=== PATIENT | female | born 1960 | race Two or more races ===

== ENCOUNTER 2017-11-14 15:17 | Inpatient (IN) | payer OTHER ==
[~2017-11-14] VITALS: Ht 165.1 cm; Wt 61.2 kg
[2017-11-14] MEDS ORDERED: VENTOLIN HFA18 GM INH (15:29)
[2017-11-14] MEDS ORDERED: ALBUTEROL1.25 MG/3 INH (15:29)
--- NOTE | 2017-11-14 21:45 | NUR ---
PT TRANSFER TO CCU FROM ED VIA STRETCH WITH HOLISTIC NUTRITIONIST. PT HAS FAMILY AT BEDSIDE. PT HR IS 100-120'S A.FLUTTER ON ARRIVAL. PT ASSISTED TO BED. LAB IN TO DRAW SCHEDULED LABS.
--- NOTE | 2017-11-14 22:15 | NUR ---
MD ON FLOOR. SPOKE WITH MD REGUARDING MEDICATION ON EMAR. PER ED STAFF PT DID NOT RECIEVE 2ND SCHEDULED DOSE OF DILTIAZEM, PT WAS NOT STARTED ON DILTIAZEM GTT, OR GIVEN INSULIN. PER MD DO NOT GIVE SCHEDULED NOVOLIN REGULAR SCHEDULED DOSE OF 12 UNTIS. BS IS 344 WILL GIVE CORRECTIONAL INSULIN SLIDING SCALE INSTEAD. DONT GIVE THE 2ND DOSE OF CARDIZEM INSTEAD JUST START PT ON DILTIAZEM GTT AND MONITOR.
--- NOTE | 2017-11-14 23:15 | NUR ---
CALLED MD TO REPORT TROPONIN LAB. MD ALREADY ORDERED LASIX. MD ORDERED ASPRIN AND LOVENOX TO BE STARTED TONIGHT WELL. UPDATED MD THAT PT HAS CONVERTED TO NORMAL SINUS RHYTHM WITH HR 95-110. PER MD CONTINUE DILTIAZEM GTT AND MONITOR BLOOD PRESSURES.
--- NOTE | 2017-11-14 23:17 | EKG ---
[facility] [address] [facility] [place], [place] [address] Signed Normal sinus rhythm Possible Left atrial enlargement Anteroseptal infarct , age undetermined Abnormal ECG No previous ECGs available Confirmed by BETTIE KEYES MD ([id number]) on 11/14/2017 11:17:22 PM Electronically Signed By: BETTIE KEYSE MD 11/14/17 2317 PATIENT NAME: JOHN PAUL MENG Electrocardiogram DATE OF : 62 PHYSICIAN: BETTIE KEYES MD REPORT #: [id number] REPORT IS CONFIDENTIAL AND NOT TO BE RELEASED WITHOUT AUTHORIZATION
--- NOTE | 2017-11-15 00:35 | NUR ---
PT UP TO BATHROOM WITH NO ISSUES. PT VOIDED 1000ML OF CLEAR YELLOW URINE. PT DENIES SOB AT THIS TIME. PT STATES "I SENT EVERYONE HOME BECAUSE THEY INCREASE MY ANXIETY". PT IS ABLE TO REST COMFORTABLY NOW IN BED. WILL CONTINUE TO CLOSELY MONITOR. PT DENIES ANY OTHER NEEDS AT THIS TIME. CALL LIGHT IN HAND.
--- NOTE | 2017-11-15 03:15 | NUR ---
PT CALLED TO GET UP TO BATHROOM. PT TOELRATED WELL. PT HR 100 NSR WHILE UP. PT ASSESSMENT COMPLTED AND UNCHANGED FROM PREVIOUS ASSESSMENTS. PT REMAINS ON 7.5MG/HR OF THE CARDIZEM GTT. PT HR WHILE RESTING IS TRENDING DOWN THROUGHOUT THE SHIFT. HR 86-96 AT THIS TIME. WILL CONTINUE TO CLSOELY MONITOR BP.
--- NOTE | 2017-11-15 05:15 | NUR ---
PT CALLED TO GET UP TO CAMMODE. PT TOLERATED WELL. PT REQUESTING TYLENOL FOR HEADACHE. PT STATES "I FEEL MUCH BETTER THAN I HAVE THE PAST FEW WEEKS". WILL CONTINUE TO CLSOELY MONITOR.
--- NOTE | 2017-11-15 06:23 | NUR ---
HAVE TRITRATED LEVOPHED DOWN FROM 20MCG/HR TO 10MCG/HR, MAPS GREATER THAN 65. PT IS SLEEPING OFF AND ON. HAD C/O CRAMPING R HIP, GIVEN WARM PACK WHICH SEEMED TO HELP.
--- NOTE | 2017-11-15 07:10 | NUR ---
SLEEPING. LEVOPHED TO 8MCG/HR. REPORT TO DAY SHIFT.
--- NOTE | 2017-11-15 07:11 | NUR ---
REPORT TO DAY SHIFT.
--- NOTE | 2017-11-15 07:28 | EKG ---
[facility] [address] [facility] [place], [place] [address] Signed Atrial flutter with variable AV block Septal infarct (cited on or before 14-NOV-2017) Abnormal ECG When compared with ECG of 14-NOV-2017 15:25, (Unconfirmed) Atrial flutter has replaced Sinus rhythm Questionable change in initial forces of Anterior leads Confirmed by BETTIE KEYES MD ([id number]) on 11/15/2017 7:28:24 AM Electronically Signed By: BETTIE KEYES MD 11/15/17 0728 PATIENT NAME: JOHN PAUL MNEG Electrocardiogram DATE OF : 62 PHYSICIAN: BETTIE KEYES MD REPORT #: [id number] REPORT IS CONFIDENTIAL AND NOT TO BE RELEASED WITHOUT AUTHORIZATION
--- NOTE | 2017-11-15 07:30 | NUR ---
report recieved at bedside.
--- NOTE | 2017-11-15 08:30 | NUR ---
TOOK BREAKFAST WELL. DR. KEYES HERE TO SEE PATIENT. IS RECEPTIVE TO TREATMENT, IS TALKATIVE, IS WILL TO TALK ABOUT HER PAST HEALTH. TEARY AT TIMES. ROUTINE MEDS GIVEN. WAS NOT ABLE TO DO BLOOD SUGAR HAD ALREADY EATEN BREAKFAST. DR. KEYES IS AWARE.
--- NOTE | 2017-11-15 09:10 | NUR ---
ECHO BEING DONE AT BEDSIDE.
--- NOTE | 2017-11-15 10:00 | NUR ---
ECHO COMPLETE. PATIENT DENEIS PROBLEMS.
--- NOTE | 2017-11-15 11:23 | NUR ---
DR. KEYES UPDATED ON PATIENT. ORDERS RECIEVED TO STEPHANY CHASE.
--- NOTE | 2017-11-15 12:06 | NUR ---
ASSESSMENT DONE. SITTING UP IN BED TO TAKE LUNCH. IS IN ROOM.
--- NOTE | 2017-11-15 13:25 | NUR ---
PT WILL BE TRANSFERRED TO [facility] TODAY. PATIENT IS AWARE.
--- NOTE | 2017-11-15 13:30 | NUR ---
HEPARIN GTT HUNG AT 1000 UNITS HR. 2ND IV SITE STARTED TO LEFT FA, 20 GA. DENIES CHEST PAIN OF PRESSURE. IS W/O C/O NAUSEA. FAMILY MEMBERS ARE IN ROOM.
--- NOTE | 2017-11-15 14:00 | NUR ---
MORPHINE 2 MG IV GIVEN FOR OVERALL COMFORT. PATIENT IS VERY ANXIOUS REGARDING TRANSFER. EMS HERE TO TAKE PATIENT TO [facility], REPORT TO THEM.
--- NOTE | 2017-11-15 14:18 | EKG ---
[facility] [address] [facility] [place] [address] Signed Normal sinus rhythm Septal infarct (cited on or before 14-NOV-2017) Abnormal ECG When compared with ECG of 14-NOV-2017 16:16, (Unconfirmed) Sinus rhythm has replaced Atrial flutter Confirmed by BETTIE KEYES MD ([id number]) on 11/15/2017 2:18:29 PM Electronically Signed By: BETTIE KEYES MD 11/15/17 1418 PATIENT NAME: MENGJOHN PAUL Electrocardiogram DATE OF : 62 PHYSICIAN: BETTIE KEYES MD REPORT #: [id number] REPORT IS CONFIDENTIAL AND NOT TO BE RELEASED WITHOUT AUTHORIZATION
--- NOTE | 2017-11-15 14:20 | NUR ---
TO [facility] VIA [facility]. HEPARIN GTT INFUSING AT 1000 UNITS/HR. LESS ANXIOUS AFTER MORPHINE GIVEN. DENIES CHEST PAIN, NAUSEA OR SHORTNESS OF BREATH.
--- NOTE | 2017-11-15 14:30 | NUR ---
REPORT PHONED TO [facility].
== END 2017-11-15 14:20 | disposition short-term general hospital (02) | DRG 281 ==
LOC: ED 15:17 → CCU 20:01
PROVIDERS: ADMIT Internal Medicine
DX: I48.0 Paroxysmal atrial fibrillation (principal); I21.4 Non-ST elevation (NSTEMI) myocardial infarction; J90 Pleural effusion, not elsewhere classified; E11.65 Type 2 diabetes mellitus with hyperglycemia; Z91.14 Patient's other noncompliance with medication regimen; I27.20 Pulmonary hypertension, unspecified; I34.0 Nonrheumatic mitral (valve) insufficiency; Z79.4 Long term (current) use of insulin
CPT/HCPCS: 36415; 71046; 71260; 80048; 80053; 82803; 83036; 83735; 83880; 84100; 84484; 85025; 93005; 93010; 93306; 96361; 96374; 99285; J1644; J1650; J2270; J7030; Q9967

== ENCOUNTER 2017-11-24 14:59 | Inpatient (IN) | payer OTHER ==
[~2017-11-24] VITALS: Ht 165.1 cm; Wt 59.6 kg
[~2017-11-24 14:59] MED LIST: ALBUTEROL1.25 MG/3 INH; VENTOLIN HFA18 GM INH
[2017-11-24] MEDS ORDERED: GLUCOPHAGE500 MG PO (15:22)
[2017-11-24] MEDS ORDERED: LANTUS100 UNITS/ SUB-Q (15:23)
[2017-11-24] MEDS ORDERED: ASPIR 8181 MG PO (15:24)
[2017-11-24] MEDS ORDERED: LIPITOR40 MG PO (15:25)
[2017-11-24] MEDS ORDERED: PLAVIX75 MG PO (15:25)
[2017-11-24] MEDS ORDERED: COREG3.125 MG PO (15:25)
[2017-11-24] MEDS ORDERED: ZESTRIL2.5 MG PO (15:26)
[2017-11-24] MEDS ORDERED: NITROSTAT0.4 MG SL (15:27)
--- NOTE | 2017-11-25 17:54 | EKG ---
[facility] [address] [facility] [place], [place] [address] Signed Normal sinus rhythm Anteroseptal infarct (cited on or before 14-NOV-2017) Abnormal ECG When compared with ECG of 15-NOV-2017 07:17, No significant change was found Confirmed by CATRACHITA CULVER MD ([id number]) on 11/25/2017 5:53:55 PM Electronically Signed By: CATRACHITA CULVER MD 11/25/17 1754 PATIENT NAME: JOHN PAUL MENG Electrocardiogram DATE OF : 62 PHYSICIAN: CATRCAHITA CULVER MD REPORT #: [id number] REPORT IS CONFIDENTIAL AND NOT TO BE RELEASED WITHOUT AUTHORIZATION
--- NOTE | 2017-11-25 17:58 | EKG ---
[facility] [address] [facility] [place] [address] Signed Atrial fibrillation with rapid ventricular response Cannot rule out Anteroseptal infarct (cited on or before 14-NOV-2017) Abnormal ECG When compared with ECG of 24-NOV-2017 15:08, (Unconfirmed) Atrial fibrillation has replaced Sinus rhythm Nonspecific T wave abnormality now evident in Inferior leads Confirmed by CATRACHITA CULVER MD ([id number]) on 11/25/2017 5:58:01 PM Electronically Signed By: CATRACHITA CULVER MD 11/25/17 1758 PATIENT NAME: JOHN PAUL MENG Electrocardiogram DATE OF : 62 PHYSICIAN: CATRACHITA CULVER MD REPORT #: [id number] REPORT IS CONFIDENTIAL AND NOT TO BE RELEASED WITHOUT AUTHORIZATION
[2017-11-26] MEDS ORDERED: ELIQUIS5 MG PO (15:02)
[2017-11-26] MEDS ORDERED: DIGOX125 MCG PO (15:03)
[2017-11-26] MEDS ORDERED: TOPROL XL100 MG PO (15:05)
[2017-11-26] MEDS ORDERED: MAG-OXIDE400 MG PO (15:06)
[2017-11-26] MEDS ORDERED: HYDROXYZINE PAM25 MG PO (15:06)
[2017-11-26] MEDS ORDERED: LANTUS100 UNITS/ SUB-Q (15:07)
[2017-11-26] MEDS ORDERED: NOVOLOG100 UNIT/2 SUB-Q (15:09)
== END 2017-11-26 17:54 | disposition home or self-care (01) | DRG 308 ==
LOC: ED 14:59 → CCU 20:27
PROVIDERS: ADMIT Internal Medicine
DX: I48.0 Paroxysmal atrial fibrillation (principal); I63.9 Cerebral infarction, unspecified; I50.20 Unspecified systolic (congestive) heart failure; I25.10 Atherosclerotic heart disease of native coronary artery without angina pectoris; E78.5 Hyperlipidemia, unspecified; E11.65 Type 2 diabetes mellitus with hyperglycemia; I11.0 Hypertensive heart disease with heart failure; H53.8 Other visual disturbances; Z79.84 Long term (current) use of oral hypoglycemic drugs; Z79.4 Long term (current) use of insulin; I25.2 Old myocardial infarction
CPT/HCPCS: 36415; 70551; 80048; 80053; 80162; 83735; 84443; 84484; 85025; 85610; 90674; 93005; 93010; 96365; 96366; 99285; G0008; J1160; J3475; J7040; J7120; Q0177

== ENCOUNTER 2020-03-18 09:15 | Emergency (ER) | payer OTHER ==
[~2020-03-18] VITALS: Ht 165.1 cm; Wt 61.2 kg
--- OUTSIDE RECORDS SUMMARY | ~2020-03-18 | XMS | Encounter Summary ---
Demographics + + + | Address | [address] | | | [place] [address] | + + + | Home Phone | | + + + | Preferred Language | Unknown | + + + | Marital Status | | + + + | Scientology Affiliation | Unknown | + + + | Race | Unknown | + + + | Ethnic Group | Unknown | + + + Author + + + | Author | [facility] | | | and [place] | + + + | Organization | [facility] | | | and [place] | + + + | Address | Unknown | + + + | Phone | Unavailable | + + + Support + + +---------+ + | Name | Relationship | Address | Phone | + + +---------+ + | Mateo Selfman | ECON | Unknown | | + + +---------+ + Care Team Providers + +------+ + | Care Rough Rounder Name | Role | Phone | + +------+ + | Pauly Perez PA-C | PCP | | + +------+ + Encounter Details +--------+ + + + + | Date | Type | Department | Care Team | Description | +--------+ + + + + | 12/14/ | Hospital | [facility] | Stephen Baker MD | Atrial fibrillation, | | 2018 | Encounter | [facility] | [address] | unspecified type | | | | MEDICINE [address] | [place], [place] | (HCC) | | | | [place], | [address] | | | | | [place] [address] | | | | | | [phone] | | | +--------+ + + + + Social History + +-------+ +--------+------+ | Tobacco Use | Types | Packs/Day | Years | Date | | | | | Used | | + +-------+ +--------+------+ | Smoker, Current | | | | | | Status Unknown | | | | | + +-------+ +--------+------+ + +---+---+---+ | Smokeless Tobacco: | | | | | Former User | | | | + +---+---+---+ + + +---------+ + | Alcohol Use | Drinks/Week | oz/Week | Comments | + + +---------+ + | No | | | | + + +---------+ + + + + | Sex Assigned at | Date Recorded | | | | + + + | Not on file | | + + + + + + + | Job Start Date | Occupation | Industry | + + + + | Not on file | Not on file | Not on file | + + + + + + + + | Travel History | Travel Start | Travel End | + + + + + + | No recent travel history available. | + + documented as of this encounter Medications at Time of Discharge + + + +---------+ + + | Medication | Sig | Dispensed | Refills | Start | End Date | | | | | | Date | | + + + +---------+ + + | acetaminophen | Take 325-650 mg by | | 0 | | | | (TYLENOL) 325 mg | mouth EVERY 4 TO 6 | | | | | | tablet | HOURS NEEDED for | | | | | | | Pain or Fever. | | | | | + + + +---------+ + + | nitroglycerin | Place 1 tablet under | 25 | 11 | 11/19/19 | | | (NITROSTAT) 0.4 mg | the tongue every 5 | tablet | | 18 | | | SL tablet | minutes as needed | | | | | | | for Chest pain. | | | | | + + + +---------+ + + | albuterol 2.5 mg/3 | Take 2.5 mg by | | 0 | | | | mL nebulizer | nebulization 4 times | | | | 8 | | solution | daily as needed for | | | | | | | Wheezing. | | | | | + + + +---------+ + + | ALPRAZolam (XANAX) | Take 0.25-0.75 mg by | | 0 | | | | 0.25 mg tablet | mouth 3 times daily | | | | 8 | | | as needed. | | | | | + + + +---------+ + + | aspirin 81 mg | Take 1 tablet by | 30 | 11 | 11/19/19 | | | chewable tablet | mouth Daily. | tablet | | 18 | 8 | + + + +---------+ + + | atorvaSTATin | Take 1 tablet by | 30 | 11 | 11/19/19 | | | (LIPITOR) 40 mg | mouth nightly. | tablet | | 18 | 0 | | tablet | | | | | | + + + +---------+ + + | carvedilol (COREG) | Take 1 tablet by | 60 | 11 | 11/19/19 | | | 3.125 mg tablet | mouth 2 times daily | tablet | | 18 | 8 | | | (with breakfast & | | | | | | | dinner). | | | | | + + + +---------+ + + | clopidogrel | Take 1 tablet by | 30 | 11 | 11/19/19 | | | (PLAVIX) 75 mg | mouth Daily. | tablet | | 18 | 0 | | tablet | | | | | | + + + +---------+ + + | insulin glargine | Inject 7 Units under | 10 pen | 1 | 11/19/19 | | | (LANJaceUS RUEDAOSTAR) | the skin nightly. | | | 18 | 0 | | 100 units/mL | | | | | | | injection (pen) | | | | | | + + + +---------+ + + | lisinopril | Take 1 tablet by | 30 | 11 | 11/19/19 | | | (PRINIVIL,ZESTRIL) | mouth nightly. | tablet | | 18 | 8 | | 2.5 MG tablet | | | | | | + + + +---------+ + + | losartan (COZAAR) | Take 25 mg by mouth | | 0 | | | | 25 mg tablet | Daily. | | | | 8 | + + + +---------+ + + | metoprolol | Take 100 mg by mouth | | 0 | | | | succinate | Daily. | | | | 0 | | (TOPROL-XL) 100 mg | | | | | | | ER tablet | | | | | | + + + +---------+ + + documented as of this encounter Plan of Treatment + +------+--------+ + + | Name | Type | Priori | Associated Diagnoses | Order Schedule | | | | ty | | | + +------+--------+ + + | Holter monitor - 48 | ECG | Routin | Atrial | 1 Occurrences | | hour | | e | fibrillation, | starting 12/14/2017 | | | | | unspecified type | until 12/14/2017 | | | | | (HCC) | | + +------+--------+ + + documented as of this encounter Visit Diagnoses + + | Diagnosis | + + | Atrial fibrillation, unspecified type (HCC) | + + documented in this encounter"
--- OUTSIDE RECORDS SUMMARY | ~2020-03-18 | XMS | Encounter Summary ---
Demographics + + + | Address | [address] | | | [place] [address] | + + + | Home Phone | | + + + | Preferred Language | Unknown | + + + | Marital Status | | + + + | Voodoo Affiliation | Unknown | + + + | Race | Unknown | + + + | Ethnic Group | Unknown | + + + Author + + + | Author | [facility] | | | and [place] | + + + | Organization | [facility] | | | [...] Team Providers + +------+ + | Care Assistant Winemaker Name | Role | Phone | + +------+ + | Pauly Perez PA-C | PCP | | + +------+ + Reason for Visit +--------+ + | Reason | Comments | +--------+ + | Other | | +--------+ + Encounter Details +--------+ + + + + | Date | Type | Department | Care Team | Description | +--------+ + + + + | 12/18/ | Telephone | [facility] | Stephen Baker MD | Other | | 2018 | | CARDIOLOGY [address] | | | | | [place], | [place], [place] | | | | | [place] [address] | [address] | | | | | [phone] | | | +--------+ + + + [...] as of this encounter Plan of Treatment Not on filedocumented as of this encounter Visit Diagnoses Not on filedocumented in this encounter"
--- OUTSIDE RECORDS SUMMARY | ~2020-03-18 | XMS | Encounter Summary ---
Demographics + + + | Address | [address] | | | [place] [address] | + + + | Home Phone | | + + + | Preferred Language | Unknown | + + + | Marital Status | | + + + | Church Affiliation | Unknown | + + + | Race | Unknown | + + + | Ethnic Group | Unknown | + + + Author + + + | Author | [facility] | | | and [place] | + + + | Organization | [facility] | | | and [...] Team Providers + +------+ + | Care Yam Curer Name | Role | Phone | + +------+ + | Pauly Perez PA-C | PCP | | + +------+ + Encounter Details +--------+ + + + + | Date | Type | Department | Care Team | Description | +--------+ + + + + | 05/17/ | Hospital | C GENERIC IP | Conversion | Pain | | 2018 | Encounter | CONVERSION [address] | Transaction, | | | | | [address] | Provider Unknown | | | | | [place], [place] | [phone] | | | | | [address] | | | | | | [phone] | | | +--------+ + + + [...] + + | losartan (COZAAR) | Take 1 tablet by | 90 | 3 | 01/05/20 | | | 25 mg tablet | mouth Daily. | tablet | | 18 | | + + + +---------+ + + | metFORMIN | Take 1,000 mg by | | 0 | | | | (GLUCOPHAGE) 1000 MG | mouth 2 times daily | | | | | | tablet | (with breakfast & | | | [...] + + + +---------+ + + | apixaban (ELIQUIS) | Take 5 mg by mouth 2 | | 0 | | | | 5 mg tablet | times daily. | | | | 0 | + + + +---------+ + + [...] | 1 | 11/19/19 | | | (LANTUS SOLOSTAR) | the skin nightly. | | | 18 | 0 | | 100 units/mL | | | | | | | injection (pen) | | | | | | + + + +---------+ + + | magnesium oxide | Take 400 mg by mouth | | 0 | | | | (MAG-OX) 400 mg | Daily. | | | | 0 | | tablet | | [...] Not on filedocumented as of this encounter Procedures + +--------+ + + + | Procedure Name | Priori | Date/Time | Associated Diagnosis | Comments | | | ty | | | | + +--------+ + + + | CV CARDIAC PROCEDURE | Routin | 11/16/2017 | | Results for this | | | e | 11:25 PM | | procedure are in the | | | | PST | | results section. | + +--------+ + + + documented in this encounter Results CV CARDIAC PROCEDURE (11/16/2017 11:25 PM PST) + + | Specimen | + + | | + + + + + | Narrative | Performed At | + + + | This is a non-reportable procedure without a radiologist report and | | | is used for image storage only | | + + + + + | Procedure Note | + + | Lavell Clark Conversion - 06/05/2019 3:56 PM PDT This is a non-reportable procedure | | without a radiologist report and isused for image storage only | + + documented in this encounter Visit Diagnoses + + | Diagnosis | + + | Pain Generalized pain | + + documented in this encounter"
--- OUTSIDE RECORDS SUMMARY | ~2020-03-18 | XMS | Encounter Summary ---
Demographics + + + | Address | [address] | | | [place] [address] | + + + | Home Phone | | + + + | Preferred Language | Unknown | + + + | Marital Status | | + + + | Mandaen Affiliation | Unknown | + + + | Race | Unknown | + + + | Ethnic Group | Unknown | + + + Author + + + | Author | [facility] | | | and [place] | + + + | Organization | [facility] | | | and [place] | + + + | Address | Unknown | + + + | Phone | Unavailable | + + + Support + + +---------+ + | Name | Relationship | Address | Phone | + + +---------+ + | Mateo Lahtam | ECON | Unknown | | + + +---------+ + Care Team Providers + +------+ + | Care Van Loader Name | Role | Phone | + +------+ + | Pauly Perez PA-C | PCP | | + +------+ + Encounter Details +--------+ + + + + | Date | Type | Department | Care Team | Description | +--------+ + + + + | 12/14/ | Documentati | [facility] [place] | Stephen Baker MD | | | 2018 | on | CARDIOLOGY [address] | | | | | [place], | [place], [place] | | | | | [place] [address] | [address] | | | | | [phone] | | | +--------+ + + + [...]
--- OUTSIDE RECORDS SUMMARY | ~2020-03-18 | XMS | Encounter Summary ---
Demographics + + + | Address | [address] [facility] | | | [place] [address] | + + + | Home Phone | | + + + | Preferred Language | Unknown | + + + | Marital Status | | + + + | Islam Affiliation | Unknown | + + + | Race | Unknown | + + + | Ethnic Group | Unknown | + + + Author + + + | Author | [facility] | | | and [place] | + + + | Organization | [facility] | | | and [place] | + + + | Address | Unknown | + + + | Phone | Unavailable | + + + Support + + +---------+ + | Name | Relationship | Address | Phone | + + +---------+ + | Mateo Latham | ECON | Unknown | | + + +---------+ + Care Team Providers + +------+ + | Care Documentation Clerk Name | Role | Phone | + +------+ + | Pauly Perez PA-C | PCP | | + +------+ + Encounter Details +--------+ + + + + | Date | Type | Department | Care Team | Description | +--------+ + + + + | 11/15/ | Orders Only | [facility] | Aide Antunez, | | | 2018 | | CONVERSION [address] | [address] | | | | | [address] | [place] | | | | | [facility] [place] | [address] | | | | | [address] | | | | | | [phone] | | | +--------+ + + + [...] | + +--------+ + + + | ECHO INTERPRETATION | Routin | 11/15/2017 | | Results for this | | OF OUTSIDE FILMS | e | 11:46 AM | | procedure are in the | | | | PST | | results section. | + +--------+ + + + documented in this encounter Results ECHO Interpretation of Outside Films (11/15/2017 11:46 AM PST) + + | Specimen | + + | | + + + + + | Impressions | Performed At | + + + | 1. The left ventricle is normal in size, wall thickness and | | | moderately impaired systolic function EF 35-40%. Akinetic mid and | | | apical segments and hypokinesis in the basal segments. 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 | | | 2. The right ventricle is normal in size and function. 3. Moderate | | | mitral regurgitation and moderately enlarged left atrium. 4. Mild | | | tricuspid regurgitation with moderate to severe pulmonary hypertension | | | RVSP 62 mmHg. 5. There is no pericardial effusion. | | + + + + + + | Narrative | Performed At | + + + | Patient Name: Luciana Latham Date of : 1960 | | | Performing Physician: Nani Rocha | | | | | | INDICATIONS inpatient, new onset afib, edema | | | CONCLUSIONS 1. The left ventricle is normal in size, | | | wall thickness and moderately impaired systolic function EF 35-40%. | | | Akinetic mid and apical segments and hypokinesis in the basal | | | segments. Wall motion is consistent with Takotsubo Vs multivessel | | | coronary artery disease. 2. The right ventricle is normal in size | | | and function. 3. Moderate mitral regurgitation and moderately | | | enlarged left atrium. 4. Mild tricuspid regurgitation with moderate | | | to severe pulmonary hypertension RVSP 62 mmHg. 5. There is no | | | pericardial effusion. FINDINGS -------- ECG rhythm: Sinus | | | rhythm. Study: A 2-dimensional transthoracic echocardiogram with | | | m-mode, spectral and color flow Doppler was perfomed. Study: This was | | | a technically adequate study. Left Ventricle: Overall left | | | ventricular systolic function is moderate impaired with, an EF between | | | 30 - 35 %. Left Ventricle: The left ventricle cavity size is normal. | | | Left Ventricle: Left ventricular wall thickness is normal. Left | | | Ventricle: No TDI was done to evaluate diastology. Akinetic mid and | | | apical segments and hypokinesis in the basal segments. Right | | | Ventricle: The right ventricle is normal in size and function. Left | | | Atrium: The left atrium is moderately dilated. Right Atrium: The | | | right atrium is normal in size. Aortic Valve: The aortic valve is | | | trileaflet and appears structurally normal. Aortic Valve: Trace | | | amount of aortic regurgitation. Aortic Valve: There is no evidence of | | | aortic stenosis. Mitral Valve: The mitral valve is normal. Mitral | | | Valve: Moderate mitral regurgitation is present. Tricuspid Valve: The | | | tricuspid valve appears structurally normal. Tricuspid Valve: Mild | | | tricuspid regurgitation present. Tricuspid Valve: There is moderate | | | to severe pulmonary hypertension. Tricuspid Valve: The right | | | ventricular systolic pressure (pulmonary artery systolic pressure), as | | | measured by Doppler, is 62.15mmHg. Pulmonic Valve: The pulmonic | | | valve was not well visualized. Pulmonic Valve: Trace pulmonic | | | regurgitation. Pericardium: There is no pericardial effusion. | | | Pericardium: No pleural effusion seen. IVC/Hepatic Veins: The | | | inferior vena cava is normal in size and collapses > 50 % with sniff, | | | indicating normal central venous pressures. Aorta: The aortic root, | | | ascending aorta and aortic arch are normal. MEASUREMENTS | | | Ao sinus: 3.[address] junct: 2.42 cm LA Diam: | | | 4.47 cm EDV(Teich): 132.25 ml IVSd: 0.78 cm LVIDd: | | | 5.24 cm LVPWd: 0.86 cm LVOT Area: 3.35 cm2 LVOT Diam: 2.06 | | | cm %FS: 28.15 % EF(Teich): 54.03 % ESV(Teich): 60.79 ml | | | LVIDs: 3.77 cm SV(Teich): 71.46 ml RVIDd: 2.72 cm LVEF MOD | | | A2C: 37.23 % SV MOD A2C: 56.94 ml LVEF MOD A4C: 35.60 % | | | SV MOD A4C: 45.60 ml EF Biplane: 36.09 % LVEDV MOD BP: | | | 140.14 ml LVESV MOD BP: 89.55 ml LVEDV MOD A2C: 152.94 ml | | | LVLd A2C: 9.09 cm LVEDV MOD A4C: 128.07 ml LVLd A4C: 9.05 | | | cm LVESV MOD A2C: 96.00 ml LVLs A2C: 8.28 cm LVESV MOD A4C: | | | 82.46 ml LVLs A4C: 8.42 cm LAESV(A-L): 67.52 ml LAESV | | | Index (A-L): 40.67 ml/m2 LAAs A2C: 21.22 cm2 LAESV A-L A2C: | | | 78.51 ml LALs A2C: 4.86 cm LAAs A4C: 17.59 cm2 LAESV A-L | | | A4C: 55.97 ml LALs A4C: 4.69 cm RAAs: 13.28 cm2 RAESV A-L: | | | 38.30 ml RAESV MOD: 36.11 ml RALs: 3.91 cm TAPSE: 1.86 | | | cm AV maxP.48 mmHg AV meanP.97 mmHg AV Vmax: 1.17 | | | m/s AV Vmean: 0.80 m/s AV VTI: 17.18 cm SAM Vmax: 1.93 | | | cm2 SAM (VTI): 2.02 cm2 AVAI Vmax: 0.00 cm2/m2 AVAI (VTI): | | | 0.00 cm2/m2 LVOT maxP.83 mmHg LVOT meanP.85 mmHg | | | LVSI Dopp: 20.96 ml/m2 LVSV Dopp: 34.79 ml LVOT Vmax: 0.67 | | | m/s LVOT Vmean: 0.42 m/s LVOT VTI: 10.37 cm MV A Eddie: 0.55 | | | m/s MV DecT: 151.92 ms MV E Eddie: 1.13 m/s MV E/A Ratio: | | | 2.02 MV PHT: 44.05 ms MVA By PHT: 4.99 cm2 RAP: 12 mmHg | | | RVSP: 62.15 mmHg TR maxP.15 mmHg TR Vmax: 3.54 m/s | | | Director Of Ancillary Services: Authenticated by: Nani Vernon Report Date/Time: | | | 11-15-2017 19:19:25 | | + + + + + | Procedure Note | + + | Lavell Clark Conversion - 06/06/2019 5:21 PM PDT Patient Name: Layton Latham of | | : 1960 Performing Physician: Nani | | [place] INDICATIONS------ | | -----inpatient, new onset afib, edema CONCLUSIONS 1. The left ventricle is | | normal in size, wall thickness and moderately impaired systolic function EF 35-40%. | | Akinetic mid and apical segments and hypokinesis in the basal segments. 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 The right ventricle | | is normal in size and function.3. Moderate mitral regurgitation and moderately enlarged | | left atrium.4. Mild tricuspid regurgitation with moderate to severe pulmonary | | hypertension RVSP 62 mmHg.5. There is no pericardial effusion. FINDINGS--------ECG | | rhythm: Sinus rhythm.Study: A 2-dimensional transthoracic echocardiogram with m-mode, | | spectral and color flow Doppler was perfomed.Study: This was a technically adequate | | study.Left Ventricle: Overall left ventricular systolic function is moderate impaired | | with, an EF between 30 - 35 %.Left Ventricle: The left ventricle cavity size is | | normal.Left Ventricle: Left ventricular wall thickness is normal.Left Ventricle: No TDI | | was done to evaluate diastology. Akinetic mid and apical segments and hypokinesis in the | | basal segments.Right Ventricle: The right ventricle is normal in size and function.Left | | Atrium: The left atrium is moderately dilated.Right Atrium: The right atrium is normal | | in size.Aortic Valve: The aortic valve is trileaflet and appears structurally | | normal.Aortic Valve: Trace amount of aortic regurgitation.Aortic Valve: There is no | | evidence of aortic stenosis.Mitral Valve: The mitral valve is normal.Mitral Valve: | | Moderate mitral regurgitation is present.Tricuspid Valve: The tricuspid valve appears | | structurally normal.Tricuspid Valve: Mild tricuspid regurgitation present.Tricuspid | | Valve: There is moderate to severe pulmonary hypertension.Tricuspid Valve: The right | | ventricular systolic pressure (pulmonary artery systolic pressure), as measured by | | Doppler, is 62.15mmHg.Pulmonic Valve: The pulmonic valve was not well | | visualized.Pulmonic Valve: Trace pulmonic regurgitation.Pericardium: There is no | | pericardial effusion.Pericardium: No pleural effusion seen.IVC/Hepatic Veins: The | | inferior vena cava is normal in size and collapses > 50 % with sniff, indicating normal | | central venous pressures.Aorta: The aortic root, ascending aorta and aortic arch are | | normal. MEASUREMENTS Ao sinus: 3.[address] junct: 2.42 cmLA Diam: | | 4.47 cmEDV(Teich): 132.25 mlIVSd: 0.78 cmLVIDd: 5.24 cmLVPWd: 0.86 cmLVOT Area: | | 3.35 [id number] Diam: 2.06 cm%FS: 28.15 %EF(Teich): 54.03 %ESV(Teich): 60.79 | | mlLVIDs: 3.77 cmSV(Teich): 71.46 mlRVIDd: 2.72 cmLVEF MOD A2C: 37.23 %SV MOD | | A2C: 56.94 mlLVEF MOD A4C: 35.60 %SV MOD A4C: 45.60 mlEF Biplane: 36.09 %LVEDV | | MOD BP: 140.14 mlLVESV MOD BP: 89.55 mlLVEDV MOD A2C: 152.94 mlLVLd A2C: 9.09 | | cmLVEDV MOD A4C: 128.07 mlLVLd A4C: 9.05 cmLVESV MOD A2C: 96.00 mlLVLs A2C: 8.28 | | cmLVESV MOD A4C: 82.46 mlLVLs A4C: 8.42 cmLAESV(A-L): 67.52 mlLAESV Index (A-L): | | 40.67 ml/m2LAAs A2C: 21.22 [id number] A-L A2C: 78.51 mlLALs A2C: 4.86 cmLAAs A4C: | | 17.59 [id number] A-L A4C: 55.97 mlLALs A4C: 4.69 cmRAAs: 13.28 [id number] A-L: | | 38.30 mlRAESV MOD: 36.11 mlRALs: 3.91 cmTAPSE: 1.86 cmAV maxP.48 mmHgAV | | meanP.97 mmHgAV Vmax: 1.17 m/Alexia Vmean: 0.80 m/Alexia VTI: 17.18 cmAVA Vmax: | | 1.93 cm2AVA (VTI): 2.02 [id number] Vmax: 0.00 cm2/m2AVAI (VTI): 0.00 cm2/m2LVOT | | maxP.83 mmHgLVOT meanP.85 mmHgLVSI Dopp: 20.96 ml/m2LVSV Dopp: 34.79 | | mlLVOT Vmax: 0.67 m/sLVOT Vmean: 0.42 m/sLVOT VTI: 10.37 cmMV A Eddie: 0.55 m/sMV | | DecT: 151.92 msMV E Eddie: 1.13 m/sMV E/A Ratio: 2.02MV PHT: 44.05 msMVA By PHT: | | 4.99 cm2RAP: 12 mmHgRVSP: 62.15 mmHgTR maxP.15 mmHgTR Vmax: 3.54 m/s | | Director Of Ancillary Services:Authenticated by: Nani [facility] Date/Time: 11-15-2017 19:19:25 | | IMPRESSION: 1. The left ventricle is normal in size, wall thickness and moderately | | impaired systolic function EF 35-40%. Akinetic mid and apical segments and hypokinesis | | in the basal segments. Wall motion is consistent with Takotsubo Vs multivessel coronary | | artery disease.2. The right ventricle is normal in size and function.3. Moderate mitral | | regurgitation and moderately enlarged left atrium.4. Mild tricuspid regurgitation with | | moderate to severe pulmonary hypertension RVSP 62 mmHg.5. There is no pericardial | | effusion. | |EDV(Teich): 132.25 ml | |IVSd: 0.78 cm | |LVIDd: 5.24 cm | |LVPWd: 0.86 cm | |LVOT Area: 3.35 cm2 | |LVOT Diam: 2.06 cm | |%FS: 28.15 % | |EF(Teich): 54.03 % | |ESV(Teich): 60.79 ml | |LVIDs: 3.77 cm | |SV(Teich): 71.46 ml | |RVIDd: 2.72 cm | |LVEF MOD A2C: 37.23 % | |SV MOD A2C: 56.94 ml | |LVEF MOD A4C: 35.60 % | |SV MOD A4C: 45.60 ml | |EF Biplane: 36.09 % | |LVEDV MOD BP: 140.14 ml | |LVESV MOD BP: 89.55 ml | |LVEDV MOD A2C: 152.94 ml | |LVLd A2C: 9.09 cm | |LVEDV MOD A4C: 128.07 ml | |LVLd A4C: 9.05 cm | |LVESV MOD A2C: 96.00 ml | |LVLs A2C: 8.28 cm | |LVESV MOD A4C: 82.46 ml | |LVLs A4C: 8.42 cm | |LAESV(A-L): 67.52 ml | |LAESV Index (A-L): 40.67 ml/m2 | |LAAs A2C: 21.22 cm2 | |LAESV A-L A2C: 78.51 ml | |LALs A2C: 4.86 cm | |LAAs A4C: 17.59 cm2 | |LAESV A-L A4C: 55.97 ml | |LALs A4C: 4.69 cm | |RAAs: 13.28 cm2 | |RAESV A-L: 38.30 ml | |RAESV MOD: 36.11 ml | |RALs: 3.91 cm | |TAPSE: 1.86 cm | |AV maxP.48 mmHg | |AV meanP.97 mmHg | |AV Vmax: 1.17 m/s | |AV Vmean: 0.80 m/s | |AV VTI: 17.18 cm | |SAM Vmax: 1.93 cm2 | |SAM (VTI): 2.02 cm2 | |AVAI Vmax: 0.00 cm2/m2 | |AVAI (VTI): 0.00 cm2/m2 | |LVOT maxP.83 mmHg | |LVOT meanP.85 mmHg | |LVSI Dopp: 20.96 ml/m2 | |LVSV Dopp: 34.79 ml | |LVOT Vmax: 0.67 m/s | |LVOT Vmean: 0.42 m/s | |LVOT VTI: 10.37 cm | |MV A Eddie: 0.55 m/s | |MV DecT: 151.92 ms | |MV E Eddie: 1.13 m/s | |MV E/A Ratio: 2.02 | |MV PHT: 44.05 ms | |MVA By PHT: 4.99 cm2 | |RAP: 12 mmHg | |RVSP: 62.15 mmHg | |TR maxP.15 mmHg | |TR Vmax: 3.54 m/s | | | |Director Of Ancillary Services: | |Authenticated by: Nani Rcoha | |Report Date/Time: 11-15-2017 19:19:25 | | | |IMPRESSION: | |1. The left ventricle is normal in size, wall thickness and moderately impaired systolic fu nction EF 35-40%. Akinetic mid and apical segments and hypokinesis in the basal segments. Wa ll motion is consistent with | |Takotsubo Vs multivessel coronary artery | |disease. | |2. The right ventricle is normal in size and function. | |3. Moderate mitral regurgitation and moderately enlarged left atrium. | |4. Mild tricuspid regurgitation with moderate to severe pulmonary hypertension RVSP 62 mmHg . | |5. There is no pericardial effusion. | + + documented in this encounter Visit Diagnoses Not on filedocumented in this encounter"
--- OUTSIDE RECORDS SUMMARY | ~2020-03-18 | XMS | Encounter Summary ---
Demographics + + + | Address | [address] | | | [place] [address] | + + + | Home Phone | | + + + | Preferred Language | Unknown | + + + | Marital Status | | + + + | Gnosticism Affiliation | Unknown | + + + | Race | Unknown | + + + | Ethnic Group | Unknown | + + + Author + + + | Author | [facility] | | | and [place] | + + + | Organization | [facility] | | | [...] Team Providers + +------+ + | Care Vacuum Technician Name | Role | Phone | + +------+ + | Pauly Perez PA-C | PCP | | + +------+ + Reason for Visit + + + | Reason | Comments | + + + | Appointment | Schedule earlier appointment | + + + Encounter Details +--------+ + + + + | Date | Type | Department | Care Team | Description | +--------+ + + + + | 12/27/ | Telephone | [facility] | Stephen Baker MD | Appointment | | 2017 | | CARDIOLOGY [address] | (Schedule earlier | | | | [facility], | [place], [place] | appointment) | | | | [place] [address] | [address] | | | | | [phone] | | | +--------+ + + + [...]
--- OUTSIDE RECORDS SUMMARY | ~2020-03-18 | XMS | Encounter Summary ---
Demographics + + + | Address | [address] | | | [place] [address] | + + + | Home Phone | | + + + | Preferred Language | Unknown | + + + | Marital Status | | + + + | Christianity Affiliation | Unknown | + + + | Race | Unknown | + + + | Ethnic Group | Unknown | + + + Author + + + | Author | [facility] | | | and [place] | + + + | Organization | [facility] | | | [...] Team Providers + +------+ + | Care Oracle Distribution Consultant Name | Role | Phone | + +------+ + | Pauly Perez PA-C | PCP | | + +------+ + Reason for Visit Auth/Cert +--------+--------+ + + + + | Status | Reason | Specialty | Diagnoses / | Referred By | Referred To | | | | | Procedures | Contact | Contact | +--------+--------+ + + + + | | | | Diagnoses | | | | | | | CHF Chest | | | | | | | Pain | | | | | | | Procedures | | | | | | | CV Cor Angio | | | +--------+--------+ + + + + Encounter Details +--------+ + + + + | Date | Type | Department | Care Team | Description | +--------+ + + + + | 11/15/ | Hospital | [facility] | Stephen Baker MD | Acute systolic | | 2018 - | Encounter | [facility] | [address] | congestive heart | | | | [address] | [place] | failure (HCC) | | 11/19/ | | [place] [address] | [id number] | | | 2017 | | [phone] | | | +--------+ + + + [...] + + documented as of this encounter Last Filed Vital Signs + + + + + | Vital Sign | Reading | Time Taken | Comments | + + + + + | Blood Pressure | 97/63 | 11/19/2017 7:50 AM | | | | | PST | | + + + + + | Pulse | 81 | 11/19/2017 7:25 AM | | | | | PST | | + + + + + | Temperature | 36.8 C (98.2 F) | 11/19/2017 7:25 AM | | | | | PST | | + + + + + | Respiratory Rate | 18 | 11/19/2017 7:25 AM | | | | | PST | | + + + + + | Oxygen Saturation | 96% | 11/19/2017 7:25 AM | | | | | PST | | + + + + + | Inhaled Oxygen | - | - | | | Concentration | | | | + + + + + | Weight | 59.7 kg (131 lb 9.8 | 11/19/2017 4:14 AM | | | | oz) | PST | | + + + + + | Height | 165.1 cm (5' 5") | 11/15/2017 3:34 PM | | | | | PST | | + + + + + | Body Mass Index | 21.9 | 11/15/2017 3:34 PM | | | | | PST | | + + + + + documented in this encounter Discharge Summaries Stephen Baker MD - 11/19/2017 8:16 AM PST ECG changes; [facility] home (0 ve 1 year follow-up target versus signs 6.2% [place], [place] HOSPITALIST DISCHARGE SUMMARY Pt. Name/Age/: Luciana Latham 57 y.o. 1960 Date of Admission: 11/15/2017 Date of Discharge: 11/19/2017 Admitting Physician: Stephen Simmons MD Primary Care Provider: Pauly Perez PA-C Discharging Physician: Stephen Baker MD DISCHARGE DIAGNOSES: There are no hospital problems to display for this patient. 1. Congestive heart failure likely secondary to recent anterior myocardial infarction 2. Coronary atherosclerosis: Total LAD occlusion, moderate left circumflex disease, severe right PDA disease, RPDA ROBIN PCI 11/16/17 3. Type II diabetes mellitus, poorly controlled 4. Dyslipidemia 5. Paroxysmal atrial fibrillation/flutter DISCHARGE MEDICATIONS: Discharge Medications New Medications Details aspirin 81 mg chewable tablet Replaces: aspirin 81 MG tablet Take 1 tablet by mouth Daily. atorvaSTATin 40 mg tablet Take 1 tablet by mouth nightly. aka: LIPITOR carvedilol 3.125 mg tablet Take 1 tablet by mouth 2 times daily (with breakfast & dinner). aka: COREG clopidogrel 75 mg tablet Take 1 tablet by mouth Daily. aka: PLAVIX insulin glargine 100 units/mL injection (pen) Inject 7 Units under the skin nightly. aka: LANTUS SOLOSTAR lisinopril 2.5 MG tablet Take 1 tablet by mouth nightly. aka: PRINIVIL,ZESTRIL nitroglycerin 0.[address] 1 tablet under the tongue every 5 minutes as needed for Chest pain. aka: NITROSTAT Changed Medications Details ALPRAZolam 0.25 mg tablet Take 0.25-0.75 mg by mouth 3 times daily as needed. What changed: Another medication with the same name was removed. Continue taking this medi cation, and follow the directions you see here. aka: XANAX HYDROcodone-acetaminophen 5-325 mg per tablet Take 1 tablet by mouth EVERY 4 TO 6 HOURS NEEDED for Pain. What changed: Another medication with the same name was removed. Continue taking this medi cation, and follow the directions you see here. aka: NORCO Unchanged Medications Details acetaminophen 325 mg tablet Take 325-650 mg by mouth EVERY 4 TO 6 HOURS NEEDED for Pain or Fever. aka: TYLENOL albuterol 2.5 mg/3 mL nebulizer solution Take 2.5 mg by nebulization 4 times daily as needed for Wheezing. Discontinued Medications aspirin 81 MG tablet Replaced by: aspirin 81 mg chewable tablet buPROPion 300 mg 24 hr tablet aka: WELLBUTRIN XL cyclobenzaprine 10 mg tablet aka: FLEXERIL ergocalciferol 50,000 units capsule aka: VITAMIN D-2 gabapentin 300 mg capsule aka: NEURONTIN hydroCHLOROthiazide 25 mg tablet phentermine 37.5 mg tablet aka: ADIPEX-P simvastatin 20 mg tablet aka: ZOCOR SitaGLIPtin-MetFORMIN HCl 50-1000 MG Tb24 telmisartan 80 MG tablet aka: [facility]: Please refer to the H&P for full details and the most recent rounding rounding (progress) n ote. In short 57-year-old woman transferred from [facility] in [place], [place] on after being admitted with symptoms of congestive heart failure pulmonary edema and atr ial fibrillation with rapid ventricular rate. An echocardiogram done at the outside institu tion showed severe hypokinesis or akinesis of the mid to distal anterior and apical segments . The patient was transferred to our hospital with improved condition after initial IV diur esis. Her atrial fibrillation and flutter eventually converted to sinus rhythm. Her initia l troponin levels were not elevated. Her ECG showed evidence of anterior infarction without acute changes. The patient underwent coronary arteriography on 11/16/17 was found to have a total proximal mid LAD occlusion, moderate left circumflex disease, and a dominant right c oronary artery with severe proximal posterior descending artery stenosis. She underwent suc cessful ROBIN PCI of the right posterior descending artery with a 2.25 x 15 mm drug-eluting st ent. The patient had poorly controlled postprandial blood sugars during admission. She was borderline hypotensive on low doses of carvedilol and lisinopril which were eventually adju sted downward to a point of tolerance. The patient is discharged home in a hemodynamically stable condition. She is counseled on the importance of medication compliance especially wi th dual antiplatelet therapy given her recent stent placement. She will follow-up in my cli kindra within 3 weeks. I encouraged her to seek endocrinology consultation for management of h er diabetes. Most recent weight: Input and output for last 24hrs: Wt Readings from Last 1 Encounters: 11/19/17 59.7 kg (131 lb 9.8 oz) No intake/output data recorded. Vitals Ranges: Temp: [36 C (96.8 F)-37.5 C (99.5 F)] 36.8 C (98.2 F) Pulse: [81-96] 81 Resp: [16-20] 18 BP: (83-115)/(47-65) 97/63 Vitals: Temp: 36.8 C (98.2 F) BP: 97/63 Pulse: 81 Resp: 18 SpO2: 96 % SpO2 96 % on room air at flow rate (Room Air)L/min PHYSICAL EXAM: Patient seen and examined by me on discharge day . The patient is clinically stable with s ystolic blood pressure ranging 90-100. She is really in the shepard without difficulty. PROCEDURES AND CONSULTS: Procedures left heart catheterization, selective coronary arteriography, right PDA ROBIN PCI 11/16/17 PENDING RESULTS: None DISPOSITION AND DISCHARGE INSTRUCTIONS: the patient is discharged to home with her . She will picker operator her prescriptions at [facility] in [place], [place] today. Our office will contact her to schedule outpatient foll ow-up within 3 weeks. Condition: Patient being discharged with condition improved. Diet:Whole food plant based, sodium restricted Less than 30 minutes were spent on discharge and coordination of post-hospital care. Electronically signed by: Stephen Baker MD, 11/19/2017 8:23 [facility] Portions of this chart may have been created with Smallable voice recognition software. Occasi onal wrong-word or sound-alike substitutions may have occurred due to the inherent malik itations of voice recognition software. Please read the chart carefully and recognize, using context, where these substitutions have occurred documented in this enc ounter Medications at Time of Discharge + + [...] + + + +---------+ + + | | Take 1 tablet by | | 0 | | | | HYDROcodone-acetamin | mouth EVERY 4 TO 6 | | | | 8 | | ophen (NORCO) 5-325 | HOURS NEEDED for | | | | | | mg per tablet | Pain. | | | | | + + + +---------+ + + | insulin glargine | Inject 7 Units under | 10 pen | 1 | 11/19/19 | | | (BEENA CHIANG) | the skin nightly. | | | [...] + + documented as of this encounter Progress Notes Gibson Tracey RN - 11/19/2017 9:26 AM PSTReviewed discharge instructions with geeta atient and SO, all prescriptions sent to pharmacy, Dr. Baker at bedside to give additional instructions, AVS given, reminded to make follow up appointment, all questions answered. Antoinette ctronically signed by: Gibson Langford RN 11/19/2017 10:27 Joshua Miller MD - 11/18/2017 6:14 PM PST PATIENT NAME: Luciana Latham : 1960: AGE: 57 y.o. ADMISSION DATE: 11/15/2017 HOSPITAL DAY NUMBER: 3 PRIMARY CARE: Pauly Perez PA-C CARDIOLOGY PROGRESS NOTE Patient feels much improved, ambulating in room, patient wants to go home. Carvedilol dose was held within past 12 hours for hypotension. Blood sugar control remains poor with fasti ng sugar 158 postprandial blood sugar 358. The patient has been on multiple oral hypoglycem ic agents in the past which cause either too low blood sugar or patient perceived intoleranc e. She will go home on her previous dose of Lantus insulin and I have recommended she seek consultation with an commercial stripper. MEDICATIONS: Current Facility-Administered Medications Medication Dose Route Frequency Provider Last Rate Last Dose acetaminophen (TYLENOL) tablet 650 mg 650 mg Oral Q4H PRN Stephen Simmons MD 650 mg at 11/18/17 0742 ALPRAZolam (XANAX) tablet 0.25 mg 0.25 mg Oral Q8H PRN Stephen Simmons MD 0.25 mg a t 11/17/172044 aspirin chewable tablet 81 mg 81 mg Oral Daily Stephen Simmons MD 81 mg at 11/18/17 1033 atorvaSTATin (LIPITOR) tablet 40 mg 40 mg Oral Nightly Stephen Simmons MD 40 mg at 11/17/172033 carvedilol (COREG) tablet 3.125 mg 3.125 mg Oral BID WC Stephen Simmons MD 3.125 mg at 11/18/17 1717 clopidogrel (PLAVIX) tablet 75 mg 75 mg Oral Daily Stephen Simmons MD 75 mg at 12/31 1032 dextrose 50% injection 12.5 g 12.5 g Intravenous PRN Stephen Simmons MD docusate sodium (COLACE) capsule 100 mg 100 mg Oral BID PRN Stephen Simmons MD 100 mg at 11/17/17 1200 HYDROcodone-acetaminophen (NORCO) 5-325 mg per tablet 1-2 tablet 1-2 tablet Oral Q4H P RN Stephen Simmons MD 1 tablet at 11/16/17 1727 insulin glargine (LANTUS SOLOSTAR) 100 units/mL injection (pen) 7 Units 7 Units Subcut aneous Nightly Stephen Simmons MD insulin lispro (humaLOG KWIKPEN) 100 units/mL injection (pen) 0-6 Units 0-6 Units Subc utaneous 4x Daily WC and HS Stephen Simmons MD 3 Units at 11/18/17 1720 lidocaine 1%-EPINEPHrine 1:100,000 injection 5 mL 5 mL Infiltration Once PRN Stephen Simmons MD lisinopril (PRINIVIL,ZESTRIL) tablet 2.5 mg 2.5 mg Oral Nightly Stephen Simmons MD 2.5 mg at 11/17/17 203 nitroglycerin (NITROSTAT) SL tablet 0.4 mg 0.4 mg Sublingual Q5 Min PRN Stephen Simmons MD 0.4 mg at 11/16/17 1909 ondansetron (ZOFRAN) injection 4 mg 4 mg Intravenous Q6H PRN Stephen Simmons MD 4 m g at 11/17/17 2100 traMADol (ULTRAM) tablet 50 mg 50 mg Oral Q6H PRN Stephen Simmons MD 50 mg at 11/17 1425 zolpidem (AMBIEN) tablet 5 mg 5 mg Oral Nightly PRN Stephen Simmons MD 5 mg at 12/03 204 ALLERGIES Allergies Allergen Reactions Gabapentin irritable Hydroxychloroquine myalgia PHYSICAL EXAM Vital signs: Vitals: 11/18/17 1505 BP: 115/63 Pulse: 91 Resp: 16 Temp: 36 C (96.8 F) Admit Weight: Weight: 58.8 kg (129 lb 10.1 oz) Current weight: Weight: 58.9 kg (129 lb 13.6 oz) Body mass index is 21.61 kg/m. General: Alert, appears comfortable Chest: Clear Cardiovascular: Nondisplaced apical impulse, regular rhythm, no S3 Gastrointestinal: Abdomen soft, non-tender, normal bowel sounds Extremities: No edema Neuro: within normal LABS: Admission on 11/15/2017 Component Date Value Ref Range Status Culture 11/15/2017 Negative for MRSA by chromogenic agar method Final PTT 11/15/2017 25 22 - 36 seconds Final VENTRICULAR RATE EKG 11/15/2017 95 BPM Final ATRIAL RATE 11/15/2017 95 BPM Final P-R INTERVAL 11/15/2017 144 ms Final QRS DURATION 11/15/2017 68 ms Final Q-T INTERVAL 11/15/2017 338 ms Final Q-T INTERVAL (CORRECTED) 11/15/2017 424 ms Final P WAVE AXIS 11/15/2017 55 degrees Final QRS AXIS 11/15/2017 30 degrees Final T AXIS 11/15/2017 76 degrees Final INTERPRETATION TEXT 11/15/2017 Final Value:Sinus rhythm with marked sinus arrhythmia and PAC's Possible Left atrial enlargement Possible Anteroseptal infarct , age undetermined Nonspecific T wave abnormality Lateral leads Abnormal ECG No previous ECGs available Confirmed by SABINO RAMIREZ, SHOLA ([id number]) on 11/16/2017 6:45:13 AM WBC 11/16/2017 10.3 4.0 - 11.0 K/uL Final RBC 11/16/2017 4.26 3.70 - 5.20 M/uL Final Hgb 11/16/2017 12.6 11.5 - 16.0 g/dL Final Hct 11/16/2017 38.1 34.0 - 47.0 % Final MCV 11/16/2017 89.5 83.0 - 101.0 fL Final MCH 11/16/2017 29.6 28.0 - 35.0 pg Final MCHC 11/16/2017 33.1 32.0 - 36.0 g/dL Final RDW-CV 11/16/2017 12.9 <15.0 % Final Platelet Count 11/16/2017 270 140 - 440 K/uL Final MPV 11/16/2017 8.9 fL Final PTT 11/15/2017 83* 22 - 36 seconds Final PTT 11/16/2017 62* 22 - 36 seconds Final NA 11/16/2017 138 136 - 149 mmol/L Final K 11/16/2017 4.0 3.5 - 5.1 mmol/L Final CL 11/16/2017 108 98 - 109 mmol/L Final CO2 11/16/2017 24 24 - 31 mmol/L Final ANION GAP 11/16/2017 6 3 - 16 mmol/L Final GLUCOSE 11/16/2017 323* 70 - 109 mg/dL Final BUN 11/16/2017 22* 7 - 18 mg/dL Final Creatinine, Serum/Plasma 11/16/2017 0.53* 0.60 - 1.30 mg/dL Final eGFR if not 11/16/2017 >60 >=60 mL/min/1.73m2 Final CALCIUM 11/16/2017 8.6 8.3 - 10.5 mg/dL Final BUN/CREA 11/16/2017 41.5 Final Glucose, POC 11/16/2017 237* 70 - 109 mg/dL Final Triglycerides 11/16/2017 195* 35 - 160 mg/dL Final Cholesterol 11/16/2017 187 150 - 200 mg/dL Final HDL 11/16/2017 34 28 - 83 mg/dL Final Chol/HDL Ratio 11/16/2017 5.5 Final LDL, Calculated 11/16/2017 114 <=130 mg/dL Final Activated Clotting Time, POC 11/16/2017 252* 125 - 175 second(s) Final Activated Clotting Time, POC 11/16/2017 325* 125 - 175 second(s) Final VENTRICULAR RATE EKG 11/16/2017 83 BPM Final ATRIAL RATE 11/16/2017 83 BPM Final P-R INTERVAL 11/16/2017 144 ms Final QRS DURATION 11/16/2017 72 ms Final Q-T INTERVAL 11/16/2017 354 ms Final Q-T INTERVAL (CORRECTED) 11/16/2017 415 ms Final P WAVE AXIS 11/16/2017 60 degrees Final QRS AXIS 11/16/2017 35 degrees Final T AXIS 11/16/2017 91 degrees Final INTERPRETATION TEXT 11/16/2017 Final Value:Normal sinus rhythm Possible Left atrial enlargement Septal infarct (cited on or before 15-NOV-2017) Nonspecific T wave abnormality Lateral leads Abnormal ECG When compared with ECG of 15-NOV-2017 18:03, No significant change was found Confirmed by SABINO RAMIREZ, SHOLA ([id number]) on 11/17/2017 6:38:00 AM Glucose, POC 11/16/2017 191* 70 - 109 mg/dL Final WBC 11/17/2017 10.1 4.0 - 11.0 K/uL Final RBC 11/17/2017 4.18 3.70 - 5.20 M/uL Final Hgb 11/17/2017 12.3 11.5 - 16.0 g/dL Final Hct 11/17/2017 37.3 34.0 - 47.0 % Final MCV 11/17/2017 89.2 83.0 - 101.0 fL Final MCH 11/17/2017 29.3 28.0 - 35.0 pg Final MCHC 11/17/2017 32.9 32.0 - 36.0 g/dL Final RDW-CV 11/17/2017 13.2 <15.0 % Final Platelet Count 11/17/2017 267 140 - 440 K/uL Final MPV 11/17/2017 8.1 fL Final CK TOTAL 11/17/2017 42 22 - 269 U/L Final VENTRICULAR RATE EKG 11/17/2017 67 BPM Final ATRIAL RATE 11/17/2017 67 BPM Final P-R INTERVAL 11/17/2017 144 ms Final QRS DURATION 11/17/2017 76 ms Final Q-T INTERVAL 11/17/2017 404 ms Final Q-T INTERVAL (CORRECTED) 11/17/2017 426 ms Final P WAVE AXIS 11/17/2017 49 degrees Final QRS AXIS 11/17/2017 28 degrees Final T AXIS 11/17/2017 84 degrees Final INTERPRETATION TEXT 11/17/2017 Final Value:Normal sinus rhythm Anteroseptal infarct (cited on or before 15-NOV-2017) Nonspecific T wave abnormality Inferolateral leads Abnormal ECG When compared with ECG of 16-NOV-2017 16:30, (Unconfirmed) change in initial forces of Anterior leads There is new T wave flattening in inferior leads Confirmed by SHOLA GALLO MD ([id number]) on 11/18/2017 8:56:44 AM Glucose, POC 11/17/2017 195* 70 - 109 mg/dL Final Glucose, POC 11/17/2017 219* 70 - 109 mg/dL Final Glucose, POC 11/17/2017 252* 70 - 109 mg/dL Final Glucose, POC 11/17/2017 416* 70 - 109 mg/dL Final Glucose, POC 11/17/2017 280* 70 - 109 mg/dL Final WBC 11/18/2017 7.2 4.0 - 11.0 K/uL Final RBC 11/18/2017 4.30 3.70 - 5.20 M/uL Final Hgb 11/18/2017 12.6 11.5 - 16.0 g/dL Final Hct 11/18/2017 38.8 34.0 - 47.0 % Final MCV 11/18/2017 90.3 83.0 - 101.0 fL Final MCH 11/18/2017 29.3 28.0 - 35.0 pg Final MCHC 11/18/2017 32.5 32.0 - 36.0 g/dL Final RDW-CV 11/18/2017 13.0 <15.0 % Final Platelet Count 11/18/2017 257 140 - 440 K/uL Final MPV 11/18/2017 8.2 fL Final Glucose, POC 11/17/2017 265* 70 - 109 mg/dL Final Protime 11/18/2017 12.5 11.3 - 13.9 seconds Final INR 11/18/2017 0.94 0.90 - 1.10 Final Glucose, POC 11/18/2017 195* 70 - 109 mg/dL Final Glucose, POC 11/18/2017 365* 70 - 109 mg/dL Final Glucose, POC 11/18/2017 358* 70 - 109 mg/dL Final Glucose, POC 11/18/2017 259* 70 - 109 mg/dL Final IMAGING: No results found. DIAGNOSES AND ASSESSMENTS: 1. Congestive heart failure: Patient how well compensated 2. Coronary artery disease: Status post RCA PCI, probable recent total LAD occlusion one we ek prior to admission PLAN OR RECOMMENDATIONS: Will decrease carvedilol dose Anticipate discharge home tomorrow with outpatient follow-up I appreciate the opportunity of participating in the care of this patient. Stephen Baker MD, 11/18/2017 18:14 Elvia Johnson RN - 10:45 AM PSTConsulted with MD regarding blood pressure trends. Adriana Sebastian PharmD - 11/17/2017 3:35 PM PST PHARMACY SERVICES: ADMISSION MEDICATION REVIEW Luciana Latham is a 57 y.o. female admitted on 11/15/2017. Patient is a reliable historian. Location of Patient when reviewed: ED X Medical Floor Patient s prior to admit medication and over the counter (OTC) medications/herbal supplem ents list obtained from: X Verbal interview X Patient ABLE to recall name, strength, and directions X Pharmacy list names: [facility] insurance reported information Vaccines up to date? Yes No Unsure Influenza x Pneumococcal x Tdap x Shingles x Noted medications discrepancies or medication-related issues: Allergy Alerts: Allergy Added: Reaction: Medication(s) affected: Hydroxychloroquine myalgia gabapentin irritable Medication added: Medication: Prior to Admission Sig: Hydrocodone-acetaminophen 5-325 mg Take one tablet every 4-6 hours as needed for pain Acetaminophen 325 mg Take 1-2 tablets every 4-6 hours as needed for pain or fever Albuterol 0.083% Inhale one vial via nebulizer four times daily as needed Other: Medication: Prior to Admission Sig: Patient taking differently: Alprazolam 0.25 mg Take one to three tablets daily Stopped taking Alprazolam 1 mg Take one to three tablets at bedtime Stopped taking Aspirin 81 mg Take one tablet daily Stopped taking Bupropion 300 mg XL No sig Stopped taking Cyclobenzaprine 10 mg Take one tablet every 6 hours Stopped taking Ergocalciferol 50,000 units Take one capsule by mouth once monthly Stopped taking Gabapentin 300 mg Take one capsule daily Stopped taking Hydrochlorothiazide 25 mg Take one tablet daily Stopped taking Hydrocodone-acetaminophen 10-325 mg Take one tablet four times daily Stopped taking Phentermine 37.5 mg Take one half tablet by mouth daily Stopped taking Simvastatin 20 mg Take one tablet daily Stopped taking Sitagliptan-metformin 50-1000 mg Take one tablet twice daily Stopped taking Telmisartan 80 mg Take one tablet daily Stopped taking Other: Patient states she should be taking other medications (could not state names) but has no t done so for around one year. No record from outpatient pharmacy of above medications unde r "other". Medication review performed and electronically signed by Avelina Perdomo, Chief Revenue Officer 11/17/2017 13:31 Reviewed by Adriana Hinojsoa, PharmTiffany 11/17/2017 15:30 Stephen Miller M D - 11/17/2017 3:24 PM PST PATIENT NAME: Luciana Latham : 1960: AGE: 57 y.o. ADMISSION DATE: 11/15/2017 HOSPITAL DAY NUMBER: 2 PRIMARY CARE: Pauly Perez PA-C CARDIOLOGY PROGRESS NOTE Patient had headache and brief chest pain last night. She was also quite anxious which imp roved with treatment of alprazolam. This morning she is complaining of intermittent headach e but feels that her breathing is more comfortable and she has no recurrence of chest pain. Her systolic blood pressure has ranged between 89 and 102 on a combination of carvedilol an d low-dose RIAN inhibitor. MEDICATIONS: Current Facility-Administered Medications Medication Dose Route Frequency Provider Last Rate Last Dose acetaminophen (TYLENOL) tablet 650 mg 650 mg Oral Q4H PRN Stephen Simmons MD 650 mg at 11/17/17 0426 ALPRAZolam (XANAX) tablet 0.25 mg 0.25 mg Oral Q8H PRN Stephen Simmons MD aspirin chewable tablet 81 mg 81 mg Oral Daily Stephen Simmons MD 81 mg at 11/17/17 0941 atorvaSTATin (LIPITOR) tablet 40 mg 40 mg Oral Nightly Stephen Simmons MD 40 mg at 11/16/172022 carvedilol (COREG) tablet 6.25 mg 6.25 mg Oral BID Stephen Simmons MD clopidogrel (PLAVIX) tablet 75 mg 75 mg Oral Daily Stephen Simmons MD 75 mg at 12/03 0941 dextrose 50% injection 12.5 g 12.5 g Intravenous PRN Stephen Simmons MD docusate sodium (COLACE) capsule 100 mg 100 mg Oral BID PRN Stephen Simmons MD 100 mg at 11/17/17 1200 HYDROcodone-acetaminophen (NORCO) 5-325 mg per tablet 1-2 tablet 1-2 tablet Oral Q4H P RN Stephen Simmons MD 1 tablet at 11/16/17 1727 insulin lispro (humaLOG KWIKPEN) 100 units/mL injection (pen) 0-6 Units 0-6 Units Subc utaneous 4x Daily and Stephen Simmons MD 3 Units at 11/17/17 1222 lidocaine 1%-EPINEPHrine 1:100,000 injection 5 mL 5 mL Infiltration Once PRN Stephen Simmons MD lisinopril (PRINIVIL,ZESTRIL) tablet 2.5 mg 2.5 mg Oral Nightly Stephen Simmons MD nitroglycerin (NITROSTAT) SL tablet 0.4 mg 0.4 mg Sublingual Q5 Min PRN Stephen Simmons MD 0.4 mg at 11/16/17 190 ondansetron (ZOFRAN) injection 4 mg 4 mg Intravenous Q6H PRN Stephen Simmons MD traMADol (ULTRAM) tablet 50 mg 50 mg Oral Q6H PRN Stephen Simmons MD 50 mg at 11/17 142 zolpidem (AMBIEN) tablet 5 mg 5 mg Oral Nightly PRN Stephen Simmons MD 5 mg at 11/02 ALLERGIES Allergies Allergen Reactions Gabapentin irritable Hydroxychloroquine myalgia PHYSICAL EXAM Vital signs: Vitals: 11/17/17 1136 BP: 100/59 Pulse: 85 Resp: 17 Temp: 36.3 C (97.3 F) Admit Weight: Weight: 58.8 kg (129 lb 10.1 oz) Current weight: Weight: 58.7 kg (129 lb 6.6 oz) Body mass index is 21.53 kg/m. General: Alert, appears in no distress Chest: Clear Cardiovascular: Regular rhythm, no S3, jugular venous pressure normal Gastrointestinal: Abdomen soft, non-tender, normal bowel sounds Extremities: No edema Neuro: within normal LABS: Admission on 11/15/2017 Component Date Value Ref Range Status Culture 11/15/2017 Negative for MRSA by chromogenic agar method Final PTT 11/15/2017 25 22 - 36 seconds Final VENTRICULAR RATE EKG 11/15/2017 95 BPM Final ATRIAL RATE 11/15/2017 95 BPM Final P-R INTERVAL 11/15/2017 144 ms Final QRS DURATION 11/15/2017 68 ms Final Q-T INTERVAL 11/15/2017 338 ms Final Q-T INTERVAL (CORRECTED) 11/15/2017 424 ms Final P WAVE AXIS 11/15/2017 55 degrees Final QRS AXIS 11/15/2017 30 degrees Final T AXIS 11/15/2017 76 degrees Final INTERPRETATION TEXT 11/15/2017 Final Value:Sinus rhythm with marked sinus arrhythmia and PAC's Possible Left atrial enlargement Possible Anteroseptal infarct , age undetermined Nonspecific T wave abnormality Lateral leads Abnormal ECG No previous ECGs available Confirmed by SABINO RAMIREZ, SHOLA ([id number]) on 11/16/2017 6:45:13 AM WBC 11/16/2017 10.3 4.0 - 11.0 K/uL Final RBC 11/16/2017 4.26 3.70 - 5.20 M/uL Final Hgb 11/16/2017 12.6 11.5 - 16.0 g/dL Final Hct 11/16/2017 38.1 34.0 - 47.0 % Final MCV 11/16/2017 89.5 83.0 - 101.0 fL Final MCH 11/16/2017 29.6 28.0 - 35.0 pg Final MCHC 11/16/2017 33.1 32.0 - 36.0 g/dL Final RDW-CV 11/16/2017 12.9 <15.0 % Final Platelet Count 11/16/2017 270 140 - 440 K/uL Final MPV 11/16/2017 8.9 fL Final PTT 11/15/2017 83* 22 - 36 seconds Final PTT 11/16/2017 62* 22 - 36 seconds Final NA 11/16/2017 138 136 - 149 mmol/L Final K 11/16/2017 4.0 3.5 - 5.1 mmol/L Final CL 11/16/2017 108 98 - 109 mmol/L Final CO2 11/16/2017 24 24 - 31 mmol/L Final ANION GAP 11/16/2017 6 3 - 16 mmol/L Final GLUCOSE 11/16/2017 323* 70 - 109 mg/dL Final BUN 11/16/2017 22* 7 - 18 mg/dL Final Creatinine, Serum/Plasma 11/16/2017 0.53* 0.60 - 1.30 mg/dL Final eGFR if not 11/16/2017 >60 >=60 mL/min/1.73m2 Final CALCIUM 11/16/2017 8.6 8.3 - 10.5 mg/dL Final BUN/CREA 11/16/2017 41.5 Final Glucose, POC 11/16/2017 237* 70 - 109 mg/dL Final Triglycerides 11/16/2017 195* 35 - 160 mg/dL Final Cholesterol 11/16/2017 187 150 - 200 mg/dL Final HDL 11/16/2017 34 28 - 83 mg/dL Final Chol/HDL Ratio 11/16/2017 5.5 Final LDL, Calculated 11/16/2017 114 <=130 mg/dL Final Activated Clotting Time, POC 11/16/2017 252* 125 - 175 second(s) Final Activated Clotting Time, POC 11/16/2017 325* 125 - 175 second(s) Final VENTRICULAR RATE EKG 11/16/2017 83 BPM Final ATRIAL RATE 11/16/2017 83 BPM Final P-R INTERVAL 11/16/2017 144 ms Final QRS DURATION 11/16/2017 72 ms Final Q-T INTERVAL 11/16/2017 354 ms Final Q-T INTERVAL (CORRECTED) 11/16/2017 415 ms Final P WAVE AXIS 11/16/2017 60 degrees Final QRS AXIS 11/16/2017 35 degrees Final T AXIS 11/16/2017 91 degrees Final INTERPRETATION TEXT 11/16/2017 Final Value:Normal sinus rhythm Possible Left atrial enlargement Septal infarct (cited on or before 15-NOV-2017) Nonspecific T wave abnormality Lateral leads Abnormal ECG When compared with ECG of 15-NOV-2017 18:03, No significant change was found Confirmed by SABINO RAMIREZ, SHOLA ([id number]) on 11/17/2017 6:38:00 AM Glucose, POC 11/16/2017 191* 70 - 109 mg/dL Final WBC 11/17/2017 10.1 4.0 - 11.0 K/uL Final RBC 11/17/2017 4.18 3.70 - 5.20 M/uL Final Hgb 11/17/2017 12.3 11.5 - 16.0 g/dL Final Hct 11/17/2017 37.3 34.0 - 47.0 % Final MCV 11/17/2017 89.2 83.0 - 101.0 fL Final MCH 11/17/2017 29.3 28.0 - 35.0 pg Final MCHC 11/17/2017 32.9 32.0 - 36.0 g/dL Final RDW-CV 11/17/2017 13.2 <15.0 % Final Platelet Count 11/17/2017 267 140 - 440 K/uL Final MPV 11/17/2017 8.1 fL Final CK TOTAL 11/17/2017 42 22 - 269 U/L Final INTERPRETATION TEXT 11/17/2017 Not Confirmed Preliminary Glucose, POC 11/17/2017 195* 70 - 109 mg/dL Final Glucose, POC 11/17/2017 219* 70 - 109 mg/dL Final Glucose, POC 11/17/2017 252* 70 - 109 mg/dL Final IMAGING: No results found. DIAGNOSES AND ASSESSMENTS: 1. Congestive heart failure: The patient appears more compensated with no evidence of pulmo nary edema. Her blood pressure is borderline low on initial doses of carvedilol and lisinop ril. 2. Three-vessel coronary disease with total proximal LAD occlusion, RPDA ROBIN PCI : The patient's LAD likely occluded on November 07 during a 6 hour long episode of severe ches t pain. The first obtuse marginal branch left circumflex artery had a nonsignificant fracti onal flow reserve measurement and RPDA was successfully stented. The patient will be treate d with dual antiplatelet therapy, beta jasmin, RIAN inhibitor, and statin. PLAN OR RECOMMENDATIONS: Transfer to telemetry medical bed Adjust lisinopril and carvedilol dose to avoid hypotension Increase activity as tolerated I appreciate the opportunity of participating in the care of this patient. Stephen Baker MD, 11/17/2017 15:24 Stephen Milelr MD - 0 11/16/2017 3:16 PM PST PATIENT NAME: Luciana Latham : 1960: AGE: 57 y.o. ADMISSION DATE: 11/15/2017 HOSPITAL DAY NUMBER: [id number] PRIMARY CARE: Pauly Perez PA-C CARDIOLOGY PROGRESS NOTE Patient found to have a total LAD occlusion, severe RPDA occlusion and dominant vessel, mod erate disease of first obtuse marginal branch of left circumflex artery and severe disease o f second OM with multiple branches. Patient had drug-eluting stent placement to RPDA. She has complained of headache and some anxiety. MEDICATIONS: Current Facility-Administered Medications Medication Dose Route Frequency Provider Last Rate Last Dose acetaminophen (TYLENOL) tablet 650 mg 650 mg Oral Q4H PRN Stephen Simmons MD 650 mg at 11/17/17 0426 ALPRAZolam (XANAX) tablet 0.25 mg 0.25 mg Oral Q8H PRN Stephen Simmons MD aspirin chewable tablet 81 mg 81 mg Oral Daily Stephen Simmons MD 81 mg at 11/17/17 0941 atorvaSTATin (LIPITOR) tablet 40 mg 40 mg Oral Nightly Stephen Simmons MD 40 mg at 11/16/172022 carvedilol (COREG) tablet 6.25 mg 6.25 mg Oral BID WC Stephen Simmons MD clopidogrel (PLAVIX) tablet 75 mg 75 mg Oral Daily Stephen Simmons MD 75 mg at 12/03 0941 dextrose 50% injection 12.5 g 12.5 g Intravenous PRN Stephen Simmons MD docusate sodium (COLACE) capsule 100 mg 100 mg Oral BID PRN Stephen Simmons MD 100 mg at 11/17/17 1200 HYDROcodone-acetaminophen (NORCO) 5-325 mg per tablet 1-2 tablet 1-2 tablet Oral Q4H P RN Stephen Simmnos MD 1 tablet at 11/16/17 1727 insulin lispro (humaLOG KWIKPEN) 100 units/mL injection (pen) 0-6 Units 0-6 Units Subc utaneous 4x Daily WC and HS Stephen Simmons MD 3 Units at 11/17/17 1222 lidocaine 1%-EPINEPHrine 1:100,000 injection 5 mL 5 mL Infiltration Once PRN Stephen Simmons MD lisinopril (PRINIVIL,ZESTRIL) tablet 2.5 mg 2.5 mg Oral Nightly Stephen Simmons MD nitroglycerin (NITROSTAT) SL tablet 0.4 mg 0.4 mg Sublingual Q5 Min PRN Stephen Simmons MD 0.4 mg at 11/16/17 1909 ondansetron (ZOFRAN) injection 4 mg 4 mg Intravenous Q6H PRN Stephen Simmons MD traMADol (ULTRAM) tablet 50 mg 50 mg Oral Q6H PRN Stephen Simmons MD 50 mg at 11/17 1425 zolpidem (AMBIEN) tablet 5 mg 5 mg Oral Nightly PRN Stephen Simmons MD 5 mg at 11/02 ALLERGIES Allergies Allergen Reactions Gabapentin irritable Hydroxychloroquine myalgia PHYSICAL EXAM Vital signs: Vitals: 11/17/17 1136 BP: 100/59 Pulse: 85 Resp: 17 Temp: 36.3 C (97.3 F) Admit Weight: Weight: 58.8 kg (129 lb 10.1 oz) Current weight: Weight: 58.7 kg (129 lb 6.6 oz) Body mass index is 21.53 kg/m. General: Appears to be comfortable, complaining of headache Chest: Clear Cardiovascular: Decreased intensity heart sounds, regular rhythm, no S3 Gastrointestinal: Abdomen soft, non-tender, normal bowel sounds Extremities: No edema Neuro: within normal LABS: Admission on 11/15/2017 Component Date Value Ref Range Status Culture 11/15/2017 Negative for MRSA by chromogenic agar method Final PTT 11/15/2017 25 22 - 36 seconds Final VENTRICULAR RATE EKG 11/15/2017 95 BPM Final ATRIAL RATE 11/15/2017 95 BPM Final P-R INTERVAL 11/15/2017 144 ms Final QRS DURATION 11/15/2017 68 ms Final Q-T INTERVAL 11/15/2017 338 ms Final Q-T INTERVAL (CORRECTED) 11/15/2017 424 ms Final P WAVE AXIS 11/15/2017 55 degrees Final QRS AXIS 11/15/2017 30 degrees Final T AXIS 11/15/2017 76 degrees Final INTERPRETATION TEXT 11/15/2017 Final Value:Sinus rhythm with marked sinus arrhythmia and PAC's Possible Left atrial enlargement Possible Anteroseptal infarct , age undetermined Nonspecific T wave abnormality Lateral leads Abnormal ECG No previous ECGs available Confirmed by SABINO RAMIREZ, SHOLA ([id number]) on 11/16/2017 6:45:13 AM WBC 11/16/2017 10.3 4.0 - 11.0 K/uL Final RBC 11/16/2017 4.26 3.70 - 5.20 M/uL Final Hgb 11/16/2017 12.6 11.5 - 16.0 g/dL Final Hct 11/16/2017 38.1 34.0 - 47.0 % Final MCV 11/16/2017 89.5 83.0 - 101.0 fL Final MCH 11/16/2017 29.6 28.0 - 35.0 pg Final MCHC 11/16/2017 33.1 32.0 - 36.0 g/dL Final RDW-CV 11/16/2017 12.9 <15.0 % Final Platelet Count 11/16/2017 270 140 - 440 K/uL Final MPV 11/16/2017 8.9 fL Final PTT 11/15/2017 83* 22 - 36 seconds Final PTT 11/16/2017 62* 22 - 36 seconds Final NA 11/16/2017 138 136 - 149 mmol/L Final K 11/16/2017 4.0 3.5 - 5.1 mmol/L Final CL 11/16/2017 108 98 - 109 mmol/L Final CO2 11/16/2017 24 24 - 31 mmol/L Final ANION GAP 11/16/2017 6 3 - 16 mmol/L Final GLUCOSE 11/16/2017 323* 70 - 109 mg/dL Final BUN 11/16/2017 22* 7 - 18 mg/dL Final Creatinine, Serum/Plasma 11/16/2017 0.53* 0.60 - 1.30 mg/dL Final eGFR if not 11/16/2017 >60 >=60 mL/min/1.73m2 Final CALCIUM 11/16/2017 8.6 8.3 - 10.5 mg/dL Final BUN/CREA 11/16/2017 41.5 Final Glucose, POC 11/16/2017 237* 70 - 109 mg/dL Final Triglycerides 11/16/2017 195* 35 - 160 mg/dL Final Cholesterol 11/16/2017 187 150 - 200 mg/dL Final HDL 11/16/2017 34 28 - 83 mg/dL Final Chol/HDL Ratio 11/16/2017 5.5 Final LDL, Calculated 11/16/2017 114 <=130 mg/dL Final Activated Clotting Time, POC 11/16/2017 252* 125 - 175 second(s) Final Activated Clotting Time, POC 11/16/2017 325* 125 - 175 second(s) Final VENTRICULAR RATE EKG 11/16/2017 83 BPM Final ATRIAL RATE 11/16/2017 83 BPM Final P-R INTERVAL 11/16/2017 144 ms Final QRS DURATION 11/16/2017 72 ms Final Q-T INTERVAL 11/16/2017 354 ms Final Q-T INTERVAL (CORRECTED) 11/16/2017 415 ms Final P WAVE AXIS 11/16/2017 60 degrees Final QRS AXIS 11/16/2017 35 degrees Final T AXIS 11/16/2017 91 degrees Final INTERPRETATION TEXT 11/16/2017 Final Value:Normal sinus rhythm Possible Left atrial enlargement Septal infarct (cited on or before 15-NOV-2017) Nonspecific T wave abnormality Lateral leads Abnormal ECG When compared with ECG of 15-NOV-2017 18:03, No significant change was found Confirmed by SABINO RAMIREZ, SHOLA ([id number]) on 11/17/2017 6:38:00 AM Glucose, POC 11/16/2017 191* 70 - 109 mg/dL Final WBC 11/17/2017 10.1 4.0 - 11.0 K/uL Final RBC 11/17/2017 4.18 3.70 - 5.20 M/uL Final Hgb 11/17/2017 12.3 11.5 - 16.0 g/dL Final Hct 11/17/2017 37.3 34.0 - 47.0 % Final MCV 11/17/2017 89.2 83.0 - 101.0 fL Final MCH 11/17/2017 29.3 28.0 - 35.0 pg Final MCHC 11/17/2017 32.9 32.0 - 36.0 g/dL Final RDW-CV 11/17/2017 13.2 <15.0 % Final Platelet Count 11/17/2017 267 140 - 440 K/uL Final MPV 11/17/2017 8.1 fL Final CK TOTAL 11/17/2017 42 22 - 269 U/L Final INTERPRETATION TEXT 11/17/2017 Not Confirmed Preliminary Glucose, POC 11/17/2017 195* 70 - 109 mg/dL Final Glucose, POC 11/17/2017 219* 70 - 109 mg/dL Final Glucose, POC 11/17/2017 252* 70 - 109 mg/dL Final IMAGING: No results found. DIAGNOSES AND ASSESSMENTS: 1. Congestive heart failure: Patient symptomatically improved after diuresis. Echocardiogr am from outside hospital consistent with anterior apical infarction, visually estimated left ventricular ejection fraction 35-40%. 2. Multivessel coronary disease with total proximal LAD occlusion, severe RPDA occlusion, m oderate first OM disease, and severe diffuse disease of second OM not amenable to PCI. Milagros ent status post ROBIN PCI RPDA today. PLAN OR RECOMMENDATIONS: Dual antiplatelet therapy, low-dose RINA inhibitor and beta jasmin, statin therapy I appreciate the opportunity of participating in the care of this patient. Stephen Baker MD, 11/17/2017 15:16 documented in this enc ounter Plan of Treatment Not on filedocumented as of this encounter Procedures + +--------+ + + + | Procedure Name | Priori | Date/Time | Associated Diagnosis | Comments | | | ty | | | | + +--------+ + + + | POC GLUCOSE | Routin | 11/19/2017 | | Results for this | | | e | 6:42 AM | | procedure are in the | | | | PST | | results section. | + +--------+ + + + | EXTRA GREEN TOP TUBE | Routin | 11/19/2017 | | Results for this | | | e | 6:10 AM | | procedure are in the | | | | PST | | results section. | + +--------+ + + + | CBC NO DIFFERENTIAL | Routin | 11/19/2017 | | Results for this | | | e | 6:10 AM | | procedure are in the | | | | PST | | results section. | + +--------+ + + + | POC GLUCOSE | Routin | 11/18/2017 | | Results for this | | | e | 9:04 PM | | procedure are in the | | | | PST | | results section. | + +--------+ + + + | POC GLUCOSE | Routin | 11/18/2017 | | Results for this | | | e | 4:52 PM | | procedure are in the | | | | PST | | results section. | + +--------+ + + + | POC GLUCOSE | Routin | 11/18/2017 | | Results for this | | | e | 2:54 PM | | procedure are in the | | | | PST | | results section. | + +--------+ + + + | POC GLUCOSE | Routin | 11/18/2017 | | Results for this | | | e | 12:17 PM | | procedure are in the | | | | PST | | results section. | + +--------+ + + + | POC GLUCOSE | Routin | 11/18/2017 | | Results for this | | | e | 7:33 AM | | procedure are in the | | | | PST | | results section. | + +--------+ + + + | PROTIME INR | STAT | 11/18/2017 | | Results for this | | | | 4:24 AM | | procedure are in the | | | | PST | | results section. | + +--------+ + + + | CBC NO DIFFERENTIAL | Routin | 11/18/2017 | | Results for this | | | e | 4:15 AM | | procedure are in the | | | | PST | | results section. | + +--------+ + + + | POC GLUCOSE | Routin | 11/17/2017 | | Results for this | | | e | 8:47 PM | | procedure are in the | | | | PST | | results section. | + +--------+ + + + | POC GLUCOSE | Routin | 11/17/2017 | | Results for this | | | e | 6:18 PM | | procedure are in the | | | | PST | | results section. | + +--------+ + + + | POC GLUCOSE | Routin | 11/17/2017 | | Results for this | | | e | 4:36 PM | | procedure are in the | | | | PST | | results section. | + +--------+ + + + | POC GLUCOSE | Routin | 11/17/2017 | | Results for this | | | e | 11:47 AM | | procedure are in the | | | | PST | | results section. | + +--------+ + + + | POC GLUCOSE | Routin | 11/17/2017 | | Results for this | | | e | 7:29 AM | | procedure are in the | | | | PST | | results section. | + +--------+ + + + | ECG 12 LEAD | Routin | 11/17/2017 | | Results for this | | | e | 6:20 AM | | procedure are in the | | | | PST | | results section. | + +--------+ + + + | CBC NO DIFFERENTIAL | Routin | 11/17/2017 | | Results for this | | | e | 5:18 AM | | procedure are in the | | | | PST | | results section. | + +--------+ + + + | CK TOTAL | Routin | 11/17/2017 | | Results for this | | | e | 5:18 AM | | procedure are in the | | | | PST | | results section. | + +--------+ + + + | POC GLUCOSE | Routin | 11/17/2017 | | Results for this | | | e | 4:13 AM | | procedure are in the | | | | PST | | results section. | + +--------+ + + + | POC GLUCOSE | Routin | 11/16/2017 | | Results for this | | | e | 5:10 PM | | procedure are in the | | | | PST | | results section. | + +--------+ + + + | ECG 12 LEAD | Routin | 11/16/2017 | | Results for this | | | e | 4:30 PM | | procedure are in the | | | | PST | | results section. | + +--------+ + + + | CV COR ANGIO | Routin | 11/16/2017 | | Results for this | | | e | 3:25 PM | | procedure are in the | | | | PST | | results section. | + +--------+ + + + | POC ACTIVATED | Routin | 11/16/2017 | | Results for this | | CLOTTING TIME ISTAT | e | 2:53 PM | | procedure are in the | | | | PST | | results section. | + +--------+ + + + | POC ACTIVATED | Routin | 11/16/2017 | | Results for this | | CLOTTING TIME ISTAT | e | 2:28 PM | | procedure are in the | | | | PST | | results section. | + +--------+ + + + | LIPID PANEL | Routin | 11/16/2017 | | Results for this | | | e | 12:08 PM | | procedure are in the | | | | PST | | results section. | + +--------+ + + + | POC GLUCOSE | Routin | 11/16/2017 | | Results for this | | | e | 11:11 AM | | procedure are in the | | | | PST | | results section. | + +--------+ + + + | PTT | Routin | 11/16/2017 | | Results for this | | | e | 4:16 AM | | procedure are in the | | | | PST | | results section. | + +--------+ + + + | CBC NO DIFFERENTIAL | Routin | 11/16/2017 | | Results for this | | | e | 4:16 AM | | procedure are in the | | | | PST | | results section. | + +--------+ + + + | BASIC METABOLIC | Routin | 11/16/2017 | | Results for this | | PANEL | e | 4:16 AM | | procedure are in the | | | | PST | | results section. | + +--------+ + + + | PTT | STAT | 11/15/2017 | | Results for this | | | | 11:07 PM | | procedure are in the | | | | PST | | results section. | + +--------+ + + + | PTT | STAT | 11/15/2017 | | Results for this | | | | 6:04 PM | | procedure are in the | | | | PST | | results section. | + +--------+ + + + | ECG 12 LEAD | STAT | 11/15/2017 | | Results for this | | | | 6:03 PM | | procedure are in the | | | | PST | | results section. | + +--------+ + + + | CULTURE, MRSA | Routin | 11/15/2017 | | Results for this | | | e | 3:23 PM | | procedure are in the | | | | PST | | results section. | + +--------+ + + + | ECHO COMPLETE | Routin | 11/15/2017 | | Results for this | | | e | 10:40 AM | | procedure are in the | | | | PST | | results section. | + +--------+ + + + | LABS - EXTERNAL SCAN | | 11/15/2017 | | Results for this | | | | 12:00 AM | | procedure are in the | | | | PST | | results section. | + +--------+ + + + | ECG - EXTERNAL SCAN | | 11/15/2017 | | Results for this | | | | 12:00 AM | | procedure are in the | | | | PST | | results section. | + +--------+ + + + | IMAGING REPORT - | | 11/14/2017 | | Results for this | | EXTERNAL SCAN | | 12:00 AM | | procedure are in the | | | | PST | | results section. | + +--------+ + + + | IMAGING REPORT - | | 11/14/2017 | | Results for this | | EXTERNAL SCAN | | 12:00 AM | | procedure are in the | | | | PST | | results section. | + +--------+ + + + documented in this encounter Results POC Glucose (11/19/2017 6:42 AM PST) + +---------+ + + + | Component | Value | Ref Range | Performed | Pathologist | | | | | At | Signature | + +---------+ + + + | Glucose, | 209 (H) | 70 - 109 mg/dL | [facility] | | | P[facility] | | | [facility] | | | | | | [facility] | | | | | | [facility] - | | | | | | LAB[facility]ATORY | | + +---------+ + + + + + | Specimen | + + | Blood | + + + + + + + | Performing | Address | City/State/Zipcode | Phone Number | | Organization | | | | + + + + + | [facility] | [address] | [place] | [phone] | | [facility] | | [address] | | | - LABORATORY | | | | + + + + + Extra Green Top Tube (11/19/2017 6:10 AM PST) + +-------+ + + + | Component | Value | Ref Range | Performed | Pathologist | | | | | At | Signature | + +-------+ + + + | Extra Green | Done | | [facility] | | | Top Tube | | | [facility] | | | | | | [facility] | | | | | | [facility] - | | | | | | LABORATORY | | + +-------+ + + + + + | Specimen | + + | Blood | + + + + + + + | Performing | Address | City/State/Zipcode | Phone Number | | Organization | | | | + + + + + | [facility] | [address] | [place] | [phone] | | [facility] | | [address] | | | - LABORATORY | | | | + + + + + CBC no Differential (11/19/2017 6:10 AM PST) + +-------+ + + + | Component | Value | Ref Range | Performed | Pathologist | | | | | At | Signature | + +-------+ + + + | WBC | 8.4 | 4.0 - 11.0 K/uL | [facility] | | | | | | [facility] | | | | | | [facility] | | | | | | [facility] - | | | | | | LABORATORY | | + +-------+ + + + | RBC | 3.96 | 3.70 - 5.20 | [facility] | | | | | M/uL | [facility] | | | | | | [facility] | | | | | | [facility] - | | | | | | LABORATORY | | + +-------+ + + + | Hemoglobin | 12.0 | 11.5 - 16.0 | [facility] | | | | | g/dL | [facility] | | | | | | [facility] | | | | | | C[facility] - | | | | | | LABORATORY | | + +-------+ + + + | Hematocrit | 35.3 | 34.0 - 47.0 % | [facility] | | | | | | [facility] | | | | | | [facility] | | | | | | [facility] - | | | | | | LABORATORY | | + +-------+ + + + | MCV | 88.9 | 83.0 - 101.0 fL | [facility] | | | | | | [facility] | | | | | | [facility] | | | | | | [facility] - | | | | | | LABORATORY | | + +-------+ + + + | MCH | 30.4 | 28.0 - 35.0 pg | [facility] | | | | | | [facility] | | | | | | [facility] | | | | | | [facility] - | | | | | | LABORATORY | | + +-------+ + + + | MCHC | 34.1 | 32.0 - 36.0 | [facility] | | | | | g/dL | [facility] | | | | | | [facility] | | | | | | CENTER - | | | | | | LABORATORY | | + +-------+ + + + | RDW-CV | 13.0 | <15.0 % | [facility] | | | | | | [facility] | | | | | | [facility] | | | | | | [facility] - | | | | | | LABORATORY | | + +-------+ + + + | Platelet | 261 | 140 - 440 K/uL | [facility] | | | Count | | | [facility] | | | | | | [facility] | | | | | | C[facility] - | | | | | | LABORATORY | | + +-------+ + + + | MPV | 8.8 | fL | [facility] | | | | | | [facility] | | | | | | [facility] | | | | | | [facility] - | | | | | | LABORATORY | | + +-------+ + + + + + | Specimen | + + | Blood | + + + + + + + | Performing | Address | City/State/Zipcode | Phone Number | | Organization | | | | + + + + + | [facility] | [address] | [place] | [phone] | | [facility] | | [address] | | | - LABORATORY | | | | + + + + + POC Glucose (11/18/2017 9:04 PM PST) + +---------+ + + + | Component | Value | Ref Range | Performed | Pathologist | | | | | At | Signature | + +---------+ + + + | Glucose, | 338 (H) | 70 - 109 mg/dL | [facility] | | | P[facility] | | | [facility] | [facility] | | | | | | [facility] - | | | | | | LABORATORY | | + +---------+ + + + + + | Specimen | + + | Blood | + + + + + + + | Performing | Address | City/State/Zipcode | Phone Number | | Organization | | | | + + + + + | [facility] | [address] | [place] | [phone] | | [facility] | | [address] | | | - LABORATORY | | | | + + + + + POC Glucose (11/18/2017 4:52 PM PST) + +---------+ + + + | Component | Value | Ref Range | Performed | Pathologist | | | | | At | Signature | + +---------+ + + + | Glucose, | 259 (H) | 70 - 109 mg/dL | [facility] | | | P[facility] | | | [facility] | | [facility] | | [facility] | | | | | | [facility] - | | | | | | LABORATORY | | + +---------+ + + + + + | Specimen | + + | Blood | + + + + + + + | Performing | Address | City/State/Zipcode | Phone Number | | Organization | | | | + + + + + | [facility] | [address] | [place] | [phone] | | [facility] | | [address] | | | - LABORATORY | | | | + + + + + POC Glucose (11/18/2017 2:54 PM PST) + +---------+ + + + | Component | Value | Ref Range | Performed | Pathologist | | | | | At | Signature | + +---------+ + + + | Glucose, | 358 (H) | 70 - 109 mg/dL | [facility] | | | [facility] | | | [facility] | | | | | | [facility] | | | | | | [facility] - | | | | | | LABORATORY | | + +---------+ + + + + + | Specimen | + + | Blood | + + + + + + + | Performing | Address | City/State/Zipcode | Phone Number | | Organization | | | | + + + + + | [facility] | [address] | [place] | [phone] | | [facility] | | [address] | | | - LABORATORY | | | | + + + + + POC Glucose (11/18/2017 12:17 PM PST) + +---------+ + + + | Component | Value | Ref Range | Performed | Pathologist | | | | | At | Signature | + +---------+ + + + | Glucose, | 365 (H) | 70 - 109 mg/dL | [facility] | | | POC | | | [facility] | | | | | | [facility] | | | | | | C[facility] - | | | | | | LABORATORY | | + +---------+ + + + + + | Specimen | + + | Blood | + + + + + + + | Performing | Address | City/State/Zipcode | Phone Number | | Organization | | | | + + + + + | [facility] | [address] | [place] | [phone] | | [facility] | | [address] | | | - LABORATORY | | | | + + + + + POC Glucose (11/18/2017 7:33 AM PST) + +---------+ + + + | Component | Value | Ref Range | Performed | Pathologist | | | | | At | Signature | + +---------+ + + + | Glucose, | 195 (H) | 70 - 109 mg/dL | [facility] | | | [facility] | | | [facility] | | | | | | [facility] | | | | | | [facility] - | | | | | | LABORATORY | | + +---------+ + + + + + | Specimen | + + | Blood | + + + + + + + | Performing | Address | City/State/Zipcode | Phone Number | | Organization | | | | + + + + + | [facility] | [address] | [place] | [phone] | | [facility] | | [id number] | | | - LABORATORY | | | | + + + + + Protime INR (11/18/2017 4:24 AM PST) + + + + + + | Component | Value | Ref Range | Performed | Pathologist | | | | | At | Signature | + + + + + + | Prothrombin | 12.5 | 11.3 - 13.9 | [facility] | | | Time | | seconds | [facility] | | | | | | [facility] | | | | | | CENTER - | | | | | | LABORATORY | | + + + + + + | INR | 0.94Comment: Usual Oral | 0.90 - 1.10 | [facility] | | | | Anticoagulation Range: | | [facility] | | | | 2.0 - 3.0High | | MEDICAL | | | | Level Oral | | CENTER - | | | | Anticoagulation Range: | | LABORATORY | | | | 2.5 - 3.5 | | | | + + + + + + + + | Specimen | + + | Blood | + + + + + + + | Performing | Address | City/State/Zipcode | Phone Number | | Organization | | | | + + + + + | [facility] | [address] | [place], [place] | [phone] | | [facility] | | [address] | | | - LABORATORY | | | | + + + + + CBC no Differential (11/18/2017 4:15 AM PST) + +-------+ + + + | Component | Value | Ref Range | Performed | Pathologist | | | | | At | Signature | + +-------+ + + + | WBC | 7.2 | 4.0 - 11.0 K/uL | [facility] | | | | | [facility] | | | [facility] | [facility] | | | | | [facility] - | | | | | | LABORATORY | | + +-------+ + + + | RBC | 4.30 | 3.70 - 5.20 | [facility] | | | | | M/uL | [facility] | | | | | | [facility] | | | | | | CENTER - | | | | | | LABORATORY | | + +-------+ + + + | Hemoglobin | 12.6 | 11.5 - 16.0 | [facility] | | | | | g/dL | [facility] | | | | | | [facility]ICAL | | | | | | CENTER - | | | | | | LABORATORY | | + +-------+ + + + | Hematocrit | 38.8 | 34.0 - 47.0 % | [facility] | | | | | | [facility] | | | | | | [facility] | | | | | | CENTER - | | | | | | LABORATORY | | + +-------+ + + + | MCV | 90.3 | 83.0 - 101.0 fL | [facility] | | | | | | [facility] | | | | | | [facility] | | | | | | CENTER - | | | | | | LABORATORY | | + +-------+ + + + | MCH | 29.3 | 28.0 - 35.0 pg | [facility] | | | | | | [facility] | | | | | | [facility] | | | | | | CENTER - | | | | | | LABORATORY | | + +-------+ + + + | MCHC | 32.5 | 32.0 - 36.0 | [facility] | | | | | g/dL | [facility] | | | | | | [facility]ICAL | | | | | | CENTER - | | | | | | LABORATORY | | + +-------+ + + + | RDW-CV | 13.0 | <15.0 % | [facility] | | | | | [facility] | | | | | | [facility] | | | | | | CENTER - | | | | | | LABORATORY | | + +-------+ + + + | Platelet | 257 | 140 - 440 K/uL | [facility] | | | Count | | | [facility] | | | | | | [facility] | | | | | | CENTER - | | | | | | LABORATORY | | + +-------+ + + + | MPV | 8.2 | fL | [facility] | | | | | | [facility] | | | | | | [facility] | | | | | | CENTER - | | | | | | LABORATORY | | + +-------+ + + + + + | Specimen | + + | Blood | + + + + + + + | Performing | Address | City/State/Zipcode | Phone Number | | Organization | | | | + + + + + | [facility] | [address] | [place] | [phone] | | [facility] | | [address] | | | - LABORATORY | | | | + + + + + POC Glucose (11/17/2017 8:47 PM PST) + +---------+ + + + | Component | Value | Ref Range | Performed | Pathologist | | | | | At | Signature | + +---------+ + + + | Glucose, | 265 (H) | 70 - 109 mg/dL | [facility] | | | POC | | | [facility] | | | | | | [facility] | | | | | | CENTER - | | | | | | LABORATORY | | + +---------+ + + + + + | Specimen | + + | Blood | + + + + + + + | Performing | Address | City/State/Zipcode | Phone Number | | Organization | | | | + + + + + | [facility] | [address] | [place], [place] | [phone] | | [facility] | | [address] | | | - LABORATORY | | | | + + + + + POC Glucose (11/17/2017 6:18 PM PST) + +---------+ + + + | Component | Value | Ref Range | Performed | Pathologist | | | | | At | Signature | + +---------+ + + + | Glucose, | 280 (H) | 70 - 109 mg/dL | [facility] | | | POC | | | [facility] | | | | | | MEDICAL | | | | | | CENTER - | | | | | | LABORATORY | | + +---------+ + + + + + | Specimen | + + | Blood | + + + + + + + | Performing | Address | City/State/[facility] | Phone Number | | Organization | | | | + + + + + | [facility] | [address] | [place] | [phone] | | [facility] | | [address] | | | - LABORATORY | | | | + + + + + POC Glucose (11/17/2017 4:36 PM PST) + +---------+ + + + | Component | Value | Ref Range | Performed | Pathologist | | | | | At | Signature | + +---------+ + + + | Glucose, | 416 (H) | 70 - 109 mg/dL | [facility] | | | POC | | | [facility] | | | | | | [facility] | | | | | | CENTER - | | | | | | LABORATORY | | + +---------+ + + + + + | Specimen | + + | Blood | + + + + + + + | Performing | Address | City/State/Zipcode | Phone Number | | Organization | | | | + + + + + | [facility] | [address] | [place] | [phone] | | [facility] | | [address] | | | - LABORATORY | | | | + + + + + POC Glucose (11/17/2017 11:47 AM PST) + +---------+ + + + | Component | Value | Ref Range | Performed | Pathologist | | | | | At | Signature | + +---------+ + + + | Glucose, | 252 (H) | 70 - 109 mg/dL | [facility] | | | POC | | | [facility] | | | | | | [facility]ICAL | | | | | | CENTER - | | | | | | LABORATORY | | + +---------+ + + + + + | Specimen | + + | Blood | + + + + + + + | Performing | Address | City/State/Zipcode | Phone Number | | Organization | | | | + + + + + | [facility] | [address] | [place] | [phone] | | [facility] | | [address] | | | - LABORATORY | | | | + + + + + POC Glucose (11/17/2017 7:29 AM PST) + +---------+ + + + | Component | Value | Ref Range | Performed | Pathologist | | | | | At | Signature | + +---------+ + + + | Glucose, | 219 (H) | 70 - 109 mg/dL | [facility] | | | POC | | | [facility] | | | | | | MEDICAL | | | | | | CENTER - | | | | | | LABORATORY | | + +---------+ + + + + + | Specimen | + + | Blood | + + + + + + + | Performing | Address | City/State/Zipcode | Phone Number | | Organization | | | | + + + + + | [facility] | [address] | [place] | [phone] | | [facility] | | [address] | | | - LABORATORY | | | | + + + + + ECG 12 lead (11/17/2017 6:20 AM PST) + + + + + + | Component | Value | Ref Range | Performed | Pathologist | | | | | At | Signature | + + + + + + | VENTRICULAR | 67 | BPM | [facility] | | | RATE EKG | | | | | + + + + + + | ATRIAL RATE | 67 | BPM | [facility] | | + + + + + + | P-R | 144 | ms | [facility] | | | INTERVAL | | | | | + + + + + + | QRS | 76 | ms | [facility] | | | DURATION | | | | | + + + + + + | Q-T | 404 | ms | [facility] | | | INTERVAL | | | | | + + + + + + | Q-T | 426 | ms | [facility] | | | INTERVAL | | | | | | (CORRECTED) | | | | | + + + + + + | P WAVE AXIS | 49 | degrees | [facility] | | + + + + + + | QRS AXIS | 28 | degrees | [facility] | | + + + + + + | T AXIS | 84 | degrees | [facility] | | + + + + + + | INTERPRETAT | Normal sinus | | [facility] | | | ION TEXT | rhythmAnteroseptal | | | | | | infarct (cited on or | | | | | | before | | | | | | 15-NOV-2017)Nonspecific | | | | | | T wave abnormality | | | | | | Inferolateral | | | | | | leadsAbnormal ECGWhen | | | | | | compared with ECG of | | | | | | 16-NOV-2017 16:30, | | | | | | (Unconfirmed)change in | | | | | | initial forces of | | | | | | Anterior leadsThere is | | | | | | new T wave flattening in | | | | | | inferior leadsConfirmed | | | | | | by SHOLA GALLO MD | | | | | | ([id number]) on 11/18/2017 | | | | | | 8:56:44 AM | | | | + + + + + + + + | Specimen | + + | | + + + + + | Narrative | Performed At | + + + | | | + + + + +---------+ + + | Performing | Address | City/State/Zipcode | Phone Number | | Organization | | | | + +---------+ + + | [facility] | | | | + +---------+ + + CBC no Differential (11/17/2017 5:18 AM PST) + +-------+ + + + | Component | Value | Ref Range | Performed | Pathologist | | | | | At | Signature | + +-------+ + + + | WBC | 10.1 | 4.0 - 11.0 K/uL | [facility] | | | | | | [facility] | | | | | | [facility]ICAL | | | | | | CENTER - | | | | | | LABORATORY | | + +-------+ + + + | RBC | 4.18 | 3.70 - 5.20 | [facility] | | | | | M/uL | [facility] | | | | | | [facility] | | | | | | CENTER - | | | | | | LABORATORY | | + +-------+ + + + | Hemoglobin | 12.3 | 11.5 - 16.0 | [facility] | | | | | g/dL | [facility] | | | | | | [facility] | | | | | | CENTER - | | | | | | LABORATORY | | + +-------+ + + + | Hematocrit | 37.3 | 34.0 - 47.0 % | [facility] | | | | | | [facility] | | | | | | MEDICAL | | | | | | CENTER - | | | | | | LABORATORY | | + +-------+ + + + | MCV | 89.2 | 83.0 - 101.0 fL | [facility] | | | | | | [facility] | | | | | | [facility] | | | | | | CENTER - | | | | | | LABORATORY | | + +-------+ + + + | MCH | 29.3 | 28.0 - 35.0 pg | [facility] | | | | | | [facility] | | | | | | MEDICAL | | | | | | CENTER - | | | | | | LABORATORY | | + +-------+ + + + | MCHC | 32.9 | 32.0 - 36.0 | [facility] | | | | | g/dL | [facility] | | | | | | MEDICAL | | | | | | CENTER - | | | | | | LABORATORY | | + +-------+ + + + | RDW-CV | 13.2 | <15.0 % | [facility] | | | | | | [facility] | | | | | | MEDICAL | | | | | | CENTER - | | | | | | LABORATORY | | + +-------+ + + + | Platelet | 267 | 140 - 440 K/uL | [facility] | | | Count | | | [facility] | | | | | | MEDICAL | | | | | | CENTER - | | | | | | LABORATORY | | + +-------+ + + + | MPV | 8.1 | fL | [facility] | | | | | | [facility] | | | | | | MEDICAL | | | | | | CENTER - | | | | | | LABORATORY | | + +-------+ + + + + + | Specimen | + + | Blood | + + + + + + + | Performing | Address | City/State/Zipcode | Phone Number | | Organization | | | | + + + + + | [facility] | [address] | [place] | [phone] | | [facility] | | [address] | | | - LABORATORY | | | | + + + + + CK Total (11/17/2017 5:18 AM PST) + +-------+ + + + | Component | Value | Ref Range | Performed | Pathologist | | | | | At | Signature | + +-------+ + + + | CK TOTAL | 42 | 22 - 269 U/L | [facility] | | | | [facility] | | | | | | [facility]ICAL | | | | | | CENTER - | | | | | | LABORATORY | | + +-------+ + + + + + | Specimen | + + | Blood | + + + + + + + | Performing | Address | City/State/Zipcode | Phone Number | | Organization | | | | + + + + + | [facility] | [address] | [place] | [phone] | | [facility] | | [address] | | | - LABORATORY | | | | + + + + + POC Glucose (11/17/2017 4:13 AM PST) + +---------+ + + + | Component | Value | Ref Range | Performed | Pathologist | | | | | At | Signature | + +---------+ + + + | Glucose, | 195 (H) | 70 - 109 mg/dL | [facility] | | | POC | | | [facility] | | | | | | [facility] | | | | | | CENTER - | | | | | | LABORATORY | | + +---------+ + + + + + | Specimen | + + | Blood | + + + + + + + | Performing | Address | City/State/Zipcode | Phone Number | | Organization | | | | + + + + + | [facility] | [address] | [place], [place] | [phone] | | [facility] | | [address] | | | - LABORATORY | | | | + + + + + POC Glucose (11/16/2017 5:10 PM PST) + +---------+ + + + | Component | Value | Ref Range | Performed | Pathologist | | | | | At | Signature | + +---------+ + + + | Glucose, | 191 (H) | 70 - 109 mg/dL | [facility] | | | POC | | | [facility] | | | | | | MEDICAL | | | | | | CENTER - | | | | | | LABORATORY | | + +---------+ + + + + + | Specimen | + + | Blood | + + + + + + + | Performing | Address | City/State/Zipcode | Phone Number | | Organization | | | | + + + + + | [facility] | [address] | [place] | [phone] | | [facility] | | [address] | | | - LABORATORY | | | | + + + + + ECG 12 lead (11/16/2017 4:30 PM PST) + + + + + + | Component | Value | Ref Range | Performed | Pathologist | | | | | At | Signature | + + + + + + | VENTRICULAR | 83 | BPM | [facility] | | | RATE EKG | | | | | + + + + + + | ATRIAL RATE | 83 | BPM | [facility] | | + + + + + + | P-R | 144 | ms | [facility] | | | INTERVAL | | | | | + + + + + + | QRS | 72 | ms | [facility] | | | DURATION | | | | | + + + + + + | Q-T | 354 | ms | [facility] | | | INTERVAL | | | | | + + + + + + | Q-T | 415 | ms | [facility] | | | INTERVAL | | | | | | (CORRECTED) | | | | | + + + + + + | P WAVE AXIS | 60 | degrees | [facility] | | + + + + + + | QRS AXIS | 35 | degrees | [facility] | | + + + + + + | T AXIS | 91 | degrees | [facility] | | + + + + + + | INTERPRETAT | Normal sinus | | [facility] | | | ION TEXT | rhythmPossible Left | | | | | | atrial enlargementSeptal | | | | | | infarct (cited on or | | | | | | before | | | | | | 15-NOV-2017)Nonspecific | | | | | | T wave abnormality | | | | | | Lateral leadsAbnormal | | | | | | ECGWhen compared with | | | | | | ECG of 15-NOV-2017 | | | | | | 18:03,No significant | | | | | | change was | | | | | | foundConfirmed by | | | | | | SHOLA GALLO MD ([id number]) | | | | | | on 11/17/2017 6:38:00 AM | | | | + + + + + + + + | Specimen | + + | | + + + +---------+ + + | Performing | Address | City/State/Zipcode | Phone Number | | Organization | | | | + +---------+ + + | [facility] | | | | + +---------+ + + CV CARDIAC PROCEDURE (11/16/2017 3:25 PM PST) + + | Specimen | + + | | + + + + + | Narrative | Performed At | + + + | Stephen Baker | [facility] | | MD [place] 11/19/2017 13:36CARDIAC CATHERIZATION AND CORONARY | | | INTERVENTION REPORT DATE OF PROCEDURE: 11/16/17 | | | PRECATHETERIZATION INFORMED CONSENT : Yes TIMEOUT Before start of | | | procedure done: Yes PILING SETTER: Stephen Baker M.D., F.A.C.C. | | | PRIMARY PHYSICIAN: Pauly Perez PA-C PROCEDURES PERFORMED: | | | Left heart catheterization, selective coronary arteriography, RPDA ROBIN | | | PCI, fractional flow reserve measurement obtuse marginal branch left | | | circumflex artery INDICATIONS : 57-year-old woman with history of | | | type II diabetes admitted with acute congestive heart failure, rapid | | | atrial fibrillation, and her recent history of prolonged chest pain, | | | echocardiography evidence of anterior apical infarction ARTERIAL | | | ACCESS: Right radial artery 6 Nigerien CLOSURE DEVICE:. TR band | | | DESCRIPTION OF PROCEDURE: After obtaining informed written consent, | | | the patient was brought to the cardiac catheterization laboratory in | | | stable condition where she was prepped and draped in usual fashion. | | | Local anesthesia was administered to the right anterior wrist with | | | 1% lidocaine. Access to the right radial artery was achieved using a | | | Seldinger technique and a 6 Nigerien sheath was inserted. 3 mg of | | | verapamil and 300 g of nitroglycerin were administered through the | | | side port of the right radial artery sheath. 3000 units of | | | intravenous heparin was administered. A 5 Nigerien Ryan catheter was | | | advanced across the aortic valve without difficulty. Left | | | ventricular pressures and aortic valve pressures were recorded. The | | | Ryan catheter was then used to perform selective coronary | | | arteriography. A 6 Nigerien Ikari right 1.0 guiding catheter was | | | advanced to the right coronary artery ostium without difficulty. An | | | additional 3000 units of intravenous heparin was given. 180 mg of | | | ticagrelor was administered orally. A 0.014 inch BMW wire was passed | | | into the right posterior descending artery without difficulty. The | | | proximal right posterior descending artery stenosis was dilated with a | | | 2.25 mm balloon. Intracoronary nitroglycerin was administered. A | | | 2.25 x 15 mm Xience drug-eluting stent was deployed from the distal | | | RCA into the proximal right posterior ascending artery at high | | | pressure. Angiography reduction of the 90% RPDA stenosis to a 0% | | | residual stenosis with VERONA grade 3 flow. We then exchanged guiding | | | catheters for a 6 Nigerien LB U3.0 catheter that was used to engage the | | | left main coronary artery without difficulty. A 0.014 inch | | | fractional flow wire was positioned in the proximal circumflex artery | | | and the pressures were equalized. The wire was then passed into the | | | distal first obtuse marginal branch. Intravenous adenosine was | | | administered. A fractional flow reserve measurement of 0.83 was | | | measured in no PCI was performed on the obtuse marginal branch. | | | Final ACT 325 seconds. The right radial artery sheath was removed | | | using patent hemostasis technique and a TR band was applied. There | | | were no complications ANTICOAGULANTS: 6000 units intravenous heparin, | | | 180 mg oral ticagrelorSEDATION MEDICATIONS: 3 mg intravenous | | | VersedCONTRAST VOLUME: 120 mL Omnipaque FLUORO TIME: 15.9 | | | minutes; FLUORO DOSE: 739.23 mGy/cm2 HEMODYNAMICS:LEFT HEART: Left | | | ventricular end diastolic pressure: 10 mmHg Aortic pressure: 87/65 | | | mmHgAortic Valve Gradient on pullback: 3 mmHg CORONARY | | | ANGIOGRAPHYDOMINANCE: Codominant LEFT MAIN CORONARY ARTERY: Medium | | | caliber vessel arising from left coronary cusp, mild luminal disease | | | LEFT ANTERIOR DESCENDING ARTERY: Medium caliber vessel, 80% proximal | | | stenosis, 60% proximal mid stenosis at first septal dress operator, | | | subtotal mid occlusion with VERONA grade 1 antegrade flow to distal | | | vessel CIRCUMFLEX ARTERY: Medium caliber vessel, mild proximal | | | disease, medium caliber first obtuse marginal branch which bifurcates | | | with large superior branch with tandem 60-70% stenoses, inferior | | | branch bifurcates again with severe diffuse disease in terminal | | | branches of bifurcation, AV groove circumflex extends to posterior | | | lateral wall giving rise to 3 small posterior lateral branches with | | | severe diffuse disease RIGHT CORONARY ARTERY: Small to medium caliber | | | vessel arising from right coronary cusp, codominant, 40% proximal | | | stenosis, mid segment with mildly aneurysmal segment, small caliber | | | mid to distal vessel, severe proximal posterior ascending artery | | | stenosis of 90%, distal RPDA to apical LAD retrograde collateral | | | vessels CONTRAST LEFT VENTRICULOGRAPHY: Not performed CONCLUSIONS1. | | | Normal left ventricular end-diastolic pressure, low systemic blood | | | pressure2. Mild left main coronary disease3. Subtotal occlusion of | | | mid LAD with VERONA grade 1 antegrade flow4. Severe right posterior | | | descending artery stenosis in codominant vessel5. Moderate stenosis | | | of first obtuse marginal branch of left circumflex artery with | | | fractional flow reserve measurement of 0.83, severe diffuse disease of | | | smaller caliber branch of OM1, severe diffuse disease of distal left | | | circumflex posterior lateral branches6. Successful ROBIN PCI right | | | posterior descending artery PLAN: Dual antiplatelet therapy, RIAN | | | inhibitor, beta jasmin, statin therapy Stephen Baker M.D., | | | PernellInterventional CardiologistProAstria [facility] | | | [place], [place] | | |LEFT ANTERIOR DESCENDING ARTERY: Medium caliber vessel, 80% | | |proximal stenosis, 60% proximal mid stenosis at first septal | | |dress operator, subtotal mid occlusion with VERONA grade 1 antegrade | | |flow to distal vessel | | | | | |CIRCUMFLEX ARTERY: Medium caliber vessel, mild proximal disease, | | |medium caliber first obtuse marginal branch which bifurcates with | | |large superior branch with tandem 60-70% stenoses, inferior | | |branch bifurcates again with severe diffuse disease in terminal | | |branches of bifurcation, AV groove circumflex extends to | | |posterior lateral wall giving rise to 3 small posterior lateral | | |branches with severe diffuse disease | | | | | |RIGHT CORONARY ARTERY: Small to medium caliber vessel arising | | |from right coronary cusp, codominant, 40% proximal stenosis, mid | | |segment with mildly aneurysmal segment, small caliber mid to | | |distal vessel, severe proximal posterior ascending artery | | |stenosis of 90%, distal RPDA to apical LAD retrograde collateral | | |vessels | | | | | |CONTRAST LEFT VENTRICULOGRAPHY: Not performed | | | | | |CONCLUSIONS | | |1. Normal left ventricular end-diastolic pressure, low systemic | | |blood pressure | | |2. Mild left main coronary disease | | |3. Subtotal occlusion of mid LAD with VERONA grade 1 antegrade | | |flow | | |4. Severe right posterior descending artery stenosis in | | |codominant vessel | | |5. Moderate stenosis of first obtuse marginal branch of left | | |circumflex artery with fractional flow reserve measurement of | | |0.83, severe diffuse disease of smaller caliber branch of OM1, | | |severe diffuse disease of distal left circumflex posterior | | |lateral branches | | |6. Successful ROBIN PCI right posterior descending artery | | | | | |PLAN: Dual antiplatelet therapy, RIAN inhibitor, beta jasmin, | | |statin therapy | | | | | | | | |Stephen Baker M.D., F.A.C.C. | | |Personnel And Payroll Technician | | |[facility] | | |[place], [place] | | | | | | | | | | | | | | + + + + +---------+ + + | Performing | Address | City/State/Zipcode | Phone Number | | Organization | | | | + +---------+ + + | [facility] | | | | + +---------+ + + POC ACT (11/16/2017 2:53 PM PST) + +---------+ + + + | Component | Value | Ref Range | Performed | Pathologist | | | | | At | Signature | + +---------+ + + + | Activated | 325 (H) | 125 - 175 | [facility] | | | Clotting | | second(s) | [facility] | | | Time, POC | | | MEDICAL | | | | | | CENTER - | | | | | | LABORATORY | | + +---------+ + + + + + | Specimen | + + | | + + + + + + + | Performing | Address | City/State/Zipcode | Phone Number | | Organization | | | | + + + + + | [facility] | [address] | [place] | [phone] | | [facility] | | [address] | | | - LABORATORY | | | | + + + + + POC ACT (11/16/2017 2:28 PM PST) + +---------+ + + + | Component | Value | Ref Range | Performed | Pathologist | | | | | At | Signature | + +---------+ + + + | Activated | 252 (H) | 125 - 175 | [facility] | | | Clotting | | second(s) | [facility] | | | Time, POC | | | MEDICAL | | | | | | CENTER - | | | | | | LABORATORY | | + +---------+ + + + + + | Specimen | + + | | + + + + + + + | Performing | Address | City/State/Zipcode | Phone Number | | Organization | | | | + + + + + | [facility] | [address] | [place] | [phone] | | [facility] | | [address] | | | - LABORATORY | | | | + + + + + Lipid Panel (11/16/2017 12:08 PM PST) + + + + + + | Component | Value | Ref Range | Performed | Pathologist | | | | | At | Signature | + + + + + + | Triglycerid | 195 (H) | 35 - 160 mg/dL | [facility] | | | es | | | [facility] | | | | | | MEDICAL | | | | | | CENTER - | | | | | | LABORATORY | | + + + + + + | Cholesterol | 187 | 150 - 200 mg/dL | [facility] | | | | | | [facility] | | | | | | MEDICAL | | | | | | CENTER - | | | | | | LABORATORY | | + + + + + + | HDL | 34Comment: New HDL | 28 - 83 mg/dL | [facility] | | | | Reference Range as of | | [facility] | | | | June 25, 2015 | | MEDICAL | | | | Values may be 10-20% | | CENTER - | | | | lower with new, | | LABORATORY | | | | standardized method. | | | | + + + + + + | Chol/HDL | 5.5 | | [facility] | | | Ratio | | | [facility] | | | | | | MEDICAL | | | | | | CENTER - | | | | | | LABORATORY | | + + + + + + | LDL, | 114 | <=130 mg/dL | [facility] | | | Calculated | | | [facility] | | | | | | [facility] | | | | | | CENTER - | | | | | | LABORATORY | | + + + + + + + + | Specimen | + + | Blood | + + + + + + + | Performing | Address | City/State/Zipcode | Phone Number | | Organization | | | | + + + + + | [facility] | [address] | [place] | [phone] | | [facility] | | [address] | | | - LABORATORY | | | | + + + + + POC Glucose (11/16/2017 11:11 AM PST) + +---------+ + + + | Component | Value | Ref Range | Performed | Pathologist | | | | | At | Signature | + +---------+ + + + | Glucose, | 237 (H) | 70 - 109 mg/dL | [facility] | | | POC | | | [facility] | | | | | | MEDICAL | | | | | | CENTER - | | | | | | LABORATORY | | + +---------+ + + + + + | Specimen | + + | Blood | + + + + + + + | Performing | Address | City/State/Zipcode | Phone Number | | Organization | | | | + + + + + | [facility] | [address] | [place] | [phone] | | [facility] | | [address] | | | - LABORATORY | | | | + + + + + Basic Metabolic Panel (11/16/2017 4:16 AM PST) + + + + + + | Component | Value | Ref Range | Performed | Pathologist | | | | | At | Signature | + + + + + + | Na | 138 | 136 - 149 | [facility] | | | | | mmol/L | [facility] | | | | | | MEDICAL | | | | | | CENTER - | | | | | | LABORATORY | | + + + + + + | K | 4.0 | 3.5 - 5.1 | [facility] | | | | | mmol/L | [facility] | | | | | | MEDICAL | | | | | | CENTER - | | | | | | LABORATORY | | + + + + + + | Cl | 108 | 98 - 109 mmol/L | [facility] | | | | | | [facility] | [facility] | [facility] | | | | | | [facility] - | | | | | | LAB[facility]ATORY | | + + + + + + | CO2 | 24 | 24 - 31 mmol/L | [facility] | | | | | | [facility] | [facility] | | [facility] | | | | | | [facility] - | | | | | | LAB[facility]ATORY | | + + + + + + | Anion Gap | 6 | 3 - 16 mmol/L | [facility] | [facility] - | | | | | | LAB[facility]ATORY | | + + + + + + | Glucose | 323 (H) | 70 - 109 mg/dL | [facility] | [facility] - | | | | | | LABORATORY | | + + + + + + | BUN | 22 (H) | 7 - 18 mg/dL | [facility] | | | [facility] - | | | | | | LAB[facility]ATORY | | + + + + + + | Creatinine | 0.53 (L) | 0.60 - 1.30 | [facility] | | | | | mg/dL | [facility] | | [facility] | [facility] | | | | | | [facility] - | | | | | | LABORATORY | | + + + + + + | eGFR if not | >60Comment: GLOMERULAR | >=60 | [facility] | | | | FILTRATION | mL/min/1.73m2 | [facility] | | | [place] | RATE,ESTIMATED | | MEDICAL | | | | mL/min/1.54g4Iedl than | | CENTER - | | | | 60 Chronic kidney | | LABORATORY | | | | disease,if found over a | | | | | | 3-month period.Less than | | | | | | 15 Kidney failureFor | | | | | | | | | | | | Americans,multiply the | | | | | | calculated GFR by 1.21. | | | | | | | | | | + + + + + + | Calcium | 8.6 | 8.3 - 10.5 | [facility] | | | | | mg/dL | [facility] | | | | | | [facility] | | | | | | CENTER - | | | | | | LABORATORY | | + + + + + + | BUN/Creatin | 41.5 | | [facility] | | | ine Ratio | | | [facility] | | | | | | [facility] | | | | | | CENTER - | | | | | | LABORATORY | | + + + + + + + + | Specimen | + + | Blood | + + + + + + + | Performing | Address | City/State/Zipcode | Phone Number | | Organization | | | | + + + + + | [facility] | [address] | [place] | [phone] | | [facility] | | [address] | | | - LABORATORY | | | | + + + + + PTT (11/16/2017 4:16 AM PST) + +--------+ + + + | Component | Value | Ref Range | Performed | Pathologist | | | | | At | Signature | + +--------+ + + + | aPTT | 62 (H) | 22 - 36 seconds | [facility] | | | | | | [facility] | | | | | | [facility] | | | | | | CENTER - | | | | | | LABORATORY | | + +--------+ + + + + + | Specimen | + + | Blood | + + + + + + + | Performing | Address | City/State/Zipcode | Phone Number | | Organization | | | | + + + + + | [facility] | [address] | [place] | [phone] | | [facility] | | [address] | | | - LABORATORY | | | | + + + + + CBC no Differential (11/16/2017 4:16 AM PST) + +-------+ + + + | Component | Value | Ref Range | Performed | Pathologist | | | | | At | Signature | + +-------+ + + + | WBC | 10.3 | 4.0 - 11.0 K/uL | [facility] | | [facility] | [facility] | | | | | | [facility] - | | | | | | LABORATORY | | + +-------+ + + + | RBC | 4.26 | 3.70 - 5.20 | [facility] | | | | | M/uL | [facility] | | [facility] | | | [facility] | | | | | | CENTER - | | | | | | LABORATORY | | + +-------+ + + + | Hemoglobin | 12.6 | 11.5 - 16.0 | [facility] | | | | | g/dL | [facility] | | | | | | [facility] | | | | | | CENTER - | | | | | | LABORATORY | | + +-------+ + + + | Hematocrit | 38.1 | 34.0 - 47.0 % | [facility] | | | [facility] | [facility] | | | | | | [facility] - | | | | | | LABORATORY | | + +-------+ + + + | MCV | 89.5 | 83.0 - 101.0 fL | [facility] | | | [facility] | [facility] | | | | | | [facility] - | | | | | | LABORATORY | | + +-------+ + + + | MCH | 29.6 | 28.0 - 35.0 pg | [facility] | | | [facility] | | [facility] | | | | | | [facility] - | | | | | | LABORATORY | | + +-------+ + + + | MCHC | 33.1 | 32.0 - 36.0 | [facility] | | | | | g/dL | [facility] | | | | | | [facility] | | | | | | CENTER - | | | | | | LABORATORY | | + +-------+ + + + | RDW-CV | 12.9 | <15.0 % | [facility] | | | [facility] | | | | | | [facility] | | | | | | CENTER - | | | | | | LABORATORY | | + +-------+ + + + | Platelet | 270 | 140 - 440 K/uL | [facility] | | | Count | | | [facility] | | | | | | [facility] | | | | | | CENTER - | | | | | | LABORATORY | | + +-------+ + + + | MPV | 8.9 | fL | [facility] | | | | | | [facility] | | | | | | [facility] | | | | | | C[facility] - | | | | | | LABORATORY | | + +-------+ + + + + + | Specimen | + + | Blood | + + + + + + + | Performing | Address | City/State/Zipcode | Phone Number | | Organization | | | | + + + + + | [facility] | [address] | [place] | [phone] | | [facility] | | [address] | | | - LABORATORY | | | | + + + + + PTT (11/15/2017 11:07 PM PST) + +--------+ + + + | Component | Value | Ref Range | Performed | Pathologist | | | | | At | Signature | + +--------+ + + + | aPTT | 83 (H) | 22 - 36 seconds | [facility] | | | | | | [facility] | | | | | | CENTER - | | | | | | LABORATORY | | + +--------+ + + + + + | Specimen | + + | Blood | + + + + + + + | Performing | Address | City/State/Zipcode | Phone Number | | Organization | | | | + + + + + | [facility] | [address] | [place] | [phone] | | [facility] | | [address] | | | - LABORATORY | | | | + + + + + PTT (11/15/2017 6:04 PM PST) + +-------+ + + + | Component | Value | Ref Range | Performed | Pathologist | | | | | At | Signature | + +-------+ + + + | aPTT | 25 | 22 - 36 seconds | [facility] | | | | | [facility] | | | | | [facility] | | | | | | CENTER - | | | | | | LABORATORY | | + +-------+ + + + + + | Specimen | + + | Blood | + + + + + + + | Performing | Address | City/State/Zipcode | Phone Number | | Organization | | | | + + + + + | [facility] | [address] | [place] | [phone] | | [facility] | | [address] | | | - LABORATORY | | | | + + + + + ECG 12 lead (11/15/2017 6:03 PM PST) + + + + + + | Component | Value | Ref Range | Performed | Pathologist | | | | | At | Signature | + + + + + + | VENTRICULAR | 95 | BPM | [facility] | | | RATE EKG | | | | | + + + + + + | ATRIAL RATE | 95 | BPM | [facility] | | + + + + + + | P-R | 144 | ms | [facility] | | | INTERVAL | | | | | + + + + + + | QRS | 68 | ms | [facility] | | | DURATION | | | | | + + + + + + | Q-T | 338 | ms | [facility] | | | INTERVAL | | | | | + + + + + + | Q-T | 424 | ms | [facility] | | | INTERVAL | | | | | | (CORRECTED) | | | | | + + + + + + | P WAVE AXIS | 55 | degrees | [facility] | | + + + + + + | QRS AXIS | 30 | degrees | [facility] | | + + + + + + | T AXIS | 76 | degrees | [facility] | | + + + + + + | INTERPRETAT | Sinus rhythm with marked | | [facility] | | | ION TEXT | sinus arrhythmia and | | | | | | PAC'sPossible Left | | | | | | atrial | | | | | | enlargementPossible | | | | | | Anteroseptal infarct , | | | | | | age | | | | | | undeterminedNonspecific | | | | | | T wave abnormality | | | | | | Lateral leadsAbnormal | | | | | | ECGNo previous ECGs | | | | | | availableConfirmed by | | | | | | SHOLA GALLO MD ([id number]) | | | | | | on 11/16/2017 6:45:13 AM | | | | + + + + + + + + | Specimen | + + | | + + + + + | Narrative | Performed At | + + + | | | + + + + +---------+ + + | Performing | Address | City/State/Zipcode | Phone Number | | Organization | | | | + +---------+ + + | [facility] | | | | + +---------+ + + Culture, MRSA (11/15/2017 3:23 PM PST) + + + + + + | Component | Value | Ref Range | Performed | Pathologist | | | | | At | Signature | + + + + + + | Culture | Negative for MRSA by | | [facility] | | | | chromogenic agar method | | [facility] | | | | | | [facility] | | | | | | CENTER - | | | | | | LABORATORY | | + + + + + + + + | Specimen | + + | Respiratory - Both | | anterior nares (body | | structure) | + + + + + + + | Performing | Address | City/State/Zipcode | Phone Number | | Organization | | | | + + + + + | [facility] | [address] | [place] | [phone] | | [facility] | | [address] | | | - LABORATORY | | | | + + + + + ECHO Complete (11/15/2017 10:40 AM PST) + + | Specimen | + + | | + + + + + | Narrative | Performed At | + + + | External films for comparison only - no result from [facility]. | [facility] | + + + + +---------+ + + | Performing | Address | City/State/Zipcode | Phone Number | | Organization | | | | + +---------+ + + | [facility] | | | | + +---------+ + + LABS - EXTERNAL SCAN (11/15/2017 12:00 AM PST) + + + | Narrative | Performed At | + + + | Ordered by an | | | unspecified provider. | | + + + ECG - EXTERNAL SCAN (11/15/2017 12:00 AM PST) + + + | Narrative | Performed At | + + + | Ordered by an | | | unspecified provider. | | + + + IMAGING REPORT - EXTERNAL SCAN (11/14/2017 12:00 AM PST) + + + | Narrative | Performed At | + + + | Ordered by an | | | unspecified provider. | | + + + IMAGING REPORT - EXTERNAL SCAN (11/14/2017 12:00 AM PST) + + + | Narrative | Performed At | + + + | Ordered by an | | | unspecified provider. | | + + + documented in this encounter Visit Diagnoses + + | Diagnosis | + + | Acute systolic congestive heart failure (HCC) Acute systolic heart failure | + + documented in this encounter Administered Medications + +--------+ +--------+------+------+ | Medication Order | MAR | Action | Dose | Rate | Site | | | Action | Date | | | | + +--------+ +--------+------+------+ | acetaminophen (TYLENOL) tablet | Given | 11/18/19 | 650 mg | | | | 650 mg 650 mg, Oral, EVERY 4 | | 18 7:42 | | | | | HOURS PRN, Pain, or fever >= 38.3 | | AM PST | | | | | C (101.5 F), Starting Wed | | | | | | | 11/15/17 at 1846 | | | | | | + +--------+ +--------+------+------+ +-------+ +--------+---+---+ | Given | 11/17/19 | 650 mg | | | | | 18 4:26 | | | | | | AM PST | | | | +-------+ +--------+---+---+ +---+---+ | | | +---+---+ + +-------+ +---------+---+---+ | ALPRAZolam (XANAX) tablet 0.25 | Given | 11/16/19 | 0.25 mg | | | | mg 0.25 mg, Oral, ONCE, Lisa | | 18 8:19 | | | | | 11/16/17 at 2030, For 1 dose | | PM PST | | | | + +-------+ +---------+---+---+ +---+---+ | | | +---+---+ + +-------+ +---------+---+---+ | ALPRAZolam (XANAX) tablet 0.25 | Given | 11/17/19 | 0.25 mg | | | | mg 0.25 mg, Oral, EVERY 8 HOURS | | 18 8:45 | | | | | PRN, Anxiety, Starting 11/17/17 | | PM PST | | | | | at 1514 | | | | | | + +-------+ +---------+---+---+ +---+---+ | | | +---+---+ + +-------+ +-------+---+---+ | aspirin chewable tablet 81 mg | Given | 11/19/19 | 81 mg | | | | 81 mg, Oral, DAILY, First dose on | | 18 9:16 | | | | | 11/15/17 at 1915 | | AM PST | | | | + +-------+ +-------+---+---+ +-------+ +-------+---+---+ | Given | 11/18/19 | 81 mg | | | | | 18 10:33 | | | | | | AM PST | | | | +-------+ +-------+---+---+ | Given | 11/17/19 | 81 mg | | | | | 18 9:41 | | | | | | AM PST | | | | +-------+ +-------+---+---+ +---+---+ | | | +---+---+ + +-------+ +-------+---+---+ | atorvaSTATin (LIPITOR) tablet | Given | 11/18/19 | 40 mg | | | | 40 mg 40 mg, Oral, NIGHTLY, | | 18 9:28 | | | | | First dose on Mon11/15/17 at 2100 | | PM PST | | | | + +-------+ +-------+---+---+ +-------+ +-------+---+---+ | Given | 11/17/19 | 40 mg | | | | | 18 8:34 | | | | | | PM PST | | | | +-------+ +-------+---+---+ | Given | 11/16/19 | 40 mg | | | | | 18 8:23 | | | | | | PM PST | | | | +-------+ +-------+---+---+ +---+---+ | | | +---+---+ + +-------+ + +---+---+ | carvedilol (COREG) tablet 3.125 | Given | 11/18/19 | 3.125 mg | | | | mg 3.125 mg, Oral, 2 TIMES | | 18 5:17 | | | | | DAILY WITH BREAKFAST & DINNER, | | PM PST | | | | | First dose (after last | | | | | | | modification) on Mon11/18/17 at | | | | | | | 1700 | | | | | | + +-------+ + +---+---+ +---+---+ | | | +---+---+ + +-------+ +---------+---+---+ | carvedilol (COREG) tablet 6.25 | Given | 11/16/19 | 6.25 mg | | | | mg 6.25 mg, Oral, 2 TIMES DAILY | | 18 5:21 | | | | | WITH BREAKFAST & DINNER, First | | PM PST | | | | | dose on Mon11/15/17 at 1915 | | | | | | + +-------+ +---------+---+---+ +-------+ +---------+---+---+ | Given | 11/16/19 | 6.25 mg | | | | | 18 8:12 | | | | | | AM PST | | | | +-------+ +---------+---+---+ | Given | 11/15/19 | 6.25 mg | | | | | 18 7:02 | | | | | | PM PST | | | | +-------+ +---------+---+---+ +---+---+ | | | +---+---+ + +-------+ +---------+---+---+ | carvedilol (COREG) tablet 6.25 | Given | 11/16/19 | 6.25 mg | | | | mg 6.25 mg, Oral, ONCE, Lisa | | 18 8:00 | | | | | 11/16/17 at 1945, For 1 dose, To | | PM PST | | | | | make 12.5mg dose, | | | | | | + +-------+ +---------+---+---+ +---+---+ | | | +---+---+ + +-------+ +---------+---+---+ | carvedilol (COREG) tablet 6.25 | Given | 11/17/19 | 6.25 mg | | | | mg 6.25 mg, Oral, 2 TIMES DAILY | | 18 4:55 | | | | | WITH BREAKFAST & DINNER, First | | PM PST | | | | | dose (after last modification) on | | | | | | | Mon11/17/17 at 1700, 11/16 Start | | | | | | | tonight. Give additional 6.25mg | | | | | | | tonight to equal 12.5 mg for this | | | | | | | evening., | | | | | | + +-------+ +---------+---+---+ +---+---+ | | | +---+---+ + +-------+ +-------+---+---+ | clopidogrel (PLAVIX) tablet 75 | Given | 11/19/19 | 75 mg | | | | mg 75 mg, Oral, DAILY, First | | 18 9:16 | | | | | dose on Mon11/17/17 at 0900, Do | | AM PST | | | | | not give if already taken today., | | | | | | | Post-op/Phase II | | | | | | + +-------+ +-------+---+---+ +-------+ +-------+---+---+ | Given | 11/18/19 | 75 mg | | | | | 18 10:32 | | | | | | AM PST | | | | +-------+ +-------+---+---+ | Given | 11/17/19 | 75 mg | | | | | 18 9:41 | | | | | | AM PST | | | | +-------+ +-------+---+---+ + +---+ | | | + +---+ | dextrose 50% injection 12.5 g | | | 12.5 g, Intravenous, PRN, Low | | | Blood Sugar, Starting Lisa 11/16/17 | | | at 0844 | | + +---+ | | | + +---+ + +-------+ +--------+---+---+ | docusate sodium (COLACE) | Given | 02/02/20 | 100 mg | | | | capsule 100 mg 100 mg, Oral, 2 | | 18 12:00 | | | | | TIMES DAILY PRN, Constipation, | | PM PST | | | | | Starting Mon11/15/17 at 1846, 1st | | | | | | | line agent for constipation | | | | | | | relief., | | | | | | + +-------+ +--------+---+---+ +---+---+ | | | +---+---+ + +-------+ +--------+---+---+ | heparin 1,000 units/mL | Given | 11/15/19 | 4,000 | | | | injection 2,000-8,000 Units | | 18 7:44 | Units | | | | 2,000-8,000 Units, Intravenous, | | PM PST | | | | | ONCE, Mon11/15/17 at 1915, For 1 | | | | | | | dose, Heparin Protocol - Cardiac | | | | | | | Dose Initial Bolus Give heparin | | | | | | | 3,500 units x1 (60 units/kg IV x | | | | | | | 1, round to nearest 100 units, | | | | | | | max 4000 units), | | | | | | + +-------+ +--------+---+---+ +---+---+ | | | +---+---+ + +---------+ + + +---+ | heparin in half-normal saline | New Bag | 11/15/19 | 1,000 | 20 mL/hr | | | 50 units/mL infusion 1,000 | | 18 5:53 | Units/hr | | | | Units/hr (20 mL/hr), at 20 mL/hr, | | PM PST | | | | | Intravenous, TITRATED, Starting | | | | | | | 11/15/17 at 1745, Use actual | | | | | | | body weight to calculate dose. | | | | | | | Round infusion dose to nearest 50 | | | | | | | units/hr. Round bolus dose to | | | | | | | nearest 100 units. CARDIAC DOSE | | | | | | | HEPARIN PROTOCOL STARTING | | | | | | | heparin infusion dose 700 | | | | | | | units/hr (12 units/kg/hr, initial | | | | | | | rate max 1,000 units/hr). Draw | | | | | | | APTT from an IV site other than | | | | | | | heparin IV site 6 hours after | | | | | | | starting a heparin infusion. | | | | | | | PTT Nomogram for ADJUSTING | | | | | | | heparin: APTT < 46 seconds: | | | | | | | Bolus 4,000 units & increase | | | | | | | rate by 200 units/hr Repeat | | | | | | | APTT 6 hr after change. APTT | | | | | | | 46-60 seconds: Bolus 2,000 | | | | | | | units & increase rate by 100 | | | | | | | units/hr Repeat APTT 6 hr after | | | | | | | change. APTT 61-98 seconds: | | | | | | | No bolus or rate change. Repeat | | | | | | | in AM. APTT 99-126 seconds: | | | | | | | Decrease rate by 100 units/hr | | | | | | | Repeat APTT 6 hr after change. | | | | | | | APTT 127-149 seconds: Stop | | | | | | | infusion 60 minutes then recheck | | | | | | | APTT. When APTT is 126 or less, | | | | | | | restart heparin at decreased | | | | | | | rate by 200 units/hr. Repeat | | | | | | | APTT 6 hr after change. APTT | | | | | | | 150-200 seconds: Stop infusion | | | | | | | 90 minutes then recheck APTT. | | | | | | | Repeat APTT every 90 minutes | | | | | | | until in goal range. When APTT | | | | | | | is in goal range, restart | | | | | | | heparin at decreased rate by 200 | | | | | | | units/hr. If two consecutive | | | | | | | APTT values are > 150 seconds, | | | | | | | contact prescriber. APTT >200 | | | | | | | seconds: Contact prescriber , | | | | | | + +---------+ + + +---+ +---+---+ | | | +---+---+ + +-------+ + +---+---+ | HYDROcodone-acetaminophen | Given | 11/16/19 | 1 tablet | | | | (NORCO) 5-325 mg per tablet 1-2 | | 18 5:27 | | | | | tablet 1-2 tablet, Oral, EVERY 4 | | PM PST | | | | | HOURS PRN, Pain, Starting Wed | | | | | | | 11/15/17 at 1846, If ineffective | | | | | | | use Ruso if ordered. If | | | | | | | not tolerated, use Percocet then | | | | | | | Oxycodone if ordered., | | | | | | + +-------+ + +---+---+ +-------+ + +---+---+ | Given | 11/16/19 | 1 tablet | | | | | 18 4:06 | | | | | | PM PST | | | | +-------+ + +---+---+ | Given | 11/16/19 | 1 tablet | | | | | 18 9:20 | | | | | | AM PST | | | | +-------+ + +---+---+ +---+---+ | | | +---+---+ + +-------+ +---------+---+ + | insulin glargine (LANTUS | Given | 11/18/19 | 7 Units | | Abdomen- | | SOLOSTAR) 100 units/mL injection | | 18 9:21 | | | LLQ | | (pen) 7 Units 7 Units, | | PM PST | | | | | Subcutaneous, NIGHTLY, First dose | | | | | | | on Mon11/17/17 at 2100, For | | | | | | | subcutaneous use only. Basal | | | | | | | (long acting) insulin., | | | | | | + +-------+ +---------+---+ + +---+---+ | | | +---+---+ + +-------+ +---------+---+ + | insulin lispro (humaLOG | Given | 11/19/19 | 2 Units | | Abdomen- | | KWIKPEN) 100 units/mL injection | | 18 9:22 | | | RLQ | | (pen) 0-6 Units 0-6 Units, | | AM PST | | | | | Subcutaneous, 4 TIMES DAILY WITH | | | | | | | MEALS & NIGHTLY, First dose on | | | | | | | Lisa 11/16/17 at 0900, CORRECTION | | | | | | | SCALE: Blood Glucose (BG) < | | | | | | | 150: None BG | | | | | | | 150-200: DAY: 1 units. NIGHT: 0 | | | | | | | units BG 201-250: DAY: 2 units. | | | | | | | NIGHT: 1 units BG 251-300: | | | | | | | DAY: 3 units. NIGHT: 2 units | | | | | | | BG 301-350: DAY: 4 units. NIGHT: | | | | | | | 3 units BG 351-400: DAY: 5 | | | | | | | units. NIGHT: 4 units BG > | | | | | | | 400 : DAY: 6 units. NIGHT: 5 | | | | | | | units | | | | | | | AND CALL PROVIDER Use DAY DOSE | | | | | | | for doses scheduled: AC, | | | | | | | NPO, Daytime [id number] Use NIGHT | | | | | | | DOSE for doses scheduled: | | | | | | | HS, 3AM, Nighttime [id number], | | | | | | + +-------+ +---------+---+ + +-------+ +---------+---+ + | Given | 11/18/19 | 3 Units | | Abdomen- | | | 18 9:21 | | | LLQ | | | PM PST | | | | +-------+ +---------+---+ + | Given | 11/18/19 | 3 Units | | Arm-Righ | | | 18 5:20 | | | t Upper | | | PM PST | | | | +-------+ +---------+---+ + + +---+ | | | + +---+ | lidocaine 1%-EPINEPHrine | | | 1:100,000 injection 5 mL 5 mL, | | | Infiltration, ONCE PRN, for | | | oozing at cardiac cath site, | | | Starting Lisa 11/16/17 at 1548, For | | | 1 dose, For continued oozing | | | after sheath removal despite | | | pressure dressing and manual | | | pressure. Inject to affected area | | | x 1 followed by 10 minutes of | | | manual compression., | | | Post-op/Phase II | | + +---+ | | | + +---+ + +-------+ +--------+---+---+ | lisinopril (PRINIVIL,ZESTRIL) | Given | 11/16/19 | 2.5 mg | | | | tablet 2.5 mg 2.5 mg, Oral, | | 18 5:21 | | | | | TIMES DAILY, First dose on Lisa | | PM PST | | | | | 11/16/17 at 1600 | | | | | | + +-------+ +--------+---+---+ +---+---+ | | | +---+---+ + +-------+ +--------+---+---+ | lisinopril (PRINIVIL,ZESTRIL) | Given | 11/18/19 | 2.5 mg | | | | tablet 2.5 mg 2.5 mg, Oral, | | 18 10:00 | | | | | NIGHTLY, First dose (after last | | PM PST | | | | | modification) on Mon11/17/17 at | | | | | | | 2100 | | | | | | + +-------+ +--------+---+---+ +-------+ +--------+---+---+ | Given | 11/17/19 | 2.5 mg | | | | | 18 8:34 | | | | | | PM PST | | | | +-------+ +--------+---+---+ +---+---+ | | | +---+---+ + +-------+ +--------+---+---+ | metFORMIN (GLUCOPHAGE) tablet | Given | 11/18/19 | 850 mg | | | | 850 mg 850 mg, Oral, 2 TIMES | | 18 5:18 | | | | | DAILY WITH BREAKFAST & DINNER, | | PM PST | | | | | First dose on Mon11/18/17 at 1700, | | | | | | | Follow hospital guidelines to | | | | | | | determine if metFORMIN should be | | | | | | | held following procedures using | | | | | | | IV iodinated contrast., | | | | | | + +-------+ +--------+---+---+ +---+---+ | | | +---+---+ + +-------+ +--------+---+---+ | nitroglycerin (NITROSTAT) SL | Given | 11/16/19 | 0.4 mg | | | | tablet 0.4 mg 0.4 mg, | | 18 7:09 | | | | | Sublingual, EVERY 5 MIN PRN, | | PM PST | | | | | Chest pain, Starting [facility] 11/16/17 | | | | | | | at 1548, May give up to 3 doses. | | | | | | | Notify physician after 2nd dose | | | | | | | given. Hold for SBP<100, | | | | | | | Post-op/Phase II | | | | | | + +-------+ +--------+---+---+ +-------+ +--------+---+---+ | Given | 11/16/19 | 0.4 mg | | | | | 18 4:01 | | | | | | PM PST | | | | +-------+ +--------+---+---+ | Given | 11/16/19 | 0.4 mg | | | | | 18 3:56 | | | | | | PM PST | | | | +-------+ +--------+---+---+ +---+---+ | | | +---+---+ + +-------+ +------+---+---+ | ondansetron (ZOFRAN ODT) | Given | 11/16/19 | 4 mg | | | | disintegrating tablet 4 mg 4 mg, | | 18 6:18 | | | | | Oral, EVERY 6 HOURS PRN, Nausea, | | PM PST | | | | | Vomiting, Starting 11/15/17 | | | | | | | at 1846, First line agent, | | | | | | + +-------+ +------+---+---+ +---+---+ | | | +---+---+ + +-------+ +------+---+---+ | ondansetron (ZOFRAN) injection | Given | 11/17/19 | 4 mg | | | | 4 mg 4 mg, Intravenous, EVERY 6 | | 18 9:00 | | | | | HOURS PRN, Nausea, Vomiting, | | PM PST | | | | | Starting [facility] 11/16/17 at 1918 | | | | | | + +-------+ +------+---+---+ +---+---+ | | | +---+---+ + +-------+ +-------+---+---+ | traMADol (ULTRAM) tablet 50 mg | Given | 11/17/19 | 50 mg | | | | 50 mg, Oral, EVERY 6 HOURS PRN, | | 18 2:25 | | | | | Pain, Starting 11/17/17 at 1353 | | PM PST | | | | + +-------+ +-------+---+---+ +---+---+ | | | +---+---+ + +-------+ +------+---+---+ | zolpidem (AMBIEN) tablet 5 mg | Given | 11/17/19 | 5 mg | | | | 5 mg, Oral, NIGHTLY PRN, | | 18 8:44 | | | | | Insomnia, Starting 11/15/17 at | | PM PST | | | | | 1846 | | | | | | + +-------+ +------+---+---+ +-------+ +------+---+---+ | Given | 11/16/19 | 5 mg | | | | | 18 8:23 | | | | | | PM PST | | | | +-------+ +------+---+---+ | Given | 11/15/19 | 5 mg | | | | | 18 8:51 | | | | | | PM PST | | | | +-------+ +------+---+---+ +---+---+ | | | +---+---+ documented in this encounter
--- OUTSIDE RECORDS SUMMARY | ~2020-03-18 | XMS | Encounter Summary ---
Demographics + + + | Address | [address] [address] | | | [place] [address] | + + + | Home Phone | | + + + | Preferred Language | Unknown | + + + | Marital Status | | + + + | Evangelical Affiliation | Unknown | + + + | Race | Unknown | + + + | Ethnic Group | Unknown | + + + Author + + + | Author | [facility] | | | and [place] | + + + | Organization | [facility] | | [...] Team Providers + +------+ + | Care Gear Setter Name | Role | Phone | + [...] + + | 12/18/ | Telephone | [facility] | Stephen Baker MD | Other | | 2018 | | CARDIOLOGY [address] | | | | | [place], | [place], [place] | | | | | [place] [address] | [id number] | | | | | [phone] | | | +--------+ + + + [...]
--- OUTSIDE RECORDS SUMMARY | ~2020-03-18 | XMS | Encounter Summary ---
Demographics + + + | Address | [address] | | | [place] [address] | + + + | Home Phone | | + + + | Preferred Language | Unknown | + + + | Marital Status | | + + + | Pentecostalism Affiliation | Unknown | + + + | Race | Unknown | + + + | Ethnic Group | Unknown | + + + Author + + + | Author | [facility] | | | and [place] | + + + | Organization | [facility] | | | and [...] Team Providers + +------+ + | Care Combination Window Installer Name | Role | Phone | + +------+ + | Pauly Perez PA-C | PCP | | + +------+ + Encounter Details +--------+ + + + + | Date | Type | Department | Care Team | Description | +--------+ + + + + | 12/18/ | Hospital | [facility] | Stephen Baker MD | Atrial fibrillation, | | 2018 | Encounter | [facility] | [address] | unspecified type | | | | MEDICINE [address] | [place], [place] | (HCC) | | | | [place], | [address] | | | | | [place] [address] | | | | | | [phone] | | | +--------+ + + + [...] | + +--------+ + + + | HOLTER MONITOR - 48 | Routin | 12/22/2017 | Atrial | Results for this | | HOUR | e | 10:21 AM | fibrillation, | procedure are in the | | | | PST | unspecified type | results section. | | | | | (FORMERLY [facility]) | | + +--------+ + + + documented in this encounter Results Holter monitor - 48 hour (12/22/2017 10:21 AM PST) + + + | Narrative | Performed At | + + + | Veronica Field MD 12/26/2017 6:06 PATIENT NAME: | CHRISTIANA ZIEGLER | | Luciana Latham : 1960: AGE: 57 y.o. | | | PRIMARY CARE: Pauly Medrano | | | MEÑO Perez READING GEOPHYSICAL DRAFTER: Veronica Field MD | | | 48-HOUR HOLTER MONITOR REPORT DATE: 12/18/2017 | | | IMPRESSION: 1) The predominant rhythm is sinus with HR between | | | 79 to 163 bpm. The average HR was 102 bpm during the 48:32 hour | | | recording. 2) There were very rare PVC's (183 total, mean 3.8/hr) | | | with no couplets and no triplets. 3) There were very rare PAC's | | | (61 total, mean 1.3/hr). 4) There was no bradycardia. 5) There | | | were 143 episodes of sinus tachycardia. The longest was 684 beats | | | on Monday 16:53. The maximum rate was 173 bpm on Monday 08:26. | | | 6) There were 2 episodes of paroxysmal atrial fibrillation and | | | flutter with rapid ventricular response for a total time of 26 | | | minutes and 38 seconds or 0.9% on the study, with a maximum rate of | | | 170 bpm. 7) Diary was not returned, no symptoms reported. | | | Signed by: Veronica Field MD [facility] 12/22/2017, 10:22 | | + + + + +---------+ + + | Performing | Address | City[facility] | Phone Number | | Organization | | | | + +---------+ + + | [facility] | | | | + +---------+ + + documented in this encounter Visit Diagnoses + + | Diagnosis | + + | Atrial fibrillation, unspecified type ([facility]LY [facility]) | + + documented in this encounter"
--- OUTSIDE RECORDS SUMMARY | ~2020-03-18 | XMS | Encounter Summary ---
Demographics + + + | Address | [address] | | | [place] [address] | + + + | Home Phone | | + + + | Preferred Language | Unknown | + + + | Marital Status | | + + + | Mormonism Affiliation | Unknown | + + + [...] Team Providers + +------+ + | Care Lease Examiner Name | Role | Phone | + +------+ + | Pauly Perez PA-C | PCP | | + +------+ + Encounter Details +--------+ + + + + | Date | Type | Department | Care Team | Description | +--------+ + + + + | 06/19/ | Orders Only | [facility] | Kierra Newell, | | | 2018 | | CARDIOLOGY MICHELLE | MD [address] | | | | | ECHO [address] | [place], | | | | | [place] | [place] [address] | | | | | [address] | [phone] | | | | | [phone] | | | +--------+ + + + [...] + | ECHO COMPLETE | Routin | 06/19/2018 | | Results for this | | | e | 5:16 PM | | procedure are in the | | | | PDT | | results section. | + +--------+ + + + documented in this encounter Results ECHO Complete (06/19/2018 5:16 PM PDT) + + | Specimen | + + | | + + + + + | Impressions | Performed At | + + + | 1. Overall left ventricular systolic function is moderately impaired | | | with an EF between 35 - 40%. There are multiple anterior, septal | | | and apical wall motion abnormalities consistent with her prior [place]. 2. | | | The diastolic filling pattern indicates impaired relaxation | | | consistent with mild dysfunction (Grade I). 3. The right ventricle is | | | normal in size and function. 4. The left atrium is mildly dilated. | | | 5. Moderate mitral regurgitation is present. 6. There is mild | | | pulmonary hypertension. The right ventricular systolic pressure | | | (pulmonary artery systolic pressure), as measured by Doppler, is 40 - | | | 45 mm Hg. 7. Other than for a decrease in the peak RV systolic | | | (pulmonary artery) pressure, there are no significant changes noted | | | in comparison to her previous echocardiographic study, done 11/15/17. | | + + + + + + | Narrative | Performed At | + + + | Patient Name: Luciana Latham Date of : 1960 | | | Performing Physician: KIERRA NEWELL MD | | | | | | INDICATIONS PAROXYSMAL AFIB, [place] CONCLUSIONS | | | 1. Overall left ventricular systolic function is | | | moderately impaired with an EF between 35 - 40%. There are multiple | | | anterior, septal and apical wall motion abnormalities consistent with | | | her prior [place]. 2. The diastolic filling pattern indicates impaired | | | relaxation consistent with mild dysfunction (Grade I). 3. The right | | | ventricle is normal in size and function. 4. The left atrium is | | | mildly dilated. 5. Moderate mitral regurgitation is present. 6. | | | There is mild pulmonary hypertension. The right ventricular systolic | | | pressure (pulmonary artery systolic pressure), as measured by | | | Doppler, is 40 - 45 mm Hg. 7. Other than for a decrease in the peak RV | | | systolic (pulmonary artery) pressure, there are no significant | | | changes noted in comparison to her previous echocardiographic study, | | | done 11/15/17. FINDINGS -------- ECG rhythm: Sinus rhythm. | | | Study: A 2-dimensional transthoracic echocardiogram with m-mode, | | | spectral and color flow Doppler was perfomed. Study: This was a | | | technically adequate study. Left Ventricle: Overall left ventricular | | | systolic function is moderately impaired with an EF between 35 - 40%. | | | The following regional wall motion abnormalities include: mid | | | anterior - moderately hypokinetic; mid anteroseptal - severely | | | hypokinetic; basal inferoseptal - moderately hypokinetic; mid | | | inferoseptal - mildly hypokinetic; lateral - mildly hypokinetic; | | | anterior apex - akinetic; apical septum- akinetic; inferior | | | apex - severely hypokinetic; apical lateral - akinetic; apex - | | | akinetic; The remaining left ventricular segments contract | | | normally. Left Ventricle: The left ventricle cavity size is normal. | | | Left Ventricle: Left ventricular wall thickness is normal. Left | | | Ventricle: The diastolic filling pattern indicates impaired relaxation | | | consistent with mild (Grade I) dysfunction (diastolic function was | | | not assessed on the prior study). Left Ventricle: False tendon | | | visualized in the LV. Right Ventricle: The right ventricle is normal | | | in size and function. Left Atrium: The left atrium is mildly dilated. | | | Right Atrium: The right atrium is normal in size. Aortic Valve: | | | Aortic valve is mildly thickened. Aortic Valve: There is mild aortic | | | valve sclerosis/calcification without stenosis. Aortic Valve: There | | | is no evidence of aortic regurgitation (there was trace AI on the | | | prior study). Aortic Valve: The aortic valve is trileaflet. Mitral | | | Valve: Moderate mitral regurgitation is present. Mitral Valve: No | | | evidence of MVP Mitral Valve: Mild mitral annular calcification | | | present. Mitral Valve: There is mild thickening of the mitral valve | | | leaflets. Tricuspid Valve: The tricuspid valve appears structurally | | | normal. Tricuspid Valve: Mild tricuspid regurgitation present. | | | Tricuspid Valve: There is mild pulmonary hypertension. Tricuspid | | | Valve: The right ventricular systolic pressure (pulmonary artery | | | systolic pressure), as measured by Doppler, is 40 - 45 mm Hg, | | | decreased from severe pulmonary hypertension (RVSP 62.15 mm Hg) on the | | | prior study. Pulmonic Valve: Pulmonic valve appears structurally | | | normal. Pulmonic Valve: Trace pulmonic regurgitation. Pericardium: | | | There is no pericardial effusion. IVC/Hepatic Veins: The inferior | | | vena cava is normal in size and collapses > 50 % with sniff, | | | indicating normal central venous pressures. Aorta: The aortic root, | | | ascending aorta and aortic arch are normal. Mass: No mass visualized | | | Thrombus: No clot visualized Thrombus: No vegetation visualized. | | | Septum: No ASD observed. Septum: No VSD observed. MEASUREMENTS | | | Ao asc: 3.02 cm Ao sinus: 2.[address] junct: | | | 2.83 cm IVC: 1.29 cm LA Diam: 4.05 cm EDV(Teich): 95.31 | | | ml IVSd: 0.84 cm LVIDd: 4.55 cm LVPWd: 0.76 cm LVOT | | | Area: 3.08 cm2 LVOT Diam: 1.98 cm %FS: 23.21 % EF(Teich): | | | 46.60 % ESV(Teich): 50.89 ml LVIDs: 3.50 cm SV(Teich): | | | 44.42 ml RVIDd: 2.91 cm LVEF MOD A2C: 34.22 % SV MOD A2C: | | | 52.19 ml LVEF MOD A4C: 45.02 % SV MOD A4C: 60.80 ml EF | | | Biplane: 39.76 % LVEDV MOD BP: 145.60 ml LVESV MOD BP: | | | 87.70 ml LVEDV MOD A2C: 152.54 ml LVLd A2C: 9.41 cm LVEDV MOD | | | A4C: 135.03 ml LVLd A4C: 9.13 cm LVESV MOD A2C: 100.34 ml | | | LVLs A2C: 8.59 cm LVESV MOD A4C: 74.23 ml LVLs A4C: 8.23 | | | cm LAESV(A-L): 87.71 ml LAAs A2C: 17.85 cm2 LAESV A-L A2C: | | | 62.34 ml LALs A2C: 4.33 cm LAAs A4C: 25.11 cm2 LAESV A-L | | | A4C: 102.77 ml LALs A4C: 5.21 cm RAAs: 12.47 cm2 RAESV | | | A-L: 30.63 ml RAESV MOD: 30.34 ml RALs: 4.31 cm TAPSE: | | | 1.88 cm AV maxP.49 mmHg AV meanP.64 mmHg AV Vmax: | | | 1.83 m/s AV Vmean: 1.21 m/s AV VTI: 34.04 cm SAM Vmax: | | | 1.63 cm2 SAM (VTI): 1.79 cm2 AVAI (Vmax): 0.00 cm2/m2 AVAI | | | (VTI): 0.00 cm2/m2 LVOT maxP.79 mmHg LVOT meanP.95 | | | mmHg LVSI Dopp: 37.47 ml/m2 LVSV Dopp: 61.08 ml LVOT Vmax: | | | 0.97 m/s LVOT Vmean: 0.65 m/s LVOT VTI: 19.79 cm MV A Eddie: | | | 1.16 m/s MV Dec Roseau: 4.50 m/s2 MV DecT: 208.16 ms MV E | | | Eddie: 0.93 m/s MV E/A Ratio: 0.80 MV PHT: 60.36 ms MVA By | | | PHT: 3.64 cm2 Septal e': 0.07 m/s Septal E/e': 12.36 | | | Lateral e': 0.05 m/s Lateral E/e': 17.19 P Vein A: 0.30 m/s | | | P Vein D: 0.43 m/s P Vein S/D Ratio: 1.17 P Vein S: 0.50 | | | m/s PV maxP.34 mmHg PV Vmax: 0.91 m/s RAP: 5 mmHg | | | RVSP: 40.13 mmHg TR maxP.13 mmHg TR Vmax: 2.96 m/s | | | Patient Day Coordinator: DBS Authenticated by: KIERRA NEWELL MD Report | | | Date/Time: 06-20-2018 8:18:8 | | + + + + + | Procedure Note | + + | Lavell Clark Conversion - 06/06/2019 5:21 PM PDT Patient Name: Layton Latham of | | : 1960 Performing Physician: KIERRA NEWELL, | | INDICATIONS P | | AROXYSMAL AFIB, [place] CONCLUSIONS 1. Overall left ventricular systolic | | function is moderately impaired with an EF between 35 - 40%. There are multiple | | anterior, septal and apical wall motion abnormalities consistent with her prior [place].2. | | The diastolic filling pattern indicates impaired relaxation consistent with mild | | dysfunction (Grade I).3. The right ventricle is normal in size and function.4. The left | | atrium is mildly dilated.5. Moderate mitral regurgitation is present.6. There is mild | | pulmonary hypertension. The right ventricular systolic pressure (pulmonary artery | | systolic pressure), as measured by Doppler, is 40 - 45 mm Hg. 7. Other than for a | | decrease in the peak RV systolic (pulmonary artery) pressure, there are no significant | | changes noted in comparison to her previous echocardiographic study, done 11/15/17. | | FINDINGS--------ECG rhythm: Sinus rhythm.Study: A 2-dimensional transthoracic | | echocardiogram with m-mode, spectral and color flow Doppler was perfomed.Study: This was | | a technically adequate study.Left Ventricle: Overall left ventricular systolic function | | is moderately impaired with an EF between 35 - 40%. The following regional wall motion | | abnormalities include: mid anterior - moderately hypokinetic; mid anteroseptal - | | severely hypokinetic; basal inferoseptal - moderately hypokinetic; mid inferoseptal - | | mildly hypokinetic; lateral - mildly hypokinetic; anterior apex - akinetic; apical | | septum- akinetic; inferior apex - severely hypokinetic; apical lateral - akinetic; | | apex - akinetic; The remaining left ventricular segments contract normally.Left | | Ventricle: The left ventricle cavity size is normal.Left Ventricle: Left ventricular | | wall thickness is normal.Left Ventricle: The diastolic filling pattern indicates | | impaired relaxation consistent with mild (Grade I) dysfunction (diastolic function was | | not assessed on the prior study).Left Ventricle: False tendon visualized in the LV.Right | | Ventricle: The right ventricle is normal in size and function.Left Atrium: The left | | atrium is mildly dilated.Right Atrium: The right atrium is normal in size.Aortic Valve: | | Aortic valve is mildly thickened.Aortic Valve: There is mild aortic valve | | sclerosis/calcification without stenosis.Aortic Valve: There is no evidence of aortic | | regurgitation (there was trace AI on the prior study).Aortic Valve: The aortic valve is | | trileaflet.Mitral Valve: Moderate mitral regurgitation is present.Mitral Valve: No | | evidence of MVPMitral Valve: Mild mitral annular calcification present.Mitral Valve: | | There is mild thickening of the mitral valve leaflets.Tricuspid Valve: The tricuspid | | valve appears structurally normal.Tricuspid Valve: Mild tricuspid regurgitation | | present.Tricuspid Valve: There is mild pulmonary hypertension.Tricuspid Valve: The right | | ventricular systolic pressure (pulmonary artery systolic pressure), as measured by | | Doppler, is 40 - 45 mm Hg, decreased from severe pulmonary hypertension (RVSP 62.15 mm | | Hg) on the prior study.Pulmonic Valve: Pulmonic valve appears structurally | | normal.Pulmonic Valve: Trace pulmonic regurgitation.Pericardium: There is no | | pericardial effusion.IVC/Hepatic Veins: The inferior vena cava is normal in size and | | collapses > 50 % with sniff, indicating normal central venous pressures.Aorta: The | | aortic root, ascending aorta and aortic arch are normal.Mass: No mass | | visualizedThrombus: No clot visualizedThrombus: No vegetation visualized.Septum: No ASD | | observed.Septum: No VSD observed. MEASUREMENTS Ao asc: 3.02 cmAo sinus: | | 2.[address] junct: 2.83 cmIVC: 1.29 cmLA Diam: 4.05 cmEDV(Teich): 95.31 mlIVSd: | | 0.84 cmLVIDd: 4.55 cmLVPWd: 0.76 cmLVOT Area: 3.08 [id number] Diam: 1.98 cm%FS: | | 23.21 %EF(Teich): 46.60 %ESV(Teich): 50.89 mlLVIDs: 3.50 cmSV(Teich): 44.42 | | mlRVIDd: 2.91 cmLVEF MOD A2C: 34.22 %SV MOD A2C: 52.19 mlLVEF MOD A4C: 45.02 %SV | | MOD A4C: 60.80 mlEF Biplane: 39.76 %LVEDV MOD BP: 145.60 mlLVESV MOD BP: 87.70 | | mlLVEDV MOD A2C: 152.54 mlLVLd A2C: 9.41 cmLVEDV MOD A4C: 135.03 mlLVLd A4C: | | 9.13 cmLVESV MOD A2C: 100.34 mlLVLs A2C: 8.59 cmLVESV MOD A4C: 74.23 mlLVLs A4C: | | 8.23 cmLAESV(A-L): 87.71 mlLAAs A2C: 17.85 [id number] A-L A2C: 62.34 mlLALs A2C: | | 4.33 cmLAAs A4C: 25.11 [id number] A-L A4C: 102.77 mlLALs A4C: 5.21 cmRAAs: 12.47 | | [id number] A-L: 30.63 mlRAESV MOD: 30.34 mlRALs: 4.31 cmTAPSE: 1.88 cmAV maxPG: | | 13.49 mmHgAV meanP.64 mmHgAV Vmax: 1.83 m/Alexia Vmean: 1.21 m/Alexia VTI: 34.04 | | cmAVA Vmax: 1.63 cm2AVA (VTI): 1.79 [id number] (Vmax): 0.00 cm2/m2AVAI (VTI): 0.00 | | cm2/m2LVOT maxP.79 mmHgLVOT meanP.95 mmHgLVSI Dopp: 37.47 ml/m2LVSV Dopp: | | 61.08 mlLVOT Vmax: 0.97 m/sLVOT Vmean: 0.65 m/sLVOT VTI: 19.79 cmMV A Eddie: | | 1.16 m/sMV Dec Roseau: 4.50 m/s2MV DecT: 208.16 msMV E Eddie: 0.93 m/sMV E/A Ratio: | | 0.80MV PHT: 60.36 msMVA By PHT: 3.64 cr2Mwxsts e': 0.07 m/sSeptal E/e': | | 12.36Lateral e': 0.05 m/sLateral E/e': 17.19P Vein A: 0.30 m/sP Vein D: 0.43 | | m/sP Vein S/D Ratio: 1.17P Vein S: 0.50 m/sPV maxP.34 mmHgPV Vmax: 0.91 | | m/sRAP: 5 mmHgRVSP: 40.13 mmHgTR maxP.13 mmHgTR Vmax: 2.96 m/s Patient Day Coordinator: | | DBSAuthenticated by: MARY COOLEYeport Date/Time: 06-20-2018 8:18:8 IMPRESSION: 1. | | Overall left ventricular systolic function is moderately impaired with an EF between 35 | | - 40%. There are multiple anterior, septal and apical wall motion abnormalities | | consistent with her prior [place].2. The diastolic filling pattern indicates impaired | | relaxation consistent with mild dysfunction (Grade I).3. The right ventricle is normal | | in size and function.4. The left atrium is mildly dilated.5. Moderate mitral | | regurgitation is present.6. There is mild pulmonary hypertension. The right ventricular | | systolic pressure (pulmonary artery systolic pressure), as measured by Doppler, is 40 - | | 45 mm Hg. 7. Other than for a decrease in the peak RV systolic (pulmonary artery) | | pressure, there are no significant changes noted in comparison to her previous | | echocardiographic study, done 11/15/17. | |%FS: 23.21 % | |EF(Teich): 46.60 % | |ESV(Teich): 50.89 ml | |LVIDs: 3.50 cm | |SV(Teich): 44.42 ml | |RVIDd: 2.91 cm | |LVEF MOD A2C: 34.22 % | |SV MOD A2C: 52.19 ml | |LVEF MOD A4C: 45.02 % | |SV MOD A4C: 60.80 ml | |EF Biplane: 39.76 % | |LVEDV MOD BP: 145.60 ml | |LVESV MOD BP: 87.70 ml | |LVEDV MOD A2C: 152.54 ml | |LVLd A2C: 9.41 cm | |LVEDV MOD A4C: 135.03 ml | |LVLd A4C: 9.13 cm | |LVESV MOD A2C: 100.34 ml | |LVLs A2C: 8.59 cm | |LVESV MOD A4C: 74.23 ml | |LVLs A4C: 8.23 cm | |LAESV(A-L): 87.71 ml | |LAAs A2C: 17.85 cm2 | |LAESV A-L A2C: 62.34 ml | |LALs A2C: 4.33 cm | |LAAs A4C: 25.11 cm2 | |LAESV A-L A4C: 102.77 ml | |LALs A4C: 5.21 cm | |RAAs: 12.47 cm2 | |RAESV A-L: 30.63 ml | |RAESV MOD: 30.34 ml | |RALs: 4.31 cm | |TAPSE: 1.88 cm | |AV maxP.49 mmHg | |AV meanP.64 mmHg | |AV Vmax: 1.83 m/s | |AV Vmean: 1.21 m/s | |AV VTI: 34.04 cm | |SAM Vmax: 1.63 cm2 | |SAM (VTI): 1.79 cm2 | |AVAI (Vmax): 0.00 cm2/m2 | |AVAI (VTI): 0.00 cm2/m2 | |LVOT maxP.79 mmHg | |LVOT meanP.95 mmHg | |LVSI Dopp: 37.47 ml/m2 | |LVSV Dopp: 61.08 ml | |LVOT Vmax: 0.97 m/s | |LVOT Vmean: 0.65 m/s | |LVOT VTI: 19.79 cm | |MV A Eddie: 1.16 m/s | |MV Dec Roseau: 4.50 m/s2 | |MV DecT: 208.16 ms | |MV E Eddie: 0.93 m/s | |MV E/A Ratio: 0.80 | |MV PHT: 60.36 ms | |MVA By PHT: 3.64 cm2 | |Septal e': 0.07 m/s | |Septal E/e': 12.36 | |Lateral e': 0.05 m/s | |Lateral E/e': 17.19 | |P Vein A: 0.30 m/s | |P Vein D: 0.43 m/s | |P Vein S/D Ratio: 1.17 | |P Vein S: 0.50 m/s | |PV maxP.34 mmHg | |PV Vmax: 0.91 m/s | |RAP: 5 mmHg | |RVSP: 40.13 mmHg | |TR maxP.13 mmHg | |TR Vmax: 2.96 m/s | | | |Patient Day Coordinator: DBS | |Authenticated by: KIERRA NEWELL MD | |Report Date/Time: 06-20-2018 8:18:8 | | | |IMPRESSION: | |1. Overall left ventricular systolic function is moderately impaired with an EF between 35 - 40%. There are multiple anterior, septal and apical wall motion abnormalities consistent with her prior [place]. | |2. The diastolic filling pattern indicates impaired relaxation consistent with mild dysfunc tion (Grade I). | |3. The right ventricle is normal in size and function. | |4. The left atrium is mildly dilated. | |5. Moderate mitral regurgitation is present. | |6. There is mild pulmonary hypertension. The right ventricular systolic pressure (pulmonar y artery systolic pressure), as measured by Doppler, is 40 - 45 mm Hg. 7. Other than for a d ecrease in the peak RV systolic | |(pulmonary artery) pressure, there are | |no significant changes noted in comparison to her previous echocardiographic study, done . | + + documented in this encounter Visit Diagnoses Not on filedocumented in this encounter"
--- OUTSIDE RECORDS SUMMARY | ~2020-03-18 | XMS | Encounter Summary ---
Demographics + + + | [address] | [address] | | | [place] [address] | + + + | Home Phone | | + + + | Preferred Language | Unknown | + + + | Marital Status | | + + + | Pentecostal Affiliation | Unknown | + + + | Race | Unknown | + + + | Ethnic Group | Unknown | + + + Author + + + | Author | [facility] | | | and [place] | + + + | Organization | [facility] | | | [...] Team Providers + +------+ + | Care Digital Camera Technician Name | Role | Phone | + +------+ + | Pauly Perez PA-C | PCP | | + +------+ + Encounter Details +--------+ + + + + | Date | Type | Department | Care Team | Description | +--------+ + + + + | 07/18/ | Orders Only | [facility] | Glenn Newell, | | | 2018 | | CARDIOLOGY MICHELLE | MD [address] | | | | | [address] | [place], | | | | | [place] | [place] [address] | | | | | [place] | [phone] | | | | | [address] | | | | | | [phone] | | | +--------+ + + + [...] | + +--------+ + + + | NM MYOCARDIAL | Routin | 07/18/2018 | | Results for this | | PERFUSION SINGLE | e | 11:14 AM | | procedure are in the | | | | PDT | | results section. | + +--------+ + + + documented in this encounter Results NM Myocardial Perfusion Single (07/18/2018 11:14 AM PDT) + + | Specimen | + + | | + + + + + | Impressions | Performed At | + + + | 1. This is a technically adequate study. There is scarring in | | | the apex, with minimal viable myocardial tissue noted. The distal | | | anterolateral wall shows evidence of scarring, with evidence of | | | viability consistent with hibernating myocardium due to | | | underperfusion. There is extensive viable myocardial tissue in the | | | anterior, anterolateral and septal segments. All other segments appear | | | to have normal perfusion. This study suggests that she would benefit | | | from revascularization of the left anterior descending artery. | | | | | + + + + + + | Narrative | Performed At | + + + | [facility] CARDIOLOGY [address], [place], [place] | | | [phone] THALLIUM VIABILITY STUDY TEST DATE: 07/17/2018 | | | NAME: Luciana Latham : 1960 | | | ORDERING MD: Levi Newell MD INDICATION FOR TEST: 58 Year old | | | female being evaluated for myocardium viability. PROCEDURE: The | | | patient received 3.7 mCi of Tl-201 given intravenously followed by | | | SPECT images after a 15 minute delay. The patient returned for 4 hour | | | delay SPECT images and again for 24 hour delay SPECT images. Effective | | | Dose Equivalent: 22.3 mSv. MYOCARDIAL PERFUSION IMAGING: | | + + + + + | Procedure Note | + + | Eduardo, Rad Conversion - 06/06/2019 5:21 PM PDT [id number] [facility] | | [address] , [place], [phone] THALLIUM VIABILITY STUDYTEST DATE: | | 07/17/2018NAME: Cameron LathamOB: 1960MRN: [id number] MD: Levi | | MD Osiris INDICATION FOR TEST: 58 Year old female being evaluated for myocardium | | viability. PROCEDURE: The patient received 3.7 mCi of Tl-201 given intravenously | | followed by SPECT images after a 15 minute delay. The patient returned for 4 hour delay | | SPECT images and again for 24 hour delay SPECT images. Effective Dose Equivalent: 22.3 | | mSv. MYOCARDIAL PERFUSION IMAGING: IMPRESSION: 1. This is a technically adequate study. | | There is scarring in the apex, with minimal viable myocardial tissue noted. The distal | | anterolateral wall shows evidence of scarring, with evidence of viability consistent | | with hibernating myocardium due to underperfusion. There is extensive viable myocardial | | tissue in the anterior, anterolateral and septal segments. All other segments appear to | | have normal perfusion. This study suggests that she would benefit from revascularization | | of the left anterior descending artery. Electronically signed by Glenn Newell MD on | | 07/19/2018 8:58 AM | |MYOCARDIAL PERFUSION IMAGING: | | | |IMPRESSION: | |1. This is a technically adequate study. There is scarring in the apex, with minimal viab le myocardial tissue noted. The distal anterolateral wall shows evidence of scarring, with e vidence of viability consistent with hibernating myocardium due to | |underperfusion. There is extensive viable myocardial tissue in the anterior, anterolateral and septal segments. All other segments appear to have normal perfusion. This study suggests that she would benefit from revascularization of the left anterior | |descending artery. | | | | | + + documented in this encounter Visit Diagnoses Not on filedocumented in this encounter"
--- OUTSIDE RECORDS SUMMARY | ~2020-03-18 | XMS | Encounter Summary ---
Demographics + + + | Address | [address] | | | [place] [address] | + + + | Home Phone | | + + + | Preferred Language | Unknown | + + + | Marital Status | | + + + | Rastafarian Affiliation | Unknown | + + + | Race | Unknown | + + + | Ethnic Group | Unknown | + + + Author + + + | Author | [facility] | | | and [place] | + + + | Organization | [facility] | | | and [...] Team Providers + +------+ + | Care Marketing And Development Coordinator Name | Role | Phone | + [...] Provider Unknown | | | | | [place], [place] | [phone] | | | | | [address] | | | | | | [phone] | | | +--------+ + + + [...]
--- OUTSIDE RECORDS SUMMARY | ~2020-03-18 | XMS | Encounter Summary ---
Demographics + + + | Address | [address] | | | [place] [address] | + + + | Home Phone | | + + + | Preferred Language | Unknown | + + + | Marital Status | | + + + | Mandaeism Affiliation | Unknown | + + + | Race | Unknown | + + + | Ethnic Group | Unknown | + + + Author + + + | Author | [facility] | | | and [place] | + + + | Organization | [facility] | | | [...] Team Providers + +------+ + | Care Marble Supervisor Name | Role | Phone | + +------+ + | Pauly Perez PA-C | PCP | | + +------+ + Encounter Details +--------+ + + + + | Date | Type | Department | Care Team | Description | +--------+ + + + + | 05/10/ | Orders Only | [facility] | Provider, | Acute | | 2019 | | SYSTEM GENERIC OP | [address] | posthemorrhagic | | | | CONVERSION [address] | [address] | anemia; Type 2 | | | | [address] [place], [place] | [place] [address] | diabetes mellitus | | | | [address] | | without | | | | [phone] | | complications (HCC) | +--------+ + + + + Social History + +-------+ +--------+------+ | Tobacco Use | Types | Packs/Day | Years | Date | | | | | Used | | + +-------+ +--------+------+ | Never Smoker | | | | | + +-------+ [...] | | + +------+--------+ + + | CBC with | Lab | Routin | Acute | Expected: | | Differential | | e | posthemorrhagic | 10/18/2018, Expires: | | | | | anemia | 10/18/2019 | + +------+--------+ + + | Basic Metabolic | Lab | Routin | Type 2 diabetes | Expected: | | Panel | | e | mellitus without | 10/18/2018, Expires: | | | | | complications (HCC) | 10/18/2019 | + +------+--------+ + + documented as of this encounter Visit Diagnoses + + | Diagnosis | + + | Acute posthemorrhagic anemia | + + | Type 2 diabetes mellitus without complications (HCC) Type II or unspecified type | | diabetes mellitus without mention of complication, not stated as uncontrolled | + + documented in this encounter"
--- OUTSIDE RECORDS SUMMARY | ~2020-03-18 | XMS | Encounter Summary ---
Demographics + + + | Address | [address] | | | [place] [address] | + + + | Home Phone | | + + + | Preferred Language | Unknown | + + + | Marital Status | | + + + | Voodoo Affiliation | Unknown | + + + | Race | Unknown | + + + | Ethnic Group | Unknown | + + + Author + + + | Author | [facility] | | | and [place] | + + + | Organization | [facility] | | | [...] Team Providers + +------+ + | Care Marriage And Family Counselor Name | Role | Phone | + [...] [place] | | | | | [facility] [place] [place] | [address] | | | | | [address] | | | | | | [phone] | | | +--------+ + + + [...] TR Vmax: 3.54 m/s | | | Supervisor Research Kennel: Authenticated by: Nani Vernon Report Date/Time: | | | 11-15-2017 19:19:25 | | + + + + + | Procedure Note | + + | Lavell Clark Conversion - 06/06/2019 5:21 PM PDT Patient Name: Layton Latham of | | : 1960 Performing Physician: Nani | | [place] INDICATIONS------ | | -----inpatient, new onset afib, [...] cmLVPWd: 0.86 cmLVOT Area: | | 3.35 [id number] Diam: 2.06 cm%FS: 28.15 %EF(Teich): 54.03 %ESV(Teich): [...] (A-L): | | 40.67 ml/m2LAAs A2C: 21.22 pq1WDRNN A-L A2C: 78.51 mlLALs A2C: 4.86 cmLAAs A4C: | | 17.59 im0QBVAX A-L A4C: 55.97 mlLALs A4C: 4.69 cmRAAs: 13.28 ej2QAOGF A-L: | | 38.30 mlRAESV MOD: 36.11 mlRALs: 3.91 cmTAPSE: 1.86 cmAV maxP.48 mmHgAV | | meanP.97 mmHgAV Vmax: 1.17 m/Alexia Vmean: 0.80 m/Alexia VTI: 17.18 cmAVA Vmax: | | 1.93 cm2AVA (VTI): 2.02 pd3LLIS Vmax: 0.00 cm2/m2AVAI (VTI): 0.00 cm2/m2LVOT | [...] maxP.15 mmHgTR Vmax: 3.54 m/s | | Supervisor Research Kennel:Authenticated by: Nani [facility] Date/Time: 11-15-2017 19:19:25 | | IMPRESSION: [...] |TR Vmax: 3.54 m/s | | | |Supervisor Research Kennel: | |Authenticated by: Nani Rocha | |Report Date/Time: 11-15-2017 19:19:25 | | [...]
--- OUTSIDE RECORDS SUMMARY | ~2020-03-18 | XMS | Encounter Summary ---
Demographics + + + | Address | [address] | | | [place] [address] | + + + | Home Phone | | + + + | Preferred Language | Unknown | + + + | Marital Status | | + + + | Buddhist Affiliation | Unknown | + + + | Race | Unknown | + + + | Ethnic Group | Unknown | + + + Author + + + | Author | [facility] | | | and [place] | + + + | Organization | [facility] | | | [...] Team Providers + +------+ + | Care Photoengraving Photographer Name | Role | Phone | + +------+ + PCP | Unavailable | + +------+ + Encounter Details +--------+ + + + + | Date | Type | Department | Care Team | Description | +--------+ + + + + | 03/20/ | [facility] | [facility] | Latha Herrera, | | | 2000 - | Encounter | MED CTR MED ONC | [address] | | | | | [address] | [place] | | | 03/23/ | | [place] [address] | [address] | | | 2000 | | [phone] | | | +--------+ + + + + Social History + +-------+ +--------+------+ | Tobacco Use | Types | Packs/Day | Years | Date | | | | | Used | | + +-------+ +--------+------+ | Never Assessed | | | | | + +-------+ +--------+------+ + + + | Sex Assigned at [...]
--- OUTSIDE RECORDS SUMMARY | ~2020-03-18 | XMS | Encounter Summary ---
Demographics + + + | [address] | [address] | | | [place] [address] | + + + | Home Phone | | + + + | Preferred Language | Unknown | + + + | Marital Status | | + + + | Scientology Affiliation | Unknown | + + + | Race | Unknown | + + + | Ethnic Group | Unknown | + + + Author + + + | Author | [facility] | | | and [place] | + + + | Organization | [facility] | | | [...] Team Providers + +------+ + | Care School Crossing Guard Name | Role | Phone | + +------+ + PCP | Unavailable | + +------+ + Encounter Details +--------+ + + + + | Date | Type | Department | Care Team | Description | +--------+ + + + + | 12/25/ | [facility] | [facility] | Jun Obrien MD | | | 2010 | Encounter | MED CTR LABORATORY | [address] | | | | | [address] | [place] | | | | | [place] | [address] | | | | | [address] | | | | | | [phone] | | | +--------+ + + + [...]
--- OUTSIDE RECORDS SUMMARY | ~2020-03-18 | XMS | Encounter Summary ---
Demographics + + + | [address] | [address] | | | [place] [address] | + + + | Home Phone | | + + + | Preferred Language | Unknown | + + + | Marital Status | | + + + | Anabaptism Affiliation | Unknown | + + + | Race | Unknown | + + + | Ethnic Group | Unknown | + + + Author + + + | Author | [facility] | | | and [place] | + + + | Organization | [facility] | | | [...] Team Providers + +------+ + | Care Engineering Faculty Member Name | Role | Phone | + [...] + + | 11/15/ | Hospital | [facility] | Stephen Baker MD | Acute systolic | | 2018 - | Encounter | MED CTR MEDICAL | [address] | congestive heart | | | | [address] | [place] | failure (HCC) | | 11/19/ | | [place] [address] | [id number] | | | 2017 | | [phone] | | | +--------+ + + + [...] 1 year follow-up target versus signs 6.2% [place], [place] HOSPITALIST DISCHARGE SUMMARY Pt. Name/Age/: Luciana [...] MG Tb24 telmisartan 80 MG tablet aka: [facility]: Please refer to the H&P for full details and the most recent rounding rounding (progress) n ote. In short 57-year-old woman transferred from [facility] in [facility] on after being admitted with symptoms of [...] to home with her . 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 Our office will contact her to schedule outpatient foll ow-up within 3 weeks. Condition: Patient being discharged with condition improved. Diet:Whole food plant based, sodium restricted Less than 30 minutes were spent on discharge and coordination of post-hospital care. Electronically signed by: Stephen Baker MD, 11/19/2017 8:23 [facility] Portions of this chart may have been created with [employer] voice recognition software. Occasi onal wrong-word or [...] have recommended she seek consultation with an alarm operator. MEDICATIONS: Current Facility-Administered Medications Medication Dose Route [...] ECGs available Confirmed by SABINO RAMIREZ, SHOLA ([id number]) on 11/16/2017 6:45:13 AM WBC 11/16/2017 10.3 [...] was found Confirmed by SABINO RAMIREZ, SHOLA ([id number]) on 11/17/2017 6:38:00 AM Glucose, POC 11/16/2017 [...] inferior leads Confirmed by SHOLA GALLO MD ([id number]) on 11/18/2017 8:56:44 AM Glucose, POC 11/17/2017 [...] performed and electronically signed by Avelina Perdomo, Classifications Officer Cc/Cm 11/17/2017 13:31 Reviewed by Adriana Hinojosa, PharmTiffany 11/17/2017 15:30 Stephen Miller M D [...] ECGs available Confirmed by SABINO RAMIREZ, SHOLA ([id number]) on 11/16/2017 6:45:13 AM WBC 11/16/2017 10.3 [...] was found Confirmed by SABINO RAMIREZ, SHOLA ([id number]) on 11/17/2017 6:38:00 AM Glucose, POC 11/16/2017 [...] patient. Stephen Baker MD, 11/17/2017 15:24 Stephen Miller MD - 0 11/16/2017 3:16 PM PST [...] ECGs available Confirmed by SABINO RAMIREZ, SHOLA ([id number]) on 11/16/2017 6:45:13 AM WBC 11/16/2017 10.3 [...] was found Confirmed by SABINO RAMIREZ, SHOLA ([id number]) on 11/17/2017 6:38:00 AM Glucose, POC 11/16/2017 [...] PLAN OR RECOMMENDATIONS: Dual antiplatelet therapy, low-dose RIAN inhibitor and beta jasmin, statin therapy I [...] [address] | [place] | [phone] | | [facility] | | [address] | | | - LABORATORY | | [...] [address] | [place] | [phone] | | [facility] | | [address] | | | - LABORATORY | | [...] [address] | [place] | [phone] | | [facility] | | [address] | | | - LABORATORY | | [...] [address] | [place] | [phone] | | [facility] | | [address] | | | - LABORATORY | | [...] + | [facility] | [address] | [place] | [phone] | | [facility] | | [address] | | | - LABORATORY | | [...] [address] | [place] | [phone] | | [facility] | | [address] | | | - LABORATORY | | [...] [address] | [place] | [phone] | | [facility] | | [address] | | | - LABORATORY | | [...] [address] | [place] | [phone] | | [facility] | | [address] | | | - LABORATORY | | [...] ST. | [address] | [place], [place] | [phone] | | [facility] | | [address] | | | - LABORATORY | | [...] + | [address] | [address] | [place] | [phone] | | [facility] | | [address] | | | - LABORATORY | | [...] + | [address] | [address] | [place], [place] | [phone] | | [facility] | | [address] | | | - LABORATORY | | [...] | | POC | | | [facility] | | | | | | MEDICAL | | | | | | CENTER - | | | | | | LABORATORY | | + +---------+ + + + + + | Specimen | + + | Blood | + + + + + + + | Performing | Address | City/State[facility] | Phone Number | | Organization | | | | + + + + + | [facility] [facility] | [address] | [place] | [phone] | | [facility] | | [address] | | | - LABORATORY | | [...] + | [facility] | [address] | [place] | [phone] | | [facility] | | [address] | | | - LABORATORY | | [...] [address] | [place] | [phone] | | [facility] | | [address] | | | - LABORATORY | | [...] [address] | [place] | [phone] | | [facility] | | [address] | | | - LABORATORY | | [...] MD | | | | | | ([id number]) on 11/18/2017 | | | | | [...] [address] | [place] | [phone] | | [facility] | | [address] | | | - LABORATORY | | [...] [address] | [place] | [phone] | | [facility] | | [address] | | | - LABORATORY | | [...] | + + + + + | [facility] | [address] | [place], [place] | [phone] | | [facility] | | [address] | | | - LABORATORY | | [...] [address] | [place] | [phone] | | [facility] | | [address] | | | - LABORATORY | | [...] | | | | SHOLA GALLO MD ([id number]) | | | | | | on [...] of | | | procedure done: Yes TRUCK PACKER: Stephen Baker M.D., F.A.C.C. | | | [...] | | ACCESS: Right radial artery 6 Guatemalan CLOSURE DEVICE:. TR band | | | [...] | | Seldinger technique and a 6 Guatemalan sheath was inserted. 3 mg of | | | verapamil and 300 g of nitroglycerin were administered through the | | | side port of the right radial artery sheath. 3000 units of | | | intravenous heparin was administered. A 5 [place]alan Ryan catheter was | | | advanced across the aortic valve without difficulty. Left | | | ventricular pressures and aortic valve pressures were recorded. The | | | Ryan catheter was then used to perform selective coronary | | | arteriography. A 6 [place] Ikari right 1.0 guiding catheter was | [...] | | | catheters for a 6 [place] LB U3.0 catheter that was used to [...] 60% proximal mid stenosis at first septal journeyman pressman, | | | subtotal mid occlusion with [...] Stephen Baker M.D., | | | PernellInterventional CardiologistProPeaceHealth [facility] | | | [place], [place] | | |LEFT ANTERIOR DESCENDING ARTERY: Medium caliber vessel, 80% | | |proximal stenosis, 60% proximal mid stenosis at first septal | | |journeyman pressman, subtotal mid occlusion with VERONA grade 1 [...] | |Stephen Baker M.D., F.A.C.C. | | |Die Repair Machinist | | |[facility] | | |[place], [place] | | | | | | [...] [address] | [place] | [phone] | | [facility] | | [address] | | | - LABORATORY | | [...] + | [address] | [address] | [place] | [phone] | | [facility] | | [address] | | | - LABORATORY | | [...] [address] | [place] | [phone] | | [facility] | | [address] | | | - LABORATORY | | [...] + | [facility] | [address] | [place] | [phone] | | [facility] | | [address] | | | - LABORATORY | | [...] mL/min/1.73m2 | [facility] | | | [place] | RATE,ESTIMATED | | MEDICAL | | | | mL/min/1.38i7Lrqw than | | CENTER - | | [...] [address] | [place] | [phone] | | [facility] | | [address] | | | - LABORATORY | | [...] [address] | [place] | [phone] | | [facility] | | [address] | | | - LABORATORY | | [...] [address] | [place] | [phone] | | [facility] | | [address] | | | - LABORATORY | | [...] ST. | [address] | [place] | [phone] | | [facility] | | [address] | | | - LABORATORY | | [...] [address] | [place] | [phone] | | [facility] | | [address] | | | - LABORATORY | | [...] | | | | SHOLA GALLO MD ([id number]) | | | | | | on [...] [address] | [place] | [phone] | | [facility] | | [address] | | | - LABORATORY | | [...] | | | | | | use Percy if ordered. If | | | | [...] | | | | | NPO, Daytime 3662-7121 Use NIGHT | | | | | | | DOSE for doses scheduled: | | | | | | | HS, 3AM, Nighttime 4751-3817, | | | | | | + [...] | | | | Chest pain, Starting [facility] 11/16/17 | | | | | [...] PST | | | | | Starting [facility] 11/16/17 at 1918 | | | [...]
--- OUTSIDE RECORDS SUMMARY | ~2020-03-18 | XMS | Encounter Summary ---
Demographics + + + | Address | [address] | | | [place] [address] | + + + | Home Phone | | + + + | Preferred Language | Unknown | + + + | Marital Status | | + + + | Pentecostal Affiliation | Unknown | + + + | Race | Unknown | + + + | Ethnic Group | Unknown | + + + Author + + + | Author | [facility] | | | and [place] | + + + | Organization | [facility] | | | [...] Team Providers + +------+ + | Care Steam Boiler Fireman Name | Role | Phone | + +------+ + PCP | Unavailable | + +------+ + Encounter Details +--------+ + + + + | Date | Type | Department | Care Team | Description | +--------+ + + + + | 05/29/ | [facility] | [facility] | Preethi Bell | | | 2010 | Encounter | MED CTR XRAY [address] | DO [address] | | | | | [place] | [address] | | | | | [place] [address] | [address] | | | | | [phone] | | | +--------+ + + + [...] | + +--------+ + + + | CT SINUS WO CONTRAST | | 05/29/2011 | | Results for this | | LIMITED | | 3:05 PM | | procedure are in the | | | | PDT | | results section. | + +--------+ + + + | CT HEAD WO CONTRAST | | 05/29/2011 | | Results for this | | | | 3:05 PM | | procedure are in the | | | | PDT | | results section. | + +--------+ + + + documented in this encounter Results CT Sinus WO Contrast Limited (05/29/2011 3:05 PM PDT) + + | Specimen | + + | | + + + + + | Narrative | Performed At | + + + | [facility] Diagnostic Imaging Department | [facility] | | [address] | [facility] | | SINUS CT WITHOUT CONTRAST: 1530 | DIAG IMG | | HOURS, 05/29/2011 HISTORY: Headache. FINDINGS: The | | | frontal sinuses are clear. The ethmoidal air cells are clear. There | | | is a small incidental osteoma on the left. The maxillary antra | | | demonstrate minimal mucoperiosteal thickening in the dependent right | | | antrum. There is no air-fluid level. Ostiomeatal complexes are | | | patent. The sphenoid sinuses are clear. Nasal cavity demonstrates | | | leftward nasal septal deviation with a small bone spur impinging on | | | the left inferior turbinate. The turbinate mucosa is unremarkable. | | | The visualized orbits and central skull base and mastoid air cells | | | are unremarkable. IMPRESSION: 1. MINIMAL MAXILLARY SINUSITIS | | | WITHOUT AIR-FLUID LEVEL. Dictated Date/Time: 05/30/2011 08:18 | | | Transcribed Date/Time: 05/30/2011 08:51 Opal Miner: | | | <Electronically Signed by Judah Ram MD> 05/30/11 [id number] | | + + + + + | Procedure Note | + + | Eduardo, Rad Conversion - 11/22/2013 3:35 PM [facility] | | Diagnostic Imaging Department | | [address] | | | | | | | | SINUS CT WITHOUT CONTRAST: 1530 HOURS, 05/29/2011 | | | | HISTORY: Headache. | | | | FINDINGS: The frontal sinuses are clear. The ethmoidal air cells are clear. | | There is a small incidental osteoma on the left. The maxillary antra | | demonstrate minimal mucoperiosteal thickening in the dependent right antrum. | | There is no air-fluid level. Ostiomeatal complexes are patent. The sphenoid | | sinuses are clear. Nasal cavity demonstrates leftward nasal septal deviation | | with a small bone spur impinging on the left inferior turbinate. The turbinate | | mucosa is unremarkable. The visualized orbits and central skull base and | | mastoid air cells are unremarkable. | | | | IMPRESSION: | | 1. MINIMAL MAXILLARY SINUSITIS WITHOUT AIR-FLUID LEVEL. | | | | Dictated Date/Time: 05/30/2011 08:18 | | Transcribed Date/Time: 05/30/2011 08:51 | | Opal Miner: SHERIN | | <Electronically Signed by Judah Ram MD> 05/30/11 2408 | + + + +---------+ + + | Performing | Address | City/State/Zipcode | Phone Number | | Organization | | | | + +---------+ + + | [place] | | | | | [facility] | | | | + +---------+ + + CT Head wo Contrast (05/29/2011 3:05 PM PDT) + + | Specimen | + + | | + + + + + | Narrative | Performed At | + + + | [facility] Diagnostic Imaging Department | [facility] | | [address] | [facility] | | NONCONTRAST HEAD CT, 1525 HOURS, | DIAG IMG | | 05/29/2011 CLINICAL HISTORY: HEADACHE. FINDINGS: There is | | | no acute intracranial process. Muñoz and white matter and ventricular | | | system are normal for age. Brainstem and cerebellum are | | | unremarkable. Calvarium, skull base, and orbits are in tact. | | | IMPRESSION: 1. NEGATIVE NONCONTRAST HEAD CT. Dictated Date/Time: | | | 05/30/2011 08:16 Transcribed Date/Time: 05/30/2011 08:45 | | | Opal Miner: <Electronically Signed by Judah Ram, | | | MD> 05/30/11 1809 | | + + + + + | Procedure Note | + + | Lavell Clark Conversion - 11/22/2013 3:35 PM [facility] | | Diagnostic Imaging Department [address] | | NONCONTRAST HEAD CT, 1525 HOURS, 05/29/2011 CLINICAL | | HISTORY: HEADACHE. FINDINGS: There is no acute intracranial process. Muñoz and white | | matter and ventricular system are normal for age. Brainstem and cerebellum are | | unremarkable. Calvarium, skull base, and orbits are intact. IMPRESSION: 1. NEGATIVE | | NONCONTRAST HEAD CT. Dictated Date/Time: 05/30/2011 08:16Transcribed Date/Time: | | 05/30/2011 08:45Transcriptionist: <Electronically Signed by Judah Ram MD> | | 05/30/111808 | | | |FINDINGS: There is no acute intracranial process. Muñoz and white matter and ventricular s ystem are | |normal for age. Brainstem and cerebellum are unremarkable. Calvarium, skull base, and orb its are in | |tact. | | | |IMPRESSION: | |1. NEGATIVE NONCONTRAST HEAD CT. | | | |Dictated Date/Time: 05/30/2011 08:16 | |Transcribed Date/Time: 05/30/2011 08:45 | |Opal Miner: | |<Electronically Signed by Judah Ram MD> 05/30/111808 | + + + +---------+ + + | Performing | Address | City/State/Zipcode | Phone Number | | Organization | | | | + +---------+ + + | [place] | | | | | [facility] | | | | + +---------+ + + documented in this encounter Visit Diagnoses Not on filedocumented in this encounter"
--- OUTSIDE RECORDS SUMMARY | ~2020-03-18 | XMS | Encounter Summary ---
Demographics + + + | Address | [address] | | | [place] [address] | + + + | Home Phone | | + + + | Preferred Language | Unknown | + + + | Marital Status | | + + + | Confucianism Affiliation | Unknown | + + + | Race | Unknown | + + + | Ethnic Group | Unknown | + + + Author + + + | Author | [facility] | | | and [place] | + + + | Organization | [facility] | | | and [place] | + + + | Address | Unknown | + + + | Phone | Unavailable | + + + Support + + +---------+ + | Name | Relationship | Address | Phone | + + +---------+ + | Mateo Bluntman | ECON | Unknown | | + + +---------+ + Care Team Providers + +------+ + | Care Sales Estimator Name | Role | Phone | + +------+ + | Pauly Perez PA-C | PCP | | + +------+ + Encounter Details +--------+ + + + + | Date | Type | Department | Care Team | Description | +--------+ + + + + | 09/18/ | Hospital | [facility] | Conversion | CAD in [place] artery | | 2018 | Encounter | [facility] | Transaction, | | | | | CLINIC [address] | Provider Unknown | | | | | [address] [place], [place] | | | | | | [address] | (Fax) | | | | | [phone] | | | +--------+ + + + [...] + + + | Blood Pressure | 104/61 | 09/18/2018 1:05 PM | | | | | PST | | + + + + + | Pulse | 73 | 09/18/2018 1:05 PM | | | | | PST | | + + + + + | Temperature | - | - | | + + + + + | Respiratory Rate | - | - | | + + + + + | Oxygen Saturation | - | - | | + + + + + | Inhaled Oxygen | - | - | | | Concentration | | | | + + + + + | Weight | 61.6 kg (135 lb 12.8 | 09/18/2018 1:05 PM | | | | oz) | PST | | + + + + + | Height | 165.1 cm (5' 5") | 09/18/2018 1:05 PM | | | | | PST | | + + + + + | Body Mass Index | 22.6 | 09/18/2018 1:05 PM | | | | | PST | | + + + + + documented in this encounter Medications at Time of Discharge [...] | + +--------+ + + + | MRSA NAAT | STAT | 09/18/2018 | | Results for this | | | | 1:40 PM | | procedure are in the | | | | PST | | results section. | + +--------+ + + + | EXTERNAL LAB: CBC | Routin | 09/18/2018 | | Results for this | | | e | 1:39 PM | | procedure are in the | | | | PST | | results section. | + +--------+ + + + | PROTIME INR | Routin | 09/18/2018 | | Results for this | | | e | 1:39 PM | | procedure are in the | | | | PST | | results section. | + +--------+ + + + | TYPE AND SCREEN | Routin | 09/18/2018 | | Results for this | | | e | 1:39 PM | | procedure are in the | | | | PST | | results section. | + +--------+ + + + | BASIC METABOLIC | Routin | 09/18/2018 | | Results for this | | PANEL | e | 1:39 PM | | procedure are in the | | | | PST | | results section. | + +--------+ + + + | XR CHEST 2 VIEWS | Routin | 09/18/2018 | | Results for this | | | e | 1:38 PM | | procedure are in the | | | | PST | | results section. | + +--------+ + + + documented in this encounter Results MRSA NAAT (09/18/2018 1:40 PM PST) + + | Specimen | + + | | + + + + + | Narrative | Performed At | + + + | SOURCE NARES(NOSE) MRSA | EXTERNAL LAB | | PCR NEGATIVE Testing | | | performed at [facility];[place] [address] | | + + + + +---------+ + + | Performing | Address | City/State/Zipcode | Phone Number | | Organization | | | | + +---------+ + + | EXTERNAL LAB | | | | + +---------+ + + Type and Screen (09/18/2018 1:39 PM PST) + + + + + + | Component | Value | Ref Range | Performed | Pathologist | | | | | At | Signature | + + + + + + | ABO Rh | A POSITIVE | | EXTERNAL | | | | | | LAB | | + + + + + + | Antibody | NEGATIVETesting | | EXTERNAL | | | Screen | performed at [facility];[address] | | LAB | | | | [address];[place], [place] | | | | | | [address] | | | | + + + + + + + + | Specimen | + + | Blood specimen | | (specimen) | + + + +---------+ + + | Performing | Address | City/State/Zipcode | Phone Number | | Organization | | | | + +---------+ + + | EXTERNAL LAB | | | | + +---------+ + + Protime INR (09/18/2018 1:39 PM PST) + + + + + + | Component | Value | Ref Range | Performed | Pathologist | | | | | At | Signature | + + + + + + | INR | 0.9Comment: REFERENCE | | EXTERNAL | | | | RANGE:0.9 - 1.2 | | LAB | | | | NON-ANTICOAGULATED2.0 | | | | | | - 3.0 ALL OTHER | | | | | | THERAPEUTIC | | | | | | INDICATIONS2.5 - 3.5 | | | | | | MECHANICAL HEART VALVES, | | | | | | RECURRENT OR SYSTEMIC | | | | | | EMBOLISMTesting | | | | | | performed at [facility];[address] | | | | | | [address] [facility];[place], [place] | | | | | | [address] | | | | + + + + + + + + | Specimen | + + | Blood specimen | | (specimen) | + + + +---------+ + + | Performing | Address | City/State/Zipcode | Phone Number | | Organization | | | | + +---------+ + + | EXTERNAL LAB | | | | + +---------+ + + External Lab: CBC (09/18/2018 1:39 PM PST) + + + + + + | Component | Value | Ref Range | Performed | Pathologist | | | | | At | Signature | + + + + + + | WBC | 7.18 | 3.80 - 11.00 | EXTERNAL | | | | | K/uL | LAB | | + + + + + + | Red Blood | 4.12 | 3.70 - 5.10 | EXTERNAL | | | Cells | | M/uL | LAB | | | Counted | | | | | + + + + + + | Hemoglobin | 12.5 | 11.3 - 15.5 | EXTERNAL | | | | | g/dL | LAB | | + + + + + + | Hematocrit, | 37.2 | 34.0 - 46.0 % | EXTERNAL | | | POC | | | LAB | | + + + + + + | MCV | 90.2 | 80.0 - 100.0 fl | EXTERNAL | | | | | | LAB | | + + + + + + | MCH | 30.2 | 27.0 - 34.0 pg | EXTERNAL | | | | | | LAB | | + + + + + + | MCHC | 33.5 | 32.0 - 35.5 | EXTERNAL | | | | | g/dL | LAB | | + + + + + + | RDW-CV | 40.3 | 37 - 53 fl | EXTERNAL | | | | | | LAB | | + + + + + + | Platelet | 276 | 150 - 400 K/uL | EXTERNAL | | | Count | | | LAB | | | Plasma | | | | | + + + + + + | MPV | 8.0 | fl | EXTERNAL | | | | | | LAB | | + + + + + + | Differentia | AUTOMATED | | EXTERNAL | | | l Type | | | LAB | | + + + + + + | % Segmented | 71.22 | % | EXTERNAL | | | | | | LAB | | | Neutrophils | | | | | + + + + + + | % | 18.50 | % | EXTERNAL | | | Lymphocytes | | | LAB | | + + + + + + | % Monocytes | 7.31 | % | EXTERNAL | | | | | | LAB | | + + + + + + | % | 1.98 | % | EXTERNAL | | | Eosinophils | | | LAB | | + + + + + + | % Basophils | 0.99 | % | EXTERNAL | | | | | | LAB | | + + + + + + | Absolute | 5.11 | 1.90 - 7.40 | EXTERNAL | | | Segmented | | K/uL | LAB | | | Neutrophils | | | | | + + + + + + | Absolute | 1.33 | 1.00 - 3.90 | EXTERNAL | | | Lymphocytes | | K/uL | LAB | | + + + + + + | Absolute | 0.53 | 0.00 - 0.80 | EXTERNAL | | | Monocytes | | K/uL | LAB | | + + + + + + | Absolute | 0.14 | 0.00 - 0.50 | EXTERNAL | | | Eosinophils | | K/uL | LAB | | + + + + + + | Absolute | 0.07Comment: Testing | 0.00 - 0.10 | EXTERNAL | | | Basophils | performed at [facility];[address] | [address] | LAB | | | | [address];[place] | | | | | | [address] | | | | + + + + + + + + | Specimen | + + | Blood specimen | | (specimen) | + + + +---------+ + + | Performing | Address | City/State/Zipcode | Phone Number | | Organization | | | | + +---------+ + + | EXTERNAL LAB | | | | + +---------+ + + Basic Metabolic Panel (09/18/2018 1:39 PM PST) + + + + + + | Component | Value | Ref Range | Performed | Pathologist | | | | | At | Signature | + + + + + + | Na | 139 | 135 - 145 | EXTERNAL | | | | | mmol/L | LAB | | + + + + + + | K | 4.3 | 3.5 - 4.9 | EXTERNAL | | | | | mmol/L | LAB | | + + + + + + | Cl | 103 | 99 - 109 mmol/L | EXTERNAL | | | | | | LAB | | + + + + + + | CO2 | 28 | 23 - 32 mmol/L | EXTERNAL | | | | | | LAB | | + + + + + + | Anion Gap | 12 | 5 - 20 mmol/L | EXTERNAL | | | | | | LAB | | + + + + + + | Glucose, | 288 (H) | 65 - 99 mg/dL | EXTERNAL | | | Fasting | | | LAB | | + + + + + + | BUN | 18 | 8 - 25 mg/dL | EXTERNAL | | | | | | LAB | | + + + + + + | Creatinine | 0.72 | 0.50 - 1.00 | EXTERNAL | | | | | mg/dL | LAB | | + + + + + + | BUN/Creatin | 25 | | EXTERNAL | | | ine Ratio | | | LAB | | + + + + + + | Calcium | 8.6 | 8.5 - 10.5 | EXTERNAL | | | | | mg/dL | LAB | | + + + + + + | Estimated | >60Comment: GFR <60: | mL/min/1.73m2 | EXTERNAL | | | GFR | CHRONIC KIDNEY DISEASE, | | LAB | | | | IF FOUND OVER A 3 MONTH | | | | | | PERIOD.GFR <15: KIDNEY | | | | | | FAILURE.FOR | | | | | | AMERICANS, MULTIPLY THE | | | | | | CALCULATED GFR BY | | | | | | 1.210.This eGFR is | | | | | | calculated using the | | | | | | MDRD IDDC traceable | | | | | | equation.Testing | | | | | | performed at [facility] | | | | | | [address] [facility];[place], [place] | | | | | | [address] | | | | + + + + + + + + | Specimen | + + | Blood specimen | | (specimen) | + + + +---------+ + + | Performing | Address | City/State/Zipcode | Phone Number | | Organization | | | | + +---------+ + + | EXTERNAL LAB | | | | + +---------+ + + XR Chest 2 Vws (09/18/2018 1:38 PM PST) + + | Specimen | + + | | + + + + + | Impressions | Performed At | + + + | 1. Normal examination of the chest. | | + + + + + + | Narrative | Performed At | + + + | [facility] X[facility] CHEST 2 VIEW FRONTAL AND LATERAL 09/18/2018 | | | 1:38 PM HISTORY: 58 years. Female. Pre-operative evaluation | | | of the chest. TECHNIQUE: 2 views obtained. COMPARISON: None. | | | FINDINGS: The heart is normal in size. The lungs are normally | | | expanded. The pulmonary vascular pattern is normal. No acute | | | airspace disease, parenchymal nodule, mass, pleural effusion or | | | pneumothorax is noted. No hilar adenopathy is seen. The osseous | | | structures are intact. | | + + + + + | Procedure Note | + + | Lavell Clark Conversion - 05/29/2019 3:18 PM PDT [facility] CHEST 2 VIEW | | FRONTAL AND SQIKJMI49/4/2018 1:38 PM HISTORY:58 years. Female. Pre-operative | | evaluation of the chest. TECHNIQUE:2 views obtained. COMPARISON:None. FINDINGS:The heart | | is normal in size. The lungs are normally expanded. The pulmonary vascular pattern is | | normal. No acute airspace disease, parenchymal nodule, mass, pleural effusion or | | pneumothorax is noted. No hilar adenopathy is seen. The osseous structures are intact. | | IMPRESSION: 1. Normal examination of the chest. | |2 views obtained. | | | |COMPARISON: | |None. | | | |FINDINGS: | |The heart is normal in size. The lungs are normally expanded. The pulmonary vascular carole ion is normal. No acute airspace disease, parenchymal nodule, mass, pleural effusion or pne umothorax is noted. No hilar adenopathy is seen. The osseous | |structures are intact. | | | |IMPRESSION: | |1. Normal examination of the chest. | | | | | + + documented in this encounter Visit Diagnoses + + | Diagnosis | + + | CAD in [place] artery Coronary atherosclerosis of [place] coronary artery | + + documented in this encounter
--- OUTSIDE RECORDS SUMMARY | ~2020-03-18 | XMS | Encounter Summary ---
Demographics + + + | [address] | [address] | | | [place] [address] | + + + | Home Phone | | + + + | Preferred Language | Unknown | + + + | Marital Status | | + + + | Hinduism Affiliation | Unknown | + + + | Race | Unknown | + + + | Ethnic Group | Unknown | + + + Author + + + | Author | [facility] | | | and [place] | + + + | Organization | [facility] | | | [...] Team Providers + +------+ + | Care Spring Former Machine Name | Role | Phone | + [...] +--------+--------+ + + + + Encounter Details +--------+---------+ + + + | Date | Type | Department | Care Team | Description | +--------+---------+ + + + | 11/16/ | Surgery | [facility] | Stephen Baker MD | CV Cor Angio | | 2017 | | MED CTR CV INTRA OP | [address] | | | | | [address] | [place] | | | | | [place] | [address] | | | | | [address] | | | | | | [phone] | | | +--------+---------+ + + + Social History + +-------+ [...] 1 year follow-up target versus signs 6.2% [place], [place] HOSPITALIST DISCHARGE SUMMARY Pt. Name/Age/: Luciana [...] MG Tb24 telmisartan 80 MG tablet aka: [facility]: Please refer to the H&P for full details and the most recent rounding rounding (progress) n ote. In short 57-year-old woman transferred from [facility] in [facility] on after being admitted with symptoms of [...] to home with her . She will hot die picker her prescriptions at [facility] in [facility] today. Our office will contact her to schedule outpatient foll ow-up within 3 weeks. Condition: Patient being discharged with condition improved. Diet:Whole food plant based, sodium restricted Less than 30 minutes were spent on discharge and coordination of post-hospital care. Electronically signed by: Stephen Baker MD, 11/19/2017 8:23 [facility] Portions of this chart may have been created with Ushi voice recognition software. Occasi onal wrong-word or [...] tablet under | 25 | 11 | /02/02 | | | (NITROSTAT) 0.4 mg | [...] 9:26 AM PSTReviewed discharge instructions with geeta agudelo and SO, all prescriptions sent to pharmacy, [...] have recommended she seek consultation with an piece goods packer. MEDICATIONS: Current Facility-Administered Medications Medication Dose Route [...] tablet 3.125 mg 3.125 mg Oral BID Stephen Simmons MD 3.125 mg at 11/18/17 [...] ECGs available Confirmed by SABINO RAMIREZ, SHOLA ([id number]) on 11/16/2017 6:45:13 AM WBC 11/16/2017 10.3 [...] was found Confirmed by SABINO RAMIREZ, SHOLA ([id number]) on 11/17/2017 6:38:00 AM Glucose, POC 11/16/2017 [...] wave flattening in inferior leads Confirmed by SABINO RAMIREZ, SHOLA ([id number]) on 11/18/2017 8:56:44 AM Glucose, POC 11/17/2017 [...] with MD regarding blood pressure trends. Adriana Sebastian, PharmD - 11/17/2017 3:35 PM PST PHARMACY [...] performed and electronically signed by Avelina Perdomo, Police Dispatcher 11/17/2017 13:31 Reviewed by Adriana Hinojosa, PharmTiffany [...] 0-6 Units Subc utaneous 4x Daily and HS Stephen Simmons MD 3 Units at 11/17/17 1222 lidocaine 1%-EPINEPHrine 1:100,000 injection 5 mL 5 mL Infiltration Once PRN Stephen Simmons MD lisinopril (PRINIVIL,ZESTRIL) tablet 2.5 mg 2.5 mg Oral Nightly Stpehen Simmons MD nitroglycerin (NITROSTAT) SL tablet 0.4 [...] PRN Stephen Simmons MD 5 mg at 02/0 11/02 2022 ALLERGIES Allergies Allergen Reactions Gabapentin irritable Hydroxychloroquine [...] ECG No previous ECGs available Confirmed by SHOLA GALLO MD ([id number]) on 11/16/2017 6:45:13 AM WBC 11/16/2017 10.3 [...] was found Confirmed by SABINO RAMIREZ, SHOLA ([id number]) on 11/17/2017 6:38:00 AM Glucose, POC 11/16/2017 [...] this patient. Stephen Baker MD, 11/17/2017 15:24 onjuan, MD Stephen - 0 11/16/2017 3:16 PM PST PATIENT [...] Stephen Simmons MD 650 mg at 11/17/17 042 ALPRAZolam (XANAX) tablet 0.25 mg 0.25 mg [...] Daily Stephen Simmons MD 75 mg at 0212/03 0941 dextrose 50% injection 12.5 g 12.5 [...] ECGs available Confirmed by SABINO RAMIREZ, SHOLA ([id number]) on 11/16/2017 6:45:13 AM WBC 11/16/2017 10.3 [...] was found Confirmed by SABINO RAMIREZ, SHOLA ([id number]) on 11/17/2017 6:38:00 AM Glucose, POC 11/16/2017 [...] ST[address] | [address] | [place], [place] | [phone] | | [facility] | | [address] | | | - LABORATORY | | | | + + + + + Extra Green Top Tube (11/19/2017 6:10 AM PST) + +-------+ + + + | Component | Value | Ref Range | Performed | Pathologist | | | | | At | Signature | + +-------+ + + + | Extra Green | Done | | [facility] | | | Top Tube | | | [facility] | | [...] [address] | [place] | [phone] | | [facility] | | [address] | | | - LABORATORY | | [...] + | [facility] | [address] | [place] | [phone] | | [facility] | | [address] | | | - LABORATORY | | [...] [address] | [place] | [phone] | | [facility] | | [address] | | | - LABORATORY | | [...] [address] | [place] | [phone] | | [facility] | | [address] | | | - LABORATORY | | [...] | | POC | | | [facility] | | [...] + | [facility] | [address] | [place] | [phone] | | [facility] | | [address] | | | - LABORATORY | | [...] ST. | [address] | [place], [place] | [phone] | | [facility] | | [address] | | | - LABORATORY | | [...] [address] | [place] | [phone] | | [facility] | | [address] | | | - LABORATORY | | [...] | | Time | | seconds | [facility] | | | | [...] [address] | [place] | [phone] | | [facility] | | [address] | | | - LABORATORY | | [...] | | | | | M/uL | [facility] | | | | [...] + | [facility] | [address] | [place] | [phone] | | [facility] | | [address] | | | - LABORATORY | | [...] | | POC | | | [facility] | | [...] | + + + + + | [facility] | [address] | [place] | [phone] | | [facility] | | [address] | | | - LABORATORY | | [...] ST. | [address] | [place] | [phone] | | [facility] | | [address] | | | - LABORATORY | | [...] | | POC | | | [facility] | | | | | | MEDICAL [...] [address] | [place] | [phone] | | [facility] | | [address] | | | - LABORATORY | | [...] | | | POC | | | [facility] | | | | | | [...] + | [facility] | [address] | [place] | [phone] | | [facility] | | [address] | | | - LABORATORY | | [...] | | | POC | | | [facility] | | | | | | [...] ST. | [address] | [place] | [phone] | | [facility] | | [address] | | | - LABORATORY | | [...] MD | | | | | | ([id number]) on 11/18/2017 | | | | | [...] | | | | | M/uL | [facility] | | | | [...] | | | | | g/dL | [facility] | | | | [...] | MPV | 8.1 | fL | [facility] | | | | | | ST. [...] [address] | [place] | [phone] | | [facility] | | [address] | | | - LABORATORY | | [...] + | [facility] | [address] | [place] | [phone] | | [facility] | | [address] | | | - LABORATORY | | [...] | | POC | | | [facility] | | [...] [address] | [place] | [phone] | | [facility] | | [address] | | | - LABORATORY | | [...] | + + + + + | [facility] | [address] | [place] | [phone] | | [facility] | | [address] | | | - LABORATORY | | [...] | | | | SHOLA GALLO MD ([id number]) | | | | | | on [...] of | | | procedure done: Yes PRODUCTION PLANNING SUPERVISOR: Stephen Baker M.D., F.A.C.C. | | | [...] | | ACCESS: Right radial artery 6 Gibraltarian CLOSURE DEVICE:. TR band | | | [...] | | Seldinger technique and a 6 Gibraltarian sheath was inserted. 3 mg of | | | verapamil and 300 g of nitroglycerin were administered through the | | | side port of the right radial artery sheath. 3000 units of | | | intravenous heparin was administered. A 5 Gibraltarian Ryan catheter was | | | advanced across the aortic valve without difficulty. Left | | | ventricular pressures and aortic valve pressures were recorded. The | | | Ryan catheter was then used to perform selective coronary | | | arteriography. A 6 Gibraltarian Ikari right 1.0 guiding catheter was | [...] | | | catheters for a 6 Gibraltarian LB U3.0 catheter that was used to [...] 60% proximal mid stenosis at first septal public health aide, | | | subtotal mid occlusion with [...] Stephen Baker M.D., | | | P[facility]ellInterventional CardiologistProWillapa [facility] | | | [place], [place] | | |LEFT ANTERIOR DESCENDING ARTERY: Medium caliber vessel, 80% | | |proximal stenosis, 60% proximal mid stenosis at first septal | | |public health aide, subtotal mid occlusion with VERONA grade 1 [...] | |Stephen Baker M.D., F.A.C.C. | | |Auto Parts Delivery Driver | | |[facility] | | |[place] | | | | | | | [...] | Clotting | | second(s) | [facility] | | | Time, POC | | [...] [address] | [place] | [phone] | | [facility] | | [address] | | | - LABORATORY | | [...] | Clotting | | second(s) | [facility] | | | Time, POC | | [...] + | [facility] | [address] | [place] | [phone] | | [facility] | | [address] | | | - LABORATORY | | | | + + + + + Lipid Panel (11/16/2017 12:08 PM PST) + + + + + + | Component | Value | Ref Range | Performed | Pathologist | | | | | At | Signature | + + + + + + | Triglycerid | 195 (H) | 35 - 160 mg/dL | [facility] | | | es | | | [facility] | | [...] LDL, | 114 | <=130 mg/dL | [facility] | | | Calculated | | | [facility] | | [...] [address] | [place] | [phone] | | [facility] | | [address] | | | - LABORATORY | | [...] | | POC | | | [facility] | | [...] + | [facility] | [address] | [place] | [phone] | | [facility] | | [address] | | | - LABORATORY | | [...] (H) | 7 - 18 mg/dL | [facility] | | | | | | [facility] | | | | | | MEDICAL | | | | | | CENTER - | | | | | | LABORATORY | | + + + + + + | Creatinine | 0.53 (L) | 0.60 - 1.30 | [facility] | | | | | mg/dL | [facility] | | | | | | MEDICAL | | | | | | CENTER - | | | | | | LABORATORY | | + + + + + + | eGFR if not | >60Comment: GLOMERULAR | >=60 | [facility] | | | | FILTRATION | mL/min/1.73m2 | [facility] | | | FINNISH | RATE,ESTIMATED | | MEDICAL | | | | mL/min/1.54i6Vvsn than | | CENTER - | | [...] [address] | [place] | [phone] | | [facility] | | [address] | | | - LABORATORY | | [...] [address] | [place] | [phone] | | [facility] | | [address] | | | - LABORATORY | | [...] + | [facility] | [address] | [place] | [phone] | | [facility] | | [address] | | | - LABORATORY | | [...] ST. | [address] | [place] | [phone] | | [facility] | | [address] | | | - LABORATORY | | [...] [address] | [place] | [phone] | | [facility] | | [address] | | | - LABORATORY | | [...] | | | | SHOLA GALLO MD ([id number]) | | | | | | on [...] [address] | [place] | [phone] | | [facility] | | [address] | | | - LABORATORY | | [...] Visit Diagnoses Not on filedocumented in this encounter Administered Medications + +--------+ [...] Low | | | Blood Sugar, Starting [facility] 11/16/17 | | | at 0844 | | + +---+ | | | + +---+ + +-------+ +--------+---+---+ | docusate sodium (COLACE) | Given | 11/17/19 | 100 mg | | | | capsule 100 mg 100 mg, Oral, 2 | | 18 12:00 | | | | | TIMES DAILY PRN, Constipation, | | PM PST | | | | | Starting 11/15/17 at 1846, 1st | | | | | | | line agent for constipation | | | | | | | relief., | | | | | | + +-------+ +--------+---+---+ +---+---+ | | | +---+---+ + +-------+ +--------+---+---+ | fentaNYL (PF) injection ONCE | Given | 11/16/19 | 25 mcg | | | | PRN, Starting [facility] 11/16/17 at 1416, | | 18 2:56 | | | | | Intra-op | | PM PST | | | | + +-------+ +--------+---+---+ +-------+ +--------+---+---+ | Given | 11/16/19 | 25 mcg | | | | | 18 2:16 | | | | | | PM PST | | | | +-------+ +--------+---+---+ +---+---+ | | | +---+---+ + +-------+ +--------+---+---+ | heparin 1,000 units/mL | Given | 11/16/19 | 3,000 | | | | injection ONCE PRN, Starting Lisa | | 18 2:33 | Units | | | | 11/16/17 at 1416, Intra-op | | PM PST | | | | + +-------+ +--------+---+---+ +-------+ +--------+---+---+ | Given | 11/16/19 | 3,000 | | | | | 18 2:16 | Units | | | | | PM PST [...] | | | | | | use Depue 10/325 if ordered. If | | | | [...] | | | | | NPO, Daytime [id number] Use NIGHT | | | | | | | DOSE for doses scheduled: | | | | | | | HS, 3AM, Nighttime [id number], | | | | | | + [...] | | | | +-------+ +---------+---+ + +---+---+ | | | +---+---+ + +-------+ +---------+---+---+ | iohexol (OMNIPAQUE 350) 350 | Given | 11/16/19 | 120 mLs | | | | mg/mL injection ONCE PRN, | | 18 3:14 | | | | | Starting Lisa 11/16/17 at 1514, | | PM PST | | | | | Intra-op | | | | | | + +-------+ +---------+---+---+ +---+---+ | | | +---+---+ + +-------+ +------+---+ + | lidocaine 1% injection ONCE | Given | 11/16/19 | 1 mL | | Surgical | | PRN, Starting [facility] 11/16/17 at 1400, | | 18 2:00 | | | Site | | Intra-op | | PM PST | | | | + +-------+ +------+---+ + + +---+ | | | + +---+ | lidocaine 1%-EPINEPHrine | | | 1:100,000 injection 5 mL 5 mL, | | | Infiltration, ONCE PRN, for | | | oozing at cardiac cath site, | | | Starting [facility] 11/16/17 at 1548, For | | | [...] | | +---+---+ + +-------+ +------+---+---+ | midazolam (VERSED) 1 mg/mL | Given | 11/16/19 | 1 mg | | | | injection ONCE PRN, Starting Lisa | | 18 2:16 | | | | | 11/16/17 at 1400, Intra-op | | PM PST | | | | + +-------+ +------+---+---+ +-------+ +------+---+---+ | Given | 11/16/19 | 2 mg | | | | | 18 2:00 | | | | | | PM [...] | | | | Chest pain, Starting Lisa 11/16/17 | | | | | | [...] | | +---+---+ + +-------+ +---------+---+---+ | nitroglycerin 100 mcg/mL | Given | 11/16/19 | 200 mcg | | | | syringe ONCE PRN, Starting Lisa | | 18 2:51 | | | | | 11/16/17 at 1441, Intra-op | | PM PST | | | | + +-------+ +---------+---+---+ +-------+ +---------+---+---+ | Given | 11/16/19 | 100 mcg | | | | | 18 2:41 | | | | | | PM [...] PST | | | | | Starting Lisa 11/16/17 at 1918 | | | | | | + +-------+ +------+---+---+ +---+---+ | | | +---+---+ + +-------+ +--------+---+---+ | ticagrelor (BRILINTA) tablet | Given | 11/16/19 | 180 mg | | | | ONCE PRN, Starting Lisa 11/16/17 at | | 18 2:40 | | | | | 1440, Intra-op | | PM PST | | | | + +-------+ +--------+---+---+ +---+---+ | | | +---+---+ + +-------+ +-------+---+---+ | traMADol (ULTRAM) tablet 50 mg | Given | 11/17/19 | 50 mg | | | | 50 mg, Oral, EVERY 6 HOURS PRN, | | 18 2:25 | | | | | Pain, Starting Mon11/17/17 at 1353 | | PM PST | [...]
--- OUTSIDE RECORDS SUMMARY | ~2020-03-18 | XMS | Encounter Summary ---
Demographics + + + | [address] | [address] | | | [place] [address] | + + + | Home Phone | | + + + | Preferred Language | Unknown | + + + | Marital Status | | + + + | Congregation Affiliation | Unknown | + + + | Race | Unknown | + + + | Ethnic Group | Unknown | + + + Author + + + | Author | [facility] | | | and [place] | + + + | Organization | [facility] | | | [...] Team Providers + +------+ + | Care [employer] Labor Name | Role | Phone | + +------+ + | Pauly Perez PA-C | PCP | | + +------+ + Encounter Details +--------+ + + + + | Date | Type | Department | Care Team | Description | +--------+ + + + + | 12/18/ | Hospital | [facility] | Stephen Baker MD | Atrial fibrillation, | | 2018 | Encounter | [facility] | [address] | unspecified type | | | | MEDICINE [address] | [place], [place] | (HCC) | | | | [place], | [address] | | | | | [place] [address] | | | | | | [phone] | | | +--------+ + + + [...] results section. | | | | | ([facility]) | | + +--------+ + + + [...] [place] | | | MEÑO Perez READING ADULT LITERACY TEACHER: Veronica Field MD | | | 48-HOUR [...] | | Signed by: Veronica Field MD [facility] 12/22/2017, 10:22 | | + + + + +---------+ + + | Performing | Address | City/State/[facility] | Phone Number | | Organization | | | | + +---------+ + + | [facility] | | | | + +---------+ + + documented in this encounter Visit Diagnoses + + | Diagnosis | + + | Atrial fibrillation, unspecified type ([facility]) | + + documented in this encounter"
--- OUTSIDE RECORDS SUMMARY | ~2020-03-18 | XMS | Encounter Summary ---
Demographics + + + | Address | [address] | | | [place] [address] | + + + | Home Phone | | + + + | Preferred Language | Unknown | + + + | Marital Status | | + + + | Orthodox Affiliation | Unknown | + + + | Race | Unknown | + + + | Ethnic Group | Unknown | + + + Author + + + | Author | [facility] | | | and [place] | + + + | Organization | [facility] | | | [...] Team Providers + +------+ + | Care Dump Grader Name | Role | Phone | + +------+ + | Pauly Perez PA-C | PCP | | + +------+ + Encounter Details +--------+ + + + + | Date | Type | Department | Care Team | Description | +--------+ + + + + | 09/26/ | [facility] | [facility] | Hilton Vargas MD | CAD in [place] artery | | 2018 - | Encounter | [facility] | [address] | | | | | [address] | [place], [place] | | | 10/01/ | | [place], [place] | [address] | | | 2017 | | [address] | | | | | | [phone] | | | +--------+ + + + [...] + + + | Blood Pressure | 89/54 | 10/01/2018 12:53 PM | | | | | PST | | + + + + + | Pulse | 66 | 10/01/2018 12:53 PM | | | | | PST | | + + + + + | Temperature | 36.6 C (97.8 F) | 10/01/2018 12:53 PM | | | | | PST | | + + + + + | Respiratory Rate | 18 | 10/01/2018 12:53 PM | | | | | PST | | + + + + + | Oxygen Saturation | - | - | | + + + + + | Inhaled Oxygen | - | - | | | Concentration | | | | + + + + + | Weight | 64.5 kg (142 lb 3.2 | 10/01/2018 12:53 PM | | | | oz) | PST | | + + + + + | Height | 166.4 cm (5' 5.5") | 10/01/2018 12:53 PM | | | | | PST | | + + + + + | Body Mass Index | 23.3 | 10/01/2018 12:53 PM | | | | | PST | | + + + + + documented in this encounter Discharge Summaries Derrick Moeller PA - 10/01/2018 7:52 AM PSTFormatting of this note might be different fr om the original. Discharge Summaries by Derrick Moeller PA-C at 10/01/18 7612 Author: Derrick Moeller PA-C Service: Cardiac, Thoracic, and Vascular Surgery Author Ty pe: Physician Desk Editor - Certified Filed: 10/01/18 1145 Date of Service: 10/01/18 075 Status: Addendum Consulting Services Associate: Derrick Moeller PA-C (Physician Desk Editor - Certified) Related Notes: Original Note by Karma Joy PA-C (Physician Desk Editor - Certified) filed at 10/01/18 0800 Cosigner: Hilton Vargas MD at 10/01/18 1232 Service: Cardiothoracic Surgery Discharge Summary Pt: John Paul Meng AGE/SEX: 58 y.o. female ROOM: 9113/9113-1 : 1960 PCP: Pauly Perez Date/Time:10/01/2018 11:44 AM Date of Admission: 09/26/2018 Date of Discharge: 10/01/2018 Hospital Day: LOS: 5 days Surgery/Procedure: 09/26/18 Off-pump coronary artery bypass grafting times 1. HILLMAN to LAD. Post-Op Day: 5 Days Post-Op Discharge Provider: Derrick Moeller PA-C Treatment Team: Consulting Physician: Glenn Newell MD Admitting Provider: Hilton Vargas MD Discharge Diagnoses: Principal Problem: Essential hypertension Active Problems: Rheumatoid arthritis (HCC) Systemic lupus erythematosus (SLE) in adult (HCC) CAD in [place] artery HLD (hyperlipidemia) S/P CABG x 1 Moderate protein-calorie malnutrition (HCC) Resolved Problems: * No resolved hospital problems. * BRIEF HISTORY OF PRESENTATION: The patient is a 58-year-old white female with significant past medical history of atrial f ibrillation, insulin-dependent diabetes, CVA, hypertension, hyperlipidemia, peripheral vascu lar disease, cardiomyopathy with ejection fraction 35%-40%. The patient was initially evalu ated in [place] and underwent cardiac angiography there and had stenting of a very small RPDA lesion. At that time, it was noted that her LAD was occluded and filled distally with a very large distal component. The patient was evaluated by Dr. Newell here with [facility]. She underwent a thallium viability study, which showed significant viability in the anterior wall. The patient was referred to us for consideration of grafting of the occlude d LAD. HOSPITAL COURSE: The patient was taken to the operating room and underwent an OP CABG x1 on 09/26/[address] Vargas. Operation was uneventful (please refer to operative note for details of the same). The patient tolerated the procedure well and was transferred to the ICU intubated and in st able condition, and was extubated per ICU protocol. Overnight into POD #1 they were hemodyna mically and neurologically stable. They were weaned from their drips, diet advanced, started on appropriate PO medications as well as DVT PUD prophylaxis. Issues with PAF on POD #3 but converted with pharmacalogic management. Otherwise, patient was de-lined as appropriate and eventually transferred up to the cardiac unit. She received electrolyte replacement per pro tocol and continued to make appropriate recovery, ambulating, tolerating cardiac diet, and p assing bowel movements. Chest tubes and pacing wires were removed without complication, and the patient remained stable without supplemental oxygen. The patient was fit for discharge t o Home on 10/01/18. Problems addressed during hospital stay: 1) PAF (preop Hx) Past Medical History Diagnosis Date Asthma relatively asymptomatic Atrial fibrillation ([facility]) Paroxysmal, CHADS2 VASc 6, on Eliquis Cerebrovascular accident (CVA) ([facility]) 11/16/2017 Left occipital, with right-sided internuclear ophthalmoplegia Congestive heart failure ([facility]) 11/16/2017 acute combined systolic/diastolic heart failure (with AFib, RVR) Coronary artery disease 05/2017 developed angina, did not seek medical attention until after her [place] 10/2017 Hyperlipidemia Hypertension 1998 Old myocardial infarction PVD (peripheral vascular disease) ([facility]) Raynaud phenomenon Rheumatoid arthritis ([facility]) S/P CABG x 1 09/26/2018 HILLMAN > LAD (off pump) Seasonal allergies Status post insertion of drug eluting coronary artery stent 11/16/2017 2.25 x 15 mm Xience ROBIN in the prox right PDA Systemic lupus erythematosus (SLE) in adult ([facility]) Type 2 diabetes mellitus ([facility]) 1998 Insulin-Requiring Past Surgical History Procedure Laterality Date CORONARY ANGIOPLASTY 11/16/2017 2.25 x 15 mm Xience ROBIN in the prox right PDA CORONARY ARTERY BYPASS GRAFT N/A 09/26/2018 Procedure: CABG - OFF PUMP; Surgeon: Hilton Vargas MD; Location: [facility] OR; Service: Cardiac; Laterality: N/A; TUBAL LIGATION Allergies Allergen Reactions Hydroxychloroquine Muscle Pain myalgia Gabapentin Mental Changes irritable Prescriptions Prior to Admission Medication Sig Dispense Refill Last Dose magnesium oxide (MAG-OX) 400 MG TABS tablet Take 400 mg by mouth daily. 09/25/2018 at Unknown time metFORMIN (GLUCOPHAGE) 1000 MG tablet Take 1,000 mg by mouth 2 (two) times daily. 08/2018 at Unknown time apixaban (ELIQUIS) 5 MG tablet Take 5 mg by mouth 2 (two) times daily. 09/19/2018 clopidogrel (PLAVIX) 75 MG tablet Take 75 mg by mouth daily. 09/19/2018 DISCHARGE EXAM Vital Signs: BP 95/51 | Pulse 79 | Temp 99.5 F (37.5 C) (Oral) | Resp 16 | Ht 1.664 m (5' 5.5") | Wt 64.5 kg (142 lb 3.2 oz) | SpO2 99% | ? No | BMI 23.30 kg/m Patient Vitals for the past 24 hrs: BP Temp Temp src Pulse Resp SpO2 10/01/18 0828 95/51 - - 79 - - 10/01/18 0739 95/53 99.5 F (37.5 C) Oral 82 16 99 % 10/01/18 0544 99/54 98.9 F (37.2 C) Oral - 16 97 % 09/30/18 2251 94/51 99.3 F (37.4 C) Oral 81 16 93 % 09/30/184 - 100.4 F (38 C) Oral - - - 09/30/182014 111/59 101.1 F (38.4 C) Oral 100 18 94 % 09/30/18 1900 138/79 99.2 F (37.3 C) Oral 113 18 - 09/30/18 1607 97/55 98.4 F (36.9 C) Oral 68 18 97 % 09/30/18 1208 125/58 97.6 F (36.4 C) Axillary 78 17 100 % Intake/Output Summary (Last 24 hours) at 10/01/18 1144 Last data filed at 09/30/18 1819 Gross per 24 hour Intake 150 ml Output 0 ml Net 150 ml Current weight: Patient Vitals for the past 96 hrs: Weight 09/30/18 0616 64.5 kg (142 lb 3.2 oz) 09/29/18 0500 67 kg (147 lb 11.3 oz) Admission weight: Weight: 62.5 kg (137 lb 12.6 oz) General: Alert, oriented, in no acute distress,resting in chair Heart: RRR No murmur Lungs: clear bilaterally Abdomen:Soft, nondistended, nontender Extremities: Well perfused, mild LE edema Musculoskeletal:no deformities or significant abnormalities Neurological: No gross focal motor or sensory deficits Skin:No rash or lesions. Mid-sternal incision dressing is C/D/I. DATA CBC: Lab Results Component Value Date WBC 7.24 09/30/2018 RBC 2.58 (L) 09/30/2018 HGB 7.9 (L) 09/30/2018 HCT 23.2 (L) 09/30/2018 MCV 90.2 09/30/2018 MCH 30.6 09/30/2018 MCHC 33.9 09/30/2018 RDW 38.9 09/30/2018 PLT 202 09/30/2018 MPV 8.3 09/30/2018 DIFFTYPE AUTOMATED 09/29/2018 BMP: Lab Results Component Value Date NA 133 (L) 10/01/2018 K 4.1 10/01/2018 K 3.2 (L) 09/26/2018 CL 98 (L) 10/01/2018 CO2 27 10/01/2018 ANIONGAP 12 10/01/2018 GLUF 206 (H) 10/01/2018 BUN 7 (L) 10/01/2018 CREATININE 0.60 10/01/2018 BCR 11 10/01/2018 CA 7.9 (L) 10/01/2018 EGFR >60 10/01/2018 PLAN 1. Patient is discharged to Home. 2. Pt instructed to schedule follow-up appointments as below. 3. Education: Cardiac Surgery: The patient is being discharged with instructions on cardiac diet, laine rnal precautions x 12 weeks and surgical incision care are according to the Society of Thora cic Surgeon guidelines. The patient is given instructions to start cardiac rehabilitation in accordance with beam doffer recommendations. Pt advised not to drive for 6 weeks post disc harge. The patient was given extensive education regarding incision precautions. He/She was instructed to take showers using only soap and water on the incisions. The patient was encou raged to contact us in case he/she developed high fever, discharge from his/her wounds, or e xperience same symptoms prior to surgery Cardiothoracic Surgery will manage prescriptions until pt has seen seen Chef Saucier and Primary Care Physician, who will resume prescription management afterwards. Discharge Checklist: Aspirin (81mg/day) is being given at discharge:No, because placed on NOAC. A beta jasmin is being given at discharge:Yes A high-intensity statin (e.g., atorvastatin at 40-80 mg/day) is being given at discharge :Yes. Adherence to lipid modifying therapy to be monitored by cardiology An NICOLE inhibitor or ARB is being given at discharge:No, because of hypotension. Eliquis is being given at discharge Tobacco cessation counseling is being given at discharge: N/A, because the patient does not use tobacco. A referral to phase 2 cardiac rehabilitation will be given by cardiology. Disposition: Home Condition: Stable Code Status: Full Code No discharge procedures on file. Follow up: Hilton Vargas MD [address] [place] [address] Schedule an appointment as soon as possible for a visit on 10/18/2018 Post-Op Glenn Newell MD [address] [facility] [phone] Schedule an appointment as soon as possible for a visit in 2 weeks Post-Op Pauly Perez PA-C [address] [place] [address] Schedule an appointment as soon as possible for a visit in 3 weeks Post-Op Medication List START taking these medications amiodarone 400 MG tablet QTY: 30 tablet Refills: 0 Commonly known as: PACERONE Take 1 tablet by mouth daily for 30 days. ascorbic acid 500 MG tablet QTY: 30 tablet Refills: 1 Commonly known as: VITAMIN C Take 1 tablet by mouth daily for 60 days. Start taking on: 10/02/2018 ferrous sulfate (65 FE) 325 (65 FE) MG tablet QTY: 60 tablet Refills: 1 Take 1 tablet by mouth 2 (two) times daily with meals for 60 days. * insulin lispro (human) 100 UNIT/ML injection QTY: 10 mL Refills: 0 Commonly known as: HUMALOG Inject 0-10 Units into the skin 3 (three) times daily before meals. Blood Glucose Medium Do se <70 Initiate HYPOGLYCEMIA protocol 70-119 0 units 120-149 1 units 150-199 2 units 200-249 3 units 250-299 5 units 300-349 7 units 350-399 8 units >400 10 units * insulin lispro (human) 100 UNIT/ML injection QTY: 1.5 mL Refills: 0 Commonly known as: HUMALOG Inject 0-5 Units into the skin Nightly. Blood Glucose HS Dose <70 Initiate HYPOGLYCEMIA protocol 70-119 0 units 120-149 0 units 150-199 0 units 200-249 1 unit 250-299 2 units 300-349 3 units 350-399 4 units >400 5 units metoprolol 25 MG tablet QTY: 30 tablet Refills: 1 Commonly known as: LOPRESSOR Take 0.5 tablets by mouth 2 (two) times daily. * This list has 2 medication(s) that are the same as other medications prescribed for you. Read the directions carefully, and ask your doctor or other care provider to review them wit h you. CHANGE how you take these medications atorvastatin 80 MG tablet QTY: 30 tablet Refills: 1 Commonly known as: LIPITOR Take 1 tablet by mouth nightly. What changed: medication strength how much to take when to take this insulin aspart 100 UNIT/ML injection QTY: 15 mL Refills: 0 Commonly known as: NOVOLOG Inject 3 Units into the skin 3 (three) times daily before meals. What changed: how much to take when to take this additional instructions insulin glargine 100 UNIT/ML injection QTY: 15 mL Refills: 0 Commonly known as: LANTUS Inject 16 Units into the skin daily. What changed: how much to take when to take this CONTINUE taking these medications apixaban 5 MG tablet Refills: 0 Commonly known as: ELIQUIS clopidogrel 75 MG tablet Refills: 0 Commonly known as: PLAVIX HYDROcodone-acetaminophen 7.5-325 MG per tablet QTY: 30 tablet Refills: 0 Commonly known as: NORCO Take 1 tablet by mouth every 8 (eight) hours as needed for Pain. magnesium oxide 400 MG Tabs tablet Refills: 0 Commonly known as: MAG-OX metFORMIN 1000 MG tablet Refills: 0 Commonly known as: GLUCOPHAGE You might also be taking other medications not listed above. If you have questions about an y of your other medications, talk to the person who prescribed them or your Primary Care Pro vider. STOP taking these medications losartan 25 MG tablet Commonly known as: COZAAR metoprolol 100 MG 24 hr tablet Commonly known as: TOPROL-XL nitroGLYCERIN 0.4 MG SL tablet Commonly known as: NITROSTAT Where to Get Your Medications These medications were sent to [facility] - [place], [place] - [address], [address] [place] [address], [address] [place] [id number] amiodarone 400 MG tablet ascorbic acid 500 MG tablet atorvastatin 80 MG tablet ferrous sulfate (65 FE) 325 (65 FE) MG tablet metoprolol 25 MG tablet You can get these medications from any pharmacy Bring a paper prescription for each of these medications HYDROcodone-acetaminophen 7.5-325 MG per tablet insulin lispro (human) 100 UNIT/ML injection insulin lispro (human) 100 UNIT/ML injection Information about where to get these medications is not yet available Ask your nurse or doctor about these medications insulin aspart 100 UNIT/ML injection insulin glargine 100 UNIT/ML injection Discharge took less than 30 minutes, to include final examination, discussion of admission, and preparation of prescriptions, instructions for on-going care, follow-up and documentati on of discharge summary. Derrick Moeller PA-C 10/01/2018 documented in this enc ounter Medications at [...] + + +---------+ + + | insulin aspart | Inject 3 Units into | | 0 | 10/01/20 | | | (NOVOLOG FLEXPEN) | the skin 3 (three) | | | 18 | | | 100 units/mL | times daily before | | | | | | injection pen | meals. | | | | | + + + +---------+ + + | insulin glargine | Inject 16 Units into | | 0 | 10/01/20 | | | (LANTUS SOLOSTAR) | the skin daily. | | | 18 | | | 100 units/mL | | | [...] +---------+ + + | metoprolol | Take 12.5 mg by | | 0 | 10/01/20 | | | tartrate (LOPRESSOR) | mouth Daily. | | | 18 | | | 25 mg tablet | | | | | | [...] atorvaSTATin | Take 1 tablet by | | 0 | 10/01/20 | | | (LIPITOR) 80 MG | mouth nightly. | | | 18 | 0 [...] + + +---------+ + + | insulin lispro | Inject 0-10 Units | | 0 | 10/01/20 | | | (HUMALOG) 100 | into the skin 3 | | | 18 | 0 | | units/mL injection | (three) times daily | | | | | | (vial) | before meals. Blood | | | | | | | GlucoseMedium Dose | | | | | | | <70 Initiate | | | | | | | HYPOGLYCEMIA | | | | | | | [id number] | | | | | | | units 120-1491 units | | | | | | | 150-199 2 units | | | | | | | 200-249 3 units | | | | | | | 250-299 5 units | | | | | | | 300-3497 units | | | | | | | 350-3998 units | | | | | | | >400 10 | | | | | | | units | | | | | + + [...] documented as of this encounter Progress Notes Conversion Transaction, Provider Unknown - 10/01/2018 1:18 PM PSTFormatting of this note m ight be different from the original. Nurse Progress Note by Patricia Brian RN at 10/01/181317 Author: Patricia Brian RN Service: (none) Author Type: Registered Nurse Filed: 10/01/181319 Date of Service: 10/01/181317 Status: Signed Consulting Services Associate: Patricia Brian RN (Registered Nurse) Pt discharged home via private vehicle with family. Discharge instructions including follow up appointments, medications, and prescriptions reviewed with pt, pt verbalized understandi ng of this teaching. No questions at this time. VSS. Prescriptions faxed to [facility] [place] per pt request. Photo of midsternal incision placed in chart. Patricia Brian RN onver yinka Transaction, Provider Unknown - 10/01/2018 7:51 AM PST Therapy Progress Note by Prince Monroy PT at 10/01/18 8228 Author: Prince Monroy PT Service: (none) Author Type: Physical Therapist Filed: 10/01/18 0827 Date of Service: 10/01/18 358 Status: Signed Consulting Services Associate: Prince Monroy PT (Physical Therapist) PHYSICAL THERAPY TREATMENT NOTE PT Received On: 10/01/18 Reason for Treatment: Cardiac Requires PT Follow Up: Yes Follow up PT Only?: No Assistance Required: 1 person Shell Sieve Operator Needed: No Recommendations: Home Assist PT Ready for Discharge: Yes Plan Treatment/Interventions: Continue per Primary PT POC Progress: Progressing toward goals Summary Comments: pt. supine in bed and agreeable to therapy. Reviewed sternal precautions with th e pt and spouse who were able to get them without assistance. Reviewed/educated pt. on hous e safety, use of 4WW, importance of ambulation, pericare, getting in and out of bed, car tra nsfers and where to sit. pt. reports a shcok at dressing site at sternum alerted RN who was to check it out. pt. supine in bed with call light in reach at end of sesison. Precautions Cardiac Precautions: Sternal Other Precautions: fall risk Cognition Overall Cognitive Status: Within Functional Limits Orientation Level: Oriented Activity Tolerance: Patient limited by fatigue Nurse Made Aware: yes The patient reported pain rated at a 2/10. RN was notified Education Completed: Education Topics: [] Rationale for PT [] PT POC [x] DC planning [x] Precautions [] Exercises [] Bed mobility [] Transfer training with hand placement [] Gait training [] Stair training [] Use of gait belt [x] Other : see above for detail s Completed with: [x] Patient [] Spouse [] Significant other [] Family [] C aregiver [] Other Completed by: [x] Verbal education [] Demonstration [] Handout [] Other: Response to Education: [x] Stated Understanding [] Reinforcement necessary [] Returned demonstration [] Demonstrated understanding [] No evidence of learning [] Refused PT Goals Goal Formulation: With patient Pt Will Go Supine To Sit: With standby assistance, With minimal assist Pt Will Transfer Sit to Stand: With modified independence Pt Will Ambulate: greater than 200 feet Ambulate Level Assist: With modified independence Ambulate with Assistive Device: Least restricitve device Pt Will Go Up / Down Stairs: 1-2 stairs, 3-5 stairs Stairs Level of Assist: With modified independence, With supervision Reflects last filed data of patient's status; may be from multiple contributors Karma Guillory PA - 10/01/2018 7:39 AM PST Progress Notes by Karma Joy PA-C at 10/01/18738 Author: Karma Joy PA-C Service: Cardiac, Thoracic, and Vascular Surgery Author Jace milan: Physician Desk Editor - Certified Filed: 10/01/1844 Date of Service: 10/01/18738 Status: Attested Consulting Services Associate: Karma Joy PA-C (Physician Desk Editor - Certified) Cosigner: Hilton Vargas MD at 10/01/18754 Attestation signed by Hilton Vargas MD at 10/01/18754 Patient was seen, examined, labs, x-rays, treatment plan reviewed. [facility] Service: Cardiothoracic Surgery Progress Note ROOM: [facility] Hospital Day: LOS: 5 days Post-Op Day: 5 Days Post-Op Surgery/Procedure: 09/26/18 CABG x 1 (HILLMAN to LAD) off-pump SUBJECTIVE Events Overnight: HD Stable, remains SR. On RA. Ambulating, glucose better controlled UOP: 600mL measured/24hs + BM OBJECTIVE Vital Signs: BP 99/54 (BP Location: Left upper arm) | Pulse 81 | Temp 98.9 F (37.2 C) (Oral) | Re sp 16 | Ht 1.664 m (5' 5.5") | Wt 64.5 kg (142 lb 3.2 oz) | SpO2 97% | ? No | BMI 23.30 kg/m Current weight: Patient Vitals for the past 96 hrs: Weight 09/30/18 0616 64.5 kg (142 lb 3.2 oz) 09/29/18 0500 67 kg (147 lb 11.3 oz) Admission weight: Weight: 62.5 kg (137 lb 12.6 oz) Physical Exam: General: Alert, oriented, in no acute distress, resting in chair Heart: RRR No murmur Lungs: clear bilaterally Abdomen: Soft, nondistended, nontender Extremities: Well perfused, mild LE edema Musculoskeletal: no deformities or significant abnormalities Neurological: No gross focal motor or sensory deficits Skin: No rash or lesions. Mid-sternal incision dressing is C/D/I. DATA: Scheduled Medications amiodarone 400 mg Oral BID apixaban 5 mg Oral BID ascorbic acid 500 mg Oral Daily atorvastatin 80 mg Oral Nightly clopidogrel 75 mg Oral Daily docusate sodium 100 mg Oral BID famotidine 20 mg Oral BID Or famotidine 20 mg Intravenous BID ferrous sulfate (65 FE) 65 mg of iron Oral BID WC furosemide 20 mg Intravenous Once insulin detemir 8 Units Subcutaneous BID insulin lispro (human) 0-14 Units Subcutaneous TID AC insulin lispro (human) 0-7 Units Subcutaneous Nightly insulin lispro (human) 3 Units Subcutaneous TID AC magnesium hydroxide 30 mL Oral Daily magnesium oxide 400 mg Oral Daily metoprolol 12.5 mg Oral BID Continuous Infusions dextrose PRN Medications acetaminophen OR acetaminophen, aluminum-magnesium hydroxide-simethicone, amiodarone IV bolus, bisacodyl, bisacodyl, dextrose, dextrose, dextrose, diphenhydrAMINE, glucagon, gluca larry, HYDROmorphone OR HYDROmorphone, magnesium sulfate OR magnesium sulfate OR m agnesium sulfate, ondansetron, oxyCODONE OR oxyCODONE, polyethylene glycol, potassium OR potassium OR potassium OR potassium chloride OR potassium chloride OR p otassium chloride, saline lock IV - prn tolerating PO fluid AND sodium chloride, sodium phosphate HOME MEDS: Prior to Admission medications Medication Sig Start Date End Date Taking? Authorizing Provider atorvastatin (LIPITOR) 40 MG tablet Take 40 mg by mouth daily. 11/19/17 Yes Historical Provi raphael insulin aspart (NOVOLOG) 100 UNIT/ML injection Inject 10 Units into the skin 4 (four) times daily. Follow sliding scale Yes Historical Provider losartan (COZAAR) 25 MG tablet Take 12.5 mg by mouth daily. 1/2 pill daily 01/04/18 Yes His torical Provider magnesium oxide (MAG-OX) 400 MG TABS tablet Take 400 mg by mouth daily. Yes Historical Pr ovider metFORMIN (GLUCOPHAGE) 1000 MG tablet Take 1,000 mg by mouth 2 (two) times daily. Yes His torical Provider metoprolol (TOPROL-XL) 100 MG 24 hr tablet Take 50 mg by mouth daily. Yes Historical Prov ider apixaban (ELIQUIS) 5 MG tablet Take 5 mg by mouth 2 (two) times daily. Historical Provid er clopidogrel (PLAVIX) 75 MG tablet Take 75 mg by mouth daily. 11/19/17 Historical Provider HYDROcodone-acetaminophen (NORCO) 7.5-325 MG per tablet Take 1 tablet by mouth every 8 (eig ht) hours as needed for Pain. Historical Provider insulin glargine (LANTUS) 100 UNIT/ML injection Inject 14 Units into the skin nightly. H istorical Provider nitroGLYCERIN (NITROSTAT) 0.[address] 0.4 mg under the tongue every 5 (five) min utes as needed. 11/19/17 Historical Provider LABS: Recent Labs Lab 09/30/18 0351 09/29/18 0411 09/28/18 0356 09/27/18 0346 WBC 7.24 8.58 13.55* 20.95* HGB 7.9* 8.2* 8.4* 10.0* HCT 23.2* 23.6* 25.8* 29.9* PLT 202 161 181 245 NEUTOPHILPCT -- 75.04 79.37 84.94 MONOPCT -- 9.03 8.16 7.50 Recent Labs Lab 09/30/18 0351 09/29/18 0411 09/28/18 0911 09/28/18 0356 NA 135 134* -- 135 K 4.2 4.2 4.7 4.3 CL 99 99 -- 104 CO2 28 27 -- 24 BUN 9 8 -- 7* CREATININE 0.5 0.5 -- 0.4* Phosphorus: No results found for: PHOS Invalid input(s): LABALBU Recent Labs Lab 09/30/18 0351 09/29/18 0411 09/28/18 0356 MG 2.2 2.1 2.3 Recent Labs Lab 09/26/18 1044 APTT 24 INR 1.1 PROBLEM LIST Principal Problem: Essential hypertension Active Problems: Rheumatoid arthritis (HCC) Systemic lupus erythematosus (SLE) in adult (HCC) CAD in [place] artery HLD (hyperlipidemia) S/P CABG x 1 Moderate protein-calorie malnutrition (HCC) ASSESSMENT & PLAN S/P CABG -Continue eliquis, Statin, Plavix, BB -Encourage IS, ambulate, cough PT OT - BM + Post-op blood loss anemia -Fe+/Vit C supplementation, continue to monitor - HCT 23.6 -> 23.2, asymptomatic FEN/GI Diuresis, monitor electrolytes PAF - NSR Continue PO amiodarone, BB - Restart home Eliquis and DC ASA DM II - A1C 18 - Glucose control better, will have diabetic nurse see today FEN/GI - Lytes PRN - BM + Dispo - DC later today once DM team sees Code Status: Full Code The patient has been seen, all new lab results and imaging reviewed, and the plan discussed with the attending provider, BRUCE Dailey-C 10/01/2018 onversion Transac tion, Provider Unknown - 10/01/2018 7:35 AM PSTFormatting of this note might be different f rom the original. Nurse Progress Note by Christiana Roy RN at 10/01/18734 Author: Christiana Roy RN Service: (none) Author Type: Registered Nurse Filed: 10/01/18734 Date of Service: 10/01/18734 Status: Signed Consulting Services Associate: Christiana Roy RN (Registered Nurse) End of shift chart review complete. onver yinka Transaction, Provider Unknown - 09/30/2018 6:40 PM PST Nurse Progress Note by Palmer Greer RN at 09/30/181839 Author: Palmer Greer RN Service: (none) Author Type: Registered Nurse Filed: 09/30/181839 Date of Service: 09/30/181839 Status: Signed Consulting Services Associate: Palmer Greer RN (Registered Nurse) Chart check complete. Chaka Mueller PT - 09/30/2018 3:19 PM PSTFormatting of this note might be different from the o riginal. Therapy Progress Note by Chaka Arenas, PT at 09/30/18 8523 Author: Chaka Arenas, PT Service: (none) Author Type: Physical Therapist Filed: 09/30/18 1713 Date of Service: 09/30/18 1519 Status: Signed Consulting Services Associate: Chaka Arenas, PT (Physical Therapist) PHYSICAL THERAPY TREATMENT NOTE PT Received On: 09/30/18 Reason for Treatment: Cardiac Requires PT Follow Up: Yes Follow up PT Only?: No Assistance Required: 1 person Recommendations: Home Assist Equipment Recommended: None (pt reports having a 4WW at home) PT Ready for Discharge: Yes Recommendation Comments: Pt demonstrating safe mobility with 4WW, sternal precautions revie wed with pt and , who report no concerns about returning home. Recommend D/C home whe n medically cleared. Plan Treatment/Interventions: Continue per Primary PT POC Progress: Progressing toward goals PT Frequency: Once per day Summary Comments: Pt in chair, agreeable to PT. Sternal precautions reviewed, pt recalls most witho ut cueing, does need reminders for pericare technique. She amb with improved stability using 4WW this session. Progressed to amb with no AD, pt demonstrates narrow NAN with decreased R foot clearance, no LOB but more unsteady than with AD. Pt performs stair training with Postini, progresses from TURN OUT WORKER on PT to practicing with . D/C planning, mobility recs, and car transfers discussed with pt and . Pt in chair post-activity, reports no rodriguez ge in symptoms with activity, BP 122/60. Precautions Cardiac Precautions: Sternal Other Precautions: fall precautions Cognition Overall Cognitive Status: Within Functional Limits Orientation Level: Oriented FUNCTIONAL MOBILITY Transfers Sit to/from Stand: Standby assist Ambulation Maximal Ambulation Distance (feet): 400 Total Ambulation Distance (feet): 400 Ambulation Assistance: Supervision, Standby assist (supervision 4WW, SBA no AD) Distance limited by?: Therapist/staff discretion Pattern: Alternating, Decreased wilson, Narrow base Assistive Device: Walker 4 wheeled, None Stairs Number of Stairs: 1 x4 Stairs Assistance: Minimal assist (TURN OUT WORKER on PT or ) Number of stairs limited by?: Therapist/staff discretion Stair Management Technique: Step-to, Rail none Activity Tolerance: Patient tolerated treatment without report of fatigue Nurse Made Aware: yes Safety Devices in Place: (call light in reach, family present) The patient demonstrated no indication of pain during therapy session. Education Completed: Education Topics: [x] Rationale for PT [x] PT POC [x] DC planning [x] Precautions [] Exercises [] Bed mobility [] Transfer training with hand placement [x] Gait training [x] Stair training [] Use of gait belt [] Other Completed with: [x] Patient [x] Spouse [] Significant other [] Family [] Caregiver [] Other Completed by: [x] Verbal education [] Demonstration [] Handout [] Other: Response to Education: [x] Stated Understanding [] Reinforcement necessary [] Returned demonstration [] Demonstrated understanding [] No evidence of learning [] Refused PT Goals Goal Formulation: With patient Pt Will Go Supine To Sit: With standby assistance, With minimal assist Pt Will Transfer Sit to Stand: With modified independence Pt Will Ambulate: greater than 200 feet Ambulate Level Assist: With modified independence Ambulate with Assistive Device: Least restricitve device Pt Will Go Up / Down Stairs: 1-2 stairs, 3-5 stairs Stairs Level of Assist: With modified independence, With supervision Reflects last filed data of patient's status; may be from multiple contributors Derrick Alex PA - 09/30/2018 8:54 AM PST Progress Notes by Derrick Moeller PA-C at 09/30/18 08 Author: Derrick Moeller PA-C Service: Cardiac, Thoracic, and Vascular Surgery Author Ty pe: Physician Desk Editor - Certified Filed: 09/30/1856 Date of Service: 09/30/18853 Status: Attested Consulting Services Associate: Derrick Moeller PA-C (Physician Desk Editor - Certified) Cosigner: Hilton Vargas MD at 09/30/18903 Attestation signed by Hilton Vargas MD at 09/30/18903 Patient was seen, examined, labs, x-rays, treatment plan reviewed. [facility] Service: Cardiothoracic Surgery Progress Note ROOM: [facility], [facility]/91-1 Hospital Day: LOS: 4 days Post-Op Day: 4 Days Post-Op Surgery/Procedure: 09/26/18 CABG x 1 (HILLMAN to LAD) off-pump SUBJECTIVE Events Overnight: HD Stable, remains SR. On RA. Ambulating UOP: 450mL+2x unmeasured/24hs CT Output: 50mL/overnight, 70mL/24hrs OBJECTIVE Vital Signs: BP 107/56 (BP Location: Left upper arm) | Pulse 79 | Temp 99 F (37.2 C) (Oral) | Res p 18 | Ht 1.664 m (5' 5.5") | Wt 64.5 kg (142 lb 3.2 oz) | SpO2 98% | ? No | BMI 23.30 kg/m Current weight: Patient Vitals for the past 96 hrs: Weight 09/30/18 0616 64.5 kg (142 lb 3.2 oz) 09/29/18 0500 67 kg (147 lb 11.3 oz) 09/27/18 0500 64 kg (141 lb 1.5 oz) Admission weight: Weight: 62.5 kg (137 lb 12.6 oz) Physical Exam: General: Alert, oriented, in no acute distress, resting in chair Heart: RRR No murmur Lungs: CTA b/l Dim bases. Abdomen: Soft, nondistended, nontender Extremities: Well perfused, mild LE edema Musculoskeletal: no deformities or significant abnormalities Neurological: No gross focal motor or sensory deficits Skin: No rash or lesions. Mid-sternal incision dressing is C/D/I. Chest tube present inci yinka C/D/I. DATA: Scheduled Medications amiodarone 400 mg Oral BID apixaban 5 mg Oral BID ascorbic acid 500 mg Oral Daily atorvastatin 80 mg Oral Nightly clopidogrel 75 mg Oral Daily docusate sodium 100 mg Oral BID famotidine 20 mg Oral BID Or famotidine 20 mg Intravenous BID ferrous sulfate (65 FE) 65 mg of iron Oral BID WC insulin detemir 8 Units Subcutaneous BID insulin lispro (human) 0-14 Units Subcutaneous TID AC insulin lispro (human) 0-7 Units Subcutaneous Nightly insulin lispro (human) 3 Units Subcutaneous TID AC magnesium citrate 296 mL Oral Once magnesium hydroxide 30 mL Oral Daily magnesium oxide 400 mg Oral Daily metoprolol 12.5 mg Oral BID Continuous Infusions dextrose PRN Medications acetaminophen OR acetaminophen, aluminum-magnesium hydroxide-simethicone, amiodarone IV bolus, bisacodyl, bisacodyl, dextrose, dextrose, dextrose, diphenhydrAMINE, glucagon, gluca larry, HYDROmorphone OR HYDROmorphone, magnesium sulfate OR magnesium sulfate OR m agnesium sulfate, ondansetron, oxyCODONE OR oxyCODONE, polyethylene glycol, potassium OR potassium OR potassium OR potassium chloride OR potassium chloride OR p otassium chloride, saline lock IV - prn tolerating PO fluid AND sodium chloride, sodium phosphate HOME MEDS: Prior to Admission medications Medication Sig Start Date End Date Taking? Authorizing Provider atorvastatin (LIPITOR) 40 MG tablet Take 40 mg by mouth daily. 11/19/17 Yes Historical Provi raphael insulin aspart (NOVOLOG) 100 UNIT/ML injection Inject 10 Units into the skin 4 (four) times daily. Follow sliding scale Yes Historical Provider losartan (COZAAR) 25 MG tablet Take 12.5 mg by mouth daily. 1/2 pill daily 01/04/18 Yes His torical Provider magnesium oxide (MAG-OX) 400 MG TABS tablet Take 400 mg by mouth daily. Yes Historical Pr ovider metFORMIN (GLUCOPHAGE) 1000 MG tablet Take 1,000 mg by mouth 2 (two) times daily. Yes His torical Provider metoprolol (TOPROL-XL) 100 MG 24 hr tablet Take 50 mg by mouth daily. Yes Historical Prov ider apixaban (ELIQUIS) 5 MG tablet Take 5 mg by mouth 2 (two) times daily. Historical Provid er clopidogrel (PLAVIX) 75 MG tablet Take 75 mg by mouth daily. 11/19/17 Historical Provider HYDROcodone-acetaminophen (NORCO) 7.5-325 MG per tablet Take 1 tablet by mouth every 8 (eig ht) hours as needed for Pain. Historical Provider insulin glargine (LANTUS) 100 UNIT/ML injection Inject 14 Units into the skin nightly. H istorical Provider nitroGLYCERIN (NITROSTAT) 0.[address] 0.4 mg under the tongue every 5 (five) min utes as needed. 11/19/17 Historical Provider LABS: Recent Labs Lab 09/30/18 0351 09/29/18 0411 09/28/18 0356 09/27/18 0346 WBC 7.24 8.58 13.55* 20.95* HGB 7.9* 8.2* 8.4* 10.0* HCT 23.2* 23.6* 25.8* 29.9* PLT 202 161 181 245 NEUTOPHILPCT -- 75.04 79.37 84.94 MONOPCT -- 9.03 8.16 7.50 Recent Labs Lab 09/30/18 0351 09/29/18 0411 09/28/18 0911 09/28/18 0356 NA 135 134* -- 135 K 4.2 4.2 4.7 4.3 CL 99 99 -- 104 CO2 28 27 -- 24 BUN 9 8 -- 7* CREATININE 0.5 0.5 -- 0.4* Phosphorus: No results found for: PHOS Invalid input(s): LABALBU Recent Labs Lab 09/30/18 0351 09/29/18 0411 09/28/18 0356 MG 2.2 2.1 2.3 Recent Labs Lab 09/26/18 1044 APTT 24 INR 1.1 PROBLEM LIST Principal Problem: Essential hypertension Active Problems: Rheumatoid arthritis (HCC) Systemic lupus erythematosus (SLE) in adult (HCC) CAD in [place] artery HLD (hyperlipidemia) S/P CABG x 1 Moderate protein-calorie malnutrition (HCC) ASSESSMENT & PLAN S/P CABG -Continue ASA, Statin, Plavix, BB. -Encourage IS, ambulate -Remove CT Post-op blood loss anemia -Fe+/Vit C supplementation, continue to monitor V/O Diuresis, monitor electrolytes PAF Continue PO amiodarone, uptitrate BB as BP allows Restart home Eliquis and DC ASA Continue Cardiac Unit care, anticipate discharge to home tomorrow Code Status: Full Code The patient has been seen, all new lab results and imaging reviewed, and the plan discussed with the attending provider, Dr. Sam Moeller PA-C 09/30/2018 ani Rocha MD - 09/30/2018 7:01 AM PST Progress Notes by Nani Rocha MD at 09/30/18700 Author: Nani Rocha MD Service: Cardiology Author Type: Physician Filed: 09/30/18717 Date of Service: 09/30/18700 Status: Signed Consulting Services Associate: Nani Rocha MD (Physician) [facility] Service: Cardiology Progress Note Name of Dry Dip Worker: Nani Rocha MD I have seen the patient on 09/30/2018, no more episodes of atrial fibrillation. SUBJECTIVE Current Facility-Administered Medications: acetaminophen (TYLENOL) tablet 650 mg, 650 mg, Oral, Q6H PRN OR acetaminophen (TYL ENOL) suppository 650 mg, 650 mg, Rectal, Q6H PRN, Derrick Moeller PA-C aluminum-magnesium hydroxide-simethicone (MAALOX) 200-200-20 MG/5ML suspension 30 mL, 30 mL, Oral, Q4H PRN, Derrick Moeller PA-C amiodarone (CORDARONE) 150 mg in dextrose 5 % 100 mL bolus, 150 mg, Intravenous, Bolus PRN, Derrick Moeller PA-C amiodarone (PACERONE) tablet 400 mg, 400 mg, Oral, BID, Karma Joy PA-C, 400 mg at 09/29/181 ascorbic acid (VITAMIN C) tablet 500 mg, 500 mg, Oral, Daily, Derrick Moeller PA-C, 5 00 mg at 09/29/18 0836 aspirin EC tablet 81 mg, 81 mg, Oral, Daily with breakfast, Derrick Moeller PA-C, 81 mg at 09/29/18 1148 atorvastatin (LIPITOR) tablet 80 mg, 80 mg, Oral, Nightly, Nani Rocha MD, 80 mg at 09/29/182122 bisacodyl (DULCOLAX) suppository 10 mg, 10 mg, Rectal, Daily PRN, MARQUES Chu bisacodyl (DULCOLAX) suppository 20 mg, 20 mg, Rectal, Once PRN, Derrick Moeller PA-C clopidogrel (PLAVIX) tablet 75 mg, 75 mg, Oral, Daily, Derrick Moeller PA-C, 75 mg at 09/29/18 0836 dextrose 10 % infusion, , Intravenous, Continuous PRN, Derrick Moeller PA-C dextrose 50 % solution 12 mL, 12 mL, Intravenous, PRN, BRUCE Chu-Debi dextrose 50 % solution 25 mL, 25 mL, Intravenous, PRN, Derrick Moeller PA-C diphenhydrAMINE (BENADRYL) capsule 25 mg, 25 mg, Oral, Q6H PRN, Derrick Moeller PA-C, 25 mg at 09/29/182345 docusate sodium (COLACE) capsule 100 mg, 100 mg, Oral, BID, Derrick Moeller PA-C, 100 mg at 09/29/182122 famotidine (PEPCID) tablet 20 mg, 20 mg, Oral, BID, 20 mg at 09/29/182122 OR famo tidine (PEPCID) IVPB 20 mg, 20 mg, Intravenous, BID, Derrick Moeller PA-C ferrous sulfate (65 FE) tablet 65 mg of iron, 65 mg of iron, Oral, BID WC, Derrick iraheta PA-C, 65 mg of iron at 09/29/18 1603 glucagon (GLUCAGEN) injection 0.5 mg, 0.5 mg, Intramuscular, PRN, MARQUES Chu glucagon (GLUCAGEN) injection 1 mg, 1 mg, Intramuscular, PRN, Derrick Moeller PA-C HYDROmorphone (DILAUDID) injection 0.5 mg, 0.5 mg, Intravenous, Q2H PRN, 0.5 mg at 0010 OR HYDROmorphone (DILAUDID) injection 1 mg, 1 mg, Intravenous, Q2H PRN, Bennett Moeller PA-C, 1 mg at 09/28/182008 insulin detemir (LEVEMIR) injection 8 Units, 8 Units, Subcutaneous, BID, Derrick cui PA-C, 8 Units at 09/29/182125 insulin lispro (human) (HUMALOG) injection 0-14 Units, 0-14 Units, Subcutaneous, TID A C, Derrick Moeller PA-C, 2 Units at 09/29/18 1201 insulin lispro (human) (HUMALOG) injection 0-7 Units, 0-7 Units, Subcutaneous, Nightly , Derrick Moeller PA-C insulin lispro (human) (HUMALOG) injection 3 Units, 3 Units, Subcutaneous, TID AC, 3 U nits at 09/30/18 0628 AND POCT glucose, , , TID AC, Derrick Moeller PA-C magnesium hydroxide (MILK OF MAGNESIA) 400 MG/5ML suspension 30 mL, 30 mL, Oral, Daily , Derrick Moeller PA-C magnesium oxide (MAG-OX) tablet 400 mg, 400 mg, Oral, Daily, Derrick Moeller PA-C, 40 0 mg at 09/29/18 0835 magnesium sulfate 1 g/50 mL IVPB, 1 g, Intravenous, PRN OR magnesium sulfate 2 g/5 0 mL IVPB, 2 g, Intravenous, PRN OR magnesium sulfate 3 g/50 mL IVPB, 3 g, Intravenous, PRN, Derrick Moeller PA-C metoprolol (LOPRESSOR) tablet 12.5 mg, 12.5 mg, Oral, BID, Derrick Moeller PA-C, 12.5 mg at 09/29/18 2123 ondansetron (ZOFRAN) injection 4 mg, 4 mg, Intravenous, Q6H PRN, Derrick Moeller PA-C oxyCODONE (ROXICODONE) immediate release tablet 5 mg, 5 mg, Oral, Q4H PRN OR oxyCO DONE (ROXICODONE) immediate release tablet 10 mg, 10 mg, Oral, Q4H PRN, MARQUES Chu, 10 mg at 09/29/18 1602 polyethylene glycol (GLYCOLAX) packet 17 g, 17 g, Oral, Daily PRN, BRUCE Chu potassium chloride (K-DUR) CR tablet 20 mEq, 20 mEq, Oral, PRN OR potassium chlori de (K-DUR) CR tablet 40 mEq, 40 mEq, Oral, PRN OR potassium chloride (K-DUR) CR tablet 6 0 mEq, 60 mEq, Oral, PRN OR potassium chloride oral solution 20 mEq, 20 mEq, Oral, PRN * *OR potassium chloride oral solution 40 mEq, 40 mEq, Oral, PRN OR potassium chloride o ral solution 60 mEq, 60 mEq, Oral, PRN, Derrick Moeller PA-C saline lock IV - prn tolerating PO fluid, , , PRN AND sodium chloride 0.9 % flush 10 mL, 10 mL, Intravenous, Q8H PRN, Derrick Moeller PA-C sodium phosphate (FLEET) 7-19 GM/118ML enema 1 enema, 1 enema, Rectal, Once PRN, Leeleelacy piero Moeller PA-C OBJECTIVE Vital Signs: BP 111/55 (BP Location: Left upper arm) | Pulse 79 | Temp 97.7 F (36.5 C) (Oral) | R cedrick 18 | Ht 1.664 m (5' 5.5") | Wt 64.5 kg (142 lb 3.2 oz) | SpO2 97% | ? N o | BMI 23.30 kg/m Intake/Output Summary (Last 24 hours) at 09/30/18 0701 Last data filed at 09/30/18 0559 Gross per 24 hour Intake 450 ml Output 520 ml Net -70 ml Cardiovascular: Regular rhythm, S1 normal and S2 normal. Pulses: Radial pulses are 2+ on the right side, and 2+ on the left side. Pulmonary/Chest: Effort normal and breath sounds normal. No wheezes. No rales. Abdominal: Soft. No tenderness. Musculoskeletal: No edema. Neurological: Alert. No cranial nerve deficit. Skin: Warm and dry. DATA Recent Labs Lab 09/30/18 03509/29/181 09/28/18 0911 09/28/18 0356 NA 135 134* -- 135 K 4.2 4.2 4.7 4.3 CO2 28 27 -- 24 BUN 9 8 -- 7* CREATININE 0.5 0.5 -- 0.4* EGFR >60 >60 -- >60 MG 2.2 2.1 -- 2.3 Recent Labs Lab 09/30/18 0351 09/29/18 0411 09/28/18 0356 WBC 7.24 8.58 13.55* HGB 7.9* 8.2* 8.4* HCT 23.2* 23.6* 25.8* MCV 90.2 90.8 91.4 PLT 202 161 181 No results for input(s): CKTOTAL, CKMB, CKMBINDEX, TROPONINI, TSH in the last 168 hours. Invalid input(s): BRAIN NATRIURETIC PEPTIDE, INR Lab Results Component Value Date GLUF 91 09/30/2018 HGBA1C 9.1 (H) 09/27/2018 EK09/26/2018 Last Echo: 06/19/2018 Reported with normal LV size, moderately impaired systolic function EF 35-40%. Anterior, se ptal, and apical hypokinesis. Grade I diastolic dysfunction. RV is normal in size and functi on. Moderate MR. Mild pulmonary HTN RVSP 40-45 mmhg. Last stress test: 07/18/2018 Thallium viability evaluation. 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 Last cath: 11/16/2017 Reported with Mild LM disease. Subtotal occlusion of LAD. Moderate stenosis of 1st OM. Severe stenosis of the proximal PDA S/P ROBIN. Carotid US: AAA screening: Lower extremity US: OTHERS: 09/26/2018 Off pump HILLMAN to LAD. ASSESSMENT & PLAN Patient is 58 y.o. with 1. Coronary artery disease, S/P CABG X 1. HILLMAN to LAD. Previous ROBIN to PDA. 2. Paroxysmal atrial fibrillation. CHADSVASc score of 5. 3. Ischemic CMP, NYH class III, stage C. 4. S/P left occipital CVA. 5. Peripheral vascular disease. 6. Insulin requiring DM. 7. Rheumatoid arthritis. 8. Anemia, Post Op. Recommendations: No recurrent episodes of atrial fibrillation. Continue with PO amiodarone. Continue on PO metoprolol. Continue to monitor hemodynamics. Continue with high dose atorvastatin. Continue Clopidogrel. Once Apixaban is started aspirin can be held. Continue monitor hemodynamics. Code Status: Full Code Nani Rocha MD 09/30/2018 onversion Transac tion, Provider Unknown - 09/30/2018 6:48 AM PSTFormatting of this note might be different f rom the original. Nurse Progress Note by Christiana Roy RN at 09/30/18647 Author: Christiana Roy RN Service: (none) Author Type: Registered Nurse Filed: 09/30/1849 Date of Service: 09/30/18647 Status: Signed Consulting Services Associate: Sonnet Coin, RN (Registered Nurse) End of shift chart review complete. onver yinka Transaction, Provider Unknown - 09/29/2018 6:29 PM PST Nurse Progress Note by Palmer Greer RN at 09/29/181828 Author: Palmer Greer RN Service: (none) Author Type: Registered Nurse Filed: 09/29/181828 Date of Service: 09/29/181828 Status: Signed Consulting Services Associate: Palmer Greer RN (Registered Nurse) Chart check complete. onver yinka Transaction, Provider Unknown - 09/29/2018 2:45 PM PST Therapy Progress Note by CARLIN Bradford at 09/29/18 1445 Author: CARLIN Bradford Service: (none) Author Type: Occupational Therapist Filed: 09/29/18 1623 Date of Service: 09/29/181444 Status: Signed Consulting Services Associate: CARLIN Bradford (Occupational Therapist) OCCUPATIONAL THERAPY TREATMENT NOTE OT Received On: 09/29/18 Reason for Treatment: Cardiac Requires OT Follow Up: Yes Assistance Required: 1 person Shell Sieve Operator Needed: No Family/Caregiver Present: Yes Recommendation: SNF, Home with daytime assist, Home with nighttime assist Equipment Recommended: Dogger, Sock aid, Sponge long handled, AD walker Requires OT Follow Up: Yes Recommendation Comments Pt presents with decreased activity tolerance, safety awareness, balance and UB/LB streng th. Despite ongoing deficits anticipate with progress/participation in therapies, retrieval of recommended AE/DME and reported support within home; pt will have safe d/c plan home. If pt SO is unable to meet pt care need SNF may be required, will continue to assess Plan Progress: Progressing toward goals Requires OT Follow Up: Yes Focus for next session: Safe functional txfers, ADL modifications for increased independenc e, AE/DME training and recommendations Follow up OT only? [] Yes [x] No Precautions Cardiac Precautions: Sternal Other Precautions: Fall risk, monitor VS Summary Pt up in recliner, SO present, and pt agreeable to OT session. Time spent provided handout, education and demonstration of sternal precaution and ADL modifications. Provided with hand out and recommendation for AE/DME. Performed simulated toileting task and LB dressing as no campbell below. Pt able to state sternal precautions but requires constant VC and tactile facili tation for adherence during functional task. Observed low frustration threshold with new owen rning requiring rest breaks and encouragement throughout. During session pt perseverates on negative events that had occurred throughout day. Provide therapeutic listening and assist t o position of comfort at end of session Educated pt on Sternal precautions including the following: No raising arms above head greater than 90 degrees and no raising one arm above head wit hout the other No pushing pulling No reaching back with BUE's No lifting more than 5lbs No bending over to feet Educated on strategies/suggestions for ADL completion while maintaining precautions includi ng the following: UB dressing: thread both arms through sleeves, then raising both hands up together place shirt over head, bring both arms to same side of trunk to pull shirt down. LB dressing: use of rural sociologist, sock aid, or bringing foot up to opposite knee to thread pa nts/don socks, then crossing one arm over chest when reaching back to pull pants up OR reach ing with both arms to one side to pull pants up over hips. Bathing: Seated on chair; use of shower head (not reaching up with one hand to grab show er head) and long handled sponge Toileting: lois care from front to back OR crossing arm over chest while reaching behind with opposite arm. Household tasks: educated on technique to open cupboards/refrigerator while maintaining precautions, brining commonly used items to countertops to avoid reaching up or bending down . ADL/IADL LE Dressing LE Dressing: Yes LE Dressing Adaptive Equipment: Dogger Sock Level of Assistance: Moderate verbal cues, Moderate assistance, Setup, Close supervisi on Toileting Toileting Level of Assistance: Maximum assistance, Moderate verbal cues, Close supervision Where Assessed: Toilet Toilet Transfers Toilet Transfer From: Rolling walker Toilet Transfer Type: To and from Toilet Transfer to: Standard toilet Toilet Transfer Technique: Ambulating Toilet Transfers: Moderate assistance, Verbal cues FUNCTIONAL MOBILITY Bed Mobility Transfers Sit to/from Stand: Minimal assist (steadying/contact guard), Verbal instruction, Moderate a ssist (to arise OR lower) Ambulation Ambulation Assistance: Minimal assist, Verbal instruction Assistive Device: Walker 4 wheeled Safety Devices in Place: Yes Type of Devices: Call lite in place, RN notified Barriers to d/c at this time include: [] Home environment [x] Family support [x] Equipment needs [x] Cognitive deficits impacting functional independence [x] Physical deficits impacting functional independence [x] Self-care deficits impacting functional independence [] Other Pain The patient did not demonstrate any signs of symptoms of pain throughout OT session Education Completed: OT role/POC, ADL modifications, fall prevention, AE/DME training/recommendations, walker sa fety with ADLs and functional transfers, home modifications ,current level of assist and com pensatory techniques for increased independence, precautions Completed with: [x] Patient [x] Spouse [] Significant other [] Family [] Caregiver [] Other Completed by: [x] Verbal education [x] Demonstration [x] Handout [] Other: Response to Education: [] Stated Understanding [x] Reinforcement necessary [] Returned demonstration [] Demonstrated understanding [] No evidence of learning [] Refused ADL Goals Pt Will Perform UE Dressing: In chair, With min assist, Maintaining sternal precautions, Wi th setup UE Dressing With Setup: With minimal assist Pt Will Perform LE Dressing: Standing/seating at edge of bed, Supervision, With adaptive e quipment, Maintaining sternal precautions, With good judgement/safety LE Dressing Adaptive Equipment: Dogger, Sock aid Pt Will Perform Toileting: With min assist, Maintaining sternal precautions, With good judg ement/ safety Functional Transfer Goals Pt Will Perform All Functional Transfers: With min assist, Maintaining sternal precautions, With good judgment/safety, With assistive device Assistive Devices Functional Transfer: Walker front wheeled, Walker four wheeled Reflects last filed data of patient's status; may be from multiple contributors Chaka Mueller PT - 09/29/2018 1:29 PM PSTFormatting of this note might be different from the o riginal. Therapy Progress Note by Chaka Arenas PT at 09/29/18 7167 Author: Chaka Arenas PT Service: (none) Author Type: Physical Therapist Filed: [id number] Date of Service: 09/29/18 1329 Status: Addendum Consulting Services Associate: Chaka Arenas, PT (Physical Therapist) Related Notes: Original Note by Chaka Arenas, PT (Physical Therapist) filed at 09/29/181825 PHYSICAL THERAPY TREATMENT NOTE PT Received On: 09/29/18 Reason for Treatment: Cardiac Requires PT Follow Up: Yes Follow up PT Only?: No Assistance Required: 1 person Recommendations: Home Assist Equipment Recommended: Walker 4 wheeled (pt reports having hospital bed and recliner at [facility] e) Barriers to Discharge: Self-care Deficits Impacting Functional Brown, Lack of Family Support/Training Recommendation Comments: Pt improving with mobility, however does not remember or consisten tly adhere to sternal precautions. She may benefit from continued pt and family education on precautions during mobility and ADLs prior to D/C. Plan Treatment/Interventions: Continue per Primary PT POC Progress: Progressing toward goals PT Frequency: Once per day, Twice a day Summary Comments: Pt in chair, agreeable to PT. Reviewed sternal precautions, pt unable to recall s pecifics other than limit use of UEs, all precautions reviewed, including pericare technique s. Pt amb with 4WW, demonstrates fairly steady gait, progresses to trial of no AD and pt is more unsteady including decreased intermittent B foot clearance. Discussed PT POC and D/C pl anning with pt. BP before activity 99/55, after activity 132/64. Precautions Cardiac Precautions: Sternal Other Precautions: fall precautions, monitor BP Cognition Overall Cognitive Status: Within Functional Limits Orientation Level: Oriented Comments: can perseverate on negative events at times requiring redirection FUNCTIONAL MOBILITY Transfers Sit to/from Stand: Minimal assist (steadying/contact guard) (no more than CGA) Ambulation Maximal Ambulation Distance (feet): 250 Total Ambulation Distance (feet): 250 Ambulation Assistance: Standby assist, Minimal assist (SBA 4WW, Audrey no AD) Distance limited by?: Patient's ability Pattern: Alternating, Decreased wilson, Right dec toe clearance, Left dec toe clearance Assistive Device: Walker 4 wheeled, None Activity Tolerance: Patient tolerated treatment without report of fatigue Nurse Made Aware: yes Safety Devices in Place: (call light in reach, needs met) The patient demonstrated no indication of pain during therapy session. Education Completed: Education Topics: [x] Rationale for PT [x] PT POC [x] DC planning [x] Precautions [] Exercises [] Bed mobility [x] Transfer training with hand placement [x] Gait training [] Stair training [] Use of gait belt [] Other Completed with: [x] Patient [] Spouse [] Significant other [] Family [] C aregiver [] Other Completed by: [x] Verbal education [] Demonstration [] Handout [] Other: Response to Education: [x] Stated Understanding [] Reinforcement necessary [] Returned demonstration [] Demonstrated understanding [] No evidence of learning [] Refused PT Goals Goal Formulation: With patient Pt Will Go Supine To Sit: With standby assistance, With minimal assist Pt Will Transfer Sit to Stand: With modified independence Pt Will Ambulate: greater than 200 feet Ambulate Level Assist: With modified independence Ambulate with Assistive Device: Least restricitve device Pt Will Go Up / Down Stairs: 1-2 stairs, 3-5 stairs Stairs Level of Assist: With modified independence, With supervision Reflects last filed data of patient's status; may be from multiple contributors onversion Transacti on, Provider Unknown - 09/29/2018 10:48 AM PSTFormatting of this note might be different fro m the original. Progress Notes by Maria D Cullen RD at 09/29/18 1048 Author: Maria D Cullen RD Service: (none) Author Type: Registered Dietitian Filed: 09/29/18 1051 Date of Service: 09/29/18 1048 Status: Signed Consulting Services Associate: Maria D Cullen RD (Registered Dietitian) 09/29/18 1034 Subjective Timepoint Admit Pt c/o POD#3 s/p CABG x 1. Pt transferred out of ICU this AM. Pt in chair at time of visit and she reports she was in pain. Admitted for essential HTN. Reported by Patient Diet Experience Self-selected diet(s) followed Pt reports she does not eat a lot of food; "food doesn't tas te good." Fluid / Beverage Intake Oral Fluids Amount Ad cristofer. Provided pt with a cup of ice water. Liquid Meal Replacement or Supplement Pt reports she does not like boost or ensure as she d oes not like the milky texture. Pt did agree to a juice supplement. Ordered pt a boost breez e orange through the kitchen and placed order for BID with snacks daily. Food Intake Amount of Food Pt had some grapes and pancakes. She reports this is the best she has eaten in awhile. Pt c/o slight nausea since eating a small amount at breakfast. Type of Food / Meals Cardiac, diabetic, 2000 kcal Micronutrient Intake Vitamin Intake C Mineral / Element Intake Iron;Magnesium;Potassium;Phosphorus Food and Nutrition Knowledge Area(s) and Level of Knowledge Offered to provide pt with CABG/low sodium diet edu. Pt decl ined at this time, but agreed to handouts from [facility]. Explained to pt at this time it is ambreen r for her to eat anything she wants to provide her with kcal/protein; explained to not follo w the CABG diet until she is completely better and eating regularly again. Pt expressed unde rstanding. Nutrition-Focused Physical Findings Overall Appearance Pt appeared ill and in pain. Body Language Pleasant to speak with. Extremities, Muscles and Bones Generalized edema, dependent generalized edema. Digestive System (Mouth to Rectum) C/o nausea Skin Incision on chest from CABG procedure. Anthropometrics Weight change Per old medical records, pt's wt has increased in the past several month. Pt admitted at 62.5 kg and now weighs 67 kg. Wt gain is expected after surgery d/t the increase amounts of fluids. Noted to be 108% of her IBW and has a BMI of 24.21. Estimated Energy Needs Total Energy Estimated Needs 2207-2590 kcal/day Method for Estimating Needs 25-30 kcal/kg based on admit wt 62.5 kg Estimated Protein Needs Total Protein Estimated Needs 75-94 g/day Method for Estimating Needs 1.2-1.5 g/kg based on admit wt 62.5 kg Recommendations Recommended energy needs Will drop cardiac, kcal restriction as pt is eating very little; c ontinue DM diet. Encourage intake of protein-rich, nutrient-dense food choices, as tolerated . Boost breeze BID. Will continue to follow. Nutritional Risk Nutritional risk High Follow up date 10/02/18 Malnutrition Evaluation Estimated energy intake time frame 5 Days Estimated % energy intake last 5 days (!) 25 % Malnutrition in the Context Of Acute Illness Clinical Characteristics indicative of moderate malnutrition Mild fluid accumulation Clinical Characteristics indicative of severe malnutrition 50% or less of EER within 5 days Protein-Calorie Malnutrition Type (!) Moderate Maria D Subhash, ZULMA onver yinka Transaction, Provider Unknown - 09/29/2018 10:09 AM PST Nurse Progress Note by Jaida Gillis RN at 09/29/18 1009 Author: Jaida Gillis RN Service: (none) Author Type: Registered Nurse Filed: 09/29/18 1010 Date of Service: 09/29/18 1009 Status: Signed Consulting Services Associate: Jaida Gillis RN (Registered Nurse) Report called and given to Palmer RN on 9RP. Patient transferred by wheelchair on telemetry w ith personal belongings, medications and chart. Handoff off on current drips running done wi th Palmer on arrival to unit. Jaida Gillis RN Chaka Mueller PT - 09/29/2018 9:00 AM PSTFormatting of this note might be different from the o riginal. Therapy Progress Note by Chaka Arenas PT at 09/29/18 0900 Author: Chaka Arenas PT Service: (none) Author Type: Physical Therapist Filed: 09/29/18 182 Date of Service: 09/29/18 09 Status: Signed Consulting Services Associate: Chaka Arenas PT (Physical Therapist) 09/29/18 0900 PT Last Visit PT Received On 09/29/18 Requires PT Follow Up Unavailable Other Comments Comments Pt to have chest tubes pulled, will f/u as census permits. errick Moeller PA - 09/29/2018 7:58 AM PST Progress Notes by Derrick Moeller PA-C at 09/29/18 0758 Author: Derrick Moeller PA-C Service: Cardiac, Thoracic, and Vascular Surgery Author Ty pe: Physician Desk Editor - Certified Filed: 09/29/18 0802 Date of Service: 09/29/18 5048 Status: Attested Consulting Services Associate: Derrick Moeller PA-C (Physician Desk Editor - Certified) Cosigner: Hilton Vargas MD at 09/29/18 08 Attestation signed by Hilton Vargas MD at 09/29/18 08 Patient was seen, examined, labs, x-rays, treatment plan reviewed. [facility] Service: Cardiothoracic Surgery Progress Note ROOM: [address] [place] [address] Hospital Day: LOS: 3 days Post-Op Day: 3 Days Post-Op Surgery/Procedure: 09/26/18 CABG x 1 (HILLMAN to LAD) off-pump SUBJECTIVE Events Overnight: HD Stable, not req pressors. Afib overnight, converted to SR after IV amio bolus. Stable on RA. Good pain control UOP: 1.3L/24hs CT Output: 70mL/overnight, 310mL/24hrs OBJECTIVE Vital Signs: BP 117/61 | Pulse 96 | Temp 98.8 F (37.1 C) (Oral) | Resp 20 | Ht 1.664 m (5' 5.5") | Wt 67 kg (147 lb 11.3 oz) | SpO2 97% | ? No | BMI 24.21 kg/m Current weight: Patient Vitals for the past 96 hrs: Weight 09/29/18 0500 67 kg (147 lb 11.3 oz) 09/27/18 0500 64 kg (141 lb 1.5 oz) 09/26/18 0632 62.5 kg (137 lb 12.6 oz) Admission weight: Weight: 62.5 kg (137 lb 12.6 oz) Physical Exam: General: Alert, oriented, in no acute distress, resting in chair Heart: RRR No murmur Lungs: CTA b/l Dim bases. Abdomen: Soft, nondistended, nontender Extremities: Well perfused, +1 LE edema Musculoskeletal: no deformities or significant abnormalities Neurological: No gross focal motor or sensory deficits Skin: No rash or lesions. Mid-sternal incision dressing is C/D/I. Chest tube present inci yinka C/D/I. DATA: Scheduled Medications amiodarone 400 mg Oral BID ascorbic acid 500 mg Oral Daily aspirin 81 mg Per NG tube Nightly Or aspirin 81 mg Oral Nightly Or aspirin 300 mg Rectal Nightly atorvastatin 40 mg Oral Daily clopidogrel 75 mg Oral Daily docusate sodium 100 mg Oral BID famotidine 20 mg Oral BID Or famotidine 20 mg Intravenous BID ferrous sulfate (65 FE) 65 mg of iron Oral BID WC furosemide 20 mg Intravenous Once lactulose 20 g Oral Once magnesium hydroxide 30 mL Oral Daily magnesium oxide 400 mg Oral Daily metoprolol 12.5 mg Oral BID Continuous Infusions amiodarone infusion Stopped (09/27/18 2315) dexmedetomidine in NS Stopped (09/26/18 1057) dextrose 5 % and 0.45 % NaCl 30 mL/hr at 09/28/18 0740 EPINEPHrine insulin regular 1 unit/mL 0.5 Units/hr (09/29/18 0643) nitroGLYCERIN in D5W norepinephrine phenylephrine Stopped (09/28/18 5452) vasopressin PRN Medications acetaminophen OR acetaminophen OR acetaminophen, albumin human, albuterol, aluminum -magnesium hydroxide-simethicone, amiodarone IV bolus, amiodarone infusion, atropine sulfate , bisacodyl, bisacodyl, calcium chloride IVPB custom, dextrose, dextrose, hydrALAZINE, HYDRO morphone OR HYDROmorphone, insulin regular 1 unit/mL, lactated ringers, magnesium sulfat e, meperidine, ondansetron, oxyCODONE OR oxyCODONE, potassium chloride, sodium phosphate , vasopressin HOME MEDS: Prior to Admission medications Medication Sig Start Date End Date Taking? Authorizing Provider atorvastatin (LIPITOR) 40 MG tablet Take 40 mg by mouth daily. 11/19/17 Yes Historical Provi raphael insulin aspart (NOVOLOG) 100 UNIT/ML injection Inject 10 Units into the skin 4 (four) times daily. Follow sliding scale Yes Historical Provider losartan (COZAAR) 25 MG tablet Take 12.5 mg by mouth daily. 1/2 pill daily 01/04/18 Yes His torical Provider magnesium oxide (MAG-OX) 400 MG TABS tablet Take 400 mg by mouth daily. Yes Historical Pr ovider metFORMIN (GLUCOPHAGE) 1000 MG tablet Take 1,000 mg by mouth 2 (two) times daily. Yes His torical Provider metoprolol (TOPROL-XL) 100 MG 24 hr tablet Take 50 mg by mouth daily. Yes Historical Prov ider apixaban (ELIQUIS) 5 MG tablet Take 5 mg by mouth 2 (two) times daily. Historical Provid er clopidogrel (PLAVIX) 75 MG tablet Take 75 mg by mouth daily. 11/19/17 Historical Provider HYDROcodone-acetaminophen (NORCO) 7.5-325 MG per tablet Take 1 tablet by mouth every 8 (eig ht) hours as needed for Pain. Historical Provider insulin glargine (LANTUS) 100 UNIT/ML injection Inject 14 Units into the skin nightly. H istorical Provider nitroGLYCERIN (NITROSTAT) 0.[address] 0.4 mg under the tongue every 5 (five) min utes as needed. 11/19/17 Historical Provider LABS: Recent Labs Lab 09/29/1841009/28/1835509/27/18 034 WBC 8.58 13.55* 20.95* HGB 8.2* 8.4* 10.0* HCT 23.6* 25.8* 29.9* PLT 161 181 245 NEUTOPHILPCT 75.04 79.37 84.94 MONOPCT 9.03 8.16 7.50 Recent Labs Lab 09/29/1841009/28/18 0911 09/28/1835509/27/18 0346 NA 134* -- 135 -- 136 K 4.2 4.7 4.3 < > 4.2 CL 99 -- 104 -- 105 CO2 27 -- 24 -- 24 BUN 8 -- 7* -- 7* CREATININE 0.5 -- 0.4* -- 0.42* < > = values in this interval not displayed. Phosphorus: No results found for: PHOS Invalid input(s): LABALBU Recent Labs Lab 09/29/1841009/28/186 09/27/18 1416 MG 2.1 2.3 2.3 Recent Labs Lab 09/26/18 1044 APTT 24 INR 1.1 PROBLEM LIST Principal Problem: Essential hypertension Active Problems: Rheumatoid arthritis (HCC) Systemic lupus erythematosus (SLE) in adult (HCC) CAD in [place] artery HLD (hyperlipidemia) S/P CABG x 1 ASSESSMENT & PLAN S/P CABG -Continue ASA, Statin, Plavix, BB. -Wean O2, encourage IS, ambulate -Remove Med CT, continue Pleural CT to suction Post-op blood loss anemia -Fe+/Vit C supplementation, continue to monitor V/O Diuresis, monitor electrolytes PAF Continue PO amiodarone, uptitrate BB as BP allows Will restart home Eliquis after chest tubes are out Transfer to Cardiac Unit Code Status: Full Code The patient has been seen, all new lab results and imaging reviewed, and the plan discussed with the attending provider, Dr. Sam Moeller PA-C 09/29/2018 ani Rocha MD - 09/29/2018 7:26 AM PST Progress Notes by Nani Rocha MD at 09/29/18725 Author: Nani Rocha MD Service: Cardiology Author Type: Physician Filed: 09/29/18818 Date of Service: 09/29/18725 Status: Signed Consulting Services Associate: Nani Rocha MD (Physician) [facility] Service: Cardiology Progress Note Name of Dry Dip Worker: Nani Rocha MD I have seen the patient on 09/29/2018, had another episodes of atrial fibrillation. Was giv en 1 dose of IV amiodarone. SUBJECTIVE Current Facility-Administered Medications: acetaminophen (TYLENOL) tablet 650 mg, 650 mg, Oral, Q4H PRN, 650 mg at 09/27/18 1453 OR acetaminophen (TYLENOL) 160 mg/5 mL solution 650 mg, 650 mg, Oral, Q4H PRN OR nicole taminophen (TYLENOL) suppository 650 mg, 650 mg, Rectal, Q4H PRN, Derrick Moeller PA-C albumin human 5 % solution 250 mL, 250 mL, Intravenous, PRN, Derrick Moeller PA-C, 25 0 mL at 09/27/18 2133 albuterol inhaler (VENTILATOR), 6 puff, Ventilator, Q1H PRN, Derrick Moeller PA-C aluminum-magnesium hydroxide-simethicone (MAALOX) 200-200-20 MG/5ML suspension 30 mL, 30 mL, Oral, Q4H PRN, Derrick Moeller PA-C amiodarone (CORDARONE) 300 mg in dextrose 5 % 100 mL bolus, 300 mg, Intravenous, Bolus PRN, Derrick Moeller PA-C, 300 mg at 09/27/18 1804 amiodarone (CORDARONE) 900 mg in dextrose 5 % 500 mL infusion, 1 mg/min, Intravenous, Continuous PRN, Derrick Moeller PA-C, Stopped at 09/27/18 2315 amiodarone (PACERONE) tablet 400 mg, 400 mg, Oral, BID, Karma Joy PA-C, 400 mg at 09/28/18 210 aspirin chewable tablet 81 mg, 81 mg, Per NG tube, Nightly OR aspirin EC tablet 81 mg, 81 mg, Oral, Nightly, 81 mg at 09/28/18 210 OR aspirin suppository 300 mg, 300 mg, Rectal, Nightly, Derrick Moeller PA-C atorvastatin (LIPITOR) tablet 40 mg, 40 mg, Oral, Daily, Derrick Moeller PA-C, 40 mg at 09/28/18 0856 atropine sulfate injection 1 mg, 1 mg, Intravenous, Q5 Min PRN, Derrick Moeller PA-C bisacodyl (DULCOLAX) suppository 10 mg, 10 mg, Rectal, Daily PRN, MARQUES Chu bisacodyl (DULCOLAX) suppository 20 mg, 20 mg, Rectal, Once PRN, Derrick Moeller PA-C calcium chloride 1 g in sodium chloride (IV) 0.9 % 50 mL IVPB, 1 g, Intravenous, PRN, Derrick Moeller PA-C, 1 g at 09/26/18 1208 clopidogrel (PLAVIX) tablet 75 mg, 75 mg, Oral, Daily, Derrick Moeller PA-C, 75 mg at 09/28/18 0856 dexmedetomidine in NS (PRECEDEX) 400 mcg/100mL infusion, 0-1.3 mcg/kg/hr, Intravenous, Titrated, Derrick Moeller PA-C, Stopped at 09/26/18 1057 dextrose 10 % infusion, , Intravenous, PRN, Derrick Moeller PA-C dextrose 5 % and 0.45 % NaCl infusion, , Intravenous, Continuous, MARQUES Chu, Last Rate: 30 mL/hr at 09/28/18 0740 dextrose 50 % solution 5-50 mL, 5-50 mL, Intravenous, PRN, Derrick Moeller PA-C docusate sodium (COLACE) capsule 100 mg, 100 mg, Oral, BID, Derrick Moeller PA-C, 100 mg at 09/28/182107 EPINEPHrine in D5W 32 mcg/mL infusion, 0-5 mcg/min, Intravenous, Titrated, Derrick iraheta PA-C famotidine (PEPCID) tablet 20 mg, 20 mg, Oral, BID, 20 mg at 09/28/182106 OR famo tidine (PEPCID) IVPB 20 mg, 20 mg, Intravenous, BID, Derrick Moeller PA-C hydrALAZINE (APRESOLINE) injection 10 mg, 10 mg, Intravenous, Q1H PRN, Derrick Moeller PA-C HYDROmorphone (DILAUDID) injection 0.5 mg, 0.5 mg, Intravenous, Q2H PRN, 0.5 mg at 1335 OR HYDROmorphone (DILAUDID) injection 1 mg, 1 mg, Intravenous, Q2H PRN, Bennett Moeller PA-C, 1 mg at 09/28/182008 insulin regular 1 unit/mL (HUMULIN R,NOVOLIN R) bolus from bag 1-50 Units, 1-50 Units, Intravenous, Bolus from bag PRN, Derrick Moeller PA-C insulin regular 1 unit/mL (HUMULIN R,NOVOLIN R) infusion, 0.1-50 Units/hr, Intravenous , Continuous, Derrick Moeller PA-C, Last Rate: 0.5 mL/hr at 09/29/18 0643, 0.5 Units/hr at 09/29/18 0643 lactated ringers (LR) bolus 250 mL, 250 mL, Intravenous, Bolus PRN, Dileep Chu A-Debi magnesium hydroxide (MILK OF MAGNESIA) 400 MG/5ML suspension 30 mL, 30 mL, Oral, Daily , Derrick Moeller PA-C, 30 mL at 09/28/18 0856 magnesium oxide (MAG-OX) tablet 400 mg, 400 mg, Oral, Daily, Derrikc Moeller PA-C, 40 0 mg at 09/28/18 0856 magnesium sulfate 2 g/50 mL IVPB, 2 g, Intravenous, PRN, Derrick Moeller PA-C, 2 g at 09/27/18 0729 meperidine (DEMEROL) injection 12.5 mg, 12.5 mg, Intravenous, PRN, BRUCE Chu metoprolol (LOPRESSOR) tablet 12.5 mg, 12.5 mg, Oral, BID, Derrick Moeller PA-C, Stop ped at 09/27/18 0900 nitroGLYCERIN in D5W 200 mcg/mL infusion, 0-40 mcg/min, Intravenous, Titrated, Loida Moeller PA-C norepinephrine in D5W 64 mcg/mL (LEVOPHED) 64 mcg/mL infusion, 0-20 mcg/min, Intraveno us, Titrated, Derrick Moeller PA-C ondansetron (ZOFRAN) injection 4 mg, 4 mg, Intravenous, Q4H PRN, Derrick Moeller PA-C oxyCODONE (ROXICODONE) immediate release tablet 5 mg, 5 mg, Oral, Q4H PRN OR oxyCO DONE (ROXICODONE) immediate release tablet 10 mg, 10 mg, Oral, Q4H PRN, MARQUES Chu, 10 mg at 09/29/18 0242 phenylephrine in NS 320 mcg/mL (CATIE-SYNEPHRINE) infusion, 0-100 mcg/min, Intravenous, Titrated, Derrick Moeller PA-C, Stopped at 09/28/18 1732 potassium chloride 20 mEq in 100 mL IVPB, 20 mEq, Intravenous, PRN, Derrick Moeller P A-C, 20 mEq at 09/29/18 0636 sodium phosphate (FLEET) 7-19 GM/118ML enema 1 enema, 1 enema, Rectal, Once PRN, Bennett Moeller PA-C vasopressin 0.4 Units/mL in sodium chloride (IV) 0.9 % 250 mL infusion, 0.05 Units/min , Intravenous, Continuous PRN, Derrick Moeller PA-C OBJECTIVE Vital Signs: BP 117/61 | Pulse 96 | Temp 98.8 F (37.1 C) (Oral) | Resp 20 | Ht 1.664 m (5' 5.5") | Wt 67 kg (147 lb 11.3 oz) | SpO2 97% | ? No | BMI 24.21 kg/m Intake/Output Summary (Last 24 hours) at 09/29/18 0726 Last data filed at 09/29/18 0600 Gross per 24 hour Intake 1486.4 ml Output 1654 ml Net -167.6 ml Cardiovascular: Regular rhythm, S1 normal and S2 normal. Pulses: Radial pulses are 2+ on the right side, and 2+ on the left side. Pulmonary/Chest: Effort normal and breath sounds normal. No wheezes. No rales. Abdominal: Soft. No tenderness. Musculoskeletal: No edema. Neurological: Alert. No cranial nerve deficit. Skin: Warm and dry. DATA Recent Labs Lab 09/29/1841009/28/18 0911 09/28/186 09/27/18 1416 09/27/18 0346 NA 134* -- 135 -- -- -- 136 K 4.2 4.7 4.3 < > 4.2 < > 4.2 CO2 27 -- 24 -- -- -- 24 BUN 8 -- 7* -- -- -- 7* CREATININE 0.5 -- 0.4* -- -- -- 0.42* EGFR >60 -- >60 -- -- -- >60 MG 2.1 -- 2.3 -- 2.3 < > 1.8 < > = values in this interval not displayed. Recent Labs Lab 09/29/1841009/28/186 09/27/18 0346 WBC 8.58 13.55* 20.95* HGB 8.2* 8.4* 10.0* HCT 23.6* 25.8* 29.9* MCV 90.8 91.4 90.4 PLT 161 181 245 No results for input(s): CKTOTAL, CKMB, CKMBINDEX, TROPONINI, TSH in the last 168 hours. Invalid input(s): BRAIN NATRIURETIC PEPTIDE, INR Lab Results Component Value Date GLUF 122 (H) 09/29/2018 HGBA1C 9.1 (H) 09/27/2018 EK09/26/2018 Last Echo: 06/19/2018 Reported with normal LV size, moderately impaired systolic function EF 35-40%. Anterior, se ptal, and apical hypokinesis. Grade I diastolic dysfunction. RV is normal in size and functi on. Moderate MR. Mild pulmonary HTN RVSP 40-45 mmhg. Last stress test: 07/18/2018 Thallium viability evaluation. 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 Last cath: 11/16/2017 Reported with Mild LM disease. Subtotal occlusion of LAD. Moderate stenosis of 1st OM. Severe stenosis of the proximal PDA S/P ROBIN. Carotid US: AAA screening: Lower extremity US: OTHERS: 09/26/2018 Off pump HILLMAN to LAD. ASSESSMENT & PLAN Patient is 58 y.o. with 1. Coronary artery disease, S/P CABG X 1. HILLMAN to LAD. Previous ROBIN to PDA. 2. Paroxysmal atrial fibrillation. 3. Ischemic CMP, NYH class III, stage C. 4. S/P left occipital CVA. 5. Peripheral vascular disease. 6. Insulin requiring DM. 7. Rheumatoid arthritis. 8. Anemia, Post Op. Recommendations: Reviewed patient's angiogram, monitor. Recurrent episodes of atrial fibrillation. Was given IV amiodarone again last night. Continue with PO amiodarone. Will be stared on PO metoprolol. Continue to monitor hemodynamics. Start high dose atorvastatin. Continue Clopidogrel. Once Apixaban is started aspirin can be held. Continue monitor hemodynamics. Code Status: Full Code Nani Rocha MD 09/29/2018 onversion Transac tion, Provider Unknown - 09/28/2018 3:00 PM PSTFormatting of this note might be different f rom the original. Case Management by Amirah Rosario RN at 09/28/18 1500 Author: Amirah Rosario RN Service: (none) Author Type: Registered Nurse Filed: 09/28/18 0741 Date of Service: 09/28/181499 Status: Signed Consulting Services Associate: Amirah Rosario RN (Registered Nurse) contacted Nieves Johnson #[phone] in regards to see if pt is eligible for assistance w ith caregivers and meals, facility closed until Monday. onver yinka [employer], Provider Unknown - 09/28/2018 2:38 PM PST Therapy Progress Note by Rajan Kim PT at 09/28/18 3044 Author: Rajan Kim PT Service: (none) Author Type: Physical Therapist Filed: 09/28/18 5682 Date of Service: 09/28/181 Status: Signed Consulting Services Associate: Rajan Kim PT (Physical Therapist) PHYSICAL THERAPY TREATMENT NOTE PT Received On: 09/28/18 Reason for Treatment: Cardiac Requires PT Follow Up: Yes Follow up PT Only?: No Assistance Required: 1 person Recommendations: Home Assist Equipment Recommended: Walker 4 wheeled Barriers to Discharge: Physical Deficits Impacting Functional Brown, Self-care Defic its Impacting Functional Brown Plan Treatment/Interventions: Continue per Primary PT POC Progress: Progressing toward goals Summary Comments: The pt. is in the chair. She seems much more lethargic and is reporting increase d pain. She recently received Dilaudid. Her BP is 91/55. Due to lethargic nature, activit y was done within the room. She ambulated approx. 20 ft. x 2 bouts. She reported slight in crease in dizziness and nausea. Activity duration limited by pt. tolerance. She was left u p in the chair. BP was 103/58 after mobility. Call light left in reach. Precautions Cardiac Precautions: Sternal Other Precautions: watch BP Cognition Overall Cognitive Status: Within Functional Limits Orientation Level: Oriented Comments: lethargic FUNCTIONAL MOBILITY Transfers Sit to/from Stand: Minimal assist (steadying/contact guard), x 1 person, x 2 person Ambulation Maximal Ambulation Distance (feet): 20 Total Ambulation Distance (feet): 40 Ambulation Assistance: Minimal assist, X1, X2 Distance limited by?: Patient's ability Pattern: Decreased wilson, Right swing foot doesn't pass stance foot, Left swing foot does n't pass stance foot, Follows WB'ing precautions Assistive Device: Walker 4 wheeled Activity Tolerance: Patient limited by fatigue Nurse Made Aware: yes The patient reported pain rated at a 7/10. RN was notified Education Completed: Education Topics: [] Rationale for PT [] PT POC [] DC planning [] Precautions [] Exercises [] Bed mobility [x] Transfer training with hand placement [x] Gait training [] Stair training [] Use of gait belt [] Other Completed with: [x] Patient [] Spouse [] Significant other [] Family [] C aregiver [] Other Completed by: [x] Verbal education [x] Demonstration [] Handout [] Other: Response to Education: [x] Stated Understanding [] Reinforcement necessary [] Returned demonstration [x] Demonstrated understanding [] No evidence of learning [] Refused PT Goals Goal Formulation: With patient Pt Will Go Supine To Sit: With standby assistance, With minimal assist Pt Will Transfer Sit to Stand: With modified independence Pt Will Ambulate: greater than 200 feet Ambulate Level Assist: With modified independence Ambulate with Assistive Device: Least restricitve device Pt Will Go Up / Down Stairs: 1-2 stairs, 3-5 stairs Stairs Level of Assist: With modified independence, With supervision Reflects last filed data of patient's status; may be from multiple contributors Derrick Mckeon PA - 09/28/2018 9:47 AM PST Progress Notes by Derrick Moeller PA-C at 09/28/18 0938 Author: Derrick Moeller PA-C Service: Cardiac, Thoracic, and Vascular Surgery Author Ty pe: Physician Desk Editor - Certified Filed: 09/28/18 0952 Date of Service: 09/28/18946 Status: Attested Consulting Services Associate: Derrick Moeller PA-C (Physician Desk Editor - Certified) Cosigner: Hilton Vargas MD at 09/28/18 1233 Attestation signed by Hilton Vargas MD at 09/28/18 1230 Patient was seen, examined, labs, x-rays, treatment plan reviewed. [facility] Service: Cardiothoracic Surgery Progress Note ROOM: [address] [place] [address] Hospital Day: LOS: 2 days Post-Op Day: 2 Days Post-Op Surgery/Procedure: 09/26/18 CABG x 1 (HILLMAN to LAD) off-pump SUBJECTIVE Events Overnight: Hypotensive overnight, on CATIE @ 70 this AM. Stable on RA. Good pain control UOP: 1.6L/24hs CT Output: 60mL/overnight, 380mL/24hrs OBJECTIVE Vital Signs: BP 100/58 | Pulse 97 | Temp 98.9 F (37.2 C) (Oral) | Resp 14 | Ht 1.664 m (5' 5.5") | Wt 64 kg (141 lb 1.5 oz) | SpO2 96% | BMI 23.12 kg/m Current weight: Patient Vitals for the past 96 hrs: Weight 09/27/18 0500 64 kg (141 lb 1.5 oz) 09/26/18 0632 62.5 kg (137 lb 12.6 oz) Admission weight: Weight: 62.5 kg (137 lb 12.6 oz) Physical Exam: General: Alert, oriented, in no acute distress, resting in chair Heart: RRR No murmur Lungs: CTA b/l Dim bases. Abdomen: Soft, nondistended, nontender Extremities: Well perfused, +1 LE edema Musculoskeletal: no deformities or significant abnormalities Neurological: No gross focal motor or sensory deficits Skin: No rash or lesions. Mid-sternal incision dressing is C/D/I. Chest tube present inci yinka C/D/I. Pacing wires present DATA: Scheduled Medications amiodarone 400 mg Oral BID aspirin 81 mg Per NG tube Nightly Or aspirin 81 mg Oral Nightly Or aspirin 300 mg Rectal Nightly atorvastatin 40 mg Oral Daily clopidogrel 75 mg Oral Daily docusate sodium 100 mg Oral BID famotidine 20 mg Oral BID Or famotidine 20 mg Intravenous BID magnesium hydroxide 30 mL Oral Daily magnesium oxide 400 mg Oral Daily metoprolol 12.5 mg Oral BID Continuous Infusions amiodarone infusion Stopped (09/27/18 2315) dexmedetomidine in NS Stopped (09/26/18 1057) dextrose 5 % and 0.45 % NaCl 30 mL/hr at 09/27/18 1517 EPINEPHrine insulin regular 1 unit/mL 1.7 Units/hr (09/28/18 0556) nitroGLYCERIN in D5W norepinephrine phenylephrine 70 mcg/min (09/28/18 0801) vasopressin PRN Medications acetaminophen OR acetaminophen OR acetaminophen, albumin human, albuterol, aluminum -magnesium hydroxide-simethicone, amiodarone IV bolus, amiodarone infusion, atropine sulfate , bisacodyl, bisacodyl, calcium chloride IVPB custom, dextrose, dextrose, hydrALAZINE, HYDRO morphone OR HYDROmorphone, insulin regular 1 unit/mL, lactated ringers, magnesium sulfat e, meperidine, ondansetron, oxyCODONE OR oxyCODONE, potassium chloride, sodium phosphate , vasopressin HOME MEDS: Prior to Admission medications Medication Sig Start Date End Date Taking? Authorizing Provider atorvastatin (LIPITOR) 40 MG tablet Take 40 mg by mouth daily. 11/19/17 Yes Historical Provi raphael insulin aspart (NOVOLOG) 100 UNIT/ML injection Inject 10 Units into the skin 4 (four) times daily. Follow sliding scale Yes Historical Provider losartan (COZAAR) 25 MG tablet Take 12.5 mg by mouth daily. 1/2 pill daily 01/04/18 Yes His torical Provider magnesium oxide (MAG-OX) 400 MG TABS tablet Take 400 mg by mouth daily. Yes Historical Pr ovider metFORMIN (GLUCOPHAGE) 1000 MG tablet Take 1,000 mg by mouth 2 (two) times daily. Yes His torical Provider metoprolol (TOPROL-XL) 100 MG 24 hr tablet Take 50 mg by mouth daily. Yes Historical Prov ider apixaban (ELIQUIS) 5 MG tablet Take 5 mg by mouth 2 (two) times daily. Historical Provid er clopidogrel (PLAVIX) 75 MG tablet Take 75 mg by mouth daily. 11/19/17 Historical Provider HYDROcodone-acetaminophen (NORCO) 7.5-325 MG per tablet Take 1 tablet by mouth every 8 (eig ht) hours as needed for Pain. Historical Provider insulin glargine (LANTUS) 100 UNIT/ML injection Inject 14 Units into the skin nightly. H istorical Provider nitroGLYCERIN (NITROSTAT) 0.[address] 0.4 mg under the tongue every 5 (five) min utes as needed. 11/19/17 Historical Provider LABS: Recent Labs Lab 09/28/18 0356 09/27/18 0346 09/26/18 1049 09/26/18 1044 WBC 13.55* 20.95* -- 15.73* HGB 8.4* 10.0* 9.2* 9.5* HCT 25.8* 29.9* 27* 27.5* PLT 181 245 -- 214 NEUTOPHILPCT 79.37 84.94 -- 72.16 MONOPCT 8.16 7.50 -- 7.74 Recent Labs Lab 09/28/18 0911 09/28/18 0356 09/27/18 2041 09/27/18 0346 09/26/18 1044 NA -- 135 -- -- 136 -- 143 K 4.7 4.3 4.6 < > 4.2 < > 3.3* CL -- 104 -- -- 105 -- 112* CO2 -- 24 -- -- 24 -- 24 BUN -- 7* -- -- 7* -- 9 CREATININE -- 0.4* -- -- 0.42* -- 0.48* < > = values in this interval not displayed. Phosphorus: No results found for: PHOS Invalid input(s): LABALBU Recent Labs Lab 09/28/18 0356 09/27/18 1416 09/27/18 1013 MG 2.3 2.3 1.8 Recent Labs Lab 09/26/18 1044 APTT 24 INR 1.1 PROBLEM LIST Principal Problem: Essential hypertension Active Problems: Rheumatoid arthritis (HCC) Systemic lupus erythematosus (SLE) in adult (HCC) CAD in [place] artery HLD (hyperlipidemia) S/P CABG x 1 ASSESSMENT & PLAN S/P CABG -Continue ASA, Statin, Plavix. Hold BB while req pressors -Wean CATIE -Wean O2, encourage IS, ambulate -Continue CTs/TPWs for now, consider CT removal later today depending on drainage Continue ICU care Code Status: Full Code The patient has been seen, all new lab results and imaging reviewed, and the plan discussed with the attending provider, Dr. Sam Moeller PA-C 09/28/2018 onversion Transact ion, Provider Unknown - 09/28/2018 9:43 AM PSTFormatting of this note might be different fr om the original. Therapy Progress Note by Rajan Kim PT at 09/28/18 4287 Author: Rajan Kim PT Service: (none) Author Type: Physical Therapist Filed: 09/28/18 0492 Date of Service: 09/28/18942 Status: Signed Consulting Services Associate: Rajan Kim, PT (Physical Therapist) 09/28/18942 PT Last Visit PT Received On 09/28/18 Reason for Treatment Cardiac Requires PT Follow Up Yes Follow up PT Only? No Assistance Required 1 person;2 person Precautions Cardiac Precautions Sternal Other Precautions low BP Other Comments Comments Pt. is in the bed. She is AOx4. BP is 90s/upper 50s. She reports 3/10 pain. Sh e is able to arise w/ good strength and mobilize approx. 200 ft. using 4WW. 2 person assist ance requiring 2/2 lines. She was allowed to sit and rest in w/c in the hallway. Upon this time, she reported profound feeling of nausea. She was given an emesis bag and returned to the room via w/c. BP taken and found to be 105/61. She was assisted into the chair. Call light left in reach. RN in to give anti-emetic meds. Cognition Overall Cognitive Status WFL Orientation Level Oriented Bed Mobility Supine to Sit Mod assist (BLEs OOB or trunk to upright) Transfers Sit to/from Stand Minimal assist (steadying/contact guard);x 1 person Mobility Ambulation Assistance Minimal assist;X1;X2 Maximal Ambulation Distance (feet) 100 Total Ambulation Distance (feet) 200 Distance limited by? Patient's ability Pattern Decreased wilson;Right swing foot doesn't pass stance foot;Left swing foot doesn't pass stance foot;Alternating;Right step height adequate;Left step height adequate Assistive Device Walker 4 wheeled Activity Tolerance Activity Tolerance Patient limited by fatigue Nurse Made Aware yes Plan Treatment/Interventions Continue per Primary PT POC Progress Progressing toward goals Recommendation Recommendations Home Assist Equipment Recommended Walker 4 wheeled Education Completed: Education Topics: Current condition, PT POC, safe mobility techniques, use of AD, use of call light, d/c planning. Completed with: Patient, Spouse Completed by: Verbal Education, Demonstration as indicated Response to Education: Stated Understanding, Returned Demonstration Pt. Reported 4/10 pain lenn Newell MD - 09/28/2018 7:31 AM PSTFormatting of this note might be different from the o riginal. Progress Notes by Glenn Newell MD at 09/28/18730 Author: Glenn Newell MD Service: Cardiology Author Type: Physician Filed: 09/28/18 6076 Date of Service: 09/28/18730 Status: Signed Consulting Services Associate: Glenn Newell MD (Physician) [facility] Service: Cardiology Progress Note Hospital Day: LOS: 2 days Post-Op Day: Day of Surgery SUBJECTIVE Patient Summary: 58F admitted for elective CABG, done today off pump with HILLMAN to LAD . Starting in April or May,, she developed intermittent episodes of chest pain, asso ciated with dyspnea, mostly with exertion, but did not seek medical attention. In late , she had an episode of severe chest pain/pressure, subjectively rated "10" on a 1-10 sca le in intensity, somewhat pleuritic, associated with dyspnea, nausea, vomiting and diaphores is, that lasted approximately 6 hours, but did not initially seek medical attention. She we nt to her PCP's office 2 days later with shortness of breath, and was sent to the ER at [facility], where she was admitted for 2 days. Cardiac enzymes were reported to be ne gative, but her EKG showed evidence of a septal NJ, and an echo showed an EF of 35-40%, with severe gra-sm-geubtu and apical akinesis. She had acute pulmonary edema / acute combined s ystolic/diastolic heart failure and atrial fibrillation with a RVR. She was transferred to [facility], and the following day diagnostic cardiac catheterization showed a subto nino occlusion of the mid LAD, with [id number]-coxt collaterals supplying the distal vessel, mod erate disease in the left circumflex territory, that was not obstructive by FFR measurements , and a 90% stenosis of the proximal right PDA, which was successfully revascularized with p lacement of a drug-eluding stent. Her EF is still 35-40% follow-up echo 06/19/18 with anterio r, septal and apical wall motion abnormalities. Her stay was complicated by a left occipita l stroke with right-sided internuclear ophthalmoplegia, visual field cuts and blurred vision , which is improving. She was started on Eliquis in addition to aspirin and Plavix, but the aspirin has now been stopped to reduce her risk for bleeding. Over the last several months , since she was discharged, she has had intermittent episodes of chest pain and dyspnea with exertion, that resolve with rest, rare episodes of orthopnea, the last having occurred 05/13, but she states that these are getting better and less frequent over time. She has epis odes of profuse diaphoresis lasting only a few minutes, with no other symptoms, and still house s occasional palpitations, but only when lying on her left side. She has episodes of dizzin ess, likely secondary to hypotension, as her BP is 90/54, and I decreased her Toprol-XL dose from 100 mg 50 mg hs, which may also help her complaints of severe fatigue, "no energy". Following review of her cath film from [place] with our interventional cardiologists, it is reasonable to attempt opening the LAD. Her recent Lexiscan Cardiolite stress test showe d only scarring, with no evidence of ischemia in this territory, but a 2 day thallium myocar dial viability study showed a large amount of hibernating, viable myocardium that might bene fit from revascularization, as this would improve her prognosis for both length of an qualit y of life. CABG would be the preferred way Her repeat echo showed an improvement in her pr evious severe pulmonary hypertension, which is now mild. A 2 week event monitor showed no r ecurrent atrial fibrillation. Her physical examination suggests significant bilateral PVD, and an ultrasound evaluation showed bilateral atherosclerotic plaquing and calcification, bu t no significant obstructive disease. Events Overnight: Slept most of the day, AFib with RVR earlier, converted to NSR with iv amio (now off), c/o "6"/10 incisional pain. Past Medical History Diagnosis Date Asthma relatively asymptomatic Atrial fibrillation (HCC) Paroxysmal, CHADS2 VASc 6, on Eliquis Cerebrovascular accident (CVA) ([facility]) 11/16/2017 Left occipital, with right-sided internuclear ophthalmoplegia Congestive heart failure ([facility]) 11/16/2017 acute combined systolic/diastolic heart failure (with AFib, RVR) Coronary artery disease 05/2017 developed angina, did not seek medical attention until after her NJ 10/2017 Hyperlipidemia Hypertension 1998 Old myocardial infarction PVD (peripheral vascular disease) ([facility]) Raynaud phenomenon Rheumatoid arthritis ([facility]) S/P CABG x 1 09/26/2018 HILLMAN > LAD (off pump) Seasonal allergies Status post insertion of drug eluting coronary artery stent 11/16/2017 2.25 x 15 mm Xience ROBIN in the prox right PDA Systemic lupus erythematosus (SLE) in adult (HCC) Type 2 diabetes mellitus (HCC) 1998 Insulin-Requiring Past Surgical History Procedure Laterality Date CORONARY ANGIOPLASTY 11/16/2017 2.25 x 15 mm Xience ROBIN in the prox right PDA CORONARY ARTERY BYPASS GRAFT N/A 09/26/2018 Procedure: CABG - OFF PUMP; Surgeon: Hilton Vargas MD; Location: [facility] OR; Service: Cardiac; Laterality: N/A; TUBAL LIGATION Allergies Allergen Reactions Hydroxychloroquine Muscle Pain myalgia Gabapentin Mental Changes irritable Scheduled Medications amiodarone 400 mg Oral BID aspirin 81 mg Per NG tube Nightly Or aspirin 81 mg Oral Nightly Or aspirin 300 mg Rectal Nightly atorvastatin 40 mg Oral Daily clopidogrel 75 mg Oral Daily docusate sodium 100 mg Oral BID famotidine 20 mg Oral BID Or famotidine 20 mg Intravenous BID magnesium hydroxide 30 mL Oral Daily magnesium oxide 400 mg Oral Daily metoprolol 12.5 mg Oral BID Continuous Infusions amiodarone infusion Stopped (09/27/18 2315) dexmedetomidine in NS Stopped (09/26/18 1057) dextrose 5 % and 0.45 % NaCl 30 mL/hr at 09/28/18 0740 EPINEPHrine insulin regular 1 unit/mL 1 Units/hr (09/28/18 1359) nitroGLYCERIN in D5W norepinephrine phenylephrine 30 mcg/min (09/28/18 1400) vasopressin PRN Medications acetaminophen OR acetaminophen OR acetaminophen, albumin human, albuterol, aluminum -magnesium hydroxide-simethicone, amiodarone IV bolus, amiodarone infusion, atropine sulfate , bisacodyl, bisacodyl, calcium chloride IVPB custom, dextrose, dextrose, hydrALAZINE, HYDRO morphone OR HYDROmorphone, insulin regular 1 unit/mL, lactated ringers, magnesium sulfat e, meperidine, oxyCODONE OR oxyCODONE, potassium chloride, sodium phosphate, vasopressin OBJECTIVE Vital Signs: BP 104/60 | Pulse 96 | Temp 98.5 F (36.9 C) (Oral) | Resp 18 | Ht 1.664 m (5' 5.5") | Wt 64 kg (141 lb 1.5 oz) | SpO2 96% | BMI 23.12 kg/m Temp: [97.6 F (36.4 C)-98.9 F (37.2 C)] 98.5 F (36.9 C) (09/28 1200) BP: (84-120)/(50-72) 104/60 (09/28 1300) Heart Rate: [80-144] 96 (09/28 1300) Resp: [14-18] 18 (09/28 1200) SpO2: [83 %-99 %] 96 % (09/28 1300) TELEMETRY: Afib, RVR > NSR I/O: 3027 / 1945, CT 380, net +1161 so far this admission GENERAL: Well developed, well nourished, in no distress. Appears approximately stated age . HEENT: Normocephalic, atraumatic. EYES: PERRL, sclerae anicteric, no xanthelsasmas MOUTH: Oral mucosae moist, dentition adequate, no lesions noted NECK: RIJV lines. No JVD, lymphadenopathy, thyromegaly, bruits. Carotid pulses are 2+ b ilaterally LUNGS: decreased BS at bases, with no rales, rhonchi or wheezing noted, respirations unlab ored HEART: Sternotomy bandaged. Nondisplaced PMI, regular rate and rhythm, S1, S2 normal. No murmurs, rubs or gallops noted. ABDOMEN: Soft, nontender, no organomegaly, masses or bruits. Bowel sounds are normal in a ll 4 quadrants. The abdominal aortic pulsation is not palpable. EXTREMITIES: No edema. Radial pulses 2+ bilaterally. Femoral pulses are 2+ bilaterally wi thout bruits. DP and PT pulses are trace + bilaterally. SKIN: Warm and dry, capillary refill is normal, no lesions. NEUROLOGIC: Awake, alert and oriented x 3. Not tested for focal motor deficits. PSYCHIATRIC: appropriate DATA CBC: Lab Results Component Value Date WBC 13.55 (H) 09/28/2018 RBC 2.82 (L) 09/28/2018 HGB 8.4 (L) 09/28/2018 HCT 25.8 (L) 09/28/2018 MCV 91.4 09/28/2018 MCH 30.0 09/28/2018 MCHC 32.8 09/28/2018 RDW 42.9 09/28/2018 PLT 181 09/28/2018 MPV 8.5 09/28/2018 DIFFTYPE AUTOMATED 09/28/2018 BMP: Lab Results Component Value Date NA 135 09/28/2018 K 4.7 09/28/2018 K 3.2 (L) 09/26/2018 CL 104 09/28/2018 CO2 24 09/28/2018 ANIONGAP 11 09/28/2018 GLUF 124 (H) 09/28/2018 BUN 7 (L) 09/28/2018 CREATININE 0.4 (L) 09/28/2018 BCR 18 09/28/2018 CA 7.2 (L) 09/28/2018 EGFR >60 09/28/2018 Magnesium: Lab Results Component Value Date MG 2.3 09/28/2018 PT/INR: Lab Results Component Value Date INR 1.1 09/26/2018 PTT: Lab Results Component Value Date APTT 24 09/26/2018 ABG: Lab Results Component Value Date POCPH 7.331 (L) 09/26/2018 POCPCO 39 09/26/2018 POCPO2 112 (H) 09/26/2018 POCHCO 21 (L) 09/26/2018 POCTCO2 22 (L) 09/26/2018 POCBD 5 (H) 09/26/2018 POCSO2 98 09/26/2018 POCCMT Alfredo Test not indicated 09/26/2018 POC GLUCOSE: 121 - 272 PCXR 09/28/18 There is a tiny 7 mm left apical pneumothorax seen. Left-sided chest tubes again seen PROBLEM LIST Principal Problem: Essential hypertension Active Problems: Rheumatoid arthritis (HCC) Systemic lupus erythematosus (SLE) in adult (HCC) CAD in [place] artery HLD (hyperlipidemia) S/P CABG x 1 ASSESSMENT & PLAN 1. CAD, with h/o NJ sometime at the end of October,, presented very late for medical e valuation, ROBIN placed in the proximal right PDA. LAD was suboccluded, not addressed, but Tl -201 viability scan showed extensive viable, hibernating myocardium. She has had intermitte nt angina, with chest pain and dyspnea on exertion. 2. 1-vessel CABG, HILLMAN to LAD off pump, 09/26/18, stable in early post-op course but still requiring low dose pressor support. 3. Paroxysmal Atrial Fibrillation, recurred, with RVR, converted to NSR on iv amiodarone (s topped), was on Eliquis pre-op, restart it if AFib recurs. 4. Dilated ischemic cardiomyopathy secondary to old NJ, EF 35-40%, with h/o acute combined systolic/diastolic heart failure in November,, resolved. 5. S/p left occipital CVA 11/02 6. PVD 7. Essential HTN, controlled. 8. Hyperlipidemia 9. Insulin-requiring type II Diabetes mellitus, BS controlled. 10. Rheumatoid arthritis 11. Minimal left apical pneumothorax 12. Post-op blood loss anemia Disposition: Inpatient, ICU admission. Dr. Rocha covering this weekend. Code Status: Full Code Glenn Newell MD 09/28/2018 onversion Transacti on, Provider Unknown - 09/27/2018 1:54 PM PSTFormatting of this note might be different fro m the original. Therapy Progress Note by Rajan Kim PT at 09/27/18 0697 Author: Rajan Kim PT Service: (none) Author Type: Physical Therapist Filed: 09/28/18 0731 Date of Service: 09/27/18 6696 Status: Signed Consulting Services Associate: Rajan Kim PT (Physical Therapist) 09/27/18 7195 PT Last Visit PT Received On 09/27/18 Reason for Treatment Cardiac Requires PT Follow Up Yes Follow up PT Only? No Assistance Required 1 person;2 person Precautions Cardiac Precautions Sternal Other Precautions watch BP Other Comments Comments Pt. is doing fair. BP remains "soft" ranging from mid 80s/50s pre and post activi ty. She is able to increase gait distance slightly however limited distance due to BP ernestina rns. The pt. denied dizziness. She was left up in the chair. Call light in reach. Report ing 4/10 pain. Cognition Overall Cognitive Status WFL Orientation Level Oriented Bed Mobility Supine to Sit Mod assist (BLEs OOB or trunk to upright) Transfers Sit to/from Stand Minimal assist (steadying/contact guard) Mobility Ambulation Assistance Minimal assist;Moderate assist Maximal Ambulation Distance (feet) 30 Total Ambulation Distance (feet) 30 Distance limited by? Patient's ability;Therapist/staff discretion Pattern Decreased wilson;Right swing foot doesn't pass stance foot;Left swing foot doesn't pass stance foot Assistive Device (TURN OUT WORKER on w/c) Activity Tolerance Activity Tolerance Patient limited by fatigue Nurse Made Aware yes Plan Treatment/Interventions Continue per Primary PT POC Progress Progressing toward goals Recommendation Recommendations Home Assist Barriers to Discharge Physical Deficits Impacting Functional Brown;Self-care Deficit s Impacting Functional Brown Education Completed: Education Topics: Current condition, PT POC, safe mobility techniques, use of AD, use of call light, d/c planning. Completed with: Patient Completed by: Verbal Education, Demonstration as indicated Response to Education: Stated Understanding, Returned Demonstration, onver yinka Transaction, Provider Unknown - 09/27/2018 12:15 PM PST Case Management by Irene Hernandez RN at 09/27/18 1215 Author: Irene Hernandez RN Service: (none) Author Type: Registered Nurse Filed: 09/27/18 1242 Date of Service: 09/27/18 1215 Status: Signed Consulting Services Associate: Irene Hernandez RN (Registered Nurse) 09/27/18 1215 Discharge Planning Evaluation Admitting Diagnosis CABG x1 Readmission No Living Arrangements Spouse/significant other (son lives with them off and on) Support Systems Spouse/significant other;Children;Friends/neighbors Type of Residence Private residence House type House-1 story Steps to enter 3 Bathrooms on 1st Floor 1-Full Independent with ADL's Yes;Other (comment) (somewhat independent, but had difficulty) Independent with Mobility Yes Home Care Services No Caregiver after Discharge No Mental Status Other (comment) (asleep, pt's answered assessment questions) Prior functional status Somewhat independent, but had difficulty. Anticipated Discharge Plan Post Acute Care Needs (TBD - may need SNF, home health, caregivers, etc) Plan communicated to patient/family Yes Resources Financial concerns No Transportation issues No Patient/Family concerns No Prescription Plan Yes Name of Pharmacy [facility] Previous home health equipment (has a walker with no wheels) Anticipated Disposition Facility Type (TBD - pending progress and PT recommendation) Met with pt (asleep at this time), and pt's , Mateo, and discussed discharge plann ing, Pt is a 58 y.o., female who lives in [place] with her . Pt's son lives with t hem off and on. According to , pt is somewhat independent at baseline, but did have some difficulty. Pt's stated that pt has a walker with no wheels, but does not use it at this time. Pt does not currently have any caregivers or home health services, but pt' s thinks that she will need some assistance at home now. Pt's thinks that p t may be able to get some assistance from [employer] for caregivers or meals, but is unsure. Pt's or children are able to provide transportation. Pt's did not have an y other questions or concerns for CM at this time. CM to continue to follow pt during hospital stay and assist with d/c needs pending PT recom mendation. Patient's PCP is: Pauly Perez Patient's [place]: [place] / [employer] Coverage concerns: no concerns Medication coverage/concerns: no concerns Rx Bedside Delivery: TBD Community resources utilized / needed: TBD Assistance in transportation: none needed at this time Identification of any specific education / training: none at this time Barriers to Discharge / Alternative housing needed: none at this time Anticipated DCP: TBD - pending progress and recommendations from PT. Irene Hernandez RN CM onver yinka [employer], Provider Unknown - 09/27/2018 11:23 AM PST Case Management by Amirah Rosario RN at 09/27/18 1123 Author: Amirah Rosario RN Service: (none) Author Type: Registered Nurse Filed: 09/27/18 1136 Date of Service: 09/27/18 1123 Status: Signed Consulting Services Associate: Amirah Rosario RN (Registered Nurse) Pt had CABG x1 yesterday. PT to evaluate pt today, awaiting recommendation. Per RN, there a re concerns with pt being non compliant. CM will assess pt today. onver yinka [employer], Provider Unknown - 09/27/2018 11:01 AM PST Progress Notes by Yamel Santillan RN at 09/27/18 1101 Author: Yamel Santillan RN Service: (none) Author Type: Registered Nurse Filed: 09/27/18 1102 Date of Service: 09/27/18 110 Status: Signed Consulting Services Associate: Yamel Santillan RN (Registered Nurse) Update given to Dc BARRERA concerning catie rate, albumin given and uo and the pt not interactiv e and complaint. onver yinka Transaction, Provider Unknown - 09/27/2018 10:42 AM PST Progress Notes by Yamel Santillan RN at 09/27/18 1042 Author: Yamel Santillan RN Service: (none) Author Type: Registered Nurse Filed: 09/27/18 1046 Date of Service: 09/27/18 104 Status: Signed Consulting Services Associate: Yamel Santillan RN (Registered Nurse) Continuing to encourage pt to increase in mobility and respiratory tolieting. PT non-compli ent and refusing to turn or be turned. Pt strong and to mobilze when she chooses to. Educati on completed to pt and spouse concerning importance of mobility and using her IS. onver yinka Transaction, Provider Unknown - 09/27/2018 10:21 AM PST Therapy Progress Note by Rajan Kim PT at 09/27/18 1021 Author: Rajan Kim PT Service: (none) Author Type: Physical Therapist Filed: 09/28/18 0727 Date of Service: 09/27/18 1021 Status: Signed Consulting Services Associate: Rajan Kim PT (Physical Therapist) 09/27/18 1021 PT Last Visit PT Received On 09/27/18 Reason for Treatment Cardiac Requires PT Follow Up Yes Follow up PT Only? No PT Eval/Reassessment Date 09/27/18 Assistance Required 1 person;2 person Home Environment Type of Home Home one story Home Exterior Layout 1-3 steps (2) Home Interior Layout Lives on main level with bedroom/bathroom Home Equipment None Prior Function Level of Brown Independent with functional mobility;Independent with ADLs;Independe nt with IADLs Falls in Past Year No Lives With Spouse ADL Assistance Independent Home ADL's Independent RUE Assessment RUE Assessment WFL LUE Assessment LUE Assessment WFL RLE Assessment RLE Assessment WFL LLE Assessment LLE Assessment WFL Cognition Overall Cognitive Status WFL Orientation Level Oriented Sensation Light Touch No apparent deficits Assessment of Patient Status Assessment of Patient Status Decreased functional mobility;Decreased ADL status;Precaution s Prognosis Should progress with skilled therapy intervention Precautions Cardiac Precautions Sternal Plan Treatment/Interventions Cardiac protocol PT Frequency Twice a day;5-7x/wk Care Duration (# of days) 7 # of days Recommendation Recommendations Home Assist (anticipate home w/ assist) Equipment Recommended (TBD) Barriers to Discharge Physical Deficits Impacting Functional Brown;Self-care Deficit s Impacting Functional Brown 09/27/18 1021 PT Last Visit PT Received On 09/27/18 Reason for Treatment Cardiac Requires PT Follow Up Yes Follow up PT Only? No PT Eval/Reassessment Date 09/27/18 Assistance Required 1 person;2 person Precautions Cardiac Precautions Sternal Other Comments Comments Pt. is s/p off pump CABGx1. The pt. is AOx4 albeit lethargic. She demonstrates g ood awareness of precautions. She reports 5/10 pain. Although she displays good strength, her BP is soft (80s/50s) with upright activity. She is able to mobilize approx. 10 ft. w/ m in/modAx2 for lines. She was left in the chair. Call light in reach. Cognition Overall Cognitive Status WFL Orientation Level Oriented Bed Mobility Supine to Sit Mod assist (BLEs OOB or trunk to upright) Transfers Sit to/from Stand Minimal assist (steadying/contact guard);Moderate assist (to arise OR low er) Mobility Ambulation Assistance Minimal assist;Moderate assist Maximal Ambulation Distance (feet) 5 Total Ambulation Distance (feet) 10 Distance limited by? Patient's ability Pattern Decreased wilson;Right swing foot doesn't pass stance foot;Left swing foot doesn't pass stance foot Assistive Device (TURN OUT WORKER on w/c) Activity Tolerance Activity Tolerance Patient limited by fatigue;Treatment limited secondary to medical compli cations Nurse Made Aware yes Plan Treatment/Interventions Cardiac protocol PT Frequency Twice a day;5-7x/wk Care Duration (# of days) 7 # of days Recommendation Recommendations Home Assist (anticipate home w/ assist) Equipment Recommended (TBD) Barriers to Discharge Physical Deficits Impacting Functional Brown;Self-care Deficit s Impacting Functional [place] Low - 52516 Moderate - 33144 High - 29188 History [] no personal factors &/or comorbidities [] 1-2 personal factors &/or comorbidi ties [] 3 or more personal factors &/or comorbidities Examination [] 1-2 elements [x] 3 elements [] 4 or more elements Clinical Presentation [] stable [x] evolving [] unstable Clinical Decision Making Complexity: [] Low 44422 [x] Moderate 20500 [] High 9716 3 Education Completed: Education Topics: Current condition, PT POC, safe mobility techniques, use of AD, use of call light, d/c planning. Completed with: Patient, Completed by: Verbal Education, Demonstration as indicated Response to Education: Stated Understanding, Returned Demonstration e, Glenn Patel MD - 09/27/2018 8:18 AM PSTFormatting of this note might be different from the o riginal. Progress Notes by Glenn Newell MD at 09/27/18817 Author: Glenn Newell MD Service: Cardiology Author Type: Physician Filed: 09/27/1835 Date of Service: 09/27/18817 Status: Signed Consulting Services Associate: Glenn Newell MD (Physician) [facility] Service: Cardiology Progress Note Hospital Day: LOS: 1 day Post-Op Day: Day of Surgery SUBJECTIVE Patient Summary: 58F admitted for elective CABG, done today off pump with HILLMAN to LAD . Starting in April or May,, she developed intermittent episodes of chest pain, with dyspnea, mostly with exertion, but did not seek medical attention. In late October, she houes d an episode of severe chest pain/pressure, subjectively rated "10" on a 1-10 scale in inten sity, somewhat pleuritic, associated with dyspnea, nausea, vomiting and diaphoresis, that la sted approximately 6 hours, but again did not initially seek medical attention. She went to her PCP's office 2 days later with SOB, and was admitted for 2 days at [facility] , but by then, cardiac enzymes were negative. Her EKG showed evidence of a septal NJ, and a n echo showed an EF of 35-40%, with severe vmb-hd-gbpcvo and apical akinesis. She had acute pulmonary edema / acute combined systolic/diastolic heart failure and atrial fibrillation w ith a RVR. She was transferred to [facility], and the following day cardiac cathet erization showed a subtotal occlusion of the mid LAD, with [id number] collaterals supplyin g the distal vessel, moderate disease in the left circumflex territory, that was not obstruc tive by FFR measurements, and a 90% stenosis of the proximal right PDA, which was successful ly revascularized with placement of a drug-eluding stent. Her EF is still 35-40% follow-up echo 06/19/18 with anterior, septal and apical wall motion abnormalities. Her stay was compli cated by a left occipital stroke with right-sided internuclear ophthalmoplegia, visual field cuts and blurred vision, which is improving. She was started on Eliquis in addition to asp irin and Plavix, but the aspirin was stopped to reduce her risk for bleeding. Over the last several months, since she was discharged, she has had intermittent episodes of chest pain a nd dyspnea with exertion, that resolve with rest, rare episodes of orthopnea, the last havin g occurred 05/13/18, but she states that these are getting better and less frequent over time . She has episodes of profuse diaphoresis lasting only a few minutes, with no other symptom s, and still has occasional palpitations, but only when lying on her left side. She has epi sodes of dizziness, likely secondary to hypotension, as her BP runs low, and complaints of s evere fatigue, "no energy". Following review of her cath film from [place] with our interventional cardiologists, it is reasonable to attempt opening the LAD. Her recent Lexiscan Cardiolite stress test showe d only scarring, with no evidence of ischemia in this territory, but a 2 day thallium myocar dial viability study showed a large amount of hibernating, viable myocardium that might bene fit from revascularization, as this would improve her prognosis for both length of an qualit y of life. CABG would be the preferred way Her repeat echo showed an improvement in her pr evious severe pulmonary hypertension, which is now mild. A 2 week event monitor showed no r ecurrent atrial fibrillation. Her physical examination suggests significant bilateral PVD, and an ultrasound evaluation showed bilateral atherosclerotic plaquing and calcification, bu t no significant obstructive disease. 1-vessel CABG with HILLMAN to the LAD off pump done 09/26/18. Events Overnight: No significant incisional pain, no SOB. On low dose pressor suppor t, to be weaned. Past Medical History Diagnosis Date Asthma relatively asymptomatic Atrial fibrillation ([facility]) Paroxysmal, CHADS2 VASc 6, on Eliquis Cerebrovascular accident (CVA) ([facility]) 11/16/2017 Left occipital, with right-sided internuclear ophthalmoplegia Congestive heart failure ([facility]) 11/16/2017 acute combined systolic/diastolic heart failure (with AFib, RVR) Coronary artery disease 05/2017 developed angina, did not seek medical attention until after her NJ 10/2017 Hyperlipidemia Hypertension 1998 Old myocardial infarction PVD (peripheral vascular disease) ([facility]) Raynaud phenomenon Rheumatoid arthritis ([facility]) S/P CABG x 1 09/26/2018 HILLMAN > LAD (off pump) Seasonal allergies Status post insertion of drug eluting coronary artery stent 11/16/2017 2.25 x 15 mm Xience ROBIN in the prox right PDA Systemic lupus erythematosus (SLE) in adult ([facility]) Type 2 diabetes mellitus ([facility]) 1998 Insulin-Requiring Past Surgical History Procedure Laterality Date CORONARY ANGIOPLASTY 11/16/2017 2.25 x 15 mm Xience ROBIN in the prox right PDA TUBAL LIGATION Allergies Allergen Reactions Hydroxychloroquine Muscle Pain myalgia Gabapentin Mental Changes irritable Scheduled Medications aspirin 81 mg Per NG tube Nightly Or aspirin 81 mg Oral Nightly Or aspirin 300 mg Rectal Nightly atorvastatin 40 mg Oral Daily ceFAZolin 2 g Intravenous Q8H clopidogrel 75 mg Oral Daily docusate sodium 100 mg Oral BID famotidine 20 mg Oral BID Or famotidine 20 mg Intravenous BID magnesium hydroxide 30 mL Oral Daily magnesium oxide 400 mg Oral Daily metoprolol 12.5 mg Oral BID Continuous Infusions amiodarone infusion dexmedetomidine in NS Stopped (09/26/18 1057) dextrose 5 % and 0.45 % NaCl 30 mL/hr at 09/26/18 1058 EPINEPHrine insulin regular 1 unit/mL 1.2 Units/hr (09/27/18 0810) nitroGLYCERIN in D5W norepinephrine phenylephrine 30 mcg/min (09/27/18 2703) vasopressin PRN Medications acetaminophen OR acetaminophen OR acetaminophen, albumin human, albuterol, aluminum -magnesium hydroxide-simethicone, amiodarone IV bolus, amiodarone infusion, atropine sulfate , bisacodyl, bisacodyl, calcium chloride IVPB custom, dextrose, dextrose, hydrALAZINE, HYDRO morphone OR HYDROmorphone, insulin regular 1 unit/mL, lactated ringers, magnesium sulfat e, meperidine, ondansetron, oxyCODONE OR oxyCODONE, potassium chloride, sodium phosphate , vasopressin OBJECTIVE Vital Signs: BP 97/56 | Pulse 96 | Temp 100.4 F (38 C) | Resp 26 | Ht 1.664 m (5' 5.5") | Wt 64 kg (141 lb 1.5 oz) | SpO2 96% | BMI 23.12 kg/m Temp: [95.7 F (35.4 C)-100.9 F (38.3 C)] 100.4 F (38 C) (09/27 0500) BP: (87-140)/(53-79) 97/56 (09/27 0600) Heart Rate: [61-107] 96 (09/27 0630) Resp: [10-47] 26 (09/27 0630) SpO2: [95 %-100 %] 96 % (09/27 0630) Weight: [64 kg (141 lb 1.5 oz)] 64 kg (141 lb 1.5 oz) (09/27 0500) FiO2 : [30 %-96 %] 30 % (09/26 1215) TELEMETRY: NSR, no arrhythmias I/O: 3035 / 2956, CT 310, net +79 so far this admission GENERAL: Well developed, well nourished, in no distress. Appears approximately stated age . HEENT: Normocephalic, atraumatic. EYES: PERRL, sclerae anicteric, no xanthelsasmas MOUTH: Oral mucosae moist, dentition adequate, no lesions noted NECK: RIJV lines. No JVD, lymphadenopathy, thyromegaly, bruits. Carotid pulses are 2+ b ilaterally LUNGS: Clear bilaterally, with no rales, rhonchi or wheezing noted, respirations unlabored HEART: Sternotomy bandaged. Nondisplaced PMI, regular rate and rhythm, S1, S2 normal. No murmurs, rubs or gallops noted. ABDOMEN: Soft, nontender, no organomegaly, masses or bruits. Bowel sounds are normal in a ll 4 quadrants. The abdominal aortic pulsation is not palpable. EXTREMITIES: No edema. Radial pulses 2+ bilaterally. Femoral pulses are 2+ bilaterally wi thout bruits. DP and PT pulses are trace + bilaterally. SKIN: Warm and dry, capillary refill is normal, no lesions. NEUROLOGIC: Awake, alert and oriented x 3. Not tested for focal motor deficits. PSYCHIATRIC: appropriate DATA CBC: Lab Results Component Value Date WBC 20.95 (H) 09/27/2018 RBC 3.31 (L) 09/27/2018 HGB 10.0 (L) 09/27/2018 HCT 29.9 (L) 09/27/2018 MCV 90.4 09/27/2018 MCH 30.3 09/27/2018 MCHC 33.5 09/27/2018 RDW 42.0 09/27/2018 PLT 245 09/27/2018 MPV 9.1 09/27/2018 DIFFTYPE AUTOMATED 09/27/2018 BMP: Lab Results Component Value Date NA 136 09/27/2018 K 4.2 09/27/2018 K 3.2 (L) 09/26/2018 CL 105 09/27/2018 CO2 24 09/27/2018 ANIONGAP 11 09/27/2018 GLUF 101 (H) 09/27/2018 BUN 7 (L) 09/27/2018 CREATININE 0.42 (L) 09/27/2018 BCR 16 09/27/2018 CA 7.7 (L) 09/27/2018 EGFR >60 09/27/2018 Magnesium: Lab Results Component Value Date MG 1.8 09/27/2018 PT/INR: Lab Results Component Value Date INR 1.1 09/26/2018 PTT: Lab Results Component Value Date APTT 24 09/26/2018 ABG: Lab Results Component Value Date POCPH 7.331 (L) 09/26/2018 POCPCO 39 09/26/2018 POCPO2 112 (H) 09/26/2018 POCHCO 21 (L) 09/26/2018 POCTCO2 22 (L) 09/26/2018 POCBD 5 (H) 09/26/2018 POCSO2 98 09/26/2018 POCCMT Alfredo Test not indicated 09/26/2018 POC GLUCOSE: 101 - 272 HgbA1c 9.1 EKG: PCXR 09/27/2018 Removal of the endotracheal tube and NG tube. Small amount of bibasilar atelectasis. No pneumothorax seen. PROBLEM LIST Principal Problem: Essential hypertension Active Problems: Rheumatoid arthritis (HCC) Systemic lupus erythematosus (SLE) in adult (HCC) CAD in [place] artery HLD (hyperlipidemia) S/P CABG x 1 ASSESSMENT & PLAN 1. CAD, with h/o NJ sometime at the end of October,, presented very late for medical e valuation, ROBIN placed in the proximal right PDA. LAD was suboccluded, not addressed, but Tl -201 viability scan showed extensive viable, hibernating myocardium. She has had intermitte nt angina, with chest pain and dyspnea on exertion. 2. 1-vessel CABG, HILLMAN to LAD off pump, 09/26/18, extubated, on low dose pressor support, s table in early post-op course. 3. H/o paroxysmal Atrial Fibrillation months ago, no recurrence, was on Eliquis pre-op. 4. 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 5. S/p left occipital CVA 11/02 6. PVD 7. Essential HTN, controlled, but more recently, ELECTRICAL CALIBRATOR had run lower BPs requiring decreased medication doses. 8. Hyperlipidemia 9. Insulin-requiring type II Diabetes mellitus, BS controlled at present, but HgbA1c of 9.1 indicates generally poor control. 10. Rheumatoid arthritis 11. Mild post-op blood loss anemia Disposition: Inpatient, ICU admission Code Status: Full Code Glenn Newell MD 09/27/2018 Derrick Alex PA - 09/27/2018 7:38 AM PST Progress Notes by Derrick Moeller PA-C at 09/27/18737 Author: Derrick Moeller PA-C Service: Cardiac, Thoracic, and Vascular Surgery Author Ty pe: Physician Desk Editor - Certified Filed: 09/27/1884 Date of Service: 09/27/18737 Status: Attested Consulting Services Associate: Derrick Moeller PA-C (Physician Desk Editor - Certified) Cosigner: Hilton Vargas MD at 09/27/18 1305 Attestation signed by Hilton Vargas MD at 09/27/18 1305 Patient was seen, examined, labs, x-rays, treatment plan reviewed. [facility] Service: Cardiothoracic Surgery Progress Note ROOM: [address] [place] [address] Hospital Day: LOS: 1 day Post-Op Day: 1 Day Post-Op Surgery/Procedure: 09/26/18 CABG x 1 (HILLMAN to LAD) off-pump SUBJECTIVE Events Overnight: Stable night, on CATIE @ 30 this AM. Extubated and on 3L. Good pain c ontrol UOP: 2.5L/24hs CT Output: 150mL/overnight, 310mL/24hrs OBJECTIVE Vital Signs: BP 100/56 | Pulse 88 | Temp 100.4 F (38 C) (Bladder) | Resp 22 | Ht 1.664 m (5' 5.5 ") | Wt 64 kg (141 lb 1.5 oz) | SpO2 96% | BMI 23.12 kg/m Current weight: Patient Vitals for the past 96 hrs: Weight 09/27/18 0500 64 kg (141 lb 1.5 oz) 09/26/18 0632 62.5 kg (137 lb 12.6 oz) Admission weight: Weight: 62.5 kg (137 lb 12.6 oz) Physical Exam: General: Alert, oriented, in no acute distress, resting in chair Heart: RRR No murmur Lungs: CTA b/l Dim bases. Abdomen: Soft, nondistended, nontender Extremities: Well perfused, +1 LE edema Musculoskeletal: no deformities or significant abnormalities Neurological: No gross focal motor or sensory deficits Skin: No rash or lesions. Mid-sternal incision dressing is C/D/I. Chest tube present inci yinka C/D/I. Pacing wires present DATA: Scheduled Medications aspirin 81 mg Per NG tube Nightly Or aspirin 81 mg Oral Nightly Or aspirin 300 mg Rectal Nightly atorvastatin 40 mg Oral Daily ceFAZolin 2 g Intravenous Q8H clopidogrel 75 mg Oral Daily docusate sodium 100 mg Oral BID famotidine 20 mg Oral BID Or famotidine 20 mg Intravenous BID magnesium hydroxide 30 mL Oral Daily magnesium oxide 400 mg Oral Daily metoprolol 12.5 mg Oral BID Continuous Infusions amiodarone infusion dexmedetomidine in NS Stopped (09/26/18 1057) dextrose 5 % and 0.45 % NaCl 30 mL/hr at 09/26/18 1058 EPINEPHrine insulin regular 1 unit/mL 1.3 Units/hr (09/27/18 0349) nitroGLYCERIN in D5W norepinephrine phenylephrine 30 mcg/min (09/27/18 0503) vasopressin PRN Medications acetaminophen OR acetaminophen OR acetaminophen, albumin human, albuterol, aluminum -magnesium hydroxide-simethicone, amiodarone IV bolus, amiodarone infusion, atropine sulfate , bisacodyl, bisacodyl, calcium chloride IVPB custom, dextrose, dextrose, hydrALAZINE, HYDRO morphone OR HYDROmorphone, insulin regular 1 unit/mL, lactated ringers, magnesium sulfat e, meperidine, ondansetron, oxyCODONE OR oxyCODONE, potassium chloride, sodium phosphate , vasopressin HOME MEDS: Prior to Admission medications Medication Sig Start Date End Date Taking? Authorizing Provider atorvastatin (LIPITOR) 40 MG tablet Take 40 mg by mouth daily. 11/19/17 Yes Historical Provi raphael insulin aspart (NOVOLOG) 100 UNIT/ML injection Inject 10 Units into the skin 4 (four) times daily. Follow sliding scale Yes Historical Provider losartan (COZAAR) 25 MG tablet Take 12.5 mg by mouth daily. 1/2 pill daily 01/04/18 Yes His torical Provider magnesium oxide (MAG-OX) 400 MG TABS tablet Take 400 mg by mouth daily. Yes Historical Pr ovider metFORMIN (GLUCOPHAGE) 1000 MG tablet Take 1,000 mg by mouth 2 (two) times daily. Yes His torical Provider metoprolol (TOPROL-XL) 100 MG 24 hr tablet Take 50 mg by mouth daily. Yes Historical Prov ider apixaban (ELIQUIS) 5 MG tablet Take 5 mg by mouth 2 (two) times daily. Historical Provid er clopidogrel (PLAVIX) 75 MG tablet Take 75 mg by mouth daily. 11/19/17 Historical Provider HYDROcodone-acetaminophen (NORCO) 7.5-325 MG per tablet Take 1 tablet by mouth every 8 (eig ht) hours as needed for Pain. Historical Provider insulin glargine (LANTUS) 100 UNIT/ML injection Inject 14 Units into the skin nightly. H istorical Provider nitroGLYCERIN (NITROSTAT) 0.[address] 0.4 mg under the tongue every 5 (five) min utes as needed. 11/19/17 Historical Provider LABS: Recent Labs Lab 09/27/18 0346 09/26/18 1049 09/26/18 1044 WBC 20.95* -- 15.73* HGB 10.0* 9.2* 9.5* HCT 29.9* 27* 27.5* PLT 245 -- 214 NEUTOPHILPCT 84.94 -- 72.16 MONOPCT 7.50 -- 7.74 Recent Labs Lab 09/27/18 0346 09/26/18 2357 09/26/18 1955 09/26/18 1044 NA 136 -- -- -- 143 K 4.2 4.2 4.6 < > 3.3* CL 105 -- -- -- 112* CO2 24 -- -- -- 24 BUN 7* -- -- -- 9 CREATININE 0.42* -- -- -- 0.48* < > = values in this interval not displayed. Phosphorus: No results found for: PHOS Invalid input(s): LABALBU Recent Labs Lab 09/27/18 0346 09/26/18 1044 MG 1.8 2.0 Recent Labs Lab 09/26/18 1044 APTT 24 INR 1.1 PROBLEM LIST Principal Problem: Essential hypertension Active Problems: Rheumatoid arthritis (HCC) Systemic lupus erythematosus (SLE) in adult (HCC) CAD in [place] artery HLD (hyperlipidemia) S/P CABG x 1 ASSESSMENT & PLAN S/P CABG -Continue ASA, Statin, Plavix. Hold BB while req pressors -Wean CATIE -Wean O2, encourage IS, ambulate -Continue CTs/TPWs for now Continue ICU care Code Status: Full Code The patient has been seen, all new lab results and imaging reviewed, and the plan discussed with the attending provider, BRUCE Ayala-Debi 09/27/2018 e, Glenn Patel MD - 09/26/2018 6:55 PM PST Progress Notes by Glenn Newell MD at 09/26/181854 Author: Glenn Newell MD Service: Cardiology Author Type: Physician Filed: 09/26/181948 Date of Service: 09/26/181854 Status: Signed Consulting Services Associate: Glenn Newell MD (Physician) [facility] Service: Cardiology Progress Note Hospital Day: LOS: 0 days Post-Op Day: Day of Surgery SUBJECTIVE Patient Summary: 58F admitted for elective CABG, done today off pump with HILLMAN to LAD . Starting in April or May,, she developed intermittent episodes of chest pain, asso ciated with dyspnea, mostly with exertion, but did not seek medical attention. In late , she had an episode of severe chest pain/pressure, subjectively rated "10" on a 1-10 sca le in intensity, somewhat pleuritic, associated with dyspnea, nausea, vomiting and diaphores is, that lasted approximately 6 hours, but did not initially seek medical attention. She we nt to her PCP's office 2 days later with shortness of breath, and was sent to the ER at [facility], where she was admitted for 2 days. Cardiac enzymes were reported to be ne gative, but her EKG showed evidence of a septal NJ, and an echo showed an EF of 35-40%, with severe bhr-mi-dgrzhi and apical akinesis. She had acute pulmonary edema / acute combined s ystolic/diastolic heart failure and atrial fibrillation with a RVR. She was transferred to [facility], and the following day diagnostic cardiac catheterization showed a subto nino occlusion of the mid LAD, with ndxy-wk-eust collaterals supplying the distal vessel, mod erate disease in the left circumflex territory, that was not obstructive by FFR measurements , and a 90% stenosis of the proximal right PDA, which was successfully revascularized with p lacement of a drug-eluding stent. Her EF is still 35-40% follow-up echo 06/19/18 with anterio r, septal and apical wall motion abnormalities. Her stay was complicated by a left occipita l stroke with right-sided internuclear ophthalmoplegia, visual field cuts and blurred vision , which is improving. She was started on Eliquis in addition to aspirin and Plavix, but the aspirin has now been stopped to reduce her risk for bleeding. Over the last several months , since she was discharged, she has had intermittent episodes of chest pain and dyspnea with exertion, that resolve with rest, rare episodes of orthopnea, the last having occurred 05/13, but she states that these are getting better and less frequent over time. She has epis odes of profuse diaphoresis lasting only a few minutes, with no other symptoms, and still house s occasional palpitations, but only when lying on her left side. She has episodes of dizzin ess, likely secondary to hypotension, as her BP is 90/54, and I decreased her Toprol-XL dose from 100 mg 50 mg hs, which may also help her complaints of severe fatigue, "no energy". Following review of her cath film from [place] with our interventional cardiologists, it is reasonable to attempt opening the LAD. Her recent Lexiscan Cardiolite stress test showe d only scarring, with no evidence of ischemia in this territory, but a 2 day thallium myocar dial viability study showed a large amount of hibernating, viable myocardium that might bene fit from revascularization, as this would improve her prognosis for both length of an qualit y of life. CABG would be the preferred way Her repeat echo showed an improvement in her pr evious severe pulmonary hypertension, which is now mild. A 2 week event monitor showed no r ecurrent atrial fibrillation. Her physical examination suggests significant bilateral PVD, and an ultrasound evaluation showed bilateral atherosclerotic plaquing and calcification, bu t no significant obstructive disease. Events Overnight: Extubated, c/o incisional pain, no SOB. Past Medical History Diagnosis Date Asthma relatively asymptomatic Atrial fibrillation (HCC) Paroxysmal, CHADS2 VASc 6, on Eliquis Cerebrovascular accident (CVA) ([facility]) 11/16/2017 Left occipital, with right-sided internuclear ophthalmoplegia Congestive heart failure ([facility]) 11/16/2017 acute combined systolic/diastolic heart failure (with AFib, RVR) Coronary artery disease 05/2017 developed angina, did not seek medical attention until after her NJ 10/2017 Hyperlipidemia Hypertension 1999 Old myocardial infarction PVD (peripheral vascular disease) ([facility]) Raynaud phenomenon Rheumatoid arthritis ([facility]) S/P CABG x 1 09/26/2018 HILLMAN > LAD (off pump) Seasonal allergies Status post insertion of drug eluting coronary artery stent 11/16/2017 2.25 x 15 mm Xience ROBIN in the prox right PDA Systemic lupus erythematosus (SLE) in adult (HCC) Type 2 diabetes mellitus (HCC) 1998 Insulin-Requiring Past Surgical History Procedure Laterality Date CORONARY ANGIOPLASTY 11/16/2017 2.25 x 15 mm Xience ROBIN in the prox right PDA TUBAL LIGATION Allergies Allergen Reactions Hydroxychloroquine Muscle Pain myalgia Gabapentin Mental Changes irritable Scheduled Medications albuterol 6 puff Ventilator Q4H aspirin 81 mg Per NG tube Nightly Or aspirin 81 mg Oral Nightly Or aspirin 300 mg Rectal Nightly atorvastatin 40 mg Oral Daily ceFAZolin 2 g Intravenous Q8H [START ON 09/27/2018] clopidogrel 75 mg Oral Daily docusate sodium 100 mg Oral BID famotidine 20 mg Oral BID Or famotidine 20 mg Intravenous BID [START ON 09/27/2018] magnesium hydroxide 30 mL Oral Daily magnesium oxide 400 mg Oral Daily metoprolol 12.5 mg Oral BID Continuous Infusions amiodarone infusion dexmedetomidine in NS Stopped (09/26/18 1057) dextrose 5 % and 0.45 % NaCl 30 mL/hr at 09/26/18 1058 EPINEPHrine insulin regular 1 unit/mL 1.5 Units/hr (09/26/18 1844) nitroGLYCERIN in D5W norepinephrine phenylephrine 20 mcg/min (09/26/18 2499) vasopressin PRN Medications acetaminophen OR acetaminophen OR acetaminophen, albumin human, albuterol, aluminum -magnesium hydroxide-simethicone, amiodarone IV bolus, amiodarone infusion, atropine sulfate , bisacodyl, bisacodyl, calcium chloride IVPB custom, dextrose, dextrose, hydrALAZINE, HYDRO morphone OR HYDROmorphone, insulin regular 1 unit/mL, lactated ringers, magnesium sulfat e, meperidine, ondansetron, oxyCODONE OR oxyCODONE, potassium chloride, sodium phosphate , vasopressin OBJECTIVE Vital Signs: BP 103/62 | Pulse 100 | Temp 100.4 F (38 C) (Bladder) | Resp 12 | Ht 1.664 m (5' 5. 5") | Wt 62.5 kg (137 lb 12.6 oz) | SpO2 98% | BMI 22.58 kg/m Temp: [95.7 F (35.4 C)-100.4 F (38 C)] 100.4 F (38 C) (09/26 1800) BP: (97-151)/(59-79) 103/62 (09/26 1800) Heart Rate: [61-101] 100 (09/26 1830) Resp: [10-47] 12 (09/26 1830) SpO2: [95 %-100 %] 98 % (09/26 1830) Height: [166.4 cm (5' 5.5")] 166.4 cm (5' 5.5") (09/26 632) Weight: [62.5 kg (137 lb 12.6 oz)] 62.5 kg (137 lb 12.6 oz) (09/26 632) BMI (Calculated): [22.6] 22.6 (09/26 632) FiO2 : [30 %-100 %] 30 % (09/26 1215) TELEMETRY: NSR I/O: 1423 / 1235, CT 160, net +188 so far this admission GENERAL: Well developed, well nourished, in no distress. Appears approximately stated age . HEENT: Normocephalic, atraumatic. EYES: PERRL, sclerae anicteric, no xanthelsasmas MOUTH: Oral mucosae moist, dentition adequate, no lesions noted NECK: RIJV lines. No JVD, lymphadenopathy, thyromegaly, bruits. Carotid pulses are 2+ b ilaterally LUNGS: Clear anteriorly, with no rales, rhonchi or wheezing noted, respirations unlabored HEART: Sternotomy bandaged. Nondisplaced PMI, regular rate and rhythm, S1, S2 normal. No murmurs, rubs or gallops noted. ABDOMEN: Soft, nontender, no organomegaly, masses or bruits. Bowel sounds are normal in a ll 4 quadrants. The abdominal aortic pulsation is not palpable. EXTREMITIES: No edema. Radial pulses 2+ bilaterally. Femoral pulses are 2+ bilaterally wi thout bruits. DP and PT pulses are trace + bilaterally. SKIN: Warm and dry, capillary refill is normal, no lesions. NEUROLOGIC: Awake, alert and oriented x 3. Not tested for focal motor deficits. PSYCHIATRIC: appropriate DATA CBC: Lab Results Component Value Date WBC 15.73 (H) 09/26/2018 RBC 3.10 (L) 09/26/2018 HGB 9.2 (L) 09/26/2018 HGB 9.5 (L) 09/26/2018 HCT 27 (L) 09/26/2018 HCT 27.5 (L) 09/26/2018 MCV 88.6 09/26/2018 MCH 30.6 09/26/2018 MCHC 34.5 09/26/2018 RDW 40.7 09/26/2018 PLT 214 09/26/2018 MPV 8.1 09/26/2018 DIFFTYPE AUTOMATED 09/26/2018 BMP: Lab Results Component Value Date NA 143 09/26/2018 K 3.8 09/26/2018 K 3.2 (L) 09/26/2018 CL 112 (H) 09/26/2018 CO2 24 09/26/2018 ANIONGAP 11 09/26/2018 GLUF 154 (H) 09/26/2018 BUN 9 09/26/2018 CREATININE 0.48 (L) 09/26/2018 BCR 19 09/26/2018 CA 7.0 (L) 09/26/2018 EGFR >60 09/26/2018 Magnesium: Lab Results Component Value Date MG 2.0 09/26/2018 PT/INR: Lab Results Component Value Date INR 1.1 09/26/2018 PTT: Lab Results Component Value Date APTT 24 09/26/2018 ABG: Lab Results Component Value Date POCPH 7.331 (L) 09/26/2018 POCPCO 39 09/26/2018 POCPO2 112 (H) 09/26/2018 POCHCO 21 (L) 09/26/2018 POCTCO2 22 (L) 09/26/2018 POCBD 5 (H) 09/26/2018 POCSO2 98 09/26/2018 POCCMT Alfredo Test not indicated 09/26/2018 POC GLUCOSE: 121 - 272 EKG: PCXR 1. Appropriate positioning of support tubes and lines. 2. There is mild atelectasis of the medial left lower lobe. PROBLEM LIST Principal Problem: Essential hypertension Active Problems: Rheumatoid arthritis (HCC) Systemic lupus erythematosus (SLE) in adult (HCC) CAD in [place] artery HLD (hyperlipidemia) ASSESSMENT & PLAN 1. CAD, with h/o NJ sometime at the end of October,, presented very late for medical e valuation, ROBIN placed in the proximal right PDA. LAD was suboccluded, not addressed, but Tl -201 viability scan showed extensive viable, hibernating myocardium. She has had intermitte nt angina, with chest pain and dyspnea on exertion. 2. 1-vessel CABG, HILLMAN to LAD off pump, 09/26/18, extubated, on low dose pressor support, s table in early post-op course. 3. Paroxysmal Atrial Fibrillation, was on Eliquis pre-op. 4. 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 5. S/p left occipital CVA 11/02 6. PVD 7. Essential HTN, controlled. 8. Hyperlipidemia 9. Insulin-requiring type II Diabetes mellitus, BS controlled. 10. Rheumatoid arthritis Disposition: Inpatient, ICU admission Code Status: Full Code Glenn Newell MD 09/26/2018 onversion Transacti on, Provider Unknown - 09/26/2018 6:15 PM PSTFormatting of this note might be different fro m the original. Nurse Progress Note by Omar Ramesh RN at 09/26/181814 Author: Omar Ramesh RN Service: (none) Author Type: Registered Nurse Filed: 09/26/181815 Date of Service: 09/26/181814 Status: Signed Consulting Services Associate: Omar Ramesh RN (Registered Nurse) End of shift chart check done. onver yinka Transaction, Provider Unknown - 09/26/2018 12:27 PM PST Progress Notes by Latha Beltran RRT at 09/26/181226 Author: Latha Beltran RRT Service: (none) Author Type: Registered Respiratory Therap ist Filed: 09/26/182 Date of Service: 09/26/181226 Status: Signed Consulting Services Associate: Latha Beltran RRT (Registered Respiratory Therapist) Pt alert and following commands prior to extubation. Passed SBT 07/20 .30, VC 920 as well as leak test. Extubated to RA at 1215, tolerated well. No evidence of stridor and pt was able to say her name post extubation. onver yinka Transaction, Provider Unknown - 09/26/2018 10:41 AM PST Progress Notes by Renu Nichole RPH at 09/26/181040 Author: Renu Nichole RPH Service: Pharmacy Author Type: Pharmacist Filed: 09/26/181040 Date of Service: 09/26/181040 Status: Signed Consulting Services Associate: Renu Nichole RPH (Pharmacist) Renal Dosing Monitoring: John Paul Meng 58 y.o. female Ht Readings from Last 1 Encounters: 09/26/18 1.664 m (5' 5.5") Wt Readings from Last 1 Encounters: 09/26/18 62.5 kg (137 lb 12.6 oz) Serum creatinine: 0.72 mg/dL 09/18/18 1339 Estimated creatinine clearance: 79.2 mL/min Pharmacy dosing for renal function per Derrick Moeller PA-C Medication(s): none Plan per protocol: Medication / Dose: Currently there is not an indication to provide dosing adjustments for r enal function. Pharmacy will continue monitoring patient for appropriate dosing per renal f unction. Pharmacist: Renu Nichole 09/26/2018 10:40 AM onver yinka Transaction, Provider Unknown - 09/26/2018 9:44 AM PST Progress Notes by Bobby Stack at 09/26/18943 Author: Bobby Stack Service: (none) Author Type: Filed: 09/26/1845 Date of Service: 09/26/18943 Status: Signed Consulting Services Associate: Bobby Stack () Gave family an update r/t to the CABG off pump status at 09:45 onver yinka Transaction, Provider Unknown - 09/26/2018 9:12 AM PST Progress Notes by Bobby Stack at 09/26/18911 Author: Bobby Stack Service: (none) Author Type: Filed: 09/26/18912 Date of Service: 09/26/18911 Status: Signed Consulting Services Associate: Bobby Lang) Gave family an update at 09: 05 onver yinka Transaction, Provider Unknown - 09/26/2018 6:55 AM PST Progress Notes by Bobby Stack at 09/26/18654 Author: Bobby Stack Service: (none) Author Type: Filed: 09/26/18701 Date of Service: 09/26/18654 Status: Addendum Consulting Services Associate: Bobby Lang) Related Notes: Original Note by Bobby Lang) filed at 09/26/18701 Pre Op visit ([facility] Referral). Met with Pt's and daughter, they appears nervous, CP provided information r/t to the updates (note: off pump N/A). According to MIGUEL Maddox CP will b e notified when Dr Vargas starts and finishes the surgery (CP will update family). CP provi ded supportive presence for Pt and family, prayer for Pt's surgery was offered and accepted. Will f/u CP support. onver yinka Transaction, Provider Unknown - 09/26/2018 6:49 AM PST Nurse Progress Note by Alethea Brower RN at 09/26/18648 Author: Alethea Brower RN Service: (none) Author Type: Registered Nurse Filed: 09/26/1850 Date of Service: 09/26/18648 Status: Signed Consulting Services Associate: Alethea Brower RN (Registered Nurse) Anesthesia at bedside, informed of blood sugar of 272 @ 0637. docume nted in this encounter Plan of Treatment Not on filedocumented as of this encounter Procedures + +--------+ + + + | Procedure Name | Priori | Date/Time | Associated Diagnosis | Comments | | | ty | | | | + +--------+ + + + | POC GLUCOSE | Routin | 10/01/2018 | | Results for this | | | e | 12:04 PM | | procedure are in the | | | | PST | | results section. | + +--------+ + + + | MAGNESIUM | Routin | 10/01/2018 | | Results for this | | | e | 7:28 AM | | procedure are in the | | | | PST | | results section. | + +--------+ + + + | BASIC METABOLIC | Routin | 10/01/2018 | | Results for this | | PANEL | e | 7:28 AM | | procedure are in the | | | | PST | | results section. | + +--------+ + + + | POC GLUCOSE | Routin | 10/01/2018 | | Results for this | | | e | 5:46 AM | | procedure are in the | | | | PST | | results section. | + +--------+ + + + | POC GLUCOSE | Routin | 09/30/2018 | | Results for this | | | e | 10:38 PM | | procedure are in the | | | | PST | | results section. | + +--------+ + + + | POC GLUCOSE | Routin | 09/30/2018 | | Results for this | | | e | 9:16 PM | | procedure are in the | | | | PST | | results section. | + +--------+ + + + | POC GLUCOSE | Routin | 09/30/2018 | | Results for this | | | e | 7:21 PM | | procedure are in the | | | | PST | | results section. | + +--------+ + + + | POC GLUCOSE | Routin | 09/30/2018 | | Results for this | | | e | 6:58 PM | | procedure are in the | | | | PST | | results section. | + +--------+ + + + | POC GLUCOSE | Routin | 09/30/2018 | | Results for this | | | e | 4:10 PM | | procedure are in the | | | | PST | | results section. | + +--------+ + + + | POC GLUCOSE | Routin | 09/30/2018 | | Results for this | | | e | 12:13 PM | | procedure are in the | | | | PST | | results section. | + +--------+ + + + | XR CHEST 2 VIEWS | Routin | 09/30/2018 | | Results for this | | | e | 8:10 AM | | procedure are in the | | | | PST | | results section. | + +--------+ + + + | POC GLUCOSE | Routin | 09/30/2018 | | Results for this | | | e | 6:05 AM | | procedure are in the | | | | PST | | results section. | + +--------+ + + + | CBC NO DIFFERENTIAL | Routin | 09/30/2018 | | Results for this | | | e | 3:51 AM | | procedure are in the | | | | PST | | results section. | + +--------+ + + + | MAGNESIUM | Routin | 09/30/2018 | | Results for this | | | e | 3:51 AM | | procedure are in the | | | | PST | | results section. | + +--------+ + + + | BASIC METABOLIC | Routin | 09/30/2018 | | Results for this | | PANEL | e | 3:51 AM | | procedure are in the | | | | PST | | results section. | + +--------+ + + + | POC GLUCOSE | Routin | 09/29/2018 | | Results for this | | | e | 9:22 PM | | procedure are in the | | | | PST | | results section. | + +--------+ + + + | POC GLUCOSE | Routin | 09/29/2018 | | Results for this | | | e | 4:48 PM | | procedure are in the | | | | PST | | results section. | + +--------+ + + + | POC GLUCOSE | Routin | 09/29/2018 | | Results for this | | | e | 11:41 AM | | procedure are in the | | | | PST | | results section. | + +--------+ + + + | POC GLUCOSE | Routin | 09/29/2018 | | Results for this | | | e | 10:49 AM | | procedure are in the | | | | PST | | results section. | + +--------+ + + + | POC GLUCOSE | Routin | 09/29/2018 | | Results for this | | | e | 9:37 AM | | procedure are in the | | | | PST | | results section. | + +--------+ + + + | POC GLUCOSE | Routin | 09/29/2018 | | Results for this | | | e | 9:10 AM | | procedure are in the | | | | PST | | results section. | + +--------+ + + + | POC GLUCOSE | Routin | 09/29/2018 | | Results for this | | | e | 7:52 AM | | procedure are in the | | | | PST | | results section. | + +--------+ + + + | POC GLUCOSE | Routin | 09/29/2018 | | Results for this | | | e | 6:42 AM | | procedure are in the | | | | PST | | results section. | + +--------+ + + + | POC GLUCOSE | Routin | 09/29/2018 | | Results for this | | | e | 5:40 AM | | procedure are in the | | | | PST | | results section. | + +--------+ + + + | POC GLUCOSE | Routin | 09/29/2018 | | Results for this | | | e | 5:39 AM | | procedure are in the | | | | PST | | results section. | + +--------+ + + + | XR CHEST 1 VIEW | Routin | 09/29/2018 | | Results for this | | | e | 5:21 AM | | procedure are in the | | | | PST | | results section. | + +--------+ + + + | EXTERNAL LAB: CBC | Routin | 09/29/2018 | | Results for this | | | e | 4:11 AM | | procedure are in the | | | | PST | | results section. | + +--------+ + + + | MAGNESIUM | Routin | 09/29/2018 | | Results for this | | | e | 4:11 AM | | procedure are in the | | | | PST | | results section. | + +--------+ + + + | BASIC METABOLIC | Routin | 09/29/2018 | | Results for this | | PANEL | e | 4:11 AM | | procedure are in the | | | | PST | | results section. | + +--------+ + + + | POC GLUCOSE | Routin | 09/29/2018 | | Results for this | | | e | 3:42 AM | | procedure are in the | | | | PST | | results section. | + +--------+ + + + | POC GLUCOSE | Routin | 09/29/2018 | | Results for this | | | e | 2:36 AM | | procedure are in the | | | | PST | | results section. | + +--------+ + + + | POC GLUCOSE | Routin | 09/29/2018 | | Results for this | | | e | 1:29 AM | | procedure are in the | | | | PST | | results section. | + +--------+ + + + | POC GLUCOSE | Routin | 09/29/2018 | | Results for this | | | e | 12:19 AM | | procedure are in the | | | | PST | | results section. | + +--------+ + + + | POC GLUCOSE | Routin | 09/28/2018 | | Results for this | | | e | 11:11 PM | | procedure are in the | | | | PST | | results section. | + +--------+ + + + | POC GLUCOSE | Routin | 09/28/2018 | | Results for this | | | e | 9:04 PM | | procedure are in the | | | | PST | | results section. | + +--------+ + + + | POC GLUCOSE | Routin | 09/28/2018 | | Results for this | | | e | 6:43 PM | | procedure are in the | | | | PST | | results section. | + +--------+ + + + | POC GLUCOSE | Routin | 09/28/2018 | | Results for this | | | e | 4:30 PM | | procedure are in the | | | | PST | | results section. | + +--------+ + + + | POC GLUCOSE | Routin | 09/28/2018 | | Results for this | | | e | 3:11 PM | | procedure are in the | | | | PST | | results section. | + +--------+ + + + | POC GLUCOSE | Routin | 09/28/2018 | | Results for this | | | e | 1:58 PM | | procedure are in the | | | | PST | | results section. | + +--------+ + + + | POC GLUCOSE | Routin | 09/28/2018 | | Results for this | | | e | 12:52 PM | | procedure are in the | | | | PST | | results section. | + +--------+ + + + | POC GLUCOSE | Routin | 09/28/2018 | | Results for this | | | e | 11:32 AM | | procedure are in the | | | | PST | | results section. | + +--------+ + + + | POC GLUCOSE | Routin | 09/28/2018 | | Results for this | | | e | 10:25 AM | | procedure are in the | | | | PST | | results section. | + +--------+ + + + | POTASSIUM | Routin | 09/28/2018 | | Results for this | | | e | 9:11 AM | | procedure are in the | | | | PST | | results section. | + +--------+ + + + | POC GLUCOSE | Routin | 09/28/2018 | | Results for this | | | e | 9:09 AM | | procedure are in the | | | | PST | | results section. | + +--------+ + + + | POC GLUCOSE | Routin | 09/28/2018 | | Results for this | | | e | 7:59 AM | | procedure are in the | | | | PST | | results section. | + +--------+ + + + | POC GLUCOSE | Routin | 09/28/2018 | | Results for this | | | e | 5:56 AM | | procedure are in the | | | | PST | | results section. | + +--------+ + + + | XR CHEST 1 VIEW | Routin | 09/28/2018 | | Results for this | | | e | 5:36 AM | | procedure are in the | | | | PST | | results section. | + +--------+ + + + | EXTERNAL LAB: CBC | Routin | 09/28/2018 | | Results for this | | | e | 3:56 AM | | procedure are in the | | | | PST | | results section. | + +--------+ + + + | POC GLUCOSE | Routin | 09/28/2018 | | Results for this | | | e | 3:56 AM | | procedure are in the | | | | PST | | results section. | + +--------+ + + + | MAGNESIUM | Routin | 09/28/2018 | | Results for this | | | e | 3:56 AM | | procedure are in the | | | | PST | | results section. | + +--------+ + + + | BASIC METABOLIC | Routin | 09/28/2018 | | Results for this | | PANEL | e | 3:56 AM | | procedure are in the | | | | PST | | results section. | + +--------+ + + + | POC GLUCOSE | Routin | 09/28/2018 | | Results for this | | | e | 1:53 AM | | procedure are in the | | | | PST | | results section. | + +--------+ + + + | POC GLUCOSE | Routin | 09/28/2018 | | Results for this | | | e | 12:45 AM | | procedure are in the | | | | PST | | results section. | + +--------+ + + + | POC GLUCOSE | Routin | 09/28/2018 | | Results for this | | | e | 12:05 AM | | procedure are in the | | | | PST | | results section. | + +--------+ + + + | POC GLUCOSE | Routin | 09/27/2018 | | Results for this | | | e | 11:07 PM | | procedure are in the | | | | PST | | results section. | + +--------+ + + + | POC GLUCOSE | Routin | 09/27/2018 | | Results for this | | | e | 10:04 PM | | procedure are in the | | | | PST | | results section. | + +--------+ + + + | POC GLUCOSE | Routin | 09/27/2018 | | Results for this | | | e | 9:11 PM | | procedure are in the | | | | PST | | results section. | + +--------+ + + + | POTASSIUM | Routin | 09/27/2018 | | Results for this | | | e | 8:41 PM | | procedure are in the | | | | PST | | results section. | + +--------+ + + + | POC GLUCOSE | Routin | 09/27/2018 | | Results for this | | | e | 8:13 PM | | procedure are in the | | | | PST | | results section. | + +--------+ + + + | POC GLUCOSE | Routin | 09/27/2018 | | Results for this | | | e | 7:42 PM | | procedure are in the | | | | PST | | results section. | + +--------+ + + + | POC GLUCOSE | Routin | 09/27/2018 | | Results for this | | | e | 6:33 PM | | procedure are in the | | | | PST | | results section. | + +--------+ + + + | POC GLUCOSE | Routin | 09/27/2018 | | Results for this | | | e | 5:23 PM | | procedure are in the | | | | PST | | results section. | + +--------+ + + + | POC GLUCOSE | Routin | 09/27/2018 | | Results for this | | | e | 4:18 PM | | procedure are in the | | | | PST | | results section. | + +--------+ + + + | POC GLUCOSE | Routin | 09/27/2018 | | Results for this | | | e | 3:11 PM | | procedure are in the | | | | PST | | results section. | + +--------+ + + + | POTASSIUM | Routin | 09/27/2018 | | Results for this | | | e | 2:16 PM | | procedure are in the | | | | PST | | results section. | + +--------+ + + + | MAGNESIUM | Routin | 09/27/2018 | | Results for this | | | e | 2:16 PM | | procedure are in the | | | | PST | | results section. | + +--------+ + + + | POC GLUCOSE | Routin | 09/27/2018 | | Results for this | | | e | 2:13 PM | | procedure are in the | | | | PST | | results section. | + +--------+ + + + | POC GLUCOSE | Routin | 09/27/2018 | | Results for this | | | e | 1:00 PM | | procedure are in the | | | | PST | | results section. | + +--------+ + + + | POC GLUCOSE | Routin | 09/27/2018 | | Results for this | | | e | 11:49 AM | | procedure are in the | | | | PST | | results section. | + +--------+ + + + | POTASSIUM | Routin | 09/27/2018 | | Results for this | | | e | 10:13 AM | | procedure are in the | | | | PST | | results section. | + +--------+ + + + | MAGNESIUM | Routin | 09/27/2018 | | Results for this | | | e | 10:13 AM | | procedure are in the | | | | PST | | results section. | + +--------+ + + + | POC GLUCOSE | Routin | 09/27/2018 | | Results for this | | | e | 10:09 AM | | procedure are in the | | | | PST | | results section. | + +--------+ + + + | POC GLUCOSE | Routin | 09/27/2018 | | Results for this | | | e | 8:10 AM | | procedure are in the | | | | PST | | results section. | + +--------+ + + + | XR CHEST 1 VIEW | Routin | 09/27/2018 | | Results for this | | | e | 6:03 AM | | procedure are in the | | | | PST | | results section. | + +--------+ + + + | POC GLUCOSE | Routin | 09/27/2018 | | Results for this | | | e | 5:51 AM | | procedure are in the | | | | PST | | results section. | + +--------+ + + + | POC GLUCOSE | Routin | 09/27/2018 | | Results for this | | | e | 3:49 AM | | procedure are in the | | | | PST | | results section. | + +--------+ + + + | EXTERNAL LAB: CBC | Routin | 09/27/2018 | | Results for this | | | e | 3:46 AM | | procedure are in the | | | | PST | | results section. | + +--------+ + + + | MAGNESIUM | Routin | 09/27/2018 | | Results for this | | | e | 3:46 AM | | procedure are in the | | | | PST | | results section. | + +--------+ + + + | HEMOGLOBIN A1C | Routin | 09/27/2018 | | Results for this | | | e | 3:46 AM | | procedure are in the | | | | PST | | results section. | + +--------+ + + + | BASIC METABOLIC | Routin | 09/27/2018 | | Results for this | | PANEL | e | 3:46 AM | | procedure are in the | | | | PST | | results section. | + +--------+ + + + | POC GLUCOSE | Routin | 09/27/2018 | | Results for this | | | e | 1:56 AM | | procedure are in the | | | | PST | | results section. | + +--------+ + + + | POTASSIUM | Routin | 09/26/2018 | | Results for this | | | e | 11:57 PM | | procedure are in the | | | | PST | | results section. | + +--------+ + + + | POC GLUCOSE | Routin | 09/26/2018 | | Results for this | | | e | 11:56 PM | | procedure are in the | | | | PST | | results section. | + +--------+ + + + | POC GLUCOSE | Routin | 09/26/2018 | | Results for this | | | e | 9:50 PM | | procedure are in the | | | | PST | | results section. | + +--------+ + + + | POTASSIUM | Routin | 09/26/2018 | | Results for this | | | e | 7:55 PM | | procedure are in the | | | | PST | | results section. | + +--------+ + + + | POC GLUCOSE | Routin | 09/26/2018 | | Results for this | | | e | 7:46 PM | | procedure are in the | | | | PST | | results section. | + +--------+ + + + | POC GLUCOSE | Routin | 09/26/2018 | | Results for this | | | e | 6:42 PM | | procedure are in the | | | | PST | | results section. | + +--------+ + + + | POC GLUCOSE | Routin | 09/26/2018 | | Results for this | | | e | 5:40 PM | | procedure are in the | | | | PST | | results section. | + +--------+ + + + | POC GLUCOSE | Routin | 09/26/2018 | | Results for this | | | e | 4:42 PM | | procedure are in the | | | | PST | | results section. | + +--------+ + + + | POC GLUCOSE | Routin | 09/26/2018 | | Results for this | | | e | 3:40 PM | | procedure are in the | | | | PST | | results section. | + +--------+ + + + | POC GLUCOSE | Routin | 09/26/2018 | | Results for this | | | e | 2:47 PM | | procedure are in the | | | | PST | | results section. | + +--------+ + + + | POTASSIUM | Routin | 09/26/2018 | | Results for this | | | e | 2:21 PM | | procedure are in the | | | | PST | | results section. | + +--------+ + + + | POC GLUCOSE | Routin | 09/26/2018 | | Results for this | | | e | 1:42 PM | | procedure are in the | | | | PST | | results section. | + +--------+ + + + | POC GLUCOSE | Routin | 09/26/2018 | | Results for this | | | e | 12:49 PM | | procedure are in the | | | | PST | | results section. | + +--------+ + + + | POC GLUCOSE | Routin | 09/26/2018 | | Results for this | | | e | 11:54 AM | | procedure are in the | | | | PST | | results section. | + +--------+ + + + | XR CHEST 1 VIEW | Routin | 09/26/2018 | | Results for this | | | e | 11:05 AM | | procedure are in the | | | | PST | | results section. | + +--------+ + + + | ECG 12 LEAD | Routin | 09/26/2018 | | Results for this | | | e | 10:50 AM | | procedure are in the | | | | PST | | results section. | + +--------+ + + + | POC ISTAT, CG8, | Routin | 09/26/2018 | | Results for this | | ARTERIAL | e | 10:49 AM | | procedure are in the | | | | PST | | results section. | + +--------+ + + + | POC GLUCOSE | Routin | 09/26/2018 | | Results for this | | | e | 10:46 AM | | procedure are in the | | | | PST | | results section. | + +--------+ + + + | EXTERNAL LAB: CBC | Routin | 09/26/2018 | | Results for this | | | e | 10:44 AM | | procedure are in the | | | | PST | | results section. | + +--------+ + + + | PTT | Routin | 09/26/2018 | | Results for this | | | e | 10:44 AM | | procedure are in the | | | | PST | | results section. | + +--------+ + + + | PROTIME INR | Routin | 09/26/2018 | | Results for this | | | e | 10:44 AM | | procedure are in the | | | | PST | | results section. | + +--------+ + + + | FIBRINOGEN | Routin | 09/26/2018 | | Results for this | | | e | 10:44 AM | | procedure are in the | | | | PST | | results section. | + +--------+ + + + | MAGNESIUM | Routin | 09/26/2018 | | Results for this | | | e | 10:44 AM | | procedure are in the | | | | PST | | results section. | + +--------+ + + + | CALCIUM, IONIZED | Routin | 09/26/2018 | | Results for this | | | e | 10:44 AM | | procedure are in the | | | | PST | | results section. | + +--------+ + + + | BASIC METABOLIC | Routin | 09/26/2018 | | Results for this | | PANEL | e | 10:44 AM | | procedure are in the | | | | PST | | results section. | + +--------+ + + + | ECHO | Routin | 09/26/2018 | | Results for this | | TRANSESOPHAGEAL(ANA CRISTINA) | e | 10:30 AM | | procedure are in the | | - PERIOPERATIVE | | PST | | results section. | + +--------+ + + + | ARTHUR TORREZ, | Routin | 09/26/2018 | | Results for this | | ARTERIAL | e | 9:49 AM | | procedure are in the | | | | PST | | results section. | + +--------+ + + + | POC SCOTT 4, ISTAT | Routin | 09/26/2018 | | Results for this | | ARTERIAL | e | 9:45 AM | | procedure are in the | | | | PST | | results section. | + +--------+ + + + | POC ARTHUR CUNHA, | Routin | 09/26/2018 | | Results for this | | ARTERIAL | e | 9:28 AM | | procedure are in the | | | | PST | | results section. | + +--------+ + + + | POC GUERLINE CG8, | Routin | 09/26/2018 | | Results for this | | ARTERIAL | e | 9:01 AM | | procedure are in the | | | | PST | | results section. | + +--------+ + + + | POC SCOTT CUNHA8, | Routin | 09/26/2018 | | Results for this | | ARTERIAL | e | 8:30 AM | | procedure are in the | | | | PST | | results section. | + +--------+ + + + | POC SCOTT 4, ISTAT | Routin | 09/26/2018 | | Results for this | | ARTERIAL | e | 7:33 AM | | procedure are in the | | | | PST | | results section. | + +--------+ + + + | POC ISTAT, CG8, | Routin | 09/26/2018 | | Results for this | | ARTERIAL | e | 7:28 AM | | procedure are in the | | | | PST | | results section. | + +--------+ + + + | POC GLUCOSE | Routin | 09/26/2018 | | Results for this | | | e | 6:35 AM | | procedure are in the | | | | PST | | results section. | + +--------+ + + + documented in this encounter Results POC Glucose (10/01/2018 12:04 PM PST) + + + + + + | Component | Value | Ref Range | Performed | Pathologist | | | | | At | Signature | + + + + + + | Glucose, | 166 (H)Comment: Testing | 65 - 99 mg/dL | EXTERNAL | | | Fingerstick | performed at [facility];[address] | | [address] | | | [address];[place], [place] | | | | | | [address] | | | | + + + + + + + + | Specimen | + + | | + + + +---------+ + + | Performing | Address | City/State/Zipcode | Phone Number | | Organization | | | | + +---------+ + + | EXTERNAL LAB | | | | + +---------+ + + Magnesium (10/01/2018 7:28 AM PST) + + + + + + | Component | Value | Ref Range | Performed | Pathologist | | | | | At | Signature | + + + + + + | Magnesium | 2.3Comment: Testing | 1.7 - 2.4 mg/dL | EXTERNAL | | | | performed at [facility] | | LAB | | | | [address] [facility];[place], [place] | | | | | | [address] | | | | + + + [...] + +---------+ + + Basic Metabolic Panel (10/01/2018 7:28 AM PST) + + + + + + | Component | Value | Ref Range | Performed | Pathologist | | | | | At | Signature | + + + + + + | Na | 133 (L) | 135 - 145 | EXTERNAL | | | | | mmol/L | LAB | | + + + + + + | K | 4.1 | 3.5 - 4.9 | EXTERNAL | | | | | mmol/L | LAB | | + + + + + + | Cl | 98 (L) | 99 - 109 mmol/L | EXTERNAL | | | | | | LAB | | + + + + + + | CO2 | 27 | 23 - 32 mmol/L | EXTERNAL | | | | | | LAB | | + + + + + + | Anion Gap | 12 | 5 - 20 mmol/L | EXTERNAL | | | | | | LAB | | + + + + + + | Glucose, | 206 (H) | 65 - 99 mg/dL | EXTERNAL | | | Fasting | | | LAB | | + + + + + + | BUN | 7 (L) | 8 - 25 mg/dL | EXTERNAL | | | | | | LAB | | + + + + + + | Creatinine | 0.60 | 0.50 - 1.00 | EXTERNAL | | | | | mg/dL | LAB | | + + + + + + | BUN/Creatin | 11 | | EXTERNAL | | | ine Ratio | | | LAB | | + + + + + + | Calcium | 7.9 (L) | 8.5 - 10.5 | EXTERNAL | [...] | | | | | | MDRD IDMS traceable | | | | | | equation.Testing | | | | | | performed at [facility];[address] | [address];[place], [place] | | | | | | [address] | | | | + + + + + + + + | Specimen | + + | Blood specimen | | (specimen) | + + + +---------+ + + | Performing | Address | City/State/Zipcode | Phone Number | | Organization | | | | + +---------+ + + | EXTERNAL LAB | | | | + +---------+ + + POC Glucose (10/01/2018 5:46 AM PST) + + + + + + | Component | Value | Ref Range | Performed | Pathologist | | | | | At | Signature | + + + + + + | Glucose, | 104 (H)Comment: Testing | 65 - 99 mg/dL | EXTERNAL | | | Fingerstick | performed at [facility] | | LAB | | | | [address];[place], [place] | | | | | | [address] | | | | + + + + + + + + | Specimen | + + | | + + + +---------+ + + | Performing | Address | City/State/Zipcode | Phone Number | | Organization | | | | + +---------+ + + | EXTERNAL LAB | | | | + +---------+ + + POC Glucose (09/30/2018 10:38 PM PST) + + + + + + | Component | Value | Ref Range | Performed | Pathologist | | | | | At | Signature | + + + + + + | Glucose, | 262 (H)Comment: Testing | 65 - 99 mg/dL | EXTERNAL | | | Fingerstick | performed at [facility];[address] | | LAB | | | | [address];[place] | | | | | | [address] | | | | + + + + + + + + | Specimen | + + | | + + + +---------+ + + | Performing | Address | City/State/Zipcode | Phone Number | | Organization | | | | + +---------+ + + | EXTERNAL LAB | | | | + +---------+ + + POC Glucose (09/30/2018 9:16 PM PST) + + + + + + | Component | Value | Ref Range | Performed | Pathologist | | | | | At | Signature | + + + + + + | Glucose, | 246 (H)Comment: Testing | 65 - 99 mg/dL | EXTERNAL | | | Fingerstick | performed at [facility];[address] | | LAB | | | | [address];[place] | | | | | | [address] | | | | + + + + + + + + | Specimen | + + | | + + + +---------+ + + | Performing | Address | City/State/Zipcode | Phone Number | | Organization | | | | + +---------+ + + | EXTERNAL LAB | | | | + +---------+ + + POC Glucose (09/30/2018 7:21 PM PST) + + + + + + | Component | Value | Ref Range | Performed | Pathologist | | | | | At | Signature | + + + + + + | Glucose, | 132 (H)Comment: Testing | 65 - 99 mg/dL | EXTERNAL | | | Fingerstick | performed at [facility];[address] | | LAB | | | [address];[place], [place] | | | | | | [address] | | | | + + + + + + + + | Specimen | + + | | + + + +---------+ + + | Performing | Address | City/State/Zipcode | Phone Number | | Organization | | | | + +---------+ + + | EXTERNAL LAB | | | | + +---------+ + + POC Glucose (09/30/2018 6:58 PM PST) + + + + + + | Component | Value | Ref Range | Performed | Pathologist | | | | | At | Signature | + + + + + + | Glucose, | 79Comment: Testing | 65 - 99 mg/dL | EXTERNAL | | | Fingerstick | performed at [facility];[address] | | LAB | | | | [address];[place], [place] | | | | | | [address] | | | | + + + + + + + + | Specimen | + + | | + + + +---------+ + + | Performing | Address | City/State/Zipcode | Phone Number | | Organization | | | | + +---------+ + + | EXTERNAL LAB | | | | + +---------+ + + POC Glucose (09/30/2018 4:10 PM PST) + + + + + + | Component | Value | Ref Range | Performed | Pathologist | | | | | At | Signature | + + + + + + | Glucose, | 155 (H)Comment: Testing | 65 - 99 mg/dL | EXTERNAL | | | Fingerstick | performed at [facility];[address] | | LAB | | | | [address];[place], [place] | | | | | | [address] | | | | + + + + + + + + | Specimen | + + | | + + + +---------+ + + | Performing | Address | City/State/Zipcode | Phone Number | | Organization | | | | + +---------+ + + | EXTERNAL LAB | | | | + +---------+ + + POC Glucose (09/30/2018 12:13 PM PST) + + + + + + | Component | Value | Ref Range | Performed | Pathologist | | | | | At | Signature | + + + + + + | Glucose, | 167 (H)Comment: Testing | 65 - 99 mg/dL | EXTERNAL | | | Fingerstick | performed at [facility];[address] | | LAB | | | | [address];[place] | | | | | | [address] | | | | + + + + + + + + | Specimen | + + | | + + + +---------+ + + | Performing | Address | City/State/Zipcode | Phone Number | | Organization | | | | + +---------+ + + | EXTERNAL LAB | | | | + +---------+ + + XR Chest 2 Vws (09/30/2018 8:10 AM PST) + + | Specimen | + + | | + + + + + | Impressions | Performed At | + + + | 1. Mild cardiomegaly. Status post median sternotomy and CABG. 2. | | | Small bilateral pleural effusions with bibasilar subsegmental | | | atelectasis. 3. Small left apical pneumothorax, significantly | | | improved as compared to radiographs dated 09/29/2018. 4. Left | | | thoracostomy tube in situ. | | + + + + + + | Narrative | Performed At | + + + | JOHN PAUL MENG XR CHEST 2 VIEW FRONTAL AND LATERAL 09/30/2018 | | | 7:50 AM HISTORY: 58 years. Female. Status post cardiac | | | surgery. Tubes/line position. TECHNIQUE: XR CHEST 2 VIEW FRONTAL | | | AND LATERAL. 2 view(s) obtained. COMPARISON: 09/29/2018. | | | FINDINGS: Mild cardiomegaly. Status post median sternotomy and CABG. | | | Blunting of both costophrenic sulci. Bibasilar subsegmental | | | atelectasis. Small left apical pneumothorax with apical pleural | | | separation measuring approximately 3.5 m. Left thoracostomy tube in | | | situ. Median sternotomy wires are intact and aligned. Normal | | | visualized portion of the abdomen. | | + + + + + | Procedure Note | + + | Eduardo, Rad Conversion - 05/29/2019 3:18 PM PDT JOHN PAUL MENGXR CHEST 2 VIEW | | FRONTAL AND [id number]/30/2018 7:50 AM HISTORY:58 years. Female. Status post cardiac | | surgery. Tubes/line position. TECHNIQUE:XR CHEST 2 VIEW FRONTAL AND LATERAL. 2 view(s) | | obtained. COMPARISON:09/29/2018. FINDINGS:Mild cardiomegaly. Status post median | | sternotomy and CABG. Blunting of both costophrenic sulci. Bibasilar subsegmental | | atelectasis. Small left apical pneumothorax with apical pleural separation measuring | | approximately 3.5 m. Left thoracostomy tube in situ. Median sternotomy wires are intact | | and aligned. Normal visualized portion of the abdomen. IMPRESSION: 1. Mild | | cardiomegaly. Status post median sternotomy and CABG.2. Small bilateral pleural | | effusions with bibasilar subsegmental atelectasis.3. Small left apical pneumothorax, | | significantly improved as compared to radiographs dated 09/29/2018.4. Left thoracostomy | | tube in situ. | | | |FINDINGS: | |Mild cardiomegaly. Status post median sternotomy and CABG. Blunting of both costophrenic borden lci. Bibasilar subsegmental atelectasis. Small left apical pneumothorax with apical pleural separation measuring approximately 3.5 m. Left thoracostomy tube in | |situ. Median sternotomy wires are intact and aligned. Normal visualized portion of the abdo men. | | | |IMPRESSION: | |1. Mild cardiomegaly. Status post median sternotomy and CABG. | |2. Small bilateral pleural effusions with bibasilar subsegmental atelectasis. | |3. Small left apical pneumothorax, significantly improved as compared to radiographs dated 09/29/2018. | |4. Left thoracostomy tube in situ. | | | | | + + POC Glucose (09/30/2018 6:05 AM PST) + + + + + + | Component | Value | Ref Range | Performed | Pathologist | | | | | At | Signature | + + + + + + | Glucose, | 85Comment: Testing | 65 - 99 mg/dL | EXTERNAL | | | Fingerstick | performed at [facility];[address] | | LAB | | | | [address];[place] | | | | | | [address] | | | | + + + + + + + + | Specimen | + + | | + + + +---------+ + + | Performing | Address | City/State/Zipcode | Phone Number | | Organization | | | | + +---------+ + + | EXTERNAL LAB | | | | + +---------+ + + CBC no Differential (09/30/2018 3:51 AM PST) + + + + + + | Component | Value | Ref Range | Performed | Pathologist | | | | | At | Signature | + + + + + + | WBC | 7.24 | 3.80 - 11.00 | EXTERNAL | | | | | K/uL | LAB | | + + + + + + | Red Blood | 2.58 (L) | 3.70 - 5.10 | EXTERNAL | | | Cells | | M/uL | LAB | | | Counted | | | | | + + + + + + | Hemoglobin | 7.9 (L) | 11.3 - 15.5 | EXTERNAL | | | | | g/dL | LAB | | + + + + + + | Hematocrit, | 23.2 (L) | 34.0 - 46.0 % | EXTERNAL | | | POC | | | LAB | | + + + + + + | MCV | 90.2 | 80.0 - 100.0 fl | EXTERNAL | | | | | | LAB | | + + + + + + | MCH | 30.6 | 27.0 - 34.0 pg | EXTERNAL | | | | | | LAB | | + + + + + + | MCHC | 33.9 | 32.0 - 35.5 | EXTERNAL | | | | | g/dL | LAB | | + + + + + + | RDW-CV | 38.9 | 37 - 53 fl | EXTERNAL | | | | | | LAB | | + + + + + + | Platelet | 202 | 150 - 400 K/uL | EXTERNAL | | | Count | | | LAB | | | Plasma | | | | | + + + + + + | MPV | 8.3Comment: Testing | fl | EXTERNAL | | | | performed at [facility], [address] | | LAB | | | | [address], | | | | | | [place] [address] | | | | + + + + + + + + | Specimen | + + | Blood specimen | | (specimen) | + + + +---------+ + + | Performing | Address | City/State/Zipcode | Phone Number | | Organization | | | | + +---------+ + + | EXTERNAL LAB | | | | + +---------+ + + Magnesium (09/30/2018 3:51 AM PST) + + + + + + | Component | Value | Ref Range | Performed | Pathologist | | | | | At | Signature | + + + + + + | Magnesium | 2.2Comment: Testing | 1.7 - 2.4 mg/dL | EXTERNAL | | | | performed at [facility], [address] | | LAB | | | | [address], | | | | | | [place] [address] | | | | + + + [...] + +---------+ + + Basic Metabolic Panel (09/30/2018 3:51 AM PST) + + + + + + | Component | Value | Ref Range | Performed | Pathologist | | | | | At | Signature | + + + + + + | Na | 135 | 135 - 145 | EXTERNAL | | | | | mmol/L | LAB | | + + + + + + | K | 4.2 | 3.5 - 4.9 | EXTERNAL | | | | | mmol/L | LAB | | + + + + + + | Cl | 99 | 99 - 109 mmol/L | EXTERNAL [...] + + + + | Glucose, | 91 | 65 - 99 mg/dL | EXTERNAL | | | Fasting | | | LAB | | + + + + + + | BUN | 9 | 8 - 25 mg/dL | EXTERNAL | | | | | | LAB | | + + + + + + | Creatinine | 0.5 | 0.50 - 1.00 | EXTERNAL | | | | | mg/dL | LAB | | + + + + + + | BUN/Creatin | 18 | | EXTERNAL | | | ine Ratio | | | LAB | | + + + + + + | Calcium | 7.6 (L) | 8.5 - 10.5 | EXTERNAL | [...] | | | | | | MDRD IDMS traceable | | | | | | equation.Testing | | | | | | performed at [facility], [address] | | | | | | [facility], | | | | | | [place] [address] | | | | + + + + + + + + | Specimen | + + | Blood specimen | | (specimen) | + + + +---------+ + + | Performing | Address | City/State/Zipcode | Phone Number | | Organization | | | | + +---------+ + + | EXTERNAL LAB | | | | + +---------+ + + POC Glucose (09/29/2018 9:22 PM PST) + + + + + + | Component | Value | Ref Range | Performed | Pathologist | | | | | At | Signature | + + + + + + | Glucose, | 112 (H)Comment: Testing | 65 - 99 mg/dL | EXTERNAL | | | Fingerstick | performed at [facility] | | LAB | | | | [address];[place] | | | | | | [address] | | | | + + + + + + + + | Specimen | + + | | + + + +---------+ + + | Performing | Address | City/State/Zipcode | Phone Number | | Organization | | | | + +---------+ + + | EXTERNAL LAB | | | | + +---------+ + + POC Glucose (09/29/2018 4:48 PM PST) + + + + + + | Component | Value | Ref Range | Performed | Pathologist | | | | | At | Signature | + + + + + + | Glucose, | 88Comment: Testing | 65 - 99 mg/dL | EXTERNAL | | | Fingerstick | performed at [facility];[address] | | LAB | | | | [address];[place], [place] | | | | | | [address] | | | | + + + + + + + + | Specimen | + + | | + + + +---------+ + + | Performing | Address | City/State/Zipcode | Phone Number | | Organization | | | | + +---------+ + + | EXTERNAL LAB | | | | + +---------+ + + POC Glucose (09/29/2018 11:41 AM PST) + + + + + + | Component | Value | Ref Range | Performed | Pathologist | | | | | At | Signature | + + + + + + | Glucose, | 123 (H)Comment: Testing | 65 - 99 mg/dL | EXTERNAL | | | Fingerstick | performed at [facility] | | LAB | | | | [address];[place], [place] | | | | | | [address] | | | | + + + + + + + + | Specimen | + + | | + + + +---------+ + + | Performing | Address | City/State/Zipcode | Phone Number | | Organization | | | | + +---------+ + + | EXTERNAL LAB | | | | + +---------+ + + POC Glucose (09/29/2018 10:49 AM PST) + + + + + + | Component | Value | Ref Range | Performed | Pathologist | | | | | At | Signature | + + + + + + | Glucose, | 202 (H)Comment: Testing | 65 - 99 mg/dL | EXTERNAL | | | Fingerstick | performed at [facility];[address] | | LAB | | | | [address];[place] | | | | | | [address] | | | | + + + + + + + + | Specimen | + + | | + + + +---------+ + + | Performing | Address | City/State/Zipcode | Phone Number | | Organization | | | | + +---------+ + + | EXTERNAL LAB | | | | + +---------+ + + POC Glucose (09/29/2018 9:37 AM PST) + + + + + + | Component | Value | Ref Range | Performed | Pathologist | | | | | At | Signature | + + + + + + | Glucose, | 196 (H)Comment: Testing | 65 - 99 mg/dL | EXTERNAL | | | Fingerstick | performed at [facility];[address] | | LAB | | | | [address];[place] | | | | | | [id number] | | | | + + + + + + + + | Specimen | + + | | + + + +---------+ + + | Performing | Address | City/State/Zipcode | Phone Number | | Organization | | | | + +---------+ + + | EXTERNAL LAB | | | | + +---------+ + + POC Glucose (09/29/2018 9:10 AM PST) + + + + + + | Component | Value | Ref Range | Performed | Pathologist | | | | | At | Signature | + + + + + + | Glucose, | 233 (H)Comment: Testing | 65 - 99 mg/dL | EXTERNAL | | | Fingerstick | performed at [facility];[address] | | LAB | | | | [address];[place], [place] | | | | | | [address] | | | | + + + + + + + + | Specimen | + + | | + + + +---------+ + + | Performing | Address | City/State/Zipcode | Phone Number | | Organization | | | | + +---------+ + + | EXTERNAL LAB | | | | + +---------+ + + POC Glucose (09/29/2018 7:52 AM PST) + + + + + + | Component | Value | Ref Range | Performed | Pathologist | | | | | At | Signature | + + + + + + | Glucose, | 126 (H)Comment: Testing | 65 - 99 mg/dL | EXTERNAL | | | Fingerstick | performed at [facility];[address] | | LAB | | | | [address];[place] | | | | | | [address] | | | | + + + + + + + + | Specimen | + + | | + + + +---------+ + + | Performing | Address | City/State/Zipcode | Phone Number | | Organization | | | | + +---------+ + + | EXTERNAL LAB | | | | + +---------+ + + POC Glucose (09/29/2018 6:42 AM PST) + + + + + + | Component | Value | Ref Range | Performed | Pathologist | | | | | At | Signature | + + + + + + | Glucose, | 112 (H)Comment: Testing | 65 - 99 mg/dL | EXTERNAL | | | Fingerstick | performed at [facility];[address] | | LAB | | | | [address];[place], [place] | | | | | | [address] | | | | + + + + + + + + | Specimen | + + | | + + + +---------+ + + | Performing | Address | City/State/Zipcode | Phone Number | | Organization | | | | + +---------+ + + | EXTERNAL LAB | | | | + +---------+ + + POC Glucose (09/29/2018 5:40 AM PST) + + + + + + | Component | Value | Ref Range | Performed | Pathologist | | | | | At | Signature | + + + + + + | Glucose, | 150 (H)Comment: Testing | 65 - 99 mg/dL | EXTERNAL | | | Fingerstick | performed at [facility];[address] | | LAB | | | | [address];[place] | | | | | | [address] | | | | + + + + + + + + | Specimen | + + | | + + + +---------+ + + | Performing | Address | City/State/Zipcode | Phone Number | | Organization | | | | + +---------+ + + | EXTERNAL LAB | | | | + +---------+ + + POC Glucose (09/29/2018 5:39 AM PST) + + + + + + | Component | Value | Ref Range | Performed | Pathologist | | | | | At | Signature | + + + + + + | Glucose, | 292 (H)Comment: Testing | 65 - 99 mg/dL | EXTERNAL | | | Fingerstick | performed at [facility];[address] | | LAB | | | | [address];[place], [place] | | | | | | [address] | | | | + + + + + + + + | Specimen | + + | | + + + +---------+ + + | Performing | Address | City/State/Zipcode | Phone Number | | Organization | | | | + +---------+ + + | EXTERNAL LAB | | | | + +---------+ + + XR Chest 1 Vw (09/29/2018 5:21 AM PST) + + | Specimen | + + | | + + + + | Addenda | + + | Addendum by Jean Gutierrez MD on 09/29/2018 7:15 AM Findings related to the nurse | | at 0715 hours. | + + + + + | Impressions | Performed At | + + + | 1. Previously seen left sided pneumothorax is larger as compared to | | | the prior exam, currently measuring 2.4 cm, prior measurement 0.7 cm. | | | Left chest tube is in position overlying the pleural space. 2. Low | | | lung volumes. Bibasilar atelectasis/aspiration. Electronically | | | signed by Jean Gutierrez MD on 09/29/2018 7:06 AM | | + + + + + + | Narrative | Performed At | + + + | JOHN PAUL MENG 1960 58 years XR CHEST 1 VIEW 09/29/2018 | | | 5:21 AM INDICATION: Tube and line position. COMPARISON: | | | September 28, 2018 TECHNIQUE: Chest 1 view, AP view of the chest | | | FINDINGS: Low lung volumes. Bibasilar atelectasis/aspiration. | | | Right internal jugular introducer sheath in expected position. Midline | | | mediastinal drain and left chest tubes in unchanged position. No | | | acute osseous abnormality. Previously seen left sided pneumothorax | | | is larger as compared to the prior exam, currently measuring 2.4 cm, | | | prior measurement 0.7 cm. Midline sternal wires are intact | | + + + + + | Procedure Note | + + | Eduardo, Rad Conversion - 05/29/2019 3:18 PM PDT JOHN PAUL [id number] yearsXR | | CHEST 1 VIEW09/29/2018 5:21 AM INDICATION: Tube and line position. COMPARISON: September | | 2017 TECHNIQUE: Chest 1 view, AP view of the chest FINDINGS:Low lung volumes. | | Bibasilar atelectasis/aspiration. Right internal jugular introducer sheath in expected | | position. Midline mediastinal drain and left chest tubes in unchanged position. No acute | | osseous abnormality. Previously seen left sided pneumothorax is larger as compared to | | the prior exam, currently measuring 2.4 cm, prior measurement 0.7 cm. Midline sternal | | wires are intact IMPRESSION: 1. Previously seen left sided pneumothorax is larger as | | compared to the prior exam, currently measuring 2.4 cm, prior measurement 0.7 cm. Left | | chest tube is in position overlying the pleural space.2. Low lung volumes. Bibasilar | | atelectasis/aspiration. | | | |FINDINGS: | |Low lung volumes. Bibasilar atelectasis/aspiration. | | | |Right internal jugular introducer sheath in expected position. Midline mediastinal drain an d left chest tubes in unchanged position. | | | |No acute osseous abnormality. | | | |Previously seen left sided pneumothorax is larger as compared to the prior exam, currently measuring 2.4 cm, prior measurement 0.7 cm. | | | |Midline sternal wires are intact | | | |IMPRESSION: | |1. Previously seen left sided pneumothorax is larger as compared to the prior exam, current ly measuring 2.4 cm, prior measurement 0.7 cm. Left chest tube is in position overlying the pleural space. | |2. Low lung volumes. Bibasilar atelectasis/aspiration. | | | | | + + External Lab: CBC (09/29/2018 4:11 AM PST) + + + + + + | Component | Value | Ref Range | Performed | Pathologist | | | | | At | Signature | + + + + + + | WBC | 8.58 | 3.80 - 11.00 | EXTERNAL | | | | | K/uL | LAB | | + + + + + + | Red Blood | 2.60 (L) | 3.70 - 5.10 | EXTERNAL | | | Cells | | M/uL | LAB | | | Counted | | | | | + + + + + + | Hemoglobin | 8.2 (L) | 11.3 - 15.5 | EXTERNAL | | | | | g/dL | LAB | | + + + + + + | Hematocrit, | 23.6 (L) | 34.0 - 46.0 % | EXTERNAL | | | POC | | | LAB | | + + + + + + | MCV | 90.8 | 80.0 - 100.0 fl | EXTERNAL | | | | | | LAB | | + + + + + + | MCH | 31.4 | 27.0 - 34.0 pg | EXTERNAL | | | | | | LAB | | + + + + + + | MCHC | 34.6 | 32.0 - 35.5 | EXTERNAL | | | | | g/dL | LAB | | + + + + + + | RDW-CV | 40.7 | 37 - 53 fl | EXTERNAL | | | | | | LAB | | + + + + + + | Platelet | 161 | 150 - 400 K/uL | EXTERNAL | | | Count | | | LAB | | | Plasma | | | | | + + + + + + | MPV | 9.1 | fl | EXTERNAL | | | | | | LAB | | + + + + + + | Differentia | AUTOMATED | | EXTERNAL | | | l Type | | | LAB | | + + + + + + | % Segmented | 75.04 | % | EXTERNAL | | | | | | LAB | | | Neutrophils | | | | | + + + + + + | % | 14.10 | % | EXTERNAL | | | Lymphocytes | | | LAB | | + + + + + + | % Monocytes | 9.03 | % | EXTERNAL | | | | | | LAB | | + + + + + + | % | 1.57 | % | EXTERNAL | | | Eosinophils | | | LAB | | + + + + + + | % Basophils | 0.26 | % | EXTERNAL | | | | | | LAB | | + + + + + + | Absolute | 6.44 | 1.90 - 7.40 | EXTERNAL | | | Segmented | | K/uL | LAB | | | Neutrophils | | | | | + + + + + + | Absolute | 1.21 | 1.00 - 3.90 | EXTERNAL | | | Lymphocytes | | K/uL | LAB | | + + + + + + | Absolute | 0.78 | 0.00 - 0.80 | EXTERNAL | | | Monocytes | | K/uL | LAB | | + + + + + + | Absolute | 0.14 | 0.00 - 0.50 | EXTERNAL | | | Eosinophils | | K/uL | LAB | | + + + + + + | Absolute | 0.02Comment: Testing | 0.00 - 0.10 | EXTERNAL | | | Basophils | performed at [facility], [address] | K/uL | LAB | | | | [address], | | | | | | [place] [address] | | | | + + + + + + + + | Specimen | + + | Blood specimen | | (specimen) | + + + +---------+ + + | Performing | Address | City/State/Zipcode | Phone Number | | Organization | | | | + +---------+ + + | EXTERNAL LAB | | | | + +---------+ + + Magnesium (09/29/2018 4:11 AM PST) + + + + + + | Component | Value | Ref Range | Performed | Pathologist | | | | | At | Signature | + + + + + + | Magnesium | 2.1Comment: Testing | 1.7 - 2.4 mg/dL | EXTERNAL | | | | performed at [facility], [address] | | LAB | | | | [address], | | | | | | [place] [address] | | | | + + + [...] + +---------+ + + Basic Metabolic Panel (09/29/2018 4:11 AM PST) + + + + + + | Component | Value | Ref Range | Performed | Pathologist | | | | | At | Signature | + + + + + + | Na | 134 (L) | 135 - 145 | EXTERNAL | | | | | mmol/L | LAB | | + + + + + + | K | 4.2 | 3.5 - 4.9 | EXTERNAL | | | | | mmol/L | LAB | | + + + + + + | Cl | 99 | 99 - 109 mmol/L | EXTERNAL | | | | | | LAB | | + + + + + + | CO2 | 27 | 23 - 32 mmol/L | EXTERNAL | | | | | | LAB | | + + + + + + | Anion Gap | 12 | 5 - 20 mmol/L | EXTERNAL | | | | | | LAB | | + + + + + + | Glucose, | 122 (H) | 65 - 99 mg/dL | EXTERNAL | | | Fasting | | | LAB | | + + + + + + | BUN | 8 | 8 - 25 mg/dL | EXTERNAL | | | | | | LAB | | + + + + + + | Creatinine | 0.5 | 0.50 - 1.00 | EXTERNAL | | | | | mg/dL | LAB | | + + + + + + | BUN/Creatin | 16 | | EXTERNAL | | | ine Ratio | | | LAB | | + + + + + + | Calcium | 7.6 (L) | 8.5 - 10.5 | EXTERNAL | [...] | | | | | | MDRD IDMS traceable | | | | | | equation.Testing | | | | | | performed at [facility], [address] | | | | | | [facility], | | | | | | [place] [address] | | | | + + + + + + + + | Specimen | + + | Blood specimen | | (specimen) | + + + +---------+ + + | Performing | Address | City/State/Zipcode | Phone Number | | Organization | | | | + +---------+ + + | EXTERNAL LAB | | | | + +---------+ + + POC Glucose (09/29/2018 3:42 AM PST) + + + + + + | Component | Value | Ref Range | Performed | Pathologist | | | | | At | Signature | + + + + + + | Glucose, | 136 (H)Comment: Testing | 65 - 99 mg/dL | EXTERNAL | | | Fingerstick | performed at [facility];[address] | | LAB | | | | [address];[place] | | | | | | [address] | | | | + + + + + + + + | Specimen | + + | | + + + +---------+ + + | Performing | Address | City/State/Zipcode | Phone Number | | Organization | | | | + +---------+ + + | EXTERNAL LAB | | | | + +---------+ + + POC Glucose (09/29/2018 2:36 AM PST) + + + + + + | Component | Value | Ref Range | Performed | Pathologist | | | | | At | Signature | + + + + + + | Glucose, | 122 (H)Comment: Testing | 65 - 99 mg/dL | EXTERNAL | | | Fingerstick | performed at [facility] | | LAB | | | | [address];[place] | | | | | | [address] | | | | + + + + + + + + | Specimen | + + | | + + + +---------+ + + | Performing | Address | City/State/Zipcode | Phone Number | | Organization | | | | + +---------+ + + | EXTERNAL LAB | | | | + +---------+ + + POC Glucose (09/29/2018 1:29 AM PST) + + + + + + | Component | Value | Ref Range | Performed | Pathologist | | | | | At | Signature | + + + + + + | Glucose, | 126 (H)Comment: Testing | 65 - 99 mg/dL | EXTERNAL | | | Fingerstick | performed at [facility];[address] | | LAB | | | | [address];[place], [place] | | | | | | [address] | | | | + + + + + + + + | Specimen | + + | | + + + +---------+ + + | Performing | Address | City/State/Zipcode | Phone Number | | Organization | | | | + +---------+ + + | EXTERNAL LAB | | | | + +---------+ + + POC Glucose (09/29/2018 12:19 AM PST) + + + + + + | Component | Value | Ref Range | Performed | Pathologist | | | | | At | Signature | + + + + + + | Glucose, | 144 (H)Comment: Testing | 65 - 99 mg/dL | EXTERNAL | | | Fingerstick | performed at [facility];[address] | | LAB | | | | [address];[place] | | | | | | [address] | | | | + + + + + + + + | Specimen | + + | | + + + +---------+ + + | Performing | Address | City/State/Zipcode | Phone Number | | Organization | | | | + +---------+ + + | EXTERNAL LAB | | | | + +---------+ + + POC Glucose (09/28/2018 11:11 PM PST) + + + + + + | Component | Value | Ref Range | Performed | Pathologist | | | | | At | Signature | + + + + + + | Glucose, | 143 (H)Comment: Testing | 65 - 99 mg/dL | EXTERNAL | | | Fingerstick | performed at [facility];[address] | | LAB | | | | [address];[place] | | | | | | [address] | | | | + + + + + + + + | Specimen | + + | | + + + +---------+ + + | Performing | Address | City/State/Zipcode | Phone Number | | Organization | | | | + +---------+ + + | EXTERNAL LAB | | | | + +---------+ + + POC Glucose (09/28/2018 9:04 PM PST) + + + + + + | Component | Value | Ref Range | Performed | Pathologist | | | | | At | Signature | + + + + + + | Glucose, | 139 (H)Comment: Testing | 65 - 99 mg/dL | EXTERNAL | | | Fingerstick | performed at [facility];[address] | | LAB | | | | [address];[place], [place] | | | | | | [address] | | | | + + + + + + + + | Specimen | + + | | + + + +---------+ + + | Performing | Address | City/State/Zipcode | Phone Number | | Organization | | | | + +---------+ + + | EXTERNAL LAB | | | | + +---------+ + + POC Glucose (09/28/2018 6:43 PM PST) + + + + + + | Component | Value | Ref Range | Performed | Pathologist | | | | | At | Signature | + + + + + + | Glucose, | 112 (H)Comment: Testing | 65 - 99 mg/dL | EXTERNAL | | | Fingerstick | performed at [facility];[address] | | LAB | | | | [address];[place], [place] | | | | | | [address] | | | | + + + + + + + + | Specimen | + + | | + + + +---------+ + + | Performing | Address | City/State/Zipcode | Phone Number | | Organization | | | | + +---------+ + + | EXTERNAL LAB | | | | + +---------+ + + POC Glucose (09/28/2018 4:30 PM PST) + + + + + + | Component | Value | Ref Range | Performed | Pathologist | | | | | At | Signature | + + + + + + | Glucose, | 111 (H)Comment: Testing | 65 - 99 mg/dL | EXTERNAL | | | Fingerstick | performed at [facility];[address] | | LAB | | | | [address];[place] | | | | | | [address] | | | | + + + + + + + + | Specimen | + + | | + + + +---------+ + + | Performing | Address | City/State/Zipcode | Phone Number | | Organization | | | | + +---------+ + + | EXTERNAL LAB | | | | + +---------+ + + POC Glucose (09/28/2018 3:11 PM PST) + + + + + + | Component | Value | Ref Range | Performed | Pathologist | | | | | At | Signature | + + + + + + | Glucose, | 116 (H)Comment: Testing | 65 - 99 mg/dL | EXTERNAL | | | Fingerstick | performed at [facility];[address] | | LAB | | | | [address];[place], [place] | | | | | | [address] | | | | + + + + + + + + | Specimen | + + | | + + + +---------+ + + | Performing | Address | City/State/Zipcode | Phone Number | | Organization | | | | + +---------+ + + | EXTERNAL LAB | | | | + +---------+ + + POC Glucose (09/28/2018 1:58 PM PST) + + + + + + | Component | Value | Ref Range | Performed | Pathologist | | | | | At | Signature | + + + + + + | Glucose, | 123 (H)Comment: Testing | 65 - 99 mg/dL | EXTERNAL | | | Fingerstick | performed at [facility];[address] | | LAB | | | | [address];[place] | | | | | | [address] | | | | + + + + + + + + | Specimen | + + | | + + + +---------+ + + | Performing | Address | City/State/Zipcode | Phone Number | | Organization | | | | + +---------+ + + | EXTERNAL LAB | | | | + +---------+ + + POC Glucose (09/28/2018 12:52 PM PST) + + + + + + | Component | Value | Ref Range | Performed | Pathologist | | | | | At | Signature | + + + + + + | Glucose, | 150 (H)Comment: Testing | 65 - 99 mg/dL | EXTERNAL | | | Fingerstick | performed at [facility];[address] | | LAB | | | | [address];[place], [place] | | | | | | [address] | | | | + + + + + + + + | Specimen | + + | | + + + +---------+ + + | Performing | Address | City/State/Zipcode | Phone Number | | Organization | | | | + +---------+ + + | EXTERNAL LAB | | | | + +---------+ + + POC Glucose (09/28/2018 11:32 AM PST) + + + + + + | Component | Value | Ref Range | Performed | Pathologist | | | | | At | Signature | + + + + + + | Glucose, | 144 (H)Comment: Testing | 65 - 99 mg/dL | EXTERNAL | | | Fingerstick | performed at [facility];[address] | | LAB | | | | [address];[place] | | | | | | [address] | | | | + + + + + + + + | Specimen | + + | | + + + +---------+ + + | Performing | Address | City/State/Zipcode | Phone Number | | Organization | | | | + +---------+ + + | EXTERNAL LAB | | | | + +---------+ + + POC Glucose (09/28/2018 10:25 AM PST) + + + + + + | Component | Value | Ref Range | Performed | Pathologist | | | | | At | Signature | + + + + + + | Glucose, | 149 (H)Comment: Testing | 65 - 99 mg/dL | EXTERNAL | | | Fingerstick | performed at [facility];[address] | | LAB | | | | [address];[place] | | | | | | [address] | | | | + + + + + + + + | Specimen | + + | | + + + +---------+ + + | Performing | Address | City/State/Zipcode | Phone Number | | Organization | | | | + +---------+ + + | EXTERNAL LAB | | | | + +---------+ + + Potassium (09/28/2018 9:11 AM PST) + + + + + + | Component | Value | Ref Range | Performed | Pathologist | | | | | At | Signature | + + + + + + | K | 4.7Comment: Testing | 3.5 - 4.9 | EXTERNAL | | | | performed at [facility];[address] | mmol/L | LAB | | | | [address];[place] | | | | | | [address] | | | | + + + + + + + + | Specimen | + + | Blood specimen | | (specimen) | + + + +---------+ + + | Performing | Address | City/State/Zipcode | Phone Number | | Organization | | | | + +---------+ + + | EXTERNAL LAB | | | | + +---------+ + + POC Glucose (09/28/2018 9:09 AM PST) + + + + + + | Component | Value | Ref Range | Performed | Pathologist | | | | | At | Signature | + + + + + + | Glucose, | 149 (H)Comment: Testing | 65 - 99 mg/dL | EXTERNAL | | | Fingerstick | performed at [facility];[address] | | LAB | | | | [address];[place] | | | | | | [address] | | | | + + + + + + + + | Specimen | + + | | + + + +---------+ + + | Performing | Address | City/State/Zipcode | Phone Number | | Organization | | | | + +---------+ + + | EXTERNAL LAB | | | | + +---------+ + + POC Glucose (09/28/2018 7:59 AM PST) + + + + + + | Component | Value | Ref Range | Performed | Pathologist | | | | | At | Signature | + + + + + + | Glucose, | 93Comment: Testing | 65 - 99 mg/dL | EXTERNAL | | | Fingerstick | performed at [facility];[address] | | LAB | | | | [address];[place] | | | | | | [address] | | | | + + + + + + + + | Specimen | + + | | + + + +---------+ + + | Performing | Address | City/State/Zipcode | Phone Number | | Organization | | | | + +---------+ + + | EXTERNAL LAB | | | | + +---------+ + + POC Glucose (09/28/2018 5:56 AM PST) + + + + + + | Component | Value | Ref Range | Performed | Pathologist | | | | | At | Signature | + + + + + + | Glucose, | 124 (H)Comment: Testing | 65 - 99 mg/dL | EXTERNAL | | | Fingerstick | performed at [facility];[address] | | LAB | | | | [address];[place] | | | | | | [address] | | | | + + + + + + + + | Specimen | + + | | + + + +---------+ + + | Performing | Address | City/State/Zipcode | Phone Number | | Organization | | | | + +---------+ + + | EXTERNAL LAB | | | | + +---------+ + + XR Chest 1 Vw (09/28/2018 5:36 AM PST) + + | Specimen | + + | | + + + + + | Impressions | Performed At | + + + | There is a tiny 7 mm left apical pneumothorax seen. Left-sided | | | chest tubes again seen. | | + + + + + + | Narrative | Performed At | + + + | JOHN PAUL CYNDI MENG 1960 58 years XR CHEST 1 VIEW 09/28/2018 | | | 5:36 AM INDICATION: Tube/line position. COMPARISON study: | | | 09/27/2018. TECHNIQUE: 1 view FINDINGS: There is a small | | | left apical pneumothorax seen measuring 7 mm. Left-sided chest tubes | | | identified. Cardiomediastinal silhouette appears unremarkable. Patient | | | is poststernotomy. Right-sided IJ sheath appears unchanged. Small | | | amount of bibasilar atelectasis seen. | | + + + + + | Procedure Note | + + | Lavell Clark - 05/29/2019 3:18 PM PDT [id number] | | CHEST 1 VIEW09/28/2018 5:36 AM INDICATION: Tube/line position. COMPARISON study: | | 09/27/2018. TECHNIQUE: 1 view FINDINGS: There is a small left apical pneumothorax seen | | measuring 7 mm. Left-sided chest tubes identified. Cardiomediastinal silhouette appears | | unremarkable. Patient is poststernotomy. Right-sided IJ sheath appears unchanged. Small | | amount of bibasilar atelectasis seen. IMPRESSION: There is a tiny 7 mm left apical | | pneumothorax seen.Left-sided chest tubes again seen. | |COMPARISON study: 09/27/2018. | | | |TECHNIQUE: 1 view | | | |FINDINGS: There is a small left apical pneumothorax seen measuring 7 mm. Left-sided chest tubes identified. Cardiomediastinal silhouette appears unremarkable. Patient is poststernoto my. Right-sided IJ sheath appears | |unchanged. Small amount of bibasilar | |atelectasis seen. | | | |IMPRESSION: | |There is a tiny 7 mm left apical pneumothorax seen. | |Left-sided chest tubes again seen. | | | | | + + External Lab: CBC (09/28/2018 3:56 AM PST) + + + + + + | Component | Value | Ref Range | Performed | Pathologist | | | | | At | Signature | + + + + + + | WBC | 13.55 (H) | 3.80 - 11.00 | EXTERNAL | | | | | K/uL | LAB | | + + + + + + | Red Blood | 2.82 (L) | 3.70 - 5.10 | EXTERNAL | | | Cells | | M/uL | LAB | | | Counted | | | | | + + + + + + | Hemoglobin | 8.4 (L) | 11.3 - 15.5 | EXTERNAL | | | | | g/dL | LAB | | + + + + + + | Hematocrit, | 25.8 (L) | 34.0 - 46.0 % | EXTERNAL | | | POC | | | LAB | | + + + + + + | MCV | 91.4 | 80.0 - 100.0 fl | EXTERNAL | | | | | | LAB | | + + + + + + | MCH | 30.0 | 27.0 - 34.0 pg | EXTERNAL | | | | | | LAB | | + + + + + + | MCHC | 32.8 | 32.0 - 35.5 | EXTERNAL | | | | | g/dL | LAB | | + + + + + + | RDW-CV | 42.9 | 37 - 53 fl | EXTERNAL | | | | | | LAB | | + + + + + + | Platelet | 181 | 150 - 400 K/uL | EXTERNAL | | | Count | | | LAB | | | Plasma | | | | | + + + + + + | MPV | 8.5 | fl | EXTERNAL | | | | | | LAB | | + + + + + + | Differentia | AUTOMATED | | EXTERNAL | | | l Type | | | LAB | | + + + + + + | % Segmented | 79.37 | % | EXTERNAL | | | | | | LAB | | | Neutrophils | | | | | + + + + + + | % | 11.38 | % | EXTERNAL | | | Lymphocytes | | | LAB | | + + + + + + | % Monocytes | 8.16 | % | EXTERNAL | | | | | | LAB | | + + + + + + | % | 0.79 | % | EXTERNAL | | | Eosinophils | | | LAB | | + + + + + + | % Basophils | 0.30 | % | EXTERNAL | | | | | | LAB | | + + + + + + | Absolute | 10.75 (H) | 1.90 - 7.40 | EXTERNAL | | | Segmented | | K/uL | LAB | | | Neutrophils | | | | | + + + + + + | Absolute | 1.54 | 1.00 - 3.90 | EXTERNAL | | | Lymphocytes | | K/uL | LAB | | + + + + + + | Absolute | 1.11 (H) | 0.00 - 0.80 | EXTERNAL | | | Monocytes | | K/uL | LAB | | + + + + + + | Absolute | 0.11 | 0.00 - 0.50 | EXTERNAL | | | Eosinophils | | K/uL | LAB | | + + + + + + | Absolute | 0.04Comment: Testing | 0.00 - 0.10 | EXTERNAL | | | Basophils | performed at [facility], [address] | K/u[address] | LAB | | | | [address], | | | | | | [place] [address] | | | | + + + + + + + + | Specimen | + + | Blood specimen | | (specimen) | + + + +---------+ + + | Performing | Address | City/State/Zipcode | Phone Number | | Organization | | | | + +---------+ + + | EXTERNAL LAB | | | | + +---------+ + + POC Glucose (09/28/2018 3:56 AM PST) + + + + + + | Component | Value | Ref Range | Performed | Pathologist | | | | | At | Signature | + + + + + + | Glucose, | 131 (H)Comment: Testing | 65 - 99 mg/dL | EXTERNAL | | | Fingerstick | performed at [facility];[address] | LAB | | | | [address];[place], [place] | | | | | | [id number] | | | | + + + + + + + + | Specimen | + + | | + + + +---------+ + + | Performing | Address | City/State/Zipcode | Phone Number | | Organization | | | | + +---------+ + + | EXTERNAL LAB | | | | + +---------+ + + Magnesium (09/28/2018 3:56 AM PST) + + + + + + | Component | Value | Ref Range | Performed | Pathologist | | | | | At | Signature | + + + + + + | Magnesium | 2.3Comment: Testing | 1.7 - 2.4 mg/dL | EXTERNAL | | | | performed at [facility], [address] | LAB | | | | [address], | | | | | | [place] [address] | | | | + + + [...] + +---------+ + + Basic Metabolic Panel (09/28/2018 3:56 AM PST) + + + + + + | Component | Value | Ref Range | Performed | Pathologist | | | | | At | Signature | + + + + + + | Na | 135 | 135 - 145 | EXTERNAL | | | | | mmol/L | LAB | | + + + + + + | K | 4.3 | 3.5 - 4.9 | EXTERNAL | | | | | mmol/L | LAB | | + + + + + + | Cl | 104 | 99 - 109 mmol/L | EXTERNAL | | | | | | LAB | | + + + + + + | CO2 | 24 | 23 - 32 mmol/L | EXTERNAL | | | | | | LAB | | + + + + + + | Anion Gap | 11 | 5 - 20 mmol/L | EXTERNAL | | | | | | LAB | | + + + + + + | Glucose, | 124 (H) | 65 - 99 mg/dL | EXTERNAL | | | Fasting | | | LAB | | + + + + + + | BUN | 7 (L) | 8 - 25 mg/dL | EXTERNAL | | | | | | LAB | | + + + + + + | Creatinine | 0.4 (L) | 0.50 - 1.00 | EXTERNAL | | | | | mg/dL | LAB | | + + + + + + | BUN/Creatin | 18 | | EXTERNAL | | | ine Ratio | | | LAB | | + + + + + + | Calcium | 7.2 (L) | 8.5 - 10.5 | EXTERNAL | [...] | | | | | | MDRD IDMS traceable | | | | | | equation.Testing | | | | | | performed at [facility], [address] | | | | | | [facility], | | | | | | [place] [address] | | | | + + + + + + + + | Specimen | + + | Blood specimen | | (specimen) | + + + +---------+ + + | Performing | Address | City/State/Zipcode | Phone Number | | Organization | | | | + +---------+ + + | EXTERNAL LAB | | | | + +---------+ + + POC Glucose (09/28/2018 1:53 AM PST) + + + + + + | Component | Value | Ref Range | Performed | Pathologist | | | | | At | Signature | + + + + + + | Glucose, | 132 (H)Comment: Testing | 65 - 99 mg/dL | EXTERNAL | | | Fingerstick | performed at [facility];[address] | | LAB | | | [address];[place], [place] | | | | | | [address] | | | | + + + + + + + + | Specimen | + + | | + + + +---------+ + + | Performing | Address | City/State/Zipcode | Phone Number | | Organization | | | | + +---------+ + + | EXTERNAL LAB | | | | + +---------+ + + POC Glucose (09/28/2018 12:45 AM PST) + + + + + + | Component | Value | Ref Range | Performed | Pathologist | | | | | At | Signature | + + + + + + | Glucose, | 129 (H)Comment: Testing | 65 - 99 mg/dL | EXTERNAL | | | Fingerstick | performed at [facility];[address] | | LAB | | | | [address];[place] | | | | | | [address] | | | | + + + + + + + + | Specimen | + + | | + + + +---------+ + + | Performing | Address | City/State/Zipcode | Phone Number | | Organization | | | | + +---------+ + + | EXTERNAL LAB | | | | + +---------+ + + POC Glucose (09/28/2018 12:05 AM PST) + + + + + + | Component | Value | Ref Range | Performed | Pathologist | | | | | At | Signature | + + + + + + | Glucose, | 138 (H)Comment: Testing | 65 - 99 mg/dL | EXTERNAL | | | Fingerstick | performed at [facility] | | LAB | | | | [address];[place] | | | | | | [address] | | | | + + + + + + + + | Specimen | + + | | + + + +---------+ + + | Performing | Address | City/State/Zipcode | Phone Number | | Organization | | | | + +---------+ + + | EXTERNAL LAB | | | | + +---------+ + + POC Glucose (09/27/2018 11:07 PM PST) + + + + + + | Component | Value | Ref Range | Performed | Pathologist | | | | | At | Signature | + + + + + + | Glucose, | 125 (H)Comment: Testing | 65 - 99 mg/dL | EXTERNAL | | | Fingerstick | performed at [facility];[address] | | LAB | | | | [address];[place], [place] | | | | | | [address] | | | | + + + + + + + + | Specimen | + + | | + + + +---------+ + + | Performing | Address | City/State/Zipcode | Phone Number | | Organization | | | | + +---------+ + + | EXTERNAL LAB | | | | + +---------+ + + POC Glucose (09/27/2018 10:04 PM PST) + + + + + + | Component | Value | Ref Range | Performed | Pathologist | | | | | At | Signature | + + + + + + | Glucose, | 128 (H)Comment: Testing | 65 - 99 mg/dL | EXTERNAL | | | Fingerstick | performed at [facility];[address] | | LAB | | | | [address];[place], [place] | | | | | | [address] | | | | + + + + + + + + | Specimen | + + | | + + + +---------+ + + | Performing | Address | City/State/Zipcode | Phone Number | | Organization | | | | + +---------+ + + | EXTERNAL LAB | | | | + +---------+ + + POC Glucose (09/27/2018 9:11 PM PST) + + + + + + | Component | Value | Ref Range | Performed | Pathologist | | | | | At | Signature | + + + + + + | Glucose, | 141 (H)Comment: Testing | 65 - 99 mg/dL | EXTERNAL | | | Fingerstick | performed at [facility];[address] | | LAB | | | | [address];[place] | | | | | | [address] | | | | + + + + + + + + | Specimen | + + | | + + + +---------+ + + | Performing | Address | City/State/Zipcode | Phone Number | | Organization | | | | + +---------+ + + | EXTERNAL LAB | | | | + +---------+ + + Potassium (09/27/2018 8:41 PM PST) + + + + + + | Component | Value | Ref Range | Performed | Pathologist | | | | | At | Signature | + + + + + + | K | 4.6Comment: Testing | 3.5 - 4.9 | EXTERNAL | | | | performed at [facility];[address] | mmol/L | LAB | | | | [address];[place], [place] | | | | | | [address] | | | | + + + + + + + + | Specimen | + + | Blood specimen | | (specimen) | + + + +---------+ + + | Performing | Address | City/State/Zipcode | Phone Number | | Organization | | | | + +---------+ + + | EXTERNAL LAB | | | | + +---------+ + + POC Glucose (09/27/2018 8:13 PM PST) + + + + + + | Component | Value | Ref Range | Performed | Pathologist | | | | | At | Signature | + + + + + + | Glucose, | 135 (H)Comment: Testing | 65 - 99 mg/dL | EXTERNAL | | | Fingerstick | performed at [facility];[address] | | LAB | | | | [address];[place], [place] | | | | | | [address] | | | | + + + + + + + + | Specimen | + + | | + + + +---------+ + + | Performing | Address | City/State/Zipcode | Phone Number | | Organization | | | | + +---------+ + + | EXTERNAL LAB | | | | + +---------+ + + POC Glucose (09/27/2018 7:42 PM PST) + + + + + + | Component | Value | Ref Range | Performed | Pathologist | | | | | At | Signature | + + + + + + | Glucose, | 140 (H)Comment: Testing | 65 - 99 mg/dL | EXTERNAL | | | Fingerstick | performed at [facility];[address] | | LAB | | | | [address];[place] | | | | | | [address] | | | | + + + + + + + + | Specimen | + + | | + + + +---------+ + + | Performing | Address | City/State/Zipcode | Phone Number | | Organization | | | | + +---------+ + + | EXTERNAL LAB | | | | + +---------+ + + POC Glucose (09/27/2018 6:33 PM PST) + + + + + + | Component | Value | Ref Range | Performed | Pathologist | | | | | At | Signature | + + + + + + | Glucose, | 145 (H)Comment: Testing | 65 - 99 mg/dL | EXTERNAL | | | Fingerstick | performed at [facility];[address] | | LAB | | | | [address];[place], [place] | | | | | | [address] | | | | + + + + + + + + | Specimen | + + | | + + + +---------+ + + | Performing | Address | City/State/Zipcode | Phone Number | | Organization | | | | + +---------+ + + | EXTERNAL LAB | | | | + +---------+ + + POC Glucose (09/27/2018 5:23 PM PST) + + + + + + | Component | Value | Ref Range | Performed | Pathologist | | | | | At | Signature | + + + + + + | Glucose, | 97Comment: Testing | 65 - 99 mg/dL | EXTERNAL | | | Fingerstick | performed at [facility] | | LAB | | | | [address];[place] | | | | | | [address] | | | | + + + + + + + + | Specimen | + + | | + + + +---------+ + + | Performing | Address | City/State/Zipcode | Phone Number | | Organization | | | | + +---------+ + + | EXTERNAL LAB | | | | + +---------+ + + POC Glucose (09/27/2018 4:18 PM PST) + + + + + + | Component | Value | Ref Range | Performed | Pathologist | | | | | At | Signature | + + + + + + | Glucose, | 118 (H)Comment: Testing | 65 - 99 mg/dL | EXTERNAL | | | Fingerstick | performed at [facility];[address] | | LAB | | | | [address];[place], [place] | | | | | | [address] | | | | + + + + + + + + | Specimen | + + | | + + + +---------+ + + | Performing | Address | City/State/Zipcode | Phone Number | | Organization | | | | + +---------+ + + | EXTERNAL LAB | | | | + +---------+ + + POC Glucose (09/27/2018 3:11 PM PST) + + + + + + | Component | Value | Ref Range | Performed | Pathologist | | | | | At | Signature | + + + + + + | Glucose, | 171 (H)Comment: Testing | 65 - 99 mg/dL | EXTERNAL | | | Fingerstick | performed at [facility];[address] | | LAB | | | | [address];[place] | | | | | | [address] | | | | + + + + + + + + | Specimen | + + | | + + + +---------+ + + | Performing | Address | City/State/Zipcode | Phone Number | | Organization | | | | + +---------+ + + | EXTERNAL LAB | | | | + +---------+ + + Potassium (09/27/2018 2:16 PM PST) + + + + + + | Component | Value | Ref Range | Performed | Pathologist | | | | | At | Signature | + + + + + + | K | 4.2Comment: Testing | 3.5 - 4.9 | EXTERNAL | | | | performed at [facility];[address] | mmol/L | LAB | | | | [address];[place] | | | | | | [address] | | | | + + + + + + + + | Specimen | + + | Blood specimen | | (specimen) | + + + +---------+ + + | Performing | Address | City/State/Zipcode | Phone Number | | Organization | | | | + +---------+ + + | EXTERNAL LAB | | | | + +---------+ + + Magnesium (09/27/2018 2:16 PM PST) + + + + + + | Component | Value | Ref Range | Performed | Pathologist | | | | | At | Signature | + + + + + + | Magnesium | 2.3Comment: Testing | 1.7 - 2.4 mg/dL | EXTERNAL | | | | performed at [facility];[address] | | LAB | | | | [address];[place] | | | | | | [address] | | | | + + + + + + + + | Specimen | + + | Blood specimen | | (specimen) | + + + +---------+ + + | Performing | Address | City/State/Zipcode | Phone Number | | Organization | | | | + +---------+ + + | EXTERNAL LAB | | | | + +---------+ + + POC Glucose (09/27/2018 2:13 PM PST) + + + + + + | Component | Value | Ref Range | Performed | Pathologist | | | | | At | Signature | + + + + + + | Glucose, | 143 (H)Comment: Testing | 65 - 99 mg/dL | EXTERNAL | | | Fingerstick | performed at [facility];[address] | | LAB | | | | [address];[place], [place] | | | | | | [address] | | | | + + + + + + + + | Specimen | + + | | + + + +---------+ + + | Performing | Address | City/State/Zipcode | Phone Number | | Organization | | | | + +---------+ + + | EXTERNAL LAB | | | | + +---------+ + + POC Glucose (09/27/2018 1:00 PM PST) + + + + + + | Component | Value | Ref Range | Performed | Pathologist | | | | | At | Signature | + + + + + + | Glucose, | 123 (H)Comment: Testing | 65 - 99 mg/dL | EXTERNAL | | | Fingerstick | performed at [facility];[address] | | LAB | | | | [address];[place] | | | | | | [address] | | | | + + + + + + + + | Specimen | + + | | + + + +---------+ + + | Performing | Address | City/State/Zipcode | Phone Number | | Organization | | | | + +---------+ + + | EXTERNAL LAB | | | | + +---------+ + + POC Glucose (09/27/2018 11:49 AM PST) + + + + + + | Component | Value | Ref Range | Performed | Pathologist | | | | | At | Signature | + + + + + + | Glucose, | 98Comment: Testing | 65 - 99 mg/dL | EXTERNAL | | | Fingerstick | performed at [facility];[address] | | LAB | | | | [address];[place], [place] | | | | | | [address] | | | | + + + + + + + + | Specimen | + + | | + + + +---------+ + + | Performing | Address | City/State/Zipcode | Phone Number | | Organization | | | | + +---------+ + + | EXTERNAL LAB | | | | + +---------+ + + Potassium (09/27/2018 10:13 AM PST) + + + + + + | Component | Value | Ref Range | Performed | Pathologist | | | | | At | Signature | + + + + + + | K | 4.1Comment: Testing | 3.5 - 4.9 | EXTERNAL | | | | performed at [facility];[address] | mmol/L | LAB | | | | [address];[place] | | | | | | [address] | | | | + + + + + + + + | Specimen | + + | Blood specimen | | (specimen) | + + + +---------+ + + | Performing | Address | City/State/Zipcode | Phone Number | | Organization | | | | + +---------+ + + | EXTERNAL LAB | | | | + +---------+ + + Magnesium (09/27/2018 10:13 AM PST) + + + + + + | Component | Value | Ref Range | Performed | Pathologist | | | | | At | Signature | + + + + + + | Magnesium | 1.8Comment: Testing | 1.7 - 2.4 mg/dL | EXTERNAL | | | | performed at [facility];[address] | | LAB | | | | [address];[place], [place] | | | | | | [address] | | | | + + + + + + + + | Specimen | + + | Blood specimen | | (specimen) | + + + +---------+ + + | Performing | Address | City/State/Zipcode | Phone Number | | Organization | | | | + +---------+ + + | EXTERNAL LAB | | | | + +---------+ + + POC Glucose (09/27/2018 10:09 AM PST) + + + + + + | Component | Value | Ref Range | Performed | Pathologist | | | | | At | Signature | + + + + + + | Glucose, | 122 (H)Comment: Testing | 65 - 99 mg/dL | EXTERNAL | | | Fingerstick | performed at [facility];[address] | | LAB | | | | [address];[place] | | | | | | [address] | | | | + + + + + + + + | Specimen | + + | | + + + +---------+ + + | Performing | Address | City/State/Zipcode | Phone Number | | Organization | | | | + +---------+ + + | EXTERNAL LAB | | | | + +---------+ + + POC Glucose (09/27/2018 8:10 AM PST) + + + + + + | Component | Value | Ref Range | Performed | Pathologist | | | | | At | Signature | + + + + + + | Glucose, | 105 (H)Comment: Testing | 65 - 99 mg/dL | EXTERNAL | | | Fingerstick | performed at [facility];[address] | | LAB | | | | [address];[place] | | | | | | [address] | | | | + + + + + + + + | Specimen | + + | | + + + +---------+ + + | Performing | Address | City/State/Zipcode | Phone Number | | Organization | | | | + +---------+ + + | EXTERNAL LAB | | | | + +---------+ + + XR Chest 1 Vw (09/27/2018 6:03 AM PST) + + | Specimen | + + | | + + + + + | Impressions | Performed At | + + + | Removal of the endotracheal tube and NG tube. Small amount of | | | bibasilar atelectasis. No pneumothorax seen. Electronically | | | signed by Farhad Slade MD on 09/27/2018 7:31 AM | | + + + + + + | Narrative | Performed At | + + + | JOHN PAULCASEY MENG 1960 58 years XR CHEST 1 VIEW 09/27/2018 | | | 6:03 AM INDICATION: Mediastinal assessment. 2. Placement. | | | COMPARISON study: 09/26/2018. TECHNIQUE: 1 view FINDINGS: | | | Right IJ sheath appears unchanged. The chest tubes appear unchanged. | | | No pneumothorax appreciated. Small amount of bibasilar opacities, | | | unchanged. Cardiomediastinal silhouette appears unchanged. Patient is | | | poststernotomy. Removal of the endotracheal tube and NG tube. | | + + + + + | Procedure Note | + + | Lavell Clark Conversion - 05/29/2019 3:18 PM PDT JOHN PAUL HANNA YUSRA yearsXR | | CHEST 1 VIEW09/27/2018 6:03 AM INDICATION: Mediastinal assessment.2. Placement. | | COMPARISON study: 09/26/2018. TECHNIQUE: 1 view FINDINGS: Right IJ sheath appears | | unchanged. The chest tubes appear unchanged. No pneumothorax appreciated. Small amount | | of bibasilar opacities, unchanged. Cardiomediastinal silhouette appears unchanged. | | Patient is poststernotomy. Removal of the endotracheal tube and NG tube. IMPRESSION: | | Removal of the endotracheal tube and NG tube.Small amount of bibasilar atelectasis.No | | pneumothorax seen. | | | |COMPARISON study: 09/26/2018. | | | |TECHNIQUE: 1 view | | | |FINDINGS: Right IJ sheath appears unchanged. The chest tubes appear unchanged. No pneumoth orax appreciated. Small amount of bibasilar opacities, unchanged. Cardiomediastinal silhouet te appears unchanged. Patient is poststernotomy. Removal of the | |endotracheal tube and NG tube. | | | |IMPRESSION: | |Removal of the endotracheal tube and NG tube. | |Small amount of bibasilar atelectasis. | |No pneumothorax seen. | | | | | + + POC Glucose (09/27/2018 5:51 AM PST) + + + + + + | Component | Value | Ref Range | Performed | Pathologist | | | | | At | Signature | + + + + + + | Glucose, | 109 (H)Comment: Testing | 65 - 99 mg/dL | EXTERNAL | | | Fingerstick | performed at [facility];[address] | | LAB | | | | [address];[place] | | | | | | [address] | | | | + + + + + + + + | Specimen | + + | | + + + +---------+ + + | Performing | Address | City/State/Zipcode | Phone Number | | Organization | | | | + +---------+ + + | EXTERNAL LAB | | | | + +---------+ + + POC Glucose (09/27/2018 3:49 AM PST) + + + + + + | Component | Value | Ref Range | Performed | Pathologist | | | | | At | Signature | + + + + + + | Glucose, | 108 (H)Comment: Testing | 65 - 99 mg/dL | EXTERNAL | | | Fingerstick | performed at [facility];[address] | | LAB | | | | [address];[place], [place] | | | | | | [address] | | | | + + + + + + + + | Specimen | + + | | + + + +---------+ + + | Performing | Address | City/State/Zipcode | Phone Number | | Organization | | | | + +---------+ + + | EXTERNAL LAB | | | | + +---------+ + + External Lab: CBC (09/27/2018 3:46 AM PST) + + + + + + | Component | Value | Ref Range | Performed | Pathologist | | | | | At | Signature | + + + + + + | WBC | 20.95 (H) | 3.80 - 11.00 | EXTERNAL | | | | | K/uL | LAB | | + + + + + + | Red Blood | 3.31 (L) | 3.70 - 5.10 | EXTERNAL | | | Cells | | M/uL | LAB | | | Counted | | | | | + + + + + + | Hemoglobin | 10.0 (L) | 11.3 - 15.5 | EXTERNAL | | | | | g/dL | LAB | | + + + + + + | Hematocrit, | 29.9 (L) | 34.0 - 46.0 % | EXTERNAL | | | POC | | | LAB | | + + + + + + | MCV | 90.4 | 80.0 - 100.0 fl | EXTERNAL | | | | | | LAB | | + + + + + + | MCH | 30.3 | 27.0 - 34.0 pg | EXTERNAL | | | | | | LAB | | + + + + + + | MCHC | 33.5 | 32.0 - 35.5 | EXTERNAL | | | | | g/dL | LAB | | + + + + + + | RDW-CV | 42.0 | 37 - 53 fl | EXTERNAL | | | | | | LAB | | + + + + + + | Platelet | 245 | 150 - 400 K/uL | EXTERNAL | | | Count | | | LAB | | | Plasma | | | | | + + + + + + | MPV | 9.1 | fl | EXTERNAL | | | | | | LAB | | + + + + + + | Differentia | AUTOMATED | | EXTERNAL | | | l Type | | | LAB | | + + + + + + | % Segmented | 84.94 | % | EXTERNAL | | | | | | LAB | | | Neutrophils | | | | | + + + + + + | % | 7.25 | % | EXTERNAL | | | Lymphocytes | | | LAB | | + + + + + + | % Monocytes | 7.50 | % | EXTERNAL | | | | | | LAB | | + + + + + + | % | 0.09 | % | EXTERNAL | | | Eosinophils | | | LAB | | + + + + + + | % Basophils | 0.22 | % | EXTERNAL | | | | | | LAB | | + + + + + + | Absolute | 17.79 (H) | 1.90 - 7.40 | EXTERNAL | | | Segmented | | K/uL | LAB | | | Neutrophils | | | | | + + + + + + | Absolute | 1.52 | 1.00 - 3.90 | EXTERNAL | | | Lymphocytes | | K/uL | LAB | | + + + + + + | Absolute | 1.57 (H) | 0.00 - 0.80 | EXTERNAL | | | Monocytes | | K/uL | LAB | | + + + + + + | Absolute | 0.02 | 0.00 - 0.50 | EXTERNAL | | | Eosinophils | | K/uL | LAB | | + + + + + + | Absolute | 0.05Comment: Testing | 0.00 - 0.10 | EXTERNAL | | | Basophils | performed at [facility], [address] | K/uL | LAB | | | | [address], | | | | | | [place] [address] | | | | + + + + + + + + | Specimen | + + | Blood specimen | | (specimen) | + + + +---------+ + + | Performing | Address | City/State/Zipcode | Phone Number | | Organization | | | | + +---------+ + + | EXTERNAL LAB | | | | + +---------+ + + Magnesium (09/27/2018 3:46 AM PST) + + + + + + | Component | Value | Ref Range | Performed | Pathologist | | | | | At | Signature | + + + + + + | Magnesium | 1.8Comment: Testing | 1.7 - 2.4 mg/dL | EXTERNAL | | | | performed at [facility];[address] | | LAB | | | | [address];[place] | | | | | | [address] | | | | + + + + + + + + | Specimen | + + | Blood specimen | | (specimen) | + + + +---------+ + + | Performing | Address | City/State/Zipcode | Phone Number | | Organization | | | | + +---------+ + + | EXTERNAL LAB | | | | + +---------+ + + Hemoglobin A1C (09/27/2018 3:46 AM PST) + + + + + + | Component | Value | Ref Range | Performed | Pathologist | | | | | At | Signature | + + + + + + | Hemoglobin | 9.1 (H)Comment: The | 4.0 - 6.0 % | EXTERNAL | | | A1c | [place] [employer] | | LAB | | | | Association considers a | | | | | | hemoglobin A1c result of | | | | | | <7.0% to be the goal of | | | | | | diabetic therapy. | | | | | | When results are | | | | | | consistently >8.0%, the | | | | | | ADA suggests | | | | | | reevaluation of the | | | | | | treatment regimen. The | | | | | | testing method used is | | | | | | certified traceable to | | | | | | the Diabetes Control and | | | | | | Complications Trial | | | | | | reference method. | | | | + + + + + + | Glycohemogl | 214 (H)Comment: The ADA | mg/dL | EXTERNAL | | | obin | considers an eAG result | | LAB | | | (GHb),Total | of LT 154 mg/dL to be | | | | | | the goal of diabetic | | | | | | therapy. Estimated | | | | | | Average Glucose | | | | | | calculated from | | | | | | hemoglobin A1c by use of | | | | | | the ADA recommended | | | | | | formula.Testing | | | | | | performed at [facility], [address] | | | | | | [facility], | | | | | | [place] [address] | | | | + + + [...] + +---------+ + + Basic Metabolic Panel (09/27/2018 3:46 AM PST) + + + + + + | Component | Value | Ref Range | Performed | Pathologist | | | | | At | Signature | + + + + + + | Na | 136 | 135 - 145 | EXTERNAL | | | | | mmol/L | LAB | | + + + + + + | K | 4.2 | 3.5 - 4.9 | EXTERNAL | | | | | mmol/L | LAB | | + + + + + + | Cl | 105 | 99 - 109 mmol/L | EXTERNAL | | | | | | LAB | | + + + + + + | CO2 | 24 | 23 - 32 mmol/L | EXTERNAL | | | | | | LAB | | + + + + + + | Anion Gap | 11 | 5 - 20 mmol/L | EXTERNAL | | | | | | LAB | | + + + + + + | Glucose, | 101 (H) | 65 - 99 mg/dL | EXTERNAL | | | Fasting | | | LAB | | + + + + + + | BUN | 7 (L) | 8 - 25 mg/dL | EXTERNAL | | | | | | LAB | | + + + + + + | Creatinine | 0.42 (L) | 0.50 - 1.00 | EXTERNAL | | | | | mg/dL | LAB | | + + + + + + | BUN/Creatin | 16 | | EXTERNAL | | | ine Ratio | | | LAB | | + + + + + + | Calcium | 7.7 (L) | 8.5 - 10.5 | EXTERNAL | [...] | | | | | | MDRD IDMS traceable | | | | | | equation.Testing | | | | | | performed at [facility];[address] | | | | | | [address];[place], [place] | | | | | | [address] | | | | + + + + + + + + | Specimen | + + | Blood specimen | | (specimen) | + + + +---------+ + + | Performing | Address | City/State/Zipcode | Phone Number | | Organization | | | | + +---------+ + + | EXTERNAL LAB | | | | + +---------+ + + POC Glucose (09/27/2018 1:56 AM PST) + + + + + + | Component | Value | Ref Range | Performed | Pathologist | | | | | At | Signature | + + + + + + | Glucose, | 111 (H)Comment: Testing | 65 - 99 mg/dL | EXTERNAL | | | Fingerstick | performed at [facility];[address] | | LAB | | | | [address];[place] | | | | | | [address] | | | | + + + + + + + + | Specimen | + + | | + + + +---------+ + + | Performing | Address | City/State/Zipcode | Phone Number | | Organization | | | | + +---------+ + + | EXTERNAL LAB | | | | + +---------+ + + Potassium (09/26/2018 11:57 PM PST) + + + + + + | Component | Value | Ref Range | Performed | Pathologist | | | | | At | Signature | + + + + + + | K | 4.2Comment: Testing | 3.5 - 4.9 | EXTERNAL | | | | performed at [facility];888 | mmol/L | LAB | | | | [address];[place], [place] | | | | | | [id number] | | | | + + + + + + + + | Specimen | + + | Blood specimen | | (specimen) | + + + +---------+ + + | Performing | Address | City/State/Zipcode | Phone Number | | Organization | | | | + +---------+ + + | EXTERNAL LAB | | | | + +---------+ + + POC Glucose (09/26/2018 11:56 PM PST) + + + + + + | Component | Value | Ref Range | Performed | Pathologist | | | | | At | Signature | + + + + + + | Glucose, | 127 (H)Comment: Testing | 65 - 99 mg/dL | EXTERNAL | | | Fingerstick | performed at [facility];[address] | | LAB | | | | [address];[place], [place] | | | | | | [id number] | | | | + + + + + + + + | Specimen | + + | | + + + +---------+ + + | Performing | Address | City/State/Zipcode | Phone Number | | Organization | | | | + +---------+ + + | EXTERNAL LAB | | | | + +---------+ + + POC Glucose (09/26/2018 9:50 PM PST) + + + + + + | Component | Value | Ref Range | Performed | Pathologist | | | | | At | Signature | + + + + + + | Glucose, | 139 (H)Comment: Testing | 65 - 99 mg/dL | EXTERNAL | | | Fingerstick | performed at [facility];[address] | | LAB | | | | [address];[place] | | | | | | [address] | | | | + + + + + + + + | Specimen | + + | | + + + +---------+ + + | Performing | Address | City/State/Zipcode | Phone Number | | Organization | | | | + +---------+ + + | EXTERNAL LAB | | | | + +---------+ + + Potassium (09/26/2018 7:55 PM PST) + + + + + + | Component | Value | Ref Range | Performed | Pathologist | | | | | At | Signature | + + + + + + | K | 4.6Comment: Testing | 3.5 - 4.9 | EXTERNAL | | | | performed at [facility];888 | mmol/L | LAB | | | | [address];[place], [place] | | | | | | [address] | | | | + + + + + + + + | Specimen | + + | Blood specimen | | (specimen) | + + + +---------+ + + | Performing | Address | City/State/Zipcode | Phone Number | | Organization | | | | + +---------+ + + | EXTERNAL LAB | | | | + +---------+ + + POC Glucose (09/26/2018 7:46 PM PST) + + + + + + | Component | Value | Ref Range | Performed | Pathologist | | | | | At | Signature | + + + + + + | Glucose, | 139 (H)Comment: Testing | 65 - 99 mg/dL | EXTERNAL | | | Fingerstick | performed at [facility];[address] | | LAB | | | | [address];[place], [place] | | | | | | [address] | | | | + + + + + + + + | Specimen | + + | | + + + +---------+ + + | Performing | Address | City/State/Zipcode | Phone Number | | Organization | | | | + +---------+ + + | EXTERNAL LAB | | | | + +---------+ + + POC Glucose (09/26/2018 6:42 PM PST) + + + + + + | Component | Value | Ref Range | Performed | Pathologist | | | | | At | Signature | + + + + + + | Glucose, | 121 (H)Comment: Testing | 65 - 99 mg/dL | EXTERNAL | | | Fingerstick | performed at [facility];[address] | | LAB | | | | [address];[place] | | | | | | [address] | | | | + + + + + + + + | Specimen | + + | | + + + +---------+ + + | Performing | Address | City/State/Zipcode | Phone Number | | Organization | | | | + +---------+ + + | EXTERNAL LAB | | | | + +---------+ + + POC Glucose (09/26/2018 5:40 PM PST) + + + + + + | Component | Value | Ref Range | Performed | Pathologist | | | | | At | Signature | + + + + + + | Glucose, | 132 (H)Comment: Testing | 65 - 99 mg/dL | EXTERNAL | | | Fingerstick | performed at [facility];[address] | | LAB | | | | [address];[place], [place] | | | | | | [address] | | | | + + + + + + + + | Specimen | + + | | + + + +---------+ + + | Performing | Address | City/State/Zipcode | Phone Number | | Organization | | | | + +---------+ + + | EXTERNAL LAB | | | | + +---------+ + + POC Glucose (09/26/2018 4:42 PM PST) + + + + + + | Component | Value | Ref Range | Performed | Pathologist | | | | | At | Signature | + + + + + + | Glucose, | 143 (H)Comment: Testing | 65 - 99 mg/dL | EXTERNAL | | | Fingerstick | performed at [facility] | | LAB | | | | [address];[place] | | | | | | [address] | | | | + + + + + + + + | Specimen | + + | | + + + +---------+ + + | Performing | Address | City/State/Zipcode | Phone Number | | Organization | | | | + +---------+ + + | EXTERNAL LAB | | | | + +---------+ + + POC Glucose (09/26/2018 3:40 PM PST) + + + + + + | Component | Value | Ref Range | Performed | Pathologist | | | | | At | Signature | + + + + + + | Glucose, | 183 (H)Comment: Testing | 65 - 99 mg/dL | EXTERNAL | | | Fingerstick | performed at [facility];[address] | | LAB | | | | [address];[place], [place] | | | | | | [address] | | | | + + + + + + + + | Specimen | + + | | + + + +---------+ + + | Performing | Address | City/State/Zipcode | Phone Number | | Organization | | | | + +---------+ + + | EXTERNAL LAB | | | | + +---------+ + + POC Glucose (09/26/2018 2:47 PM PST) + + + + + + | Component | Value | Ref Range | Performed | Pathologist | | | | | At | Signature | + + + + + + | Glucose, | 126 (H)Comment: Testing | 65 - 99 mg/dL | EXTERNAL | | | Fingerstick | performed at [facility];[address] | | LAB | | | | [address];[place] | | | | | | [address] | | | | + + + + + + + + | Specimen | + + | | + + + +---------+ + + | Performing | Address | City/State/Zipcode | Phone Number | | Organization | | | | + +---------+ + + | EXTERNAL LAB | | | | + +---------+ + + Potassium (09/26/2018 2:21 PM PST) + + + + + + | Component | Value | Ref Range | Performed | Pathologist | | | | | At | Signature | + + + + + + | K | 3.8Comment: Testing | 3.5 - 4.9 | EXTERNAL | | | | performed at [facility];[address] | mmol/L | LAB | | | | [address];[place] | | | | | | [address] | | | | + + + + + + + + | Specimen | + + | Blood specimen | | (specimen) | + + + +---------+ + + | Performing | Address | City/State/Zipcode | Phone Number | | Organization | | | | + +---------+ + + | EXTERNAL LAB | | | | + +---------+ + + POC Glucose (09/26/2018 1:42 PM PST) + + + + + + | Component | Value | Ref Range | Performed | Pathologist | | | | | At | Signature | + + + + + + | Glucose, | 171 (H)Comment: Testing | 65 - 99 mg/dL | EXTERNAL | | | Fingerstick | performed at [facility];[address] | | LAB | | | | [address];[place] | | | | | | [address] | | | | + + + + + + + + | Specimen | + + | | + + + +---------+ + + | Performing | Address | City/State/Zipcode | Phone Number | | Organization | | | | + +---------+ + + | EXTERNAL LAB | | | | + +---------+ + + POC Glucose (09/26/2018 12:49 PM PST) + + + + + + | Component | Value | Ref Range | Performed | Pathologist | | | | | At | Signature | + + + + + + | Glucose, | 187 (H)Comment: Testing | 65 - 99 mg/dL | EXTERNAL | | | Fingerstick | performed at [facility];[address] | | LAB | | | | [address];[place] | | | | | | [address] | | | | + + + + + + + + | Specimen | + + | | + + + +---------+ + + | Performing | Address | City/State/Zipcode | Phone Number | | Organization | | | | + +---------+ + + | EXTERNAL LAB | | | | + +---------+ + + POC Glucose (09/26/2018 11:54 AM PST) + + + + + + | Component | Value | Ref Range | Performed | Pathologist | | | | | At | Signature | + + + + + + | Glucose, | 181 (H)Comment: Testing | 65 - 99 mg/dL | EXTERNAL | | | Fingerstick | performed at [facility];[address] | | LAB | | | | [address];[place] | | | | | | [address] | | | | + + + + + + + + | Specimen | + + | | + + + +---------+ + + | Performing | Address | City/State/Zipcode | Phone Number | | Organization | | | | + +---------+ + + | EXTERNAL LAB | | | | + +---------+ + + XR Chest 1 Vw (09/26/2018 11:05 AM PST) + + | Specimen | + + | | + + + + + | Impressions | Performed At | + + + | 1. Appropriate positioning of support tubes and lines. 2. There | | | is mild atelectasis of the medial left lower lobe. Electronically | | | signed by Artur Hernandez MD on 09/26/2018 11:44 AM | | + + + + + + | Narrative | Performed At | + + + | JOHN PAUL MENG 1960 58 years XR CHEST 1 VIEW 09/26/2018 | | | 11:05 AM INDICATION: Tube and line placement, chest pain | | | COMPARISON: 09/18/2018 TECHNIQUE: Chest 1 view, AP view of the | | | chest FINDINGS: There are new median sternotomy wires in place. | | | Endotracheal and nasogastric tubes are in appropriate position. There | | | is a mediastinal and left pleural drainage catheter in place. There is | | | a right IJ central venous catheter in position. The pulmonary | | | markings are normal in caliber. There is no pneumothorax. | | + + + + + | Procedure Note | + + | Laevll Clark Conversion - 05/29/2019 3:18 PM [id number] | | CHEST 1 VIEW09/26/2018 11:05 AM INDICATION: Tube and line placement, chest pain | | COMPARISON: 09/18/2018 TECHNIQUE: Chest 1 view, AP view of the chest FINDINGS: There are | | new median sternotomy wires in place. Endotracheal and nasogastric tubes are in | | appropriate position. There is a mediastinal and left pleural drainage catheter in | | place. There is a right IJ central venous catheter in position. The pulmonary markings | | are normal in caliber. There is no pneumothorax. IMPRESSION: 1. Appropriate positioning | | of support tubes and lines.2. There is mild atelectasis of the medial left lower lobe. | | | | | |TECHNIQUE: Chest 1 view, AP view of the chest | | | |FINDINGS: There are new median sternotomy wires in place. Endotracheal and nasogastric tub es are in appropriate position. There is a mediastinal and left pleural drainage catheter in place. There is a right IJ central venous catheter in position. The | |pulmonary markings are normal in caliber. There is no pneumothorax. | | | |IMPRESSION: | |1. Appropriate positioning of support tubes and lines. | |2. There is mild atelectasis of the medial left lower lobe. | | | | | + + ECG 12 lead (09/26/2018 10:50 AM PST) + + + + + + | Component | Value | Ref Range | Performed | Pathologist | | | | | At | Signature | + + + + + + | DIAGNOSIS: | Sinus | | EXTERNAL | | | | bradycardiaOtherwise | | LAB | | | | normal ECGWhen compared | | | | | | with ECG of 16-MAY-2018 | | | | | | 15:08,No significant | | | | | | change was | | | | | | foundConfirmed by | | | | | | Nani Rocha MD | | | | | | (127) on 09/26/2018 | | | | | | 6:37:24 PM | | | | + + + + + + + + | Specimen | + + | | + + + + + | Narrative | Performed At | + + + | Historically converted procedure from [facility] environment | EXTERNAL LAB | + + + + +---------+ + + | Performing | Address | City/State/Zipcode | Phone Number | | Organization | | | | + +---------+ + + | EXTERNAL LAB | | | | + +---------+ + + POC GUERLINE [id number], Arterial (09/26/2018 10:49 AM PST) + + + + + + | Component | Value | Ref Range | Performed | Pathologist | | | | | At | Signature | + + + + + + | Temp, POC | 35.7 (L) | C | EXTERNAL | | | | | | LAB | | + + + + + + | FiO2, POC | 50 | % | EXTERNAL | | | | | | LAB | | + + + + + + | PH ART | 7.374 | 7.350 - 7.450 | EXTERNAL | | | | | | LAB | | + + + + + + | PCO2 ART | 39 | 35 - 45 mmHg | EXTERNAL | | | | | | LAB | | + + + + + + | PO2 ART | 210 (HH) | 80 - 105 mmHg | EXTERNAL | | | | | | LAB | | + + + + + + | HCO3 ART | 23 | 22 - 26 mmol/L | EXTERNAL | | | | | | LAB | | + + + + + + | POC | 24 | 23 - 27 mEq/L | EXTERNAL | | | APPEARANCE | | | LAB | | | UA | | | | | + + + + + + | Base | 2 | 0.0 - 2.0 | EXTERNAL | | | deficit | | mmol/L | LAB | | + + + + + + | O2 SAT ART | 100 (H) | 95 - 98 % | EXTERNAL | | | | | | LAB | | + + + + + + | Sodium, POC | 143 | 135 - 145 mEq/L | EXTERNAL | | | | | | LAB | | + + + + + + | Potassium, | 3.2 (L) | 3.5 - 5.0 mEq/L | EXTERNAL | | | POC | | | LAB | | + + + + + + | Ionized | 1.08 (L) | 1.12 - 1.32 | EXTERNAL | | | Calcium, | | mmol/L | LAB | | | POC | | | | | + + + + + + | Glucose, | 157 (H) | 65 - 99 mg/dL | EXTERNAL | | | POC | | | LAB | | + + + + + + | Hematocrit, | 27 (L) | 35.0 - 46.0 % | EXTERNAL | | | POC | | | LAB | | + + + + + + | Hemoglobin, | 9.2 (L) | 11.6 - 15.5 | EXTERNAL | | | POC | | g/dL | LAB | | + + + + + + | Comment, | Modified Alfredo Test | | EXTERNAL | | | POC | passedComment: Site = | | LAB | | | | right brachialTesting | | | | | | performed at [facility] | | | | | | [address];[place], [place] | | | | | | [address] | | | | + + + + + + + + | Specimen | + + | | + + + +---------+ + + | Performing | Address | City/State/Zipcode | Phone Number | | Organization | | | | + +---------+ + + | EXTERNAL LAB | | | | + +---------+ + + POC Glucose (09/26/2018 10:46 AM PST) + + + + + + | Component | Value | Ref Range | Performed | Pathologist | | | | | At | Signature | + + + + + + | Glucose, | 161 (H)Comment: Testing | 65 - 99 mg/dL | EXTERNAL | | | Fingerstick | performed at [facility];[address] | | LAB | | | | [address];[place] | | | | | | [address] | | | | + + + + + + + + | Specimen | + + | | + + + +---------+ + + | Performing | Address | City/State/Zipcode | Phone Number | | Organization | | | | + +---------+ + + | EXTERNAL LAB | | | | + +---------+ + + PTT (09/26/2018 10:44 AM PST) + + + + + + | Component | Value | Ref Range | Performed | Pathologist | | | | | At | Signature | + + + + + + | aPTT, | 24Comment: Testing | 23 - 32 seconds | EXTERNAL | | | Patient | performed at [facility];[address] | | LAB | | | | [address];[place], [place] | | | | | | [address] | | | | + + + + + + + + | Specimen | + + | Blood specimen | | (specimen) | + + + +---------+ + + | Performing | Address | City/State/Zipcode | Phone Number | | Organization | | | | + +---------+ + + | EXTERNAL LAB | | | | + +---------+ + + Protime INR (09/26/2018 10:44 AM PST) + + + + + + | Component | Value | Ref Range | Performed | Pathologist | | | | | At | Signature | + + + + + + | INR | 1.1Comment: REFERENCE | | EXTERNAL | | | [...] | | | | | performed at [facility] | | | | | | [address];[place], [place] | | | | | | [address] | | | | + + + + + + + + | Specimen | + + | Blood specimen | | (specimen) | + + + +---------+ + + | Performing | Address | City/State/Zipcode | Phone Number | | Organization | | | | + +---------+ + + | EXTERNAL LAB | | | | + +---------+ + + Fibrinogen (09/26/2018 10:44 AM PST) + + + + + + | Component | Value | Ref Range | Performed | Pathologist | | | | | At | Signature | + + + + + + | Fibrinogen | 158 (L)Comment: Testing | 200 - 450 mg/dL | EXTERNAL | | | | performed at [facility];[address] | | LAB | | | | [address];[place] | | | | | | [address] | | | | + + + [...] + +---------+ + + External Lab: CBC (09/26/2018 10:44 AM PST) + + + + + + | Component | Value | Ref Range | Performed | Pathologist | | | | | At | Signature | + + + + + + | WBC | 15.73 (H) | 3.80 - 11.00 | EXTERNAL | | | | | K/uL | LAB | | + + + + + + | Red Blood | 3.10 (L) | 3.70 - 5.10 | EXTERNAL | | | Cells | | M/uL | LAB | | | Counted | | | | | + + + + + + | Hemoglobin | 9.5 (L) | 11.3 - 15.5 | EXTERNAL | | | | | g/dL | LAB | | + + + + + + | Hematocrit, | 27.5 (L) | 34.0 - 46.0 % | EXTERNAL | | | POC | | | LAB | | + + + + + + | MCV | 88.6 | 80.0 - 100.0 fl | EXTERNAL | | | | | | LAB | | + + + + + + | MCH | 30.6 | 27.0 - 34.0 pg | EXTERNAL | | | | | | LAB | | + + + + + + | MCHC | 34.5 | 32.0 - 35.5 | EXTERNAL | | | | | g/dL | LAB | | + + + + + + | RDW-CV | 40.7 | 37 - 53 fl | EXTERNAL | | | | | | LAB | | + + + + + + | Platelet | 214 | 150 - 400 K/uL | EXTERNAL | | | Count | | | LAB | | | Plasma | | | | | + + + + + + | MPV | 8.1 | fl | EXTERNAL | | | | | | LAB | | + + + + + + | Differentia | AUTOMATED | | EXTERNAL | | | l Type | | | LAB | | + + + + + + | % Segmented | 72.16 | % | EXTERNAL | | | | | | LAB | | | Neutrophils | | | | | + + + + + + | % | 17.92 | % | EXTERNAL | | | Lymphocytes | | | LAB | | + + + + + + | % Monocytes | 7.74 | % | EXTERNAL | | | | | | LAB | | + + + + + + | % | 1.83 | % | EXTERNAL | | | Eosinophils | | | LAB | | + + + + + + | % Basophils | 0.35 | % | EXTERNAL | | | | | | LAB | | + + + + + + | Absolute | 11.35 (H) | 1.90 - 7.40 | EXTERNAL | | | Segmented | | K/uL | LAB | | | Neutrophils | | | | | + + + + + + | Absolute | 2.82 | 1.00 - 3.90 | EXTERNAL | | | Lymphocytes | | K/uL | LAB | | + + + + + + | Absolute | 1.22 (H) | 0.00 - 0.80 | EXTERNAL | | | Monocytes | | K/uL | LAB | | + + + + + + | Absolute | 0.29 | 0.00 - 0.50 | EXTERNAL | | | Eosinophils | | K/uL | LAB | | + + + + + + | Absolute | 0.06Comment: Testing | 0.00 - 0.10 | EXTERNAL | | | Basophils | performed at [facility];[address] | K/uL | LAB | | | | [address];[place] | | | | | | [address] | | | | + + + + + + + + | Specimen | + + | Blood specimen | | (specimen) | + + + +---------+ + + | Performing | Address | City/State/Zipcode | Phone Number | | Organization | | | | + +---------+ + + | EXTERNAL LAB | | | | + +---------+ + + Magnesium (09/26/2018 10:44 AM PST) + + + + + + | Component | Value | Ref Range | Performed | Pathologist | | | | | At | Signature | + + + + + + | Magnesium | 2.0Comment: Testing | 1.7 - 2.4 mg/dL | EXTERNAL | | | | performed at [facility] | | LAB | | | | [address];[place], [place] | | | | | | [address] | | | | + + + + + + + + | Specimen | + + | Blood specimen | | (specimen) | + + + +---------+ + + | Performing | Address | City/State/Zipcode | Phone Number | | Organization | | | | + +---------+ + + | EXTERNAL LAB | | | | + +---------+ + + Calcium, Ionized (09/26/2018 10:44 AM PST) + + + + + + | Component | Value | Ref Range | Performed | Pathologist | | | | | At | Signature | + + + + + + | Calcium | 0.99 (L) | 1.08 - 1.25 | EXTERNAL | | | (Calc) | | mmol/L | LAB | | + + + + + + | pH, Bld | 7.421Comment: Testing | 7.300 - 7.450 | EXTERNAL | | | | performed at [facility];[address] | | LAB | | | | [address];[place], [place] | | | | | | [address] | | | | + + + [...] + +---------+ + + Basic Metabolic Panel (09/26/2018 10:44 AM PST) + + + + + + | Component | Value | Ref Range | Performed | Pathologist | | | | | At | Signature | + + + + + + | Na | 143 | 135 - 145 | EXTERNAL | | | | | mmol/L | LAB | | + + + + + + | K | 3.3 (L) | 3.5 - 4.9 | EXTERNAL | | | | | mmol/L | LAB | | + + + + + + | Cl | 112 (H) | 99 - 109 mmol/L | EXTERNAL | | | | | | LAB | | + + + + + + | CO2 | 24 | 23 - 32 mmol/L | EXTERNAL | | | | | | LAB | | + + + + + + | Anion Gap | 11 | 5 - 20 mmol/L | EXTERNAL | | | | | | LAB | | + + + + + + | Glucose, | 154 (H) | 65 - 99 mg/dL | EXTERNAL | | | Fasting | | | LAB | | + + + + + + | BUN | 9 | 8 - 25 mg/dL | EXTERNAL | | | | | | LAB | | + + + + + + | Creatinine | 0.48 (L) | 0.50 - 1.00 | EXTERNAL | | | | | mg/dL | LAB | | + + + + + + | BUN/Creatin | 19 | | EXTERNAL | | | ine Ratio | | | LAB | | + + + + + + | Calcium | 7.0 (L) | 8.5 - 10.5 | EXTERNAL | [...] | | | | | | MDRD [facility] traceable | | | | | | equation.Testing | | | | | | performed at [facility];[address] | | | | | | [address];[place], [place] | | | | | | [address] | | | | + + + + + + + + | Specimen | + + | Blood specimen | | (specimen) | + + + +---------+ + + | Performing | Address | City/State/Zipcode | Phone Number | | Organization | | | | + +---------+ + + | EXTERNAL LAB | | | | + +---------+ + + ECHO Transesophageal (ANA CRISTINA) - Periop (09/26/2018 10:30 AM PST) + + | Specimen | + + | | + + + + + | Impressions | Performed At | + + + | 1. Trace regurgitation. 2. Mild mitral regurgitation. 3. Mild | | | regurgitation. 4. Overall left ventricular systolic function is | | | mildly impaired with, an EF between 45 - 50 %. 5. Post Op: EF | | | improved to 55-60%. Small left pleural effusion noted. Valvular | | | function unchanged. | | + + + + + + | Narrative | Performed At | + + + | Patient Name: John Paul Meng Date of : 1960 | | | Performing Physician: Nena Canela | | | | | | INDICATIONS cabg CONCLUSIONS 1. Trace | | | regurgitation. 2. Mild mitral regurgitation. 3. Mild regurgitation. | | | 4. Overall left ventricular systolic function is mildly impaired | | | with, an EF between 45 - 50 %. 5. Post Op: EF improved to 55-60%. | | | Small left pleural effusion noted. Valvular function unchanged. | | | FINDINGS -------- Procedure Details: 2D, Color-flow Doppler, | | | Pulsed-wave and Continuous-wave. Procedure Details: Intubated: Y | | | Procedure Details: Anesthetic Type: General anesthesia Procedure | | | Details: Insertion: Easy Procedure Details: Probe type: Omniplane | | | Procedure Details: Complications: N Ascending Aorta: Normal size. | | | Ascending Aorta: No dissection. Aortic Arch: Normal size. Aortic | | | Arch: Plaque is present with a thickness of 0-3mm. Aortic Arch: | | | Plaque is not mobile. Aortic Arch: No dissection. Descending Aorta: | | | Normal size. Descending Aorta: Plaque is present with a thickness of | | | 0-3mm. Descending Aorta: Plaque is not mobile. Descending Aorta: No | | | dissection. Aortic Valve: Normal annulus. Aortic Valve: No Stenosis. | | | Aortic Valve: Trace regurgitation. Aortic Valve: Normal tricuspid | | | leaflet morphology. Aortic Valve: Normal leaflet motion. Mitral | | | Valve: Mild mitral regurgitation. Tricuspid Valve: Mild | | | regurgitation. Right Atrium: Normal size. Right Atrium: No | | | spontaneous echo contrast. Right Atrium: No thrombus noted. Right | | | Atrium: No mass present. Left atrium: Normal size. Left atrium: No | | | spontaneous echo contrast. Left atrium: No thrombus noted. Left | | | atrium: No mass present. Left Atrial Appendage : No thrombus noted. | | | Intraatrial septum: Normal. Left Ventricle: The left ventricular | | | size is normal. Left Ventricle: Left ventricular wall thickness is | | | normal. Left Ventricle: Overall left ventricular systolic function is | | | mildly impaired with, an EF between 45 - 50 %. Right Ventricle: The | | | right ventricle is normal in size. Right Ventricle: The right | | | ventricular systolic function is normal. Pericardium: The pericardium | | | is normal. Pleura: Normal. Post-Op: Post Op: EF improved to | | | 55-60%. Small left pleural effusion noted. Valvular function | | | unchanged. Complications: None. MEASUREMENTS | | | Marketing Community Liaison: APRIL Authenticated by: Nena Canela Report Date/Time: | | | 09-26-2018 13:11:16 | | + + + + + | Procedure Note | + + | Eduardo, Rad Conversion - 05/29/2019 3:18 PM PDT Patient Name: Layton Meng of | | : 1960 Performing Physician: Nena | | Hilton INDICATIONS | | -cabg CONCLUSIONS 1. Trace regurgitation.2. Mild mitral regurgitation.3. Mild | | regurgitation.4. Overall left ventricular systolic function is mildly impaired with, an | | EF between 45 - 50 %.5. Post Op: EF improved to 55-60%. Small left pleural effusion | | noted. Valvular function unchanged. FINDINGS--------Procedure Details: 2D, Color-flow | | Doppler, Pulsed-wave and Continuous-wave.Procedure Details: Intubated: YProcedure | | Details: Anesthetic Type: General anesthesiaProcedure Details: Insertion: | | EasyProcedure Details: Probe type: OmniplaneProcedure Details: Complications: | | NAscending Aorta: Normal size.Ascending Aorta: No dissection.Aortic Arch: Normal | | size.Aortic Arch: Plaque is present with a thickness of 0-3mm.Aortic Arch: Plaque is not | | mobile.Aortic Arch: No dissection.Descending Aorta: Normal size.Descending Aorta: | | Plaque is present with a thickness of 0-3mm.Descending Aorta: Plaque is not | | mobile.Descending Aorta: No dissection.Aortic Valve: Normal annulus.Aortic Valve: No | | Stenosis.Aortic Valve: Trace regurgitation.Aortic Valve: Normal tricuspid leaflet | | morphology.Aortic Valve: Normal leaflet motion.Mitral Valve: Mild mitral | | regurgitation.Tricuspid Valve: Mild regurgitation.Right Atrium: Normal size.Right | | Atrium: No spontaneous echo contrast.Right Atrium: No thrombus noted.Right Atrium: No | | mass present.Left atrium: Normal size.Left atrium: No spontaneous echo contrast.Left | | atrium: No thrombus noted.Left atrium: No mass present.Left Atrial Appendage : No | | thrombus noted.Intraatrial septum: Normal.Left Ventricle: The left ventricular size is | | normal.Left Ventricle: Left ventricular wall thickness is normal.Left Ventricle: Overall | | left ventricular systolic function is mildly impaired with, an EF between 45 - 50 | | %.Right Ventricle: The right ventricle is normal in size.Right Ventricle: The right | | ventricular systolic function is normal.Pericardium: The pericardium is normal.Pleura: | | Normal.Post-Op: Post Op: EF improved to 55-60%. Small left pleural effusion noted. | | Valvular function unchanged.Complications: None. MEASUREMENTS Marketing Community Liaison: | | CMAuthenticated by: Nena Zuluaga Date/Time: 09-26-2018 13:11:16 IMPRESSION: 1. Trace | | regurgitation.2. Mild mitral regurgitation.3. Mild regurgitation.4. Overall left | | ventricular systolic function is mildly impaired with, an EF between 45 - 50 %.5. Post | | Op: EF improved to 55-60%. Small left pleural effusion noted. Valvular function | | unchanged. | |Aortic Arch: No dissection. | |Descending Aorta: Normal size. | |Descending Aorta: Plaque is present with a thickness of 0-3mm. | |Descending Aorta: Plaque is not mobile. | |Descending Aorta: No dissection. | |Aortic Valve: Normal annulus. | |Aortic Valve: No Stenosis. | |Aortic Valve: Trace regurgitation. | |Aortic Valve: Normal tricuspid leaflet morphology. | |Aortic Valve: Normal leaflet motion. | |Mitral Valve: Mild mitral regurgitation. | |Tricuspid Valve: Mild regurgitation. | |Right Atrium: Normal size. | |Right Atrium: No spontaneous echo contrast. | |Right Atrium: No thrombus noted. | |Right Atrium: No mass present. | |Left atrium: Normal size. | |Left atrium: No spontaneous echo contrast. | |Left atrium: No thrombus noted. | |Left atrium: No mass present. | |Left Atrial Appendage : No thrombus noted. | |Intraatrial septum: Normal. | |Left Ventricle: The left ventricular size is normal. | |Left Ventricle: Left ventricular wall thickness is normal. | |Left Ventricle: Overall left ventricular systolic function is mildly impaired with, an EF b etween 45 - 50 %. | |Right Ventricle: The right ventricle is normal in size. | |Right Ventricle: The right ventricular systolic function is normal. | |Pericardium: The pericardium is normal. | |Pleura: Normal. | |Post-Op: Post Op: EF improved to 55-60%. Small left pleural effusion noted. Valvular fun ction unchanged. | |Complications: None. | | | |MEASUREMENTS | | | | | |Marketing Community Liaison: CM | |Authenticated by: Nena Canela | |Report Date/Time: 09-26-2018 13:11:16 | | | |IMPRESSION: | |1. Trace regurgitation. | |2. Mild mitral regurgitation. | |3. Mild regurgitation. | |4. Overall left ventricular systolic function is mildly impaired with, an EF between 45 - 5 0 %. | |5. Post Op: EF improved to 55-60%. Small left pleural effusion noted. Valvular function unchanged. | + + POC ISTAT, CG8, Arterial (09/26/2018 9:49 AM PST) + + + + + + | Component | Value | Ref Range | Performed | Pathologist | | | | | At | Signature | + + + + + + | PH ART | 7.313 (L) | 7.350 - 7.450 | EXTERNAL | | | | | | LAB | | + + + + + + | PCO2 ART | 47 (H) | 35 - 45 mmHg | EXTERNAL | | | | | | LAB | | + + + + + + | PO2 ART | 310 (HH) | 80 - 105 mmHg | EXTERNAL | | | | | | LAB | | + + + + + + | HCO3 ART | 24 | 22 - 26 mmol/L | EXTERNAL | | | | | | LAB | | + + + + + + | POC | 25 | 23 - 27 mEq/L | EXTERNAL | | | APPEARANCE | | | LAB | | | UA | | | | | + + + + + + | Base | 2 | 0.0 - 2.0 | EXTERNAL | | | deficit | | mmol/L | LAB | | + + + + + + | O2 SAT ART | 100 (H) | 95 - 98 % | EXTERNAL | | | | | | LAB | | + + + + + + | Sodium, POC | 142 | 135 - 145 mEq/L | EXTERNAL | | | | | | LAB | | + + + + + + | Potassium, | 3.0 (L) | 3.5 - 5.0 mEq/L | EXTERNAL | | | POC | | | LAB | | + + + + + + | Ionized | 1.09 (L) | 1.12 - 1.32 | EXTERNAL | | | Calcium, | | mmol/L | LAB | | | POC | | | | | + + + + + + | Glucose, | 179 (H) | 65 - 99 mg/dL | EXTERNAL | | | POC | | | LAB | | + + + + + + | Hematocrit, | 27 (L) | 35.0 - 46.0 % | EXTERNAL | | | POC | | | LAB | | + + + + + + | Hemoglobin, | 9.2 (L)Comment: Testing | 11.6 - 15.5 | EXTERNAL | | | POC | performed at [facility];888 | g/dL | LAB | | | | [address];[place], [place] | | | | | | [address] | | | | + + + + + + + + | Specimen | + + | | + + + +---------+ + + | Performing | Address | City/State/Zipcode | Phone Number | | Organization | | | | + +---------+ + + | EXTERNAL LAB | | | | + +---------+ + + POC CG 4, ISTAT Arterial (09/26/2018 9:45 AM PST) + + + + + + | Component | Value | Ref Range | Performed | Pathologist | | | | | At | Signature | + + + + + + | PH ART | 7.294 (L) | 7.350 - 7.450 | EXTERNAL | | | | | | LAB | | + + + + + + | PCO2 ART | 48 (H) | 35 - 45 mmHg | EXTERNAL | | | | | | LAB | | + + + + + + | PO2 ART | 348 (HH) | 80 - 105 mmHg | EXTERNAL | | | | | | LAB | | + + + + + + | Lactate, | 2.46 (H) | 0.36 - 1.25 | EXTERNAL | | | Arterial | | mmol/L | LAB | | + + + + + + | HCO3 ART | 23 | 22 - 26 mmol/L | EXTERNAL | | | | | | LAB | | + + + + + + | POC | 25 | 23 - 27 mEq/L | EXTERNAL | | | APPEARANCE | | | LAB | | | UA | | | | | + + + + + + | Base | 3 (H) | 0.0 - 2.0 | EXTERNAL | | | deficit | | mmol/L | LAB | | + + + + + + | O2 SAT ART | 100 (H)Comment: Testing | 95 - 98 % | EXTERNAL | | | | performed at [facility];[address] | | LAB | | | | [address];[place], [place] | | | | | | [address] | | | | + + + + + + + + | Specimen | + + | | + + + +---------+ + + | Performing | Address | City/State/Zipcode | Phone Number | | Organization | | | | + +---------+ + + | EXTERNAL LAB | | | | + +---------+ + + MEGHAN CUNHA CG8, Arterial (09/26/2018 9:28 AM PST) + + + + + + | Component | Value | Ref Range | Performed | Pathologist | | | | | At | Signature | + + + + + + | PH ART | 7.339 (L) | 7.350 - 7.450 | EXTERNAL | | | | | | LAB | | + + + + + + | PCO2 ART | 49 (H) | 35 - 45 mmHg | EXTERNAL | | | | | | LAB | | + + + + + + | PO2 ART | 416 (HH) | 80 - 105 mmHg | EXTERNAL | | | | | | LAB | | + + + + + + | HCO3 ART | 26 | 22 - 26 mmol/L | EXTERNAL | | | | | | LAB | | + + + + + + | POC | 28 (H) | 23 - 27 mEq/L | EXTERNAL | | | APPEARANCE | | | LAB | | | UA | | | | | + + + + + + | Base | 0 | 0 - 3 mEq/L | EXTERNAL | | | Excess, | | | LAB | | | Arterial | | | | | + + + + + + | O2 SAT ART | 100 (H) | 95 - 98 % | EXTERNAL | | | | | | LAB | | + + + + + + | Sodium, POC | 141 | 135 - 145 mEq/L | EXTERNAL | | | | | | LAB | | + + + + + + | Potassium, | 3.5 | 3.5 - 5.0 mEq/L | EXTERNAL | | | POC | | | LAB | | + + + + + + | Ionized | 1.11 (L) | 1.12 - 1.32 | EXTERNAL | | | Calcium, | | mmol/L | LAB | | | POC | | | | | + + + + + + | Glucose, | 170 (H) | 65 - 99 mg/dL | EXTERNAL | | | POC | | | LAB | | + + + + + + | Hematocrit, | 28 (L) | 35.0 - 46.0 % | EXTERNAL | | | POC | | | LAB | | + + + + + + | Hemoglobin, | 9.5 (L)Comment: Testing | 11.6 - 15.5 | EXTERNAL | | | POC | performed at [facility];[address] | g/dL | LAB | | | | [address];[place], [place] | | | | | | [address] | | | | + + + + + + + + | Specimen | + + | | + + + +---------+ + + | Performing | Address | City/State/Zipcode | Phone Number | | Organization | | | | + +---------+ + + | EXTERNAL LAB | | | | + +---------+ + + POC ISULICES CG8, Arterial (09/26/2018 9:01 AM PST) + + + + + + | Component | Value | Ref Range | Performed | Pathologist | | | | | At | Signature | + + + + + + | PH ART | 7.345 (L) | 7.350 - 7.450 | EXTERNAL | | | | | | LAB | | + + + + + + | PCO2 ART | 47 (H) | 35 - 45 mmHg | EXTERNAL | | | | | | LAB | | + + + + + + | PO2 ART | 383 (HH) | 80 - 105 mmHg | EXTERNAL | | | | | | LAB | | + + + + + + | HCO3 ART | 26 | 22 - 26 mmol/L | EXTERNAL | | | | | | LAB | | + + + + + + | POC | 27 | 23 - 27 mEq/L | EXTERNAL | | | APPEARANCE | | | LAB | | | UA | | | | | + + + + + + | Base | 0 | 0 - 3 mEq/L | EXTERNAL | | | Excess, | | | LAB | | | Arterial | | | | | + + + + + + | O2 SAT ART | 100 (H) | 95 - 98 % | EXTERNAL | | | | | | LAB | | + + + + + + | Sodium, POC | 141 | 135 - 145 mEq/L | EXTERNAL | | | | | | LAB | | + + + + + + | Potassium, | 3.3 (L) | 3.5 - 5.0 mEq/L | EXTERNAL | | | POC | | | LAB | | + + + + + + | Ionized | 1.13 | 1.12 - 1.32 | EXTERNAL | | | Calcium, | | mmol/L | LAB | | | POC | | | | | + + + + + + | Glucose, | 175 (H) | 65 - 99 mg/dL | EXTERNAL | | | POC | | | LAB | | + + + + + + | Hematocrit, | 29 (L) | 35.0 - 46.0 % | EXTERNAL | | | POC | | | LAB | | + + + + + + | Hemoglobin, | 9.9 (L)Comment: Testing | 11.6 - 15.5 | EXTERNAL | | | POC | performed at [facility];[address] | g/dL | LAB | | | | [address];[place], [place] | | | | | | [address] | | | | + + + + + + + + | Specimen | + + | | + + + +---------+ + + | Performing | Address | City/State/Zipcode | Phone Number | | Organization | | | | + +---------+ + + | EXTERNAL LAB | | | | + +---------+ + + POC GUERLINE CG8, Arterial (09/26/2018 8:30 AM PST) + + + + + + | Component | Value | Ref Range | Performed | Pathologist | | | | | At | Signature | + + + + + + | PH ART | 7.337 (L) | 7.350 - 7.450 | EXTERNAL | | | | | | LAB | | + + + + + + | PCO2 ART | 45 | 35 - 45 mmHg | EXTERNAL | | | | | | LAB | | + + + + + + | PO2 ART | 212 (HH) | 80 - 105 mmHg | EXTERNAL | | | | | | LAB | | + + + + + + | HCO3 ART | 24 | 22 - 26 mmol/L | EXTERNAL | | | | | | LAB | | + + + + + + | POC | 26 | 23 - 27 mEq/L | EXTERNAL | | | APPEARANCE | | | LAB | | | UA | | | | | + + + + + + | Base | 2 | 0.0 - 2.0 | EXTERNAL | | | deficit | | mmol/L | LAB | | + + + + + + | O2 SAT ART | 100 (H) | 95 - 98 % | EXTERNAL | | | | | | LAB | | + + + + + + | Sodium, POC | 140 | 135 - 145 mEq/L | EXTERNAL | | | | | | LAB | | + + + + + + | Potassium, | 3.6 | 3.5 - 5.0 mEq/L | EXTERNAL | | | POC | | | LAB | | + + + + + + | Ionized | 1.16 | 1.12 - 1.32 | EXTERNAL | | | Calcium, | | mmol/L | LAB | | | POC | | | | | + + + + + + | Glucose, | 204 (H) | 65 - 99 mg/dL | EXTERNAL | | | POC | | | LAB | | + + + + + + | Hematocrit, | 30 (L) | 35.0 - 46.0 % | EXTERNAL | | | POC | | | LAB | | + + + + + + | Hemoglobin, | 10.2 (L)Comment: Testing | 11.6 - 15.5 | EXTERNAL | | | POC | performed at [facility];[address] | g/dL | LAB | | | | [address];[place], [place] | | | | | | [address] | | | | + + + + + + + + | Specimen | + + | | + + + +---------+ + + | Performing | Address | City/State/Zipcode | Phone Number | | Organization | | | | + +---------+ + + | EXTERNAL LAB | | | | + +---------+ + + POC CG 4, ISTAT Arterial (09/26/2018 7:33 AM PST) + + + + + + | Component | Value | Ref Range | Performed | Pathologist | | | | | At | Signature | + + + + + + | PH ART | 7.437 | 7.350 - 7.450 | EXTERNAL | | | | | | LAB | | + + + + + + | PCO2 ART | 41 | 35 - 45 mmHg | EXTERNAL | | | | | | LAB | | + + + + + + | PO2 ART | 508 (HH) | 80 - 105 mmHg | EXTERNAL | | | | | | LAB | | + + + + + + | Lactate, | 2.38 (H) | 0.36 - 1.25 | EXTERNAL | | | Arterial | | mmol/L | LAB | | + + + + + + | HCO3 ART | 27 (H) | 22 - 26 mmol/L | EXTERNAL | | | | | | LAB | | + + + + + + | POC | 29 (H) | 23 - 27 mEq/L | EXTERNAL | | | APPEARANCE | | | LAB | | | UA | | | | | + + + + + + | Base | 3 | 0 - 3 mEq/L | EXTERNAL | | | Excess, | | | LAB | | | Arterial | | | | | + + + + + + | O2 SAT ART | 100 (H)Comment: Testing | 95 - 98 % | EXTERNAL | | | | performed at [facility];[address] | | LAB | | | | [address];[place], [place] | | | | | | [address] | | | | + + + + + + + + | Specimen | + + | | + + + +---------+ + + | Performing | Address | City/State/Zipcode | Phone Number | | Organization | | | | + +---------+ + + | EXTERNAL LAB | | | | + +---------+ + + SCOTT [email or web address] Arterial (09/26/2018 7:28 AM PST) + + + + + + | Component | Value | Ref Range | Performed | Pathologist | | | | | At | Signature | + + + + + + | PH ART | 7.435 | 7.350 - 7.450 | EXTERNAL | | | | | | LAB | | + + + + + + | PCO2 ART | 40 | 35 - 45 mmHg | EXTERNAL | | | | | | LAB | | + + + + + + | PO2 ART | 474 (HH) | 80 - 105 mmHg | EXTERNAL | | | | | | LAB | | + + + + + + | HCO3 ART | 27 (H) | 22 - 26 mmol/L | EXTERNAL | | | | | | LAB | | + + + + + + | POC | 28 (H) | 23 - 27 mEq/L | EXTERNAL | | | APPEARANCE | | | LAB | | | UA | | | | | + + + + + + | Base | 3 | 0 - 3 mEq/L | EXTERNAL | | | Excess, | | | LAB | | | Arterial | | | | | + + + + + + | O2 SAT ART | 100 (H) | 95 - 98 % | EXTERNAL | | | | | | LAB | | + + + + + + | Sodium, POC | 140 | 135 - 145 mEq/L | EXTERNAL | | | | | | LAB | | + + + + + + | Potassium, | 4.0 | 3.5 - 5.0 mEq/L | EXTERNAL | | | POC | | | LAB | | + + + + + + | Ionized | 1.12 | 1.12 - 1.32 | EXTERNAL | | | Calcium, | | mmol/L | LAB | | | POC | | | | | + + + + + + | Glucose, | 253 (H) | 65 - 99 mg/dL | EXTERNAL | | | POC | | | LAB | | + + + + + + | Hematocrit, | 33 (L) | 35.0 - 46.0 % | EXTERNAL | | | POC | | | LAB | | + + + + + + | Hemoglobin, | 11.2 (L)Comment: Testing | 11.6 - 15.5 | EXTERNAL | | | POC | performed at [facility];[address] | g/dL | LAB | | | | [address];[place], [place] | | | | | | [address] | | | | + + + + + + + + | Specimen | + + | | + + + +---------+ + + | Performing | Address | City/State/Zipcode | Phone Number | | Organization | | | | + +---------+ + + | EXTERNAL LAB | | | | + +---------+ + + POC Glucose (09/26/2018 6:35 AM PST) + + + + + + | Component | Value | Ref Range | Performed | Pathologist | | | | | At | Signature | + + + + + + | Glucose, | 272 (H)Comment: Testing | 65 - 99 mg/dL | EXTERNAL | | | Fingerstick | performed at [facility];[address] | | LAB | | | | [address];[place] | | | | | | [address] | | | | + + + [...] Diagnosis | + + | CAD in [place] artery Coronary atherosclerosis of [place] coronary artery | + + documented in this encounter
--- OUTSIDE RECORDS SUMMARY | ~2020-03-18 | XMS | Encounter Summary ---
Demographics + + + | Address | [address] | | | [place] [address] | + + + | Home Phone | | + + + | Preferred Language | Unknown | + + + | Marital Status | | + + + | Judaism Affiliation | Unknown | + + + | Race | Unknown | + + + | Ethnic Group | Unknown | + + + Author + + + | Author | [facility] | | | and [place] | + + + | Organization | [facility] | | | [...] Team Providers + +------+ + | Care Sql Server Developer Name | Role | Phone | + +------+ + | Pauly Perez PA-C | PCP | | + +------+ + Reason for Visit + + + | Reason | Comments | + + + | Hospital Follow-up | | + + + | Atrial Fibrillation | | + + + Evaluate & Treat (Routine) +--------+--------+ + + + + | Status | Reason | Specialty | Diagnoses / | Referred By | Referred To | | | | | Procedures | Contact | Contact | +--------+--------+ + + + + | Closed | | Cardiology | Diagnoses | [place], | Samuel, | | | | | H[facility]P [facility] | Pauly Medrano, | MD Stephen | | | | | Procedures | PA-C [address] | [address] | | | | | [facility] | [address] | [facility] | | | | | | [place] | [place], [place] | | | | | | [address] | [address] Phone: | | | | | | [place], | [phone] | | | | | | [place] | Fax: | | | | | | [address] | [phone] | | | | | | Phone: | | | | | | | [phone] | | | | | | | Fax: | | | | | | | [phone] | | +--------+--------+ + + + + Encounter Details +--------+---------+ + + + | Date | Type | Department | Care Team | Description | +--------+---------+ + + + | 12/14/ | Office | [facility] | Stephen Baker MD | Atrial fibrillation, | | 2018 | Visit | CARDIOLOGY [address] | unspecified type | | | | [place], | [place], [place] | ([facility]) (Primary Dx) | | | | [place] [address] | [address] | | | | | [phone] | | | +--------+---------+ + + + [...] + + + | Blood Pressure | 110/68 | 12/14/2017 12:49 PM | | | | | PST | | + + + + + | Pulse | 68 | 12/14/2017 12:49 PM | | | | | PST | | + + + + + | Temperature | - | - | | + + + + + | Respiratory Rate | 14 | 12/14/2017 12:49 PM | | | | | PST | | + + + + + | Oxygen Saturation | - | - | | + + + + + | Inhaled Oxygen | - | - | | | Concentration | | | | + + + + + | Weight | 63 kg (138 lb 14.2 | 12/14/2017 12:49 PM | | | | oz) | PST | | + + + + + | Height | 165.1 cm (5' 5") | 12/14/2017 12:49 PM | | | | | PST | | + + + + + | Body Mass Index | 23.11 | 12/14/2017 12:49 PM | | | | | PST | | + + + + + documented in this encounter Patient Instructions Patient Instructions Taryn Solares RN - 12/14/2017 12:30 PM PST documented in this encounter Progress Notes Stephen Baker MD - 12/14/2017 12:30 PM PST PATIENT NAME: Luciana Latham : 1960: AGE: 57 y.o. PRIMARY CARE: Pauly Perez PA-C CARDIOLOGY CLINIC PROGRESS NOTE Ms. Latham presents for initial outpatient cardiology follow-up after recent [facility]'s admission on 11/15/17 with decompensated congestive heart failure. The patient unde rwent coronary geography was found to have a total LAD occlusion, moderate left circumflex d isease, and severe right posterior sending artery stenosis. She underwent successful ROBIN PC I of her right posterior sitting artery on 11/16/17. The patient had had an episode of prol onged chest pain week prior to admission and likely occluded her LAD at that time. The akanksha ent had poorly controlled diabetes and atrial fibrillation with rapid ventricular rate. The patient eventually converted spontaneously to sinus rhythm during her hospital admission. Echocardiogram from outside hospital with moderate left ventricular systolic dysfunction stephanie wed severe hypokinesis or akinesis of the mid to distal anterior and apical segments. The p atient was threatening to sign out against medical advice agreed to stay until November 19 wh en she was discharged upon discharge she was complaining of blurry vision but did not report loss of vision to me. The patient reports developing recurrence of rapid heart beating and presented to [facility] on 11/24/17 was found to be in atrial fibrillation with a rapid ventricular rate. She again was complaining of visual deficits a nd underwent brain MRI which confirmed left occipital lobe stroke which is manifesting as bl urred vision in her right eye. She has subsequently seen ophthalmologists and confirm that she does have visual field cuts. The patient was started on digoxin 0.125 mg daily and meto prolol succinate 100 mg daily at [facility] in her carvedilol was discontinued. She had complained of dry cough and her lisinopril was stopped and she was started on losartan 25 mg daily. She was also started on apixaban for thromboembolism prophylaxis. She was discharg ed home on 11/26/17, since her hospital discharge she has not had rapid beating consistent w ith her atrial fibrillation however she has had episodes of sudden tightness in her chest as sociated with severe diaphoresis and generalized weakness that lasts from 10-30 seconds. Olegario albrecht had 4 such episodes yesterday and 3 episodes a day before but has gone several days with n o episodes. She has had no syncope or near syncope. She complains of severe generalized fa tigue. She has no complaints of orthopnea. MEDICATIONS: Current Outpatient Prescriptions Medication Sig Dispense Refill acetaminophen (TYLENOL) 325 mg tablet Take 325-650 mg by mouth EVERY 4 TO 6 HOURS NE EDED for Pain or Fever. albuterol 2.5 mg/3 mL nebulizer solution Take 2.5 mg by nebulization 4 times daily as n eeded for Wheezing. ALPRAZolam (XANAX) 0.25 mg tablet Take 0.25-0.75 mg by mouth 3 times daily as needed. aspirin 81 mg chewable tablet Take 1 tablet by mouth Daily. 30 tablet 11 atorvaSTATin (LIPITOR) 40 mg tablet Take 1 tablet by mouth nightly. 30 tablet 11 carvedilol (COREG) 3.125 mg tablet Take 1 tablet by mouth 2 times daily (with breakfast & dinner). 60 tablet 11 clopidogrel (PLAVIX) 75 mg tablet Take 1 tablet by mouth Daily. 30 tablet 11 insulin glargine (LANTUS SOLOSTAR) 100 units/mL injection (pen) Inject 7 Units under th e skin nightly. 10 pen 1 lisinopril (PRINIVIL,ZESTRIL) 2.5 MG tablet Take 1 tablet by mouth nightly. 30 tablet 1 1 losartan (COZAAR) 25 mg tablet Take 25 mg by mouth Daily. metoprolol succinate (TOPROL-XL) 100 mg ER tablet Take 100 mg by mouth Daily. nitroglycerin (NITROSTAT) 0.[address] 1 tablet under the tongue every 5 helen federico as needed for Chest pain. 25 tablet 11 No current facility-administered medications for this visit. ALLERGIES Allergies Allergen Reactions Gabapentin irritable Hydroxychloroquine myalgia PHYSICAL EXAM Vital signs: Vitals: 12/14/17 1249 BP: 110/68 Pulse: 68 Resp: 14 Admit Weight: Weight: 63 kg (138 lb 14.2 oz) Current weight: Weight: 63 kg (138 lb 14.2 oz) Body mass index is 23.11 kg/m. General: Appears in no distress Chest: Clear Cardiovascular: Nondisplaced apical impulse, regular rhythm, no S3, jugular venous pressure normal Gastrointestinal: Abdomen soft, non-tender, normal bowel sounds, no organomegaly nor masses . Extremities: No edema Neuro: within normal LABS: Office Visit on 12/14/2017 Component Date Value Ref Range Status VENTRICULAR RATE EKG 12/14/2017 68 BPM Final ATRIAL RATE 12/14/2017 68 BPM Final P-R INTERVAL 12/14/2017 146 ms Final QRS DURATION 12/14/2017 68 ms Final Q-T INTERVAL 12/14/2017 362 ms Final Q-T INTERVAL (CORRECTED) 12/14/2017 384 ms Final P WAVE AXIS 12/14/2017 57 degrees Final QRS AXIS 12/14/2017 44 degrees Final T AXIS 12/14/2017 37 degrees Final INTERPRETATION TEXT 12/14/2017 Final Value:Normal sinus rhythm Anteroseptal infarct (cited on or before 15-NOV-2017) Abnormal ECG When compared with ECG of 17-NOV-2017 06:20, No significant change was found Confirmed by NITIN RAMIREZ, OLEGARIO ([id number]) on 12/14/2017 4:42:28 PM IMAGING: No results found. Resting ECG 12/14/17: Normal sinus rhythm 68 bpm, old anterior infarction, nonspecific T-wa ve abnormality, when compared with prior ECG dated 11/17/17, no significant interval change DIAGNOSES AND ASSESSMENTS: 1. Congestive heart failure: The patient appears to be well compensated from a cardiac view point without complaints of angina nor evidence of fluid retention. Her paroxysms of diapho resis and chest tightness are worrisome for dysrhythmia. The patient will have a 48 hour Ho lter monitor placed today which she will mail back to our clinic. She is instructed to cont act her office if these episodes continue or increase in frequency or severity. 2. Paroxysmal atrial fibrillation: The patient remains in sinus rhythm she is now on oral anticoagulation given her recent left occipital stroke manifesting as right eye vision loss. The patient is at risk for embolic stroke both from her atrial fibrillation as well as her anterior infarction with possible mural thrombus. 3. Type II diabetes poorly controlled: Patient states that her diabetic control is improve d as she is now working with the diabetic nurse monitoring her insulin dosing. PLAN OR RECOMMENDATIONS: Discontinue digoxin 48 hour Holter monitor today, patient to contact her office if she has increasing freque ncy or severity of paroxysms of sweating and chest discomfort Clinic follow-up 3 weeks or sooner as needed I appreciate the opportunity of participating in the care of this patient. Stephen Baker MD, 12/14/2017 16:50 documented in this enc ounter Plan of Treatment + +------+--------+ + + | Name | Type | Priori | Associated Diagnoses | Order Schedule | | | | ty | | | + +------+--------+ + + | Holter monitor - 48 | ECG | Routin | Atrial | Expected: 12/14/2017 | | hour | | e | fibrillation, | (Approximate), | | | | | unspecified type | Expires: 12/14/2018 | | | | | (HCC) | | + +------+--------+ + + documented as of this encounter Procedures + +--------+ + + + | Procedure Name | Priori | Date/Time | Associated Diagnosis | Comments | | | ty | | | | + +--------+ + + + | ECG 12 LEAD | Routin | 12/14/2017 | Atrial | Results for this | | | e | 4:42 PM | fibrillation, | procedure are in the | | | | PST | unspecified type | results section. | | | | | (HCC) | | + +--------+ + + + documented in this encounter Results ECG 12 lead (12/14/2017 4:42 PM PST) + + + + + + | Component | Value | Ref Range | Performed | Pathologist | | | | | At | Signature | + + + + + + | VENTRICULAR | 68 | BPM | [facility] | | | RATE EKG | | | | | + + + + + + | ATRIAL RATE | 68 | BPM | [facility] | | + + + + + + | P-R | 146 | ms | [facility] | | | INTERVAL | | | | | + + + + + + | QRS | 68 | ms | [facility] | | | DURATION | | | | | + + + + + + | Q-T | 362 | ms | [facility] | | | INTERVAL | | | | | + + + + + + | Q-T | 384 | ms | [facility] | | | INTERVAL | | | | | | (CORRECTED) | | | | | + + + + + + | P WAVE AXIS | 57 | degrees | [facility] | | + + + + + + | QRS AXIS | 44 | degrees | [facility] | | + + + + + + | T AXIS | 37 | degrees | [facility] | | + + + + + + | INTERPRETAT | Normal sinus | | [facility] | | | ION TEXT | rhythmAnteroseptal | | | | | | infarct (cited on or | | | | | | before | | | | | | 15-NOV-2017)Abnormal | | | | | | ECGWhen compared with | | | | | | ECG of 17-NOV-2017 | | | | | | 06:20,No significant | | | | | | change was | | | | | | foundConfirmed by | | | | | | OLEGARIO TAVERAS MD | | | | | | ([id number]) on 12/14/2017 | | | | | | 4:42:28 PM | | | | + + [...] + | Atrial fibrillation, unspecified type (HCC) - Primary | + + documented in this encounter
--- OUTSIDE RECORDS SUMMARY | ~2020-03-18 | XMS | Encounter Summary ---
Demographics + + + | Address | [address] | | | [place] [address] | + + + | Home Phone | | + + + | Preferred Language | Unknown | + + + | Marital Status | | + + + | Temple Affiliation | Unknown | + + + | Race | Unknown | + + + | Ethnic Group | Unknown | + + + Author + + + | Author | [facility] | | | and [place] | + + + | Organization | [facility] | | [...] Team Providers + +------+ + | Care Fraud Investigator Name | Role | Phone | + +------+ + | Pauly Perez PA-C | PCP | | + +------+ + Reason for Visit +--------+ + | Reason | Comments | +--------+ + | Other | prescriptions | +--------+ + Encounter Details +--------+ + + + + | Date | Type | Department | Care Team | Description | +--------+ + + + + | 11/20/ | Telephone | [facility] | Stephen Baker MD | Other | | 2018 | | CARDIOLOGY [address] | (prescriptions) | | | | [place], | [place], [place] | | | | | [place] [address] | [address] | | | | | [phone] | | | +--------+ + + + [...]
--- OUTSIDE RECORDS SUMMARY | ~2020-03-18 | XMS | Encounter Summary ---
Demographics + + + | Address | [address] | | | [place] [address] | + + + | Home Phone | | + + + | Preferred Language | Unknown | + + + | Marital Status | | + + + | Pentecostal Affiliation | Unknown | + + + | Race | Unknown | + + + | Ethnic Group | Unknown | + + + Author + + + | Author | [facility] | | | and [place] | + + + | Organization | [facility] | | | and [...] Team Providers + +------+ + | Care Ink Printer Name | Role | Phone | + +------+ + | Pauly Perez PA-C | PCP | | + +------+ + Encounter Details +--------+ + + + + | Date | Type | Department | Care Team | Description | +--------+ + + + + | 05/10/ | Orders Only | [facility] | Provider, | Acute | | 2019 | | SYSTEM GENERIC OP | [address] | posthemorrhagic | | | | CONVERSION [address] | [address] | anemia; Type 2 | | | | [address] [place], [place] | [place] [address] | diabetes mellitus | | | | [address] | | without | | | | [phone] | | complications (HCC) | +--------+ + [...]
--- OUTSIDE RECORDS SUMMARY | ~2020-03-18 | XMS | Encounter Summary ---
Demographics + + + | Address | [address] | | | [place] [address] | + + + | Home Phone | | + + + | Preferred Language | Unknown | + + + | Marital Status | | + + + | Restorationist Affiliation | Unknown | + + + | Race | Unknown | + + + | Ethnic Group | Unknown | + + + Author + + + | Author | [facility] | | | and [place] | + + + | Organization | [facility] | | | and [...] Team Providers + +------+ + | Care Etl Programmer Name | Role | Phone | + [...] [address] | | | | | [place], | [place], [place] | | | | | [place] [address] | [address] | | | | | [phone] | | | +--------+ + + + [...]
--- OUTSIDE RECORDS SUMMARY | ~2020-03-18 | XMS | Encounter Summary ---
Demographics + + + | [address] | [address] | | | [place] [address] | + + + | Home Phone | | + + + | Preferred Language | Unknown | + + + | Marital Status | | + + + | Christian Affiliation | Unknown | + + + [...] Team Providers + +------+ + | Care Grit Blaster Name | Role | Phone | + +------+ + | Pauly Perez PA-C | PCP | | + +------+ + Reason for Visit + + + | Reason | Comments | + + + | Medication Refill | | + + + Encounter Details +--------+--------+ + + + | Date | Type | Department | Care Team | Description | +--------+--------+ + + + | 11/29/ | Refill | [facility] [place] | Stephen Baker MD | Medication Refill | | 2019 | | CARDIOLOGY [address] | | | | | [place], | [place], [place] | | | | | [place] [address] | [address] | | | | | [phone] | | | +--------+--------+ + + + Social History + +-------+ [...]
--- OUTSIDE RECORDS SUMMARY | ~2020-03-18 | XMS | Encounter Summary ---
Demographics + + + | Address | [address] | | | [place] [address] | + + + | Home Phone | | + + + | Preferred Language | Unknown | + + + | Marital Status | | + + + | Anabaptism Affiliation | Unknown | + + + | Race | Unknown | + + + | Ethnic Group | Unknown | + + + Author + + + | Author | [facility] | | | and [place] | + + + | Organization | [facility] | | [...] Team Providers + +------+ + | Care Bindery Worker Name | Role | Phone | + +------+ + | Pauly Perez PA-C | PCP | | + +------+ + Encounter Details +--------+ + + + + | Date | Type | Department | Care Team | Description | +--------+ + + + + | 05/30/ | Hospital | [facility] | Conversion | Diagnosis unknown | | 2018 | Encounter | [address] | Transaction, | | | | | [address] | Provider Unknown | | | | | [place], [place] | [phone] | | | | | [address] | (Fax) | | | | | [phone] | | | +--------+ + + + [...] + | NM MYOCARDIAL | Routin | 05/30/2018 | | Results for this | | PERFUSION MULT SPECT | e | 4:12 PM | | procedure are in the | | | | PDT | | results section. | + +--------+ + + + documented in this encounter Results NM Myocardial Perfusion Mult SPECT (05/30/2018 4:12 PM PDT) + + | Specimen | + + | | + + + + + | Narrative | Performed At | + + + | This is a non-reportable procedure without a radiologist report and | | | is used for image storage only | | + + + + + | Procedure Note | + + | Lavell [place] - 05/29/2019 3:18 PM PDT This is a non-reportable procedure | | without a radiologist report and isused for image storage only | + + documented in this encounter Visit Diagnoses + + | Diagnosis | + + | Diagnosis unknown Other unknown and unspecified cause of morbidity or mortality | + + documented in this encounter"
--- OUTSIDE RECORDS SUMMARY | ~2020-03-18 | XMS | Encounter Summary ---
Demographics + + + | Address | [address] | | | [place] [address] | + + + | Home Phone | | + + + | Preferred Language | Unknown | + + + | Marital Status | | + + + | Methodist Affiliation | Unknown | + + + | Race | Unknown | + + + | Ethnic Group | Unknown | + + + Author + + + | Author | [facility] | | | and [place] | + + + | Organization | [facility] | | [...] Team Providers + +------+ + | Care Title Vehicle Service Attendant Name | Role | Phone | + +------+ + | Pauly Perez PA-C | PCP | | + +------+ + Encounter Details +--------+ + + + + | Date | Type | Department | Care Team | Description | +--------+ + + + + | 06/19/ | Orders Only | [facility] | Kierra Newell, | | | 2018 | | CARDIOLOGY MICHELLE | MD [address] | | | | | [address] | [place], | | | | | [place] | [place] [address] | | | | | [address] | [phone] | | | | | [phone] | | | +--------+ + + + [...] wall motion abnormalities consistent with her prior [place]. 2. | | | The diastolic filling [...] | | | INDICATIONS PAROXYSMAL AFIB, OLD FL CONCLUSIONS | | | 1. Overall left ventricular systolic function is | | | moderately impaired with an EF between 35 - 40%. There are multiple | | | anterior, septal and apical wall motion abnormalities consistent with | | | her prior [place]. 2. The diastolic filling pattern indicates impaired [...] | | | 1.16 m/s MV Dec Haskell: 4.50 m/s2 MV DecT: 208.16 ms MV [...] TR Vmax: 2.96 m/s | | | Adolescent Counselor: DBS Authenticated by: KIERRA NEWELL MD Report | | | Date/Time: 06-20-2018 8:18:8 | | + + + + + | Procedure Note | + + | Lavell Clark Conversion - 06/06/2019 5:21 PM PDT Patient Name: Layton Latham of | | : 1960 Performing Physician: KIERRA NEWELL, | | INDICATIONS P | | AROXYSMAL AFIB, OLD [place] CONCLUSIONS 1. Overall left ventricular systolic | | function is moderately impaired with an EF between 35 - 40%. There are multiple | | anterior, septal and apical wall motion abnormalities consistent with her prior FL.2. | | The diastolic filling pattern indicates [...] cmLVIDd: 4.55 cmLVPWd: 0.76 cmLVOT Area: 3.08 [id number] Diam: 1.98 cm%FS: | | 23.21 %EF(Teich): [...] | 8.23 cmLAESV(A-L): 87.71 mlLAAs A2C: 17.85 [id number] A-L A2C: 62.34 mlLALs A2C: | | 4.33 cmLAAs A4C: 25.11 [id number] A-L A4C: 102.77 mlLALs A4C: 5.21 cmRAAs: 12.47 | | [id number] A-L: 30.63 mlRAESV MOD: 30.34 mlRALs: 4.31 cmTAPSE: 1.88 cmAV maxPG: | | 13.49 mmHgAV meanP.64 mmHgAV Vmax: 1.83 m/Alexia Vmean: 1.21 m/Alexia VTI: 34.04 | | cmAVA Vmax: 1.63 cm2AVA (VTI): 1.79 [id number] (Vmax): 0.00 cm2/m2AVAI (VTI): 0.00 | | cm2/m2LVOT maxP.79 mmHgLVOT meanP.95 mmHgLVSI Dopp: 37.47 ml/m2LVSV Dopp: | | 61.08 mlLVOT Vmax: 0.97 m/sLVOT Vmean: 0.65 m/sLVOT VTI: 19.79 cmMV A Eddie: | | 1.16 m/sMV Dec Haskell: 4.50 m/s2MV DecT: 208.16 msMV E Eddie: 0.93 m/sMV E/A Ratio: | | 0.80MV PHT: 60.36 msMVA By PHT: 3.64 ib6Oramfo e': 0.07 m/sSeptal E/e': | | 12.36Lateral e': 0.05 m/sLateral E/e': 17.19P Vein A: 0.30 m/sP Vein D: 0.43 | | m/sP Vein S/D Ratio: 1.17P Vein S: 0.50 m/sPV maxP.34 mmHgPV Vmax: 0.91 | | m/sRAP: 5 mmHgRVSP: 40.13 mmHgTR maxP.13 mmHgTR Vmax: 2.96 m/s Adolescent Counselor: | | DBSAuthenticated by: MARY COOLEYeport Date/Time: 06-20-2018 8:18:8 IMPRESSION: 1. | | Overall left ventricular systolic function is moderately impaired with an EF between 35 | | - 40%. There are multiple anterior, septal and apical wall motion abnormalities | | consistent with her prior FL.2. The diastolic filling pattern indicates impaired | [...] A Eddie: 1.16 m/s | |MV Dec Haskell: 4.50 m/s2 | |MV DecT: 208.16 ms [...] |TR Vmax: 2.96 m/s | | | |Adolescent Counselor: DBS | |Authenticated by: KIERRA NEWELL MD | |Report Date/Time: 06-20-2018 8:18:8 | | | |IMPRESSION: | |1. Overall left ventricular systolic function is moderately impaired with an EF between 35 - 40%. There are multiple anterior, septal and apical wall motion abnormalities consistent with her prior [place]. | |2. The diastolic filling pattern indicates [...]
--- OUTSIDE RECORDS SUMMARY | ~2020-03-18 | XMS | Encounter Summary ---
Demographics + + + | Address | [address] | | | [place] [address] | + + + | Home Phone | | + + + | Preferred Language | Unknown | + + + | Marital Status | | + + + | Taoist Affiliation | Unknown | + + + | Race | Unknown | + + + | Ethnic Group | Unknown | + + + Author + + + | Author | [facility] | | | and [place] | + + + | Organization | [facility] | | | and [...] Team Providers + +------+ + | Care Trust Accounts Supervisor Name | Role | Phone | + +------+ + | Pauly Perez PA-C | PCP | | + +------+ + Encounter Details +--------+ + + + + | Date | Type | Department | Care Team | Description | +--------+ + + + + | 06/19/ | Orders Only | [facility] | Glenn [place], | | | 2018 | | CARDIOLOGY [place] | MD [address] | | | | | ECHO [address] | [place], | | | | | [place] | [place] [address] | | | | | [address] | [phone] | | | | | [phone] | | | +--------+ + + + [...] | + +--------+ + + + | VAS AORTA ILIAC | Routin | 06/19/2018 | | Results for this | | DUPLEX COMPLETE | e | 4:31 PM | | procedure are in the | | | | PDT | | results section. | + +--------+ + + + documented in this encounter Results VAS Aorta Iliac Duplex Complete (06/19/2018 4:31 PM PDT) + + | Specimen | + + | | + + + + + | Impressions | Performed At | + + + | 1. The abdominal aorta is widely patent, of normal caliber, and no | | | evidence of significant stenosis. 2. Bilateral femoropopliteal | | | atherosclerotic changes/medial calcification with no evidence of | | | significant stenosis. 3. Common and external iliac arteries on the | | | right appear patent with no evidence of significant stenosis. 4. | | | Atherosclerotic changes/medial calcification in the right trifurcation | | | vessels but with no evidence of significant trifurcation disease. 5. | | | Common and external iliac arteries on the left appear patent with no | | | evidence of significant stenosis. 6. Atherosclerotic changes/medial | | | calcification in the left trifurcation vessels but with no evidence of | | | significant trifurcation disease. 7. LIA's unreliable secondary to | | | incompressible left ROCKET MOTOR MECHANIC and LORE arteries. | | + + + + + + | Narrative | Performed At | + + + | Patient Name: Luciana Latham Date of : 1960 | | | Performing Physician: Micah Sánchez MD | | | | | | INDICATIONS PVD CONCLUSIONS 1. The | | | abdominal aorta is widely patent, of normal caliber, and no evidence | | | of significant stenosis. 2. Bilateral femoropopliteal atherosclerotic | | | changes/medial calcification with no evidence of significant | | | stenosis. 3. Common and external iliac arteries on the right appear | | | patent with no evidence of significant stenosis. 4. Atherosclerotic | | | changes/medial calcification in the right trifurcation vessels but | | | with no evidence of significant trifurcation disease. 5. Common and | | | external iliac arteries on the left appear patent with no evidence of | | | significant stenosis. 6. Atherosclerotic changes/medial calcification | | | in the left trifurcation vessels but with no evidence of significant | | | trifurcation disease. 7. LIA's unreliable secondary to incompressible | | | left ROCKET MOTOR MECHANIC and LORE arteries. FINDINGS -------- Study quality: | | | This was a technically adequate study. Aorta: The abdominal aorta is | | | widely patent, of normal caliber, and no evidence of significant | | | stenosis. Lower Extremity Duplex: Bilateral femoropopliteal | | | atherosclerotic changes/medial calcification with no evidence of | | | significant stenosis. Right Illiac: Common and external iliac | | | arteries on the right appear patent with no evidence of significant | | | stenosis. Right FINANCIAL ADVISER: The right common femoral artery is patent with | | | 1-49% stenosis. Right PFA: The right profunda femoris artery | | | demonstrates 1-49% stenosis. Right SFA: The right superficial femoral | | | artery is patent with 1-49% stenosis. Right POP: The right popliteal | | | artery is patent with 1-49% stenosis. Right trifurcation vessels: | | | Atherosclerotic changes/medial calcification in the right trifurcation | | | vessels but with no evidence of significant trifurcation disease. | | | [no group]: LIA's unreliable secondary to incompressible ROCKET MOTOR MECHANIC on the | | | right. Left Illiac: Common and external iliac arteries on the left | | | appear patent with no evidence of significant stenosis. Left FINANCIAL ADVISER: | | | The left common femoral artery is patent with 1-49% stenosis. Left | | | PFA: The left profunda femoris artery demonstrates 1-49% stenosis. | | | Left SFA: The left superficial femoral artery is patent with 1-49% | | | stenosis. Left Popliteal: The left popliteal artery is patent with | | | 1-49% stenosis. Left trifurcation vessels: Atherosclerotic | | | changes/medial calcification in the trifurcation vessels but with no | | | evidence of significant trifurcation disease. [no group]: LIA's | | | unreliable secondary to incompressible left ROCKET MOTOR MECHANIC and LORE arteries. | | | MEASUREMENTS LORE AC: 57 deg LORE AC: 33 deg LORE | | | AC: 29 deg LORE PS: 54.01 cm/s LORE PS: 74.91 cm/s LORE PS: | | | 59.88 cm/s LORE PS: 58.31 cm/s FINANCIAL ADVISER AC: 54 deg FINANCIAL ADVISER AC: 55 | | | deg FINANCIAL ADVISER PS: 97.14 cm/s FINANCIAL ADVISER PS: 101.94 cm/s MARIS AC: 60 deg | | | MARIS PS: 103.84 cm/s MARIS PS: 100.49 cm/s MARIS PS: 107.83 | | | cm/s DFA PS: 61.61 cm/s DFA PS: 64.21 cm/s EIA AC: 60 deg | | | EIA AC: 40 deg EIA AC: 60 deg EIA AC: 36 deg EIA PS: | | | 148.55 cm/s EIA PS: 76.69 cm/s EIA PS: 67.45 cm/s EIA PS: | | | 84.88 cm/s Peron AC: 59 deg Peron AC: 55 deg Peron PS: | | | 56.68 cm/s Peron PS: 57.55 cm/s Pop AC: 51 deg Pop AC: 52 | | | deg Pop PS: 83.84 cm/s Pop PS: 91.14 cm/s Pop PS: 55.05 | | | cm/s Pop PS: 71.50 cm/s ROCKET MOTOR MECHANIC AC: 59 deg ROCKET MOTOR MECHANIC AC: 59 deg ROCKET MOTOR MECHANIC | | | AC: 51 deg ROCKET MOTOR MECHANIC AC: 52 deg ROCKET MOTOR MECHANIC PS: 83.61 cm/s ROCKET MOTOR MECHANIC PS: | | | 63.90 cm/s ROCKET MOTOR MECHANIC PS: 42.56 cm/s ROCKET MOTOR MECHANIC PS: 34.04 cm/s SFA PS: | | | 84.05 cm/s SFA PS: 120.93 cm/s SFA PS: 95.70 cm/s SFA PS: | | | 64.89 cm/s AO prox PS: 110.59 cm/s AO dist: 84.71 cm/s AO | | | mid-dist PS: 83.85 cm/s AO dist: 1.40 cm Lt. MARIS: 0.95 cm | | | AO prox: 1.88 cm Rt. MARIS: 0.93 cm AO mid-dist: 1.34 cm AO | | | mid: 1.61 cm Cook Pickled Meat: VICENTE Authenticated by: Micah | | | Princess RAMIREZ Report Date/Time: -- [id number] | | + + + + + | Procedure Note | + + | Lavell Clark - 06/06/2019 5:21 PM PDT Patient Name: Elizabeth Latham | | : 1960 Performing Physician: Micah Sánchez | | MD INDICATIONS P | | VD CONCLUSIONS 1. The abdominal aorta is widely patent, of normal caliber, and | | no evidence of significant stenosis.2. Bilateral femoropopliteal atherosclerotic | | changes/medial calcification with no evidence of significant stenosis.3. Common and | | external iliac arteries on the right appear patent with no evidence of significant | | stenosis.4. Atherosclerotic changes/medial calcification in the right trifurcation | | vessels but with no evidence of significant trifurcation disease.5. Common and external | | iliac arteries on the left appear patent with no evidence of significant stenosis.6. | | Atherosclerotic changes/medial calcification in the left trifurcation vessels but with | | no evidence of significant trifurcation disease.7. LIA's unreliable secondary to | | incompressible left ROCKET MOTOR MECHANIC and LORE arteries. FINDINGS--------Study quality: This was a | | technically adequate study.Aorta: The abdominal aorta is widely patent, of normal | | caliber, and no evidence of significant stenosis.Lower Extremity Duplex: Bilateral | | femoropopliteal atherosclerotic changes/medial calcification with no evidence of | | significant stenosis. Right Illiac: Common and external iliac arteries on the right | | appear patent with no evidence of significant stenosis.Right FINANCIAL ADVISER: The right common | | femoral artery is patent with 1-49% stenosis.Right PFA: The right profunda femoris | | artery demonstrates 1-49% stenosis.Right SFA: The right superficial femoral artery is | | patent with 1-49% stenosis.Right POP: The right popliteal artery is patent with 1-49% | | stenosis.Right trifurcation vessels: Atherosclerotic changes/medial calcification in the | | right trifurcation vessels but with no evidence of significant trifurcation disease.[no | | group]: LIA's unreliable secondary to incompressible ROCKET MOTOR MECHANIC on the right. Left Illiac: | | Common and external iliac arteries on the left appear patent with no evidence of | | significant stenosis. Left FINANCIAL ADVISER: The left common femoral artery is patent with 1-49% | | stenosis.Left PFA: The left profunda femoris artery demonstrates 1-49% stenosis.Left | | SFA: The left superficial femoral artery is patent with 1-49% stenosis.Left Popliteal: | | The left popliteal artery is patent with 1-49% stenosis.Left trifurcation vessels: | | Atherosclerotic changes/medial calcification in the trifurcation vessels but with no | | evidence of significant trifurcation disease.[no group]: LIA's unreliable secondary to | | incompressible left ROCKET MOTOR MECHANIC and LORE arteries. MEASUREMENTS LORE AC: 57 degATA | | AC: 33 degATA AC: 29 degATA PS: 54.01 cm/sATA PS: 74.91 cm/sATA PS: 59.88 | | cm/sATA PS: 58.31 cm/sCFA AC: 54 degCFA AC: 55 degCFA PS: 97.14 cm/sCFA PS: | | 101.94 cm/sCIA AC: 60 degCIA PS: 103.84 cm/sCIA PS: 100.49 cm/sCIA PS: 107.83 | | cm/sDFA PS: 61.61 cm/sDFA PS: 64.21 cm/sEIA AC: 60 degEIA AC: 40 degEIA AC: 60 | | degEIA AC: 36 degEIA PS: 148.55 cm/sEIA PS: 76.69 cm/sEIA PS: 67.45 cm/sEIA PS: | | 84.88 cm/sPeron AC: 59 degPeron AC: 55 degPeron PS: 56.68 cm/sPeron PS: 57.55 | | cm/sPop AC: 51 degPop AC: 52 degPop PS: 83.84 cm/sPop PS: 91.14 cm/sPop PS: | | 55.05 cm/sPop PS: 71.50 cm/sPTA AC: 59 degPTA AC: 59 degPTA AC: 51 degPTA AC: | | 52 degPTA PS: 83.61 cm/sPTA PS: 63.90 cm/sPTA PS: 42.56 cm/sPTA PS: 34.04 | | cm/sSFA PS: 84.05 cm/sSFA PS: 120.93 cm/sSFA PS: 95.70 cm/sSFA PS: 64.89 cm/Liliana | | prox PS: 110.59 cm/Liliana dist: 84.71 cm/Liliana mid-dist PS: 83.85 cm/Liliana dist: 1.40 | | cmLt. MARIS: 0.95 cmAO prox: 1.88 cmRt. MARIS: 0.93 cmAO mid-dist: 1.34 cmAO mid: | | 1.61 cm Cook Pickled Meat: DHAuthenticated by: Micah Sánchez MDReport Date/Time: -- | | [id number] IMPRESSION: 1. The abdominal aorta is widely patent, of normal | | caliber, and no evidence of significant stenosis.2. Bilateral femoropopliteal | | atherosclerotic changes/medial calcification with no evidence of significant stenosis.3. | | Common and external iliac arteries on the right appear patent with no evidence of | | significant stenosis.4. Atherosclerotic changes/medial calcification in the right | | trifurcation vessels but with no evidence of significant trifurcation disease.5. Common | | and external iliac arteries on the left appear patent with no evidence of significant | | stenosis.6. Atherosclerotic changes/medial calcification in the left trifurcation | | vessels but with no evidence of significant trifurcation disease.7. LIA's unreliable | | secondary to incompressible left ROCKET MOTOR MECHANIC and LORE arteries. | |MARIS AC: 60 deg | |MARIS PS: 103.84 cm/s | |MARIS PS: 100.49 cm/s | |MARIS PS: 107.83 cm/s | |DFA PS: 61.61 cm/s | |DFA PS: 64.21 cm/s | |EIA AC: 60 deg | |EIA AC: 40 deg | |EIA AC: 60 deg | |EIA AC: 36 deg | |EIA PS: 148.55 cm/s | |EIA PS: 76.69 cm/s | |EIA PS: 67.45 cm/s | |EIA PS: 84.88 cm/s | |Peron AC: 59 deg | |Peron AC: 55 deg | |Peron PS: 56.68 cm/s | |Peron PS: 57.55 cm/s | |Pop AC: 51 deg | |Pop AC: 52 deg | |Pop PS: 83.84 cm/s | |Pop PS: 91.14 cm/s | |Pop PS: 55.05 cm/s | |Pop PS: 71.50 cm/s | |ROCKET MOTOR MECHANIC AC: 59 deg | |ROCKET MOTOR MECHANIC AC: 59 deg | |ROCKET MOTOR MECHANIC AC: 51 deg | |ROCKET MOTOR MECHANIC AC: 52 deg | |ROCKET MOTOR MECHANIC PS: 83.61 cm/s | |ROCKET MOTOR MECHANIC PS: 63.90 cm/s | |ROCKET MOTOR MECHANIC PS: 42.56 cm/s | |ROCKET MOTOR MECHANIC PS: 34.04 cm/s | |SFA PS: 84.05 cm/s | |SFA PS: 120.93 cm/s | |SFA PS: 95.70 cm/s | |SFA PS: 64.89 cm/s | |AO prox PS: 110.59 cm/s | |AO dist: 84.71 cm/s | |AO mid-dist PS: 83.85 cm/s | |AO dist: 1.40 cm | |Lt. MARIS: 0.95 cm | |AO prox: 1.88 cm | |Rt. MARIS: 0.93 cm | |AO mid-dist: 1.34 cm | |AO mid: 1.61 cm | | | |Cook Pickled Meat: VICENTE | |Authenticated by: Micah Sánchez MD | |Report Date/Time: -- [id number] | | | |IMPRESSION: | |1. The abdominal aorta is widely patent, of normal caliber, and no evidence of significant stenosis. | |2. Bilateral femoropopliteal atherosclerotic changes/medial calcification with no evidence of significant stenosis. | |3. Common and external iliac arteries on the right appear patent with no evidence of signif icant stenosis. | |4. Atherosclerotic changes/medial calcification in the right trifurcation vessels but with no evidence of significant trifurcation disease. | |5. Common and external iliac arteries on the left appear patent with no evidence of signifi cant stenosis. | |6. Atherosclerotic changes/medial calcification in the left trifurcation vessels but with n o evidence of significant trifurcation disease. | |7. LIA's unreliable secondary to incompressible left ROCKET MOTOR MECHANIC and LORE arteries. | + + documented in this encounter Visit Diagnoses Not on filedocumented in this encounter"
--- OUTSIDE RECORDS SUMMARY | ~2020-03-18 | XMS | Encounter Summary ---
Demographics + + + | Address | [address] | | | [place] [address] | + + + | Home Phone | | + + + | Preferred Language | Unknown | + + + | Marital Status | | + + + | Adventism Affiliation | Unknown | + + + | Race | Unknown | + + + | Ethnic Group | Unknown | + + + Author + + + | Author | [facility] | | | and [place] | + + + | Organization | [facility] | | | [...] Team Providers + +------+ + | Care Warehouse Engineer Name | Role | Phone | + +------+ + PCP | Unavailable | + +------+ + Encounter Details +--------+ + + + + | Date | Type | Department | Care Team | Description | +--------+ + + + + | 05/09/ | [facility] | [facility] | Preethi Bell | | | 2011 | Encounter | MED CTR XRAY [address] | DO Tao Ardon | | | | | [place] | [address] [place] | | | | | [place] [address] | [address] | | | | | [phone] | | | +--------+ + + + [...] encounter Medications at Time of Discharge + +-----+ +---------+ + + | Medication | Sig | Dispensed | Refills | Start | End Date | | | | | | Date | | + +-----+ +---------+ + + | buPROPion | | | 0 | 05/09/20 | | | (WELLBUTRIN XL) 300 | | | | 12 | 8 | | mg 24 hr tablet | | | | | | + +-----+ +---------+ + + documented as of this encounter Plan of Treatment Not on filedocumented as of this encounter Procedures + +--------+ + + + | Procedure Name | Priori | Date/Time | Associated Diagnosis | Comments | | | ty | | | | + +--------+ + + + | XR CERVICAL SPINE 1 | | 05/09/2012 | | Results for this | | VIEW | | 3:13 PM | | procedure are in the | | | | PDT | | results section. | + +--------+ + + + documented in this encounter Results XR Cervical Spine 1 Vw (05/09/2012 3:13 PM PDT) + + | Specimen | + + | | + + + + + | Narrative | Performed At | + + + | [facility] | [facility] | | [address] [facility] | [facility] | | LIMITED CERVICAL SPINE SERIES, | DIAG IMG | | 05/09/2012 CLINICAL HISTORY: Post injury neck pain. | | | FINDINGS: There is straightening of the normal cervical lordosis, | | | likely on the basis of muscle spas m. There is no compression | | | fracture. Anterior and posterior spinal lines and spinolaminar line | | | are intact. The C1-2 articulation is symmetric. There is mild | | | rotatory subluxation secondary to positio n. IMPRESSION: 1. | | | STRAIGHTENING OF THE NORMAL CERVICAL LORDOSIS. NEGATIVE FOR | | | FRACTURE. Dictated Date/Time: 05/09/2012 16:22 Transcribed | | | Date/Time: 05/09/2012 16:37 Boom Cat Operator: | | | <Electronically Signed by Judah Ram MD> 05/10/12 0754 | | + + + + + | Procedure Note | + + | Eduardo, Rad Conversion - 11/22/2013 5:45 PM [facility] | | Diagnostic Imaging Department [address] [place] [address] | | LIMITED CERVICAL SPINE SERIES, 05/09/2012 CLINICAL | | HISTORY: Post injury neck pain. FINDINGS: There is straightening of the normal | | cervical lordosis, likely on the basis of muscle spasm. There is no compression | | fracture. Anterior and posterior spinal lines and spinolaminar line are intact. The | | C1-2 articulation is symmetric. There is mild rotatory subluxation secondary to | | position. IMPRESSION: 1. STRAIGHTENING OF THE NORMAL CERVICAL LORDOSIS. NEGATIVE FOR | | FRACTURE. Dictated Date/Time: 05/09/2012 16:22Transcribed Date/Time: 05/09/2012 | | 16:37Transcriptionist: <Electronically Signed by Judah Ram MD> 05/10/12 | | 0754 | |m. There is no compression fracture. Anterior and posterior spinal lines and spinolaminar line are | |intact. The C1-2 articulation is symmetric. There is mild rotatory subluxation secondary to positio | |n. | | | |IMPRESSION: | | | |1. STRAIGHTENING OF THE NORMAL CERVICAL LORDOSIS. NEGATIVE FOR FRACTURE. | | | |Dictated Date/Time: 05/09/2012 16:22 | |Transcribed Date/Time: 05/09/2012 16:37 | |Boom Cat Operator: | |<Electronically Signed by Judah Ram MD> 05/10/12 0754 | + + + +---------+ + + | Performing | Address | City/State/Zipcode | Phone Number | | Organization | | | | + +---------+ + + | [place] | | | | | [place] | | | | + +---------+ + + documented in this encounter Visit Diagnoses Not on filedocumented in this encounter"
--- OUTSIDE RECORDS SUMMARY | ~2020-03-18 | XMS | Encounter Summary ---
Demographics + + + | Address | [address] | | | [place] [address] | + + + | Home Phone | | + + + | Preferred Language | Unknown | + + + | Marital Status | | + + + | Zoroastrianism Affiliation | Unknown | + + + [...] Team Providers + +------+ + | Care Line Installation Supervisor Name | Role | Phone | [...] ST | (prescriptions) | | | | [place], | [place], [place] | | | | | [place] [address] | [address] | | | | | [phone] | | | +--------+ + + + [...]
--- OUTSIDE RECORDS SUMMARY | ~2020-03-18 | XMS | Encounter Summary ---
Demographics + + + | Address | [address] | | | [place] [address] | + + + | Home Phone | | + + + | Preferred Language | Unknown | + + + | Marital Status | | + + + | Synagogue Affiliation | Unknown | + + + | Race | Unknown | + + + | Ethnic Group | Unknown | + + + Author + + + | Author | [facility] | | | and [place] | + + + | Organization | [facility] | | | and [...] Team Providers + +------+ + | Care Motorcycle Assembler Name | Role | Phone | + +------+ + | Pauly Perez PA-C | PCP | | + +------+ + Reason for Visit +---------+ + | Reason | Comments | +---------+ + | Results | Holter | +---------+ + Encounter Details +--------+ + + + + | Date | Type | Department | Care Team | Description | +--------+ + + + + | 12/26/ | Tele[facility] | [facility] [place] | Stephen Baker MD | Results ( [facility]) | | 2017 | | CARDIOLOGY [address] | [address] | | | | | [place], | [place], [place] | | | | | [place] [address] | [address] | | | | | [phone] | | | +--------+ + + + [...]
--- OUTSIDE RECORDS SUMMARY | ~2020-03-18 | XMS | Encounter Summary ---
Demographics + + + | Address | [address] | | | [place] [address] | + + + | Home Phone | | + + + | Preferred Language | Unknown | + + + | Marital Status | | + + + | Jewish Affiliation | Unknown | + + + | Race | Unknown | + + + | Ethnic Group | Unknown | + + + Author + + + | Author | [facility] | | | and [place] | + + + | Organization | [facility] | | | [...] Team Providers + +------+ + | Care Trim Sawyer Name | Role | Phone | + +------+ + | Pauly Perez PA-C | PCP | | + +------+ + Encounter Details +--------+ + + + + | Date | Type | Department | Care Team | Description | +--------+ + + + + | 09/18/ | Hospital | [facility] | Conversion | | | 2018 | Encounter | MEDICAL CENTER XRAY | Transaction, | | | | | [address] | Provider Unknown | | | | | [place] | [phone] | | | | | [address] | | | | | | [phone] | | | +--------+ + + + [...]
--- OUTSIDE RECORDS SUMMARY | ~2020-03-18 | XMS | Encounter Summary ---
Demographics + + + | Address | [address] | | | [place] [address] | + + + | Home Phone | | + + + | Preferred Language | Unknown | + + + | Marital Status | | + + + | Orthodox Affiliation | Unknown | + + + | Race | Unknown | + + + | Ethnic Group | Unknown | + + + Author + + + | Author | [facility] | | | and [place] | + + + | Organization | [facility] | | | and [place] | + + + | Address | Unknown | + + + | Phone | Unavailable | + + + Support + + +---------+ + | Name | Relationship | Address | Phone | + + +---------+ + | Mateo Yeison | ECON | Unknown | | + + +---------+ + Care Team Providers + +------+ + | Care Teaching Dietitian Name | Role | Phone | + +------+ + PCP | Unavailable | + +------+ + Encounter Details +--------+ + + + + | Date | Type | Department | Care Team | Description | +--------+ + + + + | 11/15/ | Imaging | [facility] | Provider, | | | 2018 | Exam | MED CTR EXTERNAL | MD [address] | | | | | IMAGING [address] | [place] | | | | | [address] | [place] [address] | | | | | [place] [address] | | | | | | [phone] | | | +--------+ + + + [...] documented in this encounter Results ECHO Complete (11/15/2017 10:40 AM PST) + + | Specimen | + + | | + + + + + | Narrative | Performed At | + + + | External films for comparison only - no result from [place]. | [facility] | + + + + +---------+ + + | Performing | Address | City/State/Zipcode | Phone Number | | Organization | | | | + +---------+ + + | [facility] | | | | + +---------+ + + documented in this encounter Visit Diagnoses Not on filedocumented in this encounter"
--- OUTSIDE RECORDS SUMMARY | ~2020-03-18 | XMS | Encounter Summary ---
Demographics + + + | Address | [address] | | | [place] [address] | + + + | Home Phone | | + + + | Preferred Language | Unknown | + + + | Marital Status | | + + + | Voodoo Affiliation | Unknown | + + + | Race | Unknown | + + + | Ethnic Group | Unknown | + + + Author + + + | Author | [facility] | | | and [place] | + + + | Organization | [facility] | | | [...] Team Providers + +------+ + | Care Manager Social Media Name | Role | Phone | + [...] + + | 12/26/ | Telephone | [facility] [place] | Stephen Baker MD | Results ( [facility]) | | 2017 | | CARDIOLOGY [address] | [address] | | | | | [place], | [place], [place] | | | | | [place] [address] | [address] | | | | | [phone] | | | +--------+ + + + [...]
--- OUTSIDE RECORDS SUMMARY | ~2020-03-18 | XMS | Encounter Summary ---
Demographics + + + | Address | [address] | | | [place] [address] | + + + | Home Phone | | + + + | Preferred Language | Unknown | + + + | Marital Status | | + + + | Jehovah'S Witness Affiliation | Unknown | + + + | Race | Unknown | + + + | Ethnic Group | Unknown | + + + Author + + + | Author | [facility] | | | and [place] | + + + | Organization | [facility] | | | and [...] Team Providers + +------+ + | Care Die Technician Name | Role | Phone | + +------+ + | Pauly Perez PA-C | PCP | | + +------+ + Encounter Details +--------+ + + + + | Date | Type | Department | Care Team | Description | +--------+ + + + + | 06/19/ | Orders Only | [facility] | Glenn Newell, | | | 2018 | | CARDIOLOGY MICHELLE | MD [address] | | | | | [address] | [place], | | | | | [place] | [place] [address] | | | | | [address] | [phone] | | | | | [phone] | | | +--------+ + + + [...] secondary to | | | incompressible left CLINICAL PHARMACIST and LORE arteries. | | + + [...] secondary to incompressible | | | left CLINICAL PHARMACIST and LORE arteries. FINDINGS -------- Study quality: [...] of significant | | | stenosis. Right PLASTICS HEAT WELDER: The right common femoral artery is patent [...] [no group]: LIA's unreliable secondary to incompressible CLINICAL PHARMACIST on the | | | right. Left Illiac: Common and external iliac arteries on the left | | | appear patent with no evidence of significant stenosis. Left PLASTICS HEAT WELDER: | | | The left common femoral [...] | | unreliable secondary to incompressible left CLINICAL PHARMACIST and LORE arteries. | | | MEASUREMENTS LORE AC: 57 deg LORE AC: 33 deg LORE | | | AC: 29 deg LORE PS: 54.01 cm/s LORE PS: 74.91 cm/s LORE PS: | | | 59.88 cm/s LORE PS: 58.31 cm/s PLASTICS HEAT WELDER AC: 54 deg PLASTICS HEAT WELDER AC: 55 | | | deg PLASTICS HEAT WELDER PS: 97.14 cm/s PLASTICS HEAT WELDER PS: 101.94 cm/s MARIS AC: 60 deg [...] | | cm/s Pop PS: 71.50 cm/s CLINICAL PHARMACIST AC: 59 deg CLINICAL PHARMACIST AC: 59 deg CLINICAL PHARMACIST | | | AC: 51 deg CLINICAL PHARMACIST AC: 52 deg CLINICAL PHARMACIST PS: 83.61 cm/s CLINICAL PHARMACIST PS: | | | 63.90 cm/s CLINICAL PHARMACIST PS: 42.56 cm/s CLINICAL PHARMACIST PS: 34.04 cm/s SFA PS: | | [...] AO | | | mid: 1.61 cm Ash Handler: VICENTE Authenticated by: Micah | | | Princess RAMIREZ Report Date/Time: -- [id number] | | + + + + + [...] unreliable secondary to | | incompressible left CLINICAL PHARMACIST and LORE arteries. FINDINGS--------Study quality: This was [...] patent with no evidence of significant stenosis.Right PLASTICS HEAT WELDER: The right common | | femoral artery [...] | group]: LIA's unreliable secondary to incompressible CLINICAL PHARMACIST on the right. Left Illiac: | | Common and external iliac arteries on the left appear patent with no evidence of | | significant stenosis. Left PLASTICS HEAT WELDER: The left common femoral artery is patent [...] unreliable secondary to | | incompressible left CLINICAL PHARMACIST and LORE arteries. MEASUREMENTS LORE AC: 57 [...] 1.34 cmAO mid: | | 1.61 cm Ash Handler: DHAuthenticated by: Micah Sánchez MDReport Date/Time: -- | | [id number] IMPRESSION: 1. The abdominal aorta is widely [...] unreliable | | secondary to incompressible left CLINICAL PHARMACIST and LORE arteries. | |MARIS AC: 60 [...] cm/s | |Pop PS: 71.50 cm/s | |CLINICAL PHARMACIST AC: 59 deg | |CLINICAL PHARMACIST AC: 59 deg | |CLINICAL PHARMACIST AC: 51 deg | |CLINICAL PHARMACIST AC: 52 deg | |CLINICAL PHARMACIST PS: 83.61 cm/s | |CLINICAL PHARMACIST PS: 63.90 cm/s | |CLINICAL PHARMACIST PS: 42.56 cm/s | |CLINICAL PHARMACIST PS: 34.04 cm/s | |SFA PS: 84.05 [...] |AO mid: 1.61 cm | | | |Ash Handler: VICENTE | |Authenticated by: Micah Sánchez MD | |Report Date/Time: -- [id number] | | | |IMPRESSION: | |1. The [...] |7. LIA's unreliable secondary to incompressible left CLINICAL PHARMACIST and LORE arteries. | + + documented in this encounter Visit Diagnoses Not on filedocumented in this encounter"
--- OUTSIDE RECORDS SUMMARY | ~2020-03-18 | XMS | Encounter Summary ---
Demographics + + + | Address | [address] | | | [place] [address] | + + + | Home Phone | | + + + | Preferred Language | Unknown | + + + | Marital Status | | + + + | Lutheran Affiliation | Unknown | + + + | Race | Unknown | + + + | Ethnic Group | Unknown | + + + Author + + + | Author | [facility] | | | and [place] | + + + | Organization | [facility] | | [...] Team Providers + +------+ + | Care Inspector Hairspring Truing Name | Role | Phone | + +------+ + | Pauly Perez PA-C | PCP | | + +------+ + Reason for Visit + + + | Reason | Comments | + + + | Appointment | | + + + Encounter Details +--------+ + + + + | Date | Type | Department | Care Team | Description | +--------+ + + + + | 07/31/ | Telephone | [facility] | Stephen Baker MD | Appointment | | 2017 | | CARDIOLOGY [address] | | | | | [place], | [place], [place] | | | | | [place] [address] | [address] | | | | | [phone] | | | +--------+ + + + [...]
--- OUTSIDE RECORDS SUMMARY | ~2020-03-18 | XMS | Encounter Summary ---
Demographics + + + | Address | [address] | | | [place] [address] | + + + | Home Phone [...] Team Providers + +------+ + | Care Elastic Attacher Chainstitch Name | Role | Phone | + [...] [address] | | | | | [place], | [place], [place] | | | | | [place] [address] | [address] | | | | | [phone] | | | +--------+--------+ + + + [...]
--- OUTSIDE RECORDS SUMMARY | ~2020-03-18 | XMS | Encounter Summary ---
Demographics + + + | Address | [address] | | | [place] [address] | + + + | Home Phone | | + + + | Preferred Language | Unknown | + + + | Marital Status | | + + + | Worship Affiliation | Unknown | + + + | Race | Unknown | + + + | Ethnic Group | Unknown | + + + Author + + + | Author | [facility] | | | and [place] | + + + | Organization | [facility] | | [...] Team Providers + +------+ + | Care Utilities Estimator And Drafter Name | Role | Phone | + +------+ + | Pauly Perez PA-C | PCP | | + +------+ + Encounter Details +--------+ + + + + | Date | Type | Department | Care Team | Description | +--------+ + + + + | 07/18/ | Orders Only | [facility] | Gelnn Newell, | | | 2018 | | CARDIOLOGY MICHELLE | MD [address] | | | | | [address] | [place], | | | | | [place] | [place] [address] | | | | | [place] | [phone] | | | | | [address] | | | | | | [phone] | | | +--------+ + + + [...] Performed At | + + + | [facility] [address], [place], [place] | | | [phone] THALLIUM VIABILITY STUDY TEST DATE: 07/17/2018 | [...] Rad Conversion - 06/06/2019 5:21 PM PDT [facility] [id number] [facility] | | [address] , [place], [phone] THALLIUM VIABILITY STUDYTEST DATE: | | 07/17/2018NAME: Cameron LathamOB: 1960MRN: [id number] MD: Levi | | MD Osiris INDICATION [...]
--- OUTSIDE RECORDS SUMMARY | ~2020-03-18 | XMS | Encounter Summary ---
Demographics + + + | Address | [address] | | | [place] [address] | + + + | Home Phone | | + + + | Preferred Language | Unknown | + + + | Marital Status | | + + + | Denominational Affiliation | Unknown | + + + | Race | Unknown | + + + | Ethnic Group | Unknown | + + + Author + + + | Author | [facility] | | | and [place] | + + + | Organization | [facility] | | | and [place] | + + + | Address | Unknown | + + + | Phone | Unavailable | + + + Support + + +---------+ + | Name | Relationship | Address | Phone | + + +---------+ + | Mateozak Latham | ECON | Unknown | | + + +---------+ + Care Team Providers + +------+ + | Care Associate Pastor Name | Role | Phone | + +------+ + PCP | Unavailable | + +------+ + Encounter Details +--------+ + + + + | Date | Type | Department | Care Team | Description | +--------+ + + + + | 06/28/ | Abstract | [place] [facility] | DATA MIGRATION DEON | | | 2011 | | Conversion Location | SR | | | | | [address] | | | | | | [place], [place] | | | | | | [address] | | | | | | [phone] | | | +--------+ + + + [...] + + + | Blood Pressure | 141/84 | 05/09/2012 12:00 AM | | | | | PDT | | + + + + + | Pulse | - | - | | + [...] + + + + | Weight | 71.5 kg (157 lb 11.2 | 05/09/2012 12:00 AM | | | | oz) | PDT | | + + + + + | Height | 167.6 cm (5' 6") | 12/25/2010 12:00 AM | | | | | PST | | + + + + + | Body Mass Index | 25.45 | 12/25/2010 12:00 AM | | | | | PST | | + + + + + documented in this encounter Plan of Treatment Not on filedocumented as of this encounter Visit Diagnoses Not on filedocumented in this encounter
--- OUTSIDE RECORDS SUMMARY | ~2020-03-18 | XMS | Clinical Summary ---
Demographics + + + | Address | [address] | | | [place] [address] | + + + | Home Phone | | + + + | Preferred Language | Unknown | + + + | Marital Status | | + + + | Taoism Affiliation | Unknown | + + + [...] Team Providers + +------+ + | Care Javascript Front End Developer Name | Role | Phone | + +------+ + | Pauly Perez PA-C | PCP | | + +------+ + Allergies + + + + + + | Active Allergy | Reactions | Severity | Noted | Comments | | | | | Date | | + + + + + + | Gabapentin | Hallucination | Low | 11/17/19 | irritable | | | | | 18 | irritable | + + + + + + | Hydroxychloroquine | Myalgia | | 11/17/19 | myalgia myalgia | | | | | 18 | | + + + + + + Medications + + + +---------+------+------+-------+ | Medication | Sig | Dispensed | Refills | Star | End | Statu | | | | | | t | Date | s | | | | | | Date | | | + + + +---------+------+------+-------+ | acetaminophen | Take 325-650 mg by | | 0 | | | Activ | | (TYLENOL) 325 mg | mouth EVERY 4 TO 6 | | | | | e | | tablet | HOURS NEEDED for | | | | | | | | Pain or Fever. | | | | | | + + + +---------+------+------+-------+ | nitroglycerin | Place 1 tablet under | 25 | 11 | 02/0 | | Activ | | (NITROSTAT) 0.4 mg | the tongue every 5 | tablet | | 4/20 | | e | | SL tablet | minutes as needed | | | 18 | | | | | for Chest pain. | | | | | | + + + +---------+------+------+-------+ | metFORMIN | Take 1,000 mg by | | 0 | | | Activ | | (GLUCOPHAGE) 1000 MG | mouth 2 times daily | | | | | e | | tablet | (with breakfast & | | | | | | | | dinner). | | | | | | + + + +---------+------+------+-------+ | losartan (COZAAR) | Take 1 tablet by | 90 | 3 | 03/2 | | Activ | | 25 mg tablet | mouth Daily. | tablet | | 2/20 | | e | | | | | | 18 | | | + + + +---------+------+------+-------+ | insulin aspart | Inject 3 Units into | | 0 | 12/1 | | Activ | | (NOVOLOG FLEXPEN) | the skin 3 (three) | | | 7/20 | | e | | 100 units/mL | times daily before | | | 18 | | | | injection pen | meals. | | | | | | + + + +---------+------+------+-------+ | metoprolol | Take 12.5 mg by | | 0 | 12/1 | | Activ | | tartrate (LOPRESSOR) | mouth Daily. | | | 7/20 | | e | | 25 mg tablet | | | | 18 | | | + + + +---------+------+------+-------+ | insulin glargine | Inject 16 Units into | | 0 | 12/1 | | Activ | | (LANTUS SOLOSTAR) | the skin daily. | | | 7/20 | | e | | 100 units/mL | | | | 18 | | | | injection (pen) | | | | | | | + + + +---------+------+------+-------+ | aspirin (ADULT | Take 1 tablet by | 90 | 3 | /2 | | Activ | | ASPIRIN EC LOW | mouth Daily. | tablet | | 0/20 | | e | | STRENGTH) 81 MG EC | | | | 20 | | | | tablet | | | | | | | + + + +---------+------+------+-------+ | apixaban (ELIQUIS) | Take 1 tablet by | 60 | 11 | 02/2 | | Activ | | 5 mg tablet | mouth 2 times daily. | tablet | | 0/20 | | e | | | | | | 20 | | | + + + +---------+------+------+-------+ | atorvaSTATin | Take 1 tablet by | 30 | 11 | 02/2 | | Activ | | (LIPITOR) 80 MG | mouth nightly. | tablet | | 0/20 | | e | | tablet | | | | 20 | | | + + + +---------+------+------+-------+ Active Problems + + + | Problem | Noted Date | + + + | Systemic lupus erythematosus (SLE) in adult | 05/10/2019 | + + + | Moderate protein-calorie malnutrition | 09/29/2018 | + + + | Essential hypertension | 09/26/2018 | + + + | HLD (hyperlipidemia) | 09/26/2018 | + + + | S/P CABG x 1 | 09/26/2018 | + + + + + | Overview: HILLMAN > LAD (off pump) | + + + + + | CHF (congestive heart failure) | 12/13/2017 | + + + | CAD in [place] artery | 12/13/2017 | + + + + + | Overview: Added automatically from request for surgery [id number] | + + + + + | Atrial fibrillation | 12/13/2017 | + + + + + | Overview: Holter-Monitor 48hr 12/18/17 The predominant rhythm | | is sinus with HR between 79 to 163 bpm. The average HR was 102 | | bpm during the 48:32 hour recording. There were Very rare PVC's | | (183 total, mean 3.8/hr) with no couplets and no triplets.There | | were very rare PAC's (61 total, mean 1.3/hr). There was no | | bradycardia. There were 143 episodes of tachycardia. The longest | | was 684 beats on Monday 16:53. The maximum rate was 173 bpm on | | Monday 08:26 There were 2 episodes of paroxysmal atrial | | fibrillation/flutter for a total time of 26 minutes and 38 | | seconds or 0.9% on the study, with a maximum rate of 170 | | bpm. 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 | + + + + + | Status post insertion of drug eluting coronary artery stent | 11/16/2017 | + + + + + | Overview: 2.25 x 15 mm Xience ROBIN in the prox right PDA | + + + + + | IMPACTED CERUMEN | 05/14/2012 | + + + | OTHER CHRONIC OTITIS EXTERNA | 05/14/2012 | + + + | PERFORATED TYMPANIC MEMBRANE | 05/09/2012 | + + + | CERVICAL STRAIN | 05/09/2012 | + + + | HEADACHE | 05/29/2011 | + + + + + | Overview: ICD-10 Record update | + + + +---+ | RHEUMATOID ARTHRITIS | | + +---+ + + | Overview: ICD-10 Record update | + + + +---+ | DIABETES, TYPE 2 | | + +---+ Family History Patient is adopted + + +------+ + | Medical History | Relation | Name | Comments | + + +------+ + | Coronary artery | Brother | | 17 siblings, does not know much about most | | disease | | | of them (adopted), but several of MIs | + + +------+ + | Alcohol abuse | Mother | | | + + +------+ + | Coronary artery | Sister | | | | disease | | | | + + +------+ + | Coronary artery | Son | | | | disease | | | | + + +------+ + | Diabetes, IDDM | Son | | | + + +------+ + | Cancer | Son | | brain tumor | + + +------+ + + +------+ + + | Relation | Name | Status | Comments | + +------+ + + | Brother | | Alive | | + +------+ + + | Brother | | | | + +------+ + + | Brother | | | | + +------+ + + | Daughter | | Alive | | + +------+ + + | Mother | | | | + +------+ + + | Sister | | Alive | | + +------+ + + | Sister | | | | + +------+ + + | Sister | | | | + +------+ + + | Son | | Alive | | + +------+ + + | Son | | Alive | | + +------+ + + | Son | | | | + +------+ + + | Son | | | | + +------+ + + | Son | | | | + +------+ + + Social History + +-------+ +--------+------+ [...] recent travel history available. | + + Last Filed Vital Signs + + + + + | Vital Sign | Reading | Time Taken | Comments | + + + + + | Blood Pressure | 104/58 | 12/05/2019 2:39 PM | | | | | PST | | + + + + + | Pulse | 87 | 12/05/2019 2:39 PM | | | | | PST | | + + + + + | Temperature | 37 C (98.6 F) | 10/30/2018 10:48 AM | | | | | PST | | + + + + + | Respiratory Rate | 16 | 10/30/2018 10:48 AM | | | | | PST | | + + + + + | Oxygen Saturation | 99% | 12/05/2019 2:39 PM | | | | | PST | | + + + + + | Inhaled Oxygen | - | - | | | Concentration | | | | + + + + + | Weight | 63.5 kg (140 lb) | 12/05/2019 2:39 PM | | | | | PST | | + + + + + | Height | 165.1 cm (5' 5") | 12/05/2019 2:39 PM | | | | | PST | | + + + + + | Body Mass Index | 23.3 | 12/05/2019 2:39 PM | | | | | PST | | + + + + + Plan of Treatment + + + + + | Health Maintenance | Due Date | Last Done | Comments | + + + + + | Hepatitis C | | | | | Screening | 1 | | | + + + + + | Vaccine: | | | | | Pneumococcal 19-64 | 7 | | | | (1 of 1 - PPSV23) | | | | + + + + + | Diabetic Eye Exam | | | | | | 9 | | | + + + + + | Diabetic Foot Exam | | | | | | 9 | | | + + + + + | Cervical Cancer | | | | | Screening (Pap) | 1 | | | + + + + + | Colorectal Cancer | | | | | Screening | 1 | | | | (Colonoscopy) | | | | + + + + + | Vaccine: Zoster (1 | | | | | of 2) | 1 | | | + + + + + | Breast Cancer | | | | | Screening | 6 | | | + + + + + | Hemoglobin A1c | | 09/27/2018 | | | Screening | 9 | | | + + + + + | Vaccine: Influenza | | 08/07/2018, 11/26/2017, | | | (Season Ended) | 0 | 09/02/2015, Additional history | | | | | exists | | + + + + + | Vaccine: | | 04/09/2012, 09/04/2002 | | | Dtap/Tdap/Td (2 - | 2 | | | | Td) | | | | + + + + + Implants + +-------+--------+ +--------+--------+--------+ | Implanted | Type | Area | Manufacture | Device | Shelf | Model | | | | | r | | Expira | / | | | | | | Identi | tion | Serial | | | | | | fier | Date | / Lot | + +-------+--------+ +--------+--------+--------+ | Xiecooper Stock DesImplanted: | Stent | N/A: | MARSHALL | | 06/13/ | [id number] | | Qty: 1 on 11/16/2017 by | | Orellana | VASCULAR - | | 2019 | 02-27 / | | Stephen Baker MD at [facility] | | ry | [facility] | | | | | [facility] | | | | | | /[id number] | | MOBILE | | | | | | 41 | + +-------+--------+ +--------+--------+--------+ + + | Description:Right PDA | + + Results Not on filefrom Last 3 Months Insurance + +--------+ +--------+ +---------+--------+ | Payer | Benefi | Subscriber | Effect | Phone | Address | Type | | | t Plan | ID | fei | | | | | | / | | Dates | | | | | | Group | | | | | | + +--------+ +--------+ +---------+--------+ | [facility] | IHS | [id number] | 10/16/19 | | | Indemn | | SERVICE | YELLOW | | 18-Pre | | | ity | | | HAWK | | sent | | | | + +--------+ +--------+ +---------+--------+ | [facility] | IHS | [id number] | 10/16/19 | | | Indemn | | SERVICE | YELLOW | | 18-Pre | | | ity | | | HAWK | | sent | | | | + +--------+ +--------+ +---------+--------+ | [place] | MEDICA | [id number] | | [phone] | | Medica | | | [place] | | 020-Pr | 2 | | id | | | PLUS | | esent | | | | + +--------+ +--------+ +---------+--------+ + +--------+ +--------+ + + | Guarantor Name | Accoun | Relation to | Date | Phone | Billing Address | | | t Type | Patient | of | | | | | | | | | | + +--------+ +--------+ + + | Luciana Latham | Person | Self | [birth year] | | [address] | | | al/Fam | | 1 | [phone] | [place], [place] | | | ag | | | 8 (Home) | [address] | + +--------+ +--------+ + + | Luciana Latham May | Person | Self | [birth year] | | [address] | | | al/Fam | | 1960 | [phone] | [place], [place] | | | ag | | | 8 (Home) | [address] | + +--------+ +--------+ + + Advance Directives + + + + + | Type | Date Recorded | Patient | Explanation | | | | Nurse Private Duty | | + + + + + | Power of | | | | | Prototype Assembler Electronics | | | | + + + + + | Advance | 11/16/2017 9:13 | | | | Directive | AM | | | + + + + + + + + + + | Code Status | Date | Date | Comments | | | Activated | Inactivated | | + + + + + | Full Code | 11/15/2017 | 11/19/2017 | | | | 6:46 PM | 11:38 AM | | + + + + +
--- OUTSIDE RECORDS SUMMARY | ~2020-03-18 | XMS | Encounter Summary ---
Demographics + + + | Address | [address] | | | [place] [address] | + + + | Home Phone | | + + + | Preferred Language | Unknown | + + + | Marital Status | | + + + | Scientologist Affiliation | Unknown | + + + | Race | Unknown | + + + | Ethnic Group | Unknown | + + + Author + + + | Author | [facility] | | | and [place] | + + + | Organization | [facility] | | | [...] Team Providers + +------+ + | Care Cloud Software Engineer Name | Role | Phone | [...] [address] | | | | | [place], | [place], [place] | | | | | [place] [address] | [address] | | | | | [phone] | | | +--------+ + + + [...]
--- OUTSIDE RECORDS SUMMARY | ~2020-03-18 | XMS | Clinical Summary ---
Demographics + + + | Address | [address] | | | [place] [address] | + + + | Home Phone | | + + + | Preferred Language | Unknown | + + + | Marital Status | | + + + | Rastafari Affiliation | Unknown | + + + | Race | Unknown | + + + | Ethnic Group | Unknown | + + + Author + + + | Author | [facility] | | | and [place] | + + + | Organization | [facility] | | [...] Team Providers + +------+ + | Care Sandfill Operator Surface Name | Role | Phone | + [...] | + + + | CAD in [place] artery | 12/13/2017 | + + + + + | Overview: Added automatically from request for surgery [id number] | + + + + + | [...] N/A: | MARSHALL | | 06/13/ | [id number] | | Qty: 1 on 11/16/2017 by | | Orellana | VASCULAR - | | 2019 | 02-27 / | | Stephen Baker MD at [facility] | | ry | [facility] | | | | | [facility] | | | | | | /[id number] | | [place] | | | | | | 41 [...] | | + +--------+ +--------+ +---------+--------+ | [facility] | IHS | [id number] | 10/16/19 | | | Indemn | | SERVICE | YELLOW | | 18-Pre | | | ity | | | HAWK | | sent | | | | + +--------+ +--------+ +---------+--------+ | [facility] | IHS | [id number] | 10/16/19 | | | Indemn | | SERVICE | YELLOW | | 18-Pre | | | ity | | | HAWK | | sent | | | | + +--------+ +--------+ +---------+--------+ | [place] | MEDICA | [id number] | | [phone] | | Medica | | | ID [...] Person | Self | [birth year] | | [address] | | | al/Fam | | 1 | [phone] | [place], [place] | | | ag | | | 8 (Home) | [address] | + +--------+ +--------+ + + | Luciana Latham May | Person | Self | [birth year] | | [address] | | | al/Fam | | 1960 | [phone] | [place], [place] | | | ag | | | 8 (Home) | [address] | + +--------+ +--------+ + + Advance Directives + + + + + | Type | Date Recorded | Patient | Explanation | | | | Hydraulic Tester | | + + + + + | Power of | | | | | Elementary Substitute Teacher | | | | + + + [...]
--- OUTSIDE RECORDS SUMMARY | ~2020-03-18 | XMS | Encounter Summary ---
Demographics + + + | Address | [address] | | | [place] [address] | + + + | Home Phone [...] Team Providers + +------+ + | Care Licensed Customs Broker Name | Role | Phone | + [...] [facility] | | | | | [facility] | [address] | [facility] | | | | | | [place] | [place], [place] | | | | | | [address] | [address] Phone: | | | | | | [place], | [phone] | | | | | | [place] | Fax: | | | | | | [address] | [phone] | | | | | | Phone: | | | | | | | [phone] | | | | | | | Fax: | | | | | | | [phone] | | +--------+--------+ + + + + Encounter Details +--------+---------+ + + + | Date | Type | Department | Care Team | Description | +--------+---------+ + + + | 12/14/ | Office | [facility] | Stephen Baker MD | Atrial fibrillation, | | 2018 | Visit | CARDIOLOGY [address] | unspecified type | | | | [place], | [place], [place] | ([facility]) (Primary Dx) | | | | [place] [address] | [address] | | | | | [phone] | | | +--------+---------+ + + + [...] for initial outpatient cardiology follow-up after recent [facility]'s admission on 11/15/17 with decompensated congestive heart [...] of rapid heart beating and presented to [facility] in [facility] on 11/24/17 was found to be [...] meto prolol succinate 100 mg daily at [facility] in her carvedilol was discontinued. She had [...] was found Confirmed by NITIN RAMIREZ, OLEGARIO ([id number]) on 12/14/2017 4:42:28 PM IMAGING: No results [...] MD | | | | | | ([id number]) on 12/14/2017 | | | | | [...]
--- OUTSIDE RECORDS SUMMARY | ~2020-03-18 | XMS | Encounter Summary ---
Demographics + + + | [address] | [address] | | | [place] [address] | + + + | Home Phone | | + + + | Preferred Language | Unknown | + + + | Marital Status | | + + + | Congregational Affiliation | Unknown | + + + | Race | Unknown | + + + | Ethnic Group | Unknown | + + + Author + + + | Author | [facility] | | | and [place] | + + + | Organization | [facility] | | | and [...] Team Providers + +------+ + | Care Sheetrock Applicator Name | Role | Phone | + +------+ + | Pauly Perez PA-C | PCP | | + +------+ + Encounter Details +--------+ + + + + | Date | Type | Department | Care Team | Description | +--------+ + + + + | 03/01/ | Orders Only | [facility] | Stephen Baker MD | Atrial fibrillation, | | 2018 | | CARDIOLOGY [address] | unspecified type | | | | [place], | [place], [place] | ([facility]) (Primary Dx) | | | | [place] [address] | [id number] | | | | | [phone] | | | +--------+ + + + [...] Not on filedocumented as of this encounter Results Holter monitor - 48 hour (12/22/2017 10:21 AM PST) + + + | Narrative | Performed At | + + + | Veronica Field MD 12/26/2017 6:06 PATIENT NAME: | CHRISTIANA ZIEGLER | | Luciana Latham : 1960: AGE: 57 y.o. | | | PRIMARY CARE: Pauly Medrano | | | MEÑO Perez CAR CHANGER: Veronica Field MD | | | 48-HOUR [...] | | Signed by: Veronica Field MD [facility] 12/22/2017, 10:22 | | + [...] Primary | + + documented in this encounter"
--- OUTSIDE RECORDS SUMMARY | ~2020-03-18 | XMS | Encounter Summary ---
Demographics + + + | [address] | [address] | | | [place] [address] | + + + | Home Phone [...] Team Providers + +------+ + | Care Psychiatry Physician Name | Role | Phone | + +------+ + PCP | Unavailable | + +------+ + Encounter Details +--------+ + + + + | Date | Type | Department | Care Team | Description | +--------+ + + + + | 12/25/ | [facility] | [facility] | Jun Obrien MD | | | 2010 | Encounter | [facility] | [address] | | | | | [address] | [place] | | | | | [place] | [id number] | | | | | [address] | | | | | | [phone] | | | +--------+ + + + [...]
--- OUTSIDE RECORDS SUMMARY | ~2020-03-18 | XMS | Encounter Summary ---
Demographics + + + | Address | [address] | | | [place] [address] | + + + | Home Phone | | + + + | Preferred Language | Unknown | + + + | Marital Status | | + + + | Adventist Affiliation | Unknown | + + + | Race | Unknown | + + + | Ethnic Group | Unknown | + + + Author + + + | Author | [facility] | | | and [place] | + + + | Organization | [facility] | | | [...] Team Providers + +------+ + | Care Contact Clerk Name | Role | Phone | + +------+ + | Pauly Perez PA-C | PCP | | + +------+ + Encounter Details +--------+ + + + + | Date | Type | Department | Care Team | Description | +--------+ + + + + | 09/26/ | [facility] | [facility] | Hilton Vargas MD | CAD in nome artery | | 2018 - | Encounter | [facility] | [address] | | | | | [address] | [place], [place] | | | [birth year]/ | | [place], [place] | [address] | | | 2017 | | [id number] | | | | | | [phone] | | | +--------+ + + + [...] Summaries by Derrick Moeller PA-C at 10/01/18 6102 Author: Derrick Moeller PA-C Service: Cardiac, Thoracic, and Vascular Surgery Author Ty pe: Physician Ginner - Certified Filed: 10/01/18 1145 Date of Service: 10/01/18 075 Status: Addendum Electrical Accessories Assembler: Derrick Moeller PA-C (Physician Ginner - Certified) Related Notes: Original Note by Karma Joy PA-C (Physician Ginner - Certified) filed at 10/01/18 0800 Cosigner: [...] erythematosus (SLE) in adult (HCC) CAD in nome artery HLD (hyperlipidemia) S/P CABG x 1 Moderate protein-calorie malnutrition (HCC) Resolved Problems: * No resolved hospital problems. * BRIEF HISTORY OF PRESENTATION: The patient is a 58-year-old white female with significant past medical history of atrial f ibrillation, insulin-dependent diabetes, CVA, hypertension, hyperlipidemia, peripheral vascu lar disease, cardiomyopathy with ejection fraction 35%-40%. The patient was initially evalu ated in [place] and underwent cardiac angiography there and had stenting of a very small RPDA lesion. At that time, it was noted that her LAD was occluded and filled distally with a very large distal component. The patient was evaluated by Dr. Newell here with [facility]. She underwent a thallium viability [...] Diagnosis Date Asthma relatively asymptomatic Atrial fibrillation ([facility]) Paroxysmal, CHADS2 VASc 6, on Eliquis Cerebrovascular accident (CVA) ([facility]) 11/16/2017 Left occipital, with right-sided internuclear ophthalmoplegia Congestive heart failure ([facility]) 11/16/2017 acute combined systolic/diastolic heart failure (with AFib, RVR) Coronary artery disease 05/2017 developed angina, did not seek medical attention until after her [place] 10/2017 Hyperlipidemia Hypertension 1998 Old myocardial infarction PVD (peripheral vascular disease) ([facility]) Raynaud phenomenon Rheumatoid arthritis ([facility]) S/P CABG x 1 09/26/2018 HILLMAN > LAD (off pump) Seasonal allergies Status post insertion of drug eluting coronary artery stent 11/16/2017 2.25 x 15 mm Xience ROBIN in the prox right PDA Systemic lupus erythematosus (SLE) in adult ([facility]) Type 2 diabetes mellitus ([facility]) 1998 Insulin-Requiring Past Surgical History Procedure Laterality Date CORONARY ANGIOPLASTY 11/16/2017 2.25 x 15 mm Xience ROBIN in the prox right PDA CORONARY ARTERY BYPASS GRAFT N/A 09/26/2018 Procedure: CABG - OFF PUMP; Surgeon: Hilton Vargas MD; Location: [facility] OR; Service: Cardiac; Laterality: N/A; [...] to start cardiac rehabilitation in accordance with abalone diver recommendations. Pt advised not to drive for [...] manage prescriptions until pt has seen seen [facility] and Primary Care Physician, who will resume [...] on file. Follow up: Hilton Vargas MD [address] [place] [address] Schedule an appointment as soon as possible for a visit on 10/18/2018 Post-Op Glenn Newell MD [address] [place] [facility] [id number] Schedule an appointment as soon as possible for a visit in 2 weeks Post-Op Pauly Perez PA-C [address] [place] [address] Schedule an appointment as soon as possible [...] medications were sent to [facility] - [place], [place] - [address], [address] [place] [address], [address] [place] [id number] amiodarone 400 MG tablet ascorbic acid 500 [...] | | | | | | | [id number] | | | | | | | [...] 10/01/181319 Date of Service: 10/01/181317 Status: Signed Electrical Accessories Assembler: Patricia Brian RN (Registered Nurse) Pt discharged home via private vehicle with family. Discharge instructions including follow up appointments, medications, and prescriptions reviewed with pt, pt verbalized understandi ng of this teaching. No questions at this time. VSS. Prescriptions faxed to [facility] in [place] per pt request. Photo of midsternal incision placed in chart. Patricia Brian RN onver yinka Transaction, Provider Unknown - 10/01/2018 7:51 AM PST Therapy Progress Note by Prince Monroy PT at 10/01/18 8500 Author: Prince Monroy PT Service: (none) Author Type: Physical Therapist Filed: 10/01/18 0827 Date of Service: 10/01/18 807 Status: Signed Electrical Accessories Assembler: Prince Monroy PT (Physical Therapist) PHYSICAL THERAPY TREATMENT NOTE PT Received On: 10/01/18 Reason for Treatment: Cardiac Requires PT Follow Up: Yes Follow up PT Only?: No Assistance Required: 1 person English Language Learner Teacher Needed: No Recommendations: Home Assist PT Ready [...] and Vascular Surgery Author Jace milan: Physician Ginner - Certified Filed: 10/01/1844 Date of Service: 10/01/18738 Status: Attested Electrical Accessories Assembler: Karma Joy PA-C (Physician Ginner - Certified) Cosigner: Hilton Vargas MD at 10/01/18754 Attestation signed by Hilton Vargas MD at 10/01/18754 Patient was seen, examined, labs, x-rays, treatment plan reviewed. [facility] Service: Cardiothoracic Surgery Progress Note ROOM: [facility] Day: LOS: 5 days Post-Op Day: [...] erythematosus (SLE) in adult (HCC) CAD in nome artery HLD (hyperlipidemia) S/P CABG x 1 [...] 10/01/18734 Date of Service: 10/01/18734 Status: Signed Electrical Accessories Assembler: Christiana Roy RN (Registered Nurse) End of shift chart review complete. onver yinka Transaction, Provider Unknown - 09/30/2018 6:40 PM PST Nurse Progress Note by Palmer Greer RN at 09/30/181839 Author: Palmer Greer RN Service: (none) Author Type: Registered Nurse Filed: 09/30/181839 Date of Service: 09/30/181839 Status: Signed Electrical Accessories Assembler: Palmer Greer RN (Registered Nurse) Chart check complete. Chaka Mueller PT - 09/30/2018 3:19 PM PSTFormatting of this note might be different from the o riginal. Therapy Progress Note by Chaka Arenas, PT at 09/30/18 1937 Author: Chaka Arenas, PT Service: (none) Author Type: Physical Therapist Filed: 09/30/18 1713 Date of Service: 09/30/18 1519 Status: Signed Electrical Accessories Assembler: Chaka Arenas, PT (Physical Therapist) PHYSICAL THERAPY [...] with AD. 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 D/C [...] Stairs: 1 x4 Stairs Assistance: Minimal assist (GUNSTOCK SPRAY UNIT ADJUSTER on PT or ) Number of stairs [...] and Vascular Surgery Author Ty pe: Physician Ginner - Certified Filed: 09/30/1856 Date of Service: 09/30/18853 Status: Attested Electrical Accessories Assembler: Derrick Moeller PA-C (Physician Ginner - Certified) Cosigner: Hilton Vargas MD at 09/30/18903 Attestation signed by Hilton Vargas MD at 09/30/18903 Patient was seen, examined, labs, x-rays, treatment plan reviewed. [facility] Service: Cardiothoracic Surgery Progress Note ROOM: [facility] Hospital Day: LOS: 4 days Post-Op Day: [...] erythematosus (SLE) in adult (HCC) CAD in nome artery HLD (hyperlipidemia) S/P CABG x 1 [...] 09/30/18717 Date of Service: 09/30/18700 Status: Signed Electrical Accessories Assembler: Nani Rocha MD (Physician) [facility] Service: Cardiology Progress Note Name of Ortho Nurse: Nani Rocha MD I have seen the [...] 09/30/1849 Date of Service: 09/30/18647 Status: Signed Electrical Accessories Assembler: Sonnet Blackstone, RN (Registered Nurse) End of shift chart review complete. onver yinka Transaction, Provider Unknown - 09/29/2018 6:29 PM PST Nurse Progress Note by Palmer Greer RN at 09/29/181828 Author: Palmer Greer RN Service: (none) Author Type: Registered Nurse Filed: 09/29/181828 Date of Service: 09/29/181828 Status: Signed Electrical Accessories Assembler: Palmer Greer RN (Registered Nurse) Chart check complete. onver yinka Transaction, Provider Unknown - 09/29/2018 2:45 PM PST Therapy Progress Note by ACRLIN Bradford at 09/29/18 1445 Author: CARLIN Bradford Service: (none) Author Type: Occupational Therapist Filed: 09/29/18 1623 Date of Service: 09/29/181444 Status: Signed Electrical Accessories Assembler: CARLIN Bradford (Occupational Therapist) OCCUPATIONAL THERAPY TREATMENT NOTE OT Received On: 09/29/18 Reason for Treatment: Cardiac Requires OT Follow Up: Yes Assistance Required: 1 person English Language Learner Teacher Needed: No Family/Caregiver Present: Yes Recommendation: SNF, Home with daytime assist, Home with nighttime assist Equipment Recommended: Car Chaser, Sock aid, Sponge long handled, AD walker [...] pull shirt down. LB dressing: use of electrical superintendent, sock aid, or bringing foot up to [...] LE Dressing: Yes LE Dressing Adaptive Equipment: Car Chaser Sock Level of Assistance: Moderate verbal cues, [...] With good judgement/safety LE Dressing Adaptive Equipment: Car Chaser, Sock aid Pt Will Perform Toileting: With [...] Note by Chaka Arenas PT at 09/29/18 4070 Author: Chaka Arenas PT Service: (none) Author Type: Physical Therapist Filed: [id number] Date of Service: 09/29/18 1329 Status: Addendum Electrical Accessories Assembler: Chaka Arenas, PT (Physical Therapist) Related Notes: Original Note by Chaka Arenas, PT (Physical Therapist) filed at 09/29/181825 PHYSICAL THERAPY TREATMENT NOTE PT Received On: 09/29/18 Reason for Treatment: Cardiac Requires PT Follow Up: Yes Follow up PT Only?: No Assistance Required: 1 person Recommendations: Home Assist Equipment Recommended: Walker 4 wheeled (pt reports having hospital bed and recliner at [facility]) Barriers to Discharge: Self-care Deficits Impacting Functional [place], Lack of Family Support/Training Recommendation Comments: Pt [...] Date of Service: 09/29/18 1048 Status: Signed Electrical Accessories Assembler: Maria D Cullen RD (Registered Dietitian) 09/29/18 [...] this time, but agreed to handouts from [facility]. Explained to pt at this time [...] Estimated Energy Needs Total Energy Estimated Needs 3931-0954 kcal/day Method for Estimating Needs 25-30 kcal/kg [...] Date of Service: 09/29/18 1009 Status: Signed Electrical Accessories Assembler: Jaida Gillis RN (Registered Nurse) Report called [...] the o riginal. Therapy Progress Note by hCaka Arenas PT at 09/29/18 0900 Author: Chaka Arenas PT Service: (none) Author Type: Physical Therapist Filed: 09/29/18 182 Date of Service: 09/29/18 09 Status: Signed Electrical Accessories Assembler: Chaka Arenas PT (Physical Therapist) 09/29/18 0900 [...] and Vascular Surgery Author Ty pe: Physician Ginner - Certified Filed: 09/29/18 0802 Date of Service: 09/29/18 7978 Status: Attested Electrical Accessories Assembler: Derrick Moeller PA-C (Physician Ginner - Certified) Cosigner: Hilton Vargas MD at 09/29/18 08 Attestation signed by Hilton Vargas MD at 09/29/18 08 Patient was seen, examined, labs, x-rays, treatment plan reviewed. [facility] Service: Cardiothoracic Surgery Progress Note ROOM: [address] [place] [address] Hospital Day: LOS: 3 days Post-Op Day: [...] nitroGLYCERIN in D5W norepinephrine phenylephrine Stopped (09/28/18 3872) vasopressin PRN Medications acetaminophen OR acetaminophen OR [...] erythematosus (SLE) in adult (HCC) CAD in nome artery HLD (hyperlipidemia) S/P CABG x 1 [...] 09/29/18818 Date of Service: 09/29/18725 Status: Signed Electrical Accessories Assembler: Nani Rocha MD (Physician) [facility] Service: Cardiology Progress Note Name of Ortho Nurse: Nani Rocha MD I have seen the [...] Derrick Moeller PA-C, 40 0 mg at 09/28/18 [...] (none) Author Type: Registered Nurse Filed: 09/28/18 7503 Date of Service: 09/28/181499 Status: Signed Electrical Accessories Assembler: Amirah Rosario RN (Registered Nurse) contacted Nieves Johnson #[phone] in regards to see if pt is eligible for assistance w ith caregivers and meals, facility closed until Monday. onver yinka [employer], Provider Unknown - 09/28/2018 2:38 PM PST Therapy Progress Note by Rajan Kim PT at 09/28/18 1615 Author: Rajan Kim PT Service: (none) Author Type: Physical Therapist Filed: 09/28/18 4318 Date of Service: 09/28/180 Status: Signed Electrical Accessories Assembler: Rajan Kim PT (Physical Therapist) PHYSICAL THERAPY TREATMENT NOTE PT Received On: 09/28/18 Reason for Treatment: Cardiac Requires PT Follow Up: Yes Follow up PT Only?: No Assistance Required: 1 person Recommendations: Home Assist Equipment Recommended: Walker 4 wheeled Barriers to Discharge: Physical Deficits Impacting Functional [place], Self-care Defic its Impacting Functional [place] Plan Treatment/Interventions: Continue per Primary PT POC [...] Notes by Derrick Moeller PA-C at 09/28/18 0995 Author: Derrick Moeller PA-C Service: Cardiac, Thoracic, and Vascular Surgery Author Ty pe: Physician Ginner - Certified Filed: 09/28/18 0952 Date of Service: 09/28/18946 Status: Attested Electrical Accessories Assembler: Derrick Moeller PA-C (Physician Ginner - Certified) Cosigner: Hilton Vargas MD at 09/28/18 1239 Attestation signed by Hilton Vargas MD at 09/28/18 1233 Patient was seen, examined, labs, x-rays, treatment plan reviewed. [facility] Service: Cardiothoracic Surgery Progress Note ROOM: [address] [place] [address] Hospital Day: LOS: 2 days Post-Op Day: [...] dressing is C/D/I. Chest tube present inci yikna C/D/I. Pacing wires present DATA: Scheduled Medications [...] erythematosus (SLE) in adult (HCC) CAD in nome artery HLD (hyperlipidemia) S/P CABG x 1 [...] Note by Rajan Kim PT at 09/28/18 4896 Author: Rajan Kim PT Service: (none) Author Type: Physical Therapist Filed: 09/28/18 2938 Date of Service: 09/28/18942 Status: Signed Electrical Accessories Assembler: Rajan Kim, PT (Physical Therapist) 09/28/18942 PT [...] Service: Cardiology Author Type: Physician Filed: 09/28/18 0177 Date of Service: 09/28/18730 Status: Signed Electrical Accessories Assembler: Glenn Newell MD (Physician) [facility] Service: Cardiology Progress Note Hospital Day: LOS: [...] and was sent to the ER at [facility], where she was admitted for 2 days. Cardiac enzymes were reported to be ne gative, but her EKG showed evidence of a septal [place], and an echo showed an EF of 35-40%, with severe npx-ag-ixhuzx and apical akinesis. She had acute pulmonary edema / acute combined s ystolic/diastolic heart failure and atrial fibrillation with a RVR. She was transferred to [facility], and the following day diagnostic cardiac catheterization showed a subto nino occlusion of the mid LAD, with ghsc-dx-gajn collaterals supplying the distal vessel, mod erate [...] Following review of her cath film from [place] with our interventional cardiologists, it is reasonable [...] VASc 6, on Eliquis Cerebrovascular accident (CVA) ([facility]) 11/16/2017 Left occipital, with right-sided internuclear ophthalmoplegia Congestive heart failure ([facility]) 11/16/2017 acute combined systolic/diastolic heart failure (with AFib, RVR) Coronary artery disease 05/2017 developed angina, did not seek medical attention until after her [place] 10/2017 Hyperlipidemia Hypertension 1998 Old myocardial infarction PVD (peripheral vascular disease) ([facility]) Raynaud phenomenon Rheumatoid arthritis ([facility]) S/P CABG x 1 09/26/2018 HILLMAN > [...] OFF PUMP; Surgeon: Hilton Vargas MD; Location: [facility]; Service: Cardiac; Laterality: N/A; [...] erythematosus (SLE) in adult (HCC) CAD in nome artery HLD (hyperlipidemia) S/P CABG x 1 ASSESSMENT & PLAN 1. CAD, with h/o [place] sometime at the end of October,, presented [...] 4. Dilated ischemic cardiomyopathy secondary to old [place], EF 35-40%, with h/o acute combined systolic/diastolic [...] Note by Rajan Kim PT at 09/27/18 7892 Author: Rajan Kim PT Service: (none) Author Type: Physical Therapist Filed: 09/28/18 0731 Date of Service: 09/27/18 9561 Status: Signed Electrical Accessories Assembler: Rajan Kim PT (Physical Therapist) 09/27/18 9523 PT Last Visit PT Received On 09/27/18 [...] foot doesn't pass stance foot Assistive Device (GUNSTOCK SPRAY UNIT ADJUSTER on w/c) Activity Tolerance Activity Tolerance Patient limited by fatigue Nurse Made Aware yes Plan Treatment/Interventions Continue per Primary PT POC Progress Progressing toward goals Recommendation Recommendations Home Assist Barriers to Discharge Physical Deficits Impacting Functional [place];Self-care Deficit s Impacting Functional [place] Education Completed: Education Topics: Current condition, PT [...] Date of Service: 09/27/18 1215 Status: Signed Electrical Accessories Assembler: Irene Hernandez RN (Registered Nurse) 09/27/18 1215 [...] No Prescription Plan Yes Name of Pharmacy [facility] Previous home health equipment (has a walker with no wheels) Anticipated Disposition Facility Type (TBD - pending progress and PT recommendation) Met with pt (asleep at this time), and pt's , Mateo, and discussed discharge plann ing, Pt is a 58 y.o., female who lives in [place] with her . Pt's son lives with [...] be able to get some assistance from [employer] for caregivers or meals, but is unsure. Pt's or children are able to provide transportation. Pt's did not have an y other questions or concerns for CM at this time. CM to continue to follow pt during hospital stay and assist with d/c needs pending PT recom mendation. Patient's PCP is: Pauly Perez Patient's [place]: [place] / [employer] [place] Coverage concerns: no concerns Medication coverage/concerns: no [...] Date of Service: 09/27/18 1123 Status: Signed Electrical Accessories Assembler: Amirah Rosario RN (Registered Nurse) Pt had [...] Date of Service: 09/27/18 110 Status: Signed Electrical Accessories Assembler: Yamel Santillan RN (Registered Nurse) Update given [...] Date of Service: 09/27/18 104 Status: Signed Electrical Accessories Assembler: Yamel Santillan RN (Registered Nurse) Continuing to [...] Date of Service: 09/27/18 1021 Status: Signed Electrical Accessories Assembler: Rajan Kim PT (Physical Therapist) 09/27/18 1021 [...] Home Equipment None Prior Function Level of [place] Independent with functional mobility;Independent with ADLs;Independe nt [...] Barriers to Discharge Physical Deficits Impacting Functional [place];Self-care Deficit s Impacting Functional [place] 09/27/18 1021 PT Last Visit PT Received [...] foot doesn't pass stance foot Assistive Device (GUNSTOCK SPRAY UNIT ADJUSTER on w/c) Activity Tolerance Activity Tolerance Patient limited by fatigue;Treatment limited secondary to medical compli cations Nurse Made Aware yes Plan Treatment/Interventions Cardiac protocol PT Frequency Twice a day;5-7x/wk Care Duration (# of days) 7 # of days Recommendation Recommendations Home Assist (anticipate home w/ assist) Equipment Recommended (TBD) Barriers to Discharge Physical Deficits Impacting Functional [place];Self-care Deficit s Impacting Functional [place] Low - 92020 Moderate - 94630 High - 95071 History [] no personal factors &/or comorbidities [] 1-2 personal factors &/or comorbidi ties [] 3 or more personal factors &/or comorbidities Examination [] 1-2 elements [x] 3 elements [] 4 or more elements Clinical Presentation [] stable [x] evolving [] unstable Clinical Decision Making Complexity: [] Low 48898 [x] Moderate 96650 [] High 9716 3 Education Completed: Education [...] 09/27/1835 Date of Service: 09/27/18817 Status: Signed Electrical Accessories Assembler: Glenn Newell MD (Physician) [facility] Service: Cardiology Progress Note Hospital Day: LOS: 1 day Post-Op Day: Day of Surgery SUBJECTIVE Patient Summary: 58F admitted for elective CABG, done today off pump with HILLMAN to LAD . Starting in April or May,, she developed intermittent episodes of chest pain, with dyspnea, mostly with exertion, but did not seek medical attention. In late October, she house d an episode of severe chest pain/pressure, subjectively rated "10" on a 1-10 scale in inten sity, somewhat pleuritic, associated with dyspnea, nausea, vomiting and diaphoresis, that la sted approximately 6 hours, but again did not initially seek medical attention. She went to her PCP's office 2 days later with SOB, and was admitted for 2 days at [facility] , but by then, cardiac enzymes were negative. Her EKG showed evidence of a septal [place], and a n echo showed an EF of 35-40%, with severe pai-ze-drucpq and apical akinesis. She had acute pulmonary edema / acute combined systolic/diastolic heart failure and atrial fibrillation w ith a RVR. She was transferred to [facility], and the following day cardiac cathet erization showed a subtotal occlusion of the mid LAD, with oasd-ms-htpt collaterals supplyin g the distal vessel, moderate [...] Following review of her cath film from [place] with our interventional cardiologists, it is reasonable [...] Diagnosis Date Asthma relatively asymptomatic Atrial fibrillation ([facility]) Paroxysmal, CHADS2 VASc 6, on Eliquis Cerebrovascular accident (CVA) ([facility]) 11/16/2017 Left occipital, with right-sided internuclear ophthalmoplegia Congestive heart failure ([facility]) 11/16/2017 acute combined systolic/diastolic heart failure (with AFib, RVR) Coronary artery disease 05/2017 developed angina, did not seek medical attention until after her [place] 10/2017 Hyperlipidemia Hypertension 1998 Old myocardial infarction PVD (peripheral vascular disease) ([facility]) Raynaud phenomenon Rheumatoid arthritis ([facility]) S/P CABG x 1 09/26/2018 HILLMAN > LAD (off pump) Seasonal allergies Status post insertion of drug eluting coronary artery stent 11/16/2017 2.25 x 15 mm Xience ROBIN in the prox right PDA Systemic lupus erythematosus (SLE) in adult ([facility]) Type 2 diabetes mellitus ([facility]) 1998 Insulin-Requiring Past Surgical History Procedure Laterality [...] in D5W norepinephrine phenylephrine 30 mcg/min (09/27/18 5503) vasopressin PRN Medications acetaminophen OR acetaminophen OR [...] erythematosus (SLE) in adult (HCC) CAD in nome artery HLD (hyperlipidemia) S/P CABG x 1 ASSESSMENT & PLAN 1. CAD, with h/o [place] sometime at the end of October,, presented [...] 4. Dilated ischemic cardiomyopathy secondary to old [place], with h/o acute combined systolic/di astolic heart failure in November,, resolved. 5. S/p left occipital CVA 11/02 6. PVD 7. Essential HTN, controlled, but more recently, BARIATRIC PHYSICIAN had run lower BPs requiring decreased medication [...] and Vascular Surgery Author Ty pe: Physician Ginner - Certified Filed: 09/27/1870 Date of Service: 09/27/18737 Status: Attested Electrical Accessories Assembler: Derrick Moeller PA-C (Physician Ginner - Certified) Cosigner: Hilton Vargas MD at 09/27/18 1305 Attestation signed by Hilton Vargas MD at 09/27/18 1305 Patient was seen, examined, labs, x-rays, treatment plan reviewed. [facility] Service: Cardiothoracic Surgery Progress Note ROOM: [address] [place] [address] Hospital Day: LOS: 1 day Post-Op Day: [...] erythematosus (SLE) in adult (HCC) CAD in nome artery HLD (hyperlipidemia) S/P CABG x 1 [...] 09/26/181948 Date of Service: 09/26/181854 Status: Signed Electrical Accessories Assembler: Glenn Newell MD (Physician) [facility] Service: Cardiology Progress Note Hospital Day: LOS: [...] and was sent to the ER at [facility], where she was admitted for 2 days. Cardiac enzymes were reported to be ne gative, but her EKG showed evidence of a septal NY, and an echo showed an EF of 35-40%, with severe enx-hs-jvrztr and apical akinesis. She had acute pulmonary edema / acute combined s ystolic/diastolic heart failure and atrial fibrillation with a RVR. She was transferred to [facility], and the following day diagnostic cardiac catheterization showed a subto nino occlusion of the mid LAD, with pyjw-zm-kdlp collaterals supplying the distal vessel, mod erate [...] Following review of her cath film from [place] with our interventional cardiologists, it is reasonable [...] VASc 6, on Eliquis Cerebrovascular accident (CVA) ([facility]) 11/16/2017 Left occipital, with right-sided internuclear ophthalmoplegia Congestive heart failure ([facility]) 11/16/2017 acute combined systolic/diastolic heart failure (with AFib, RVR) Coronary artery disease 05/2017 developed angina, did not seek medical attention until after her NY 10/2017 Hyperlipidemia Hypertension 1999 Old myocardial infarction PVD (peripheral vascular disease) ([facility]) Raynaud phenomenon Rheumatoid arthritis ([facility]) S/P 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 CAD, with h/o NY sometime at the end of October,, presented [...] 4. 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 onver yinka Transaction, Provider Unknown - 09/26/2018 12:27 PM PST Progress Notes by Latha Beltran RRT at 09/26/181226 Author: Latha Beltran RRT Service: (none) Author Type: Registered Respiratory Therap ist Filed: 09/26/181 Date of Service: 09/26/181226 Status: Signed Electrical Accessories Assembler: Latha Beltran RRT (Registered Respiratory Therapist) Pt [...] 09/26/181040 Date of Service: 09/26/181040 Status: Signed Electrical Accessories Assembler: Renu Nichole RPH (Pharmacist) Renal Dosing Monitoring: [...] 09/26/1845 Date of Service: 09/26/18943 Status: Signed Electrical Accessories Assembler: Bobby Stack () Gave family an update r/t to the CABG off pump status at 09:45 onver yinka Transaction, Provider Unknown - 09/26/2018 9:12 AM PST Progress Notes by Bobby Stack at 09/26/18911 Author: Bobby Stack Service: (none) Author Type: Filed: 09/26/18912 Date of Service: 09/26/18911 Status: Signed Electrical Accessories Assembler: Bobby Lang) Gave family an update at 09: 05 onver yinka Transaction, Provider Unknown - 09/26/2018 6:55 AM PST Progress Notes by Bobby Stack at 09/26/18654 Author: Bobby Stack Service: (none) Author Type: Filed: 09/26/18701 Date of Service: 09/26/18654 Status: Addendum Electrical Accessories Assembler: Bobby Lang) Related Notes: Original Note by [...] 09/26/1850 Date of Service: 09/26/18648 Status: Signed Electrical Accessories Assembler: Alethea Brower RN (Registered Nurse) Anesthesia at [...] | | | Fingerstick | performed at [facility];[address] | | LAB | | | | [address];[place], [place] | | | | | | [address] | | | | + + + [...] EXTERNAL | | | | performed at [facility] | | LAB | | | | [address] [facility];[place], [place] | | | | | | [address] | | | | + + + [...] | | | | | performed at [facility];[address] | | | | | [address];[place], [place] | | | | | | [address] | | | | + + + [...] | | | Fingerstick | performed at [facility] | | LAB | | | | [address];[place], [place] | | | | | | [address] | | | | + + + [...] | | | Fingerstick | performed at [facility];[address] | | LAB | | | | [address];[place] | | | | | | [address] | | | | + + + [...] | | | Fingerstick | performed at [facility];[address] | | LAB | | | | [address];[place] | | | | | | [address] | | | | + + + [...] | | | Fingerstick | performed at [facility];[address] | | LAB | | | [address];[place], [place] | | | | | | [address] | | | | + + + [...] | | | Fingerstick | performed at [facility];[address] | | LAB | | | | [address];[place], [place] | | | | | | [address] | | | | + + + [...] | | | Fingerstick | performed at [facility];[address] | | LAB | | | | [address];[place], [place] | | | | | | [address] | | | | + + + [...] | | | Fingerstick | performed at [facility];[address] | | LAB | | | | [address];[place] | | | | | | [address] | | | | + + + [...] CHEST 2 VIEW | | FRONTAL AND IQIWUNH8409/30/2018 7:50 AM HISTORY:58 years. Female. Status post [...] | | | Fingerstick | performed at [facility];[address] | | LAB | | | | [address];[place] | | | | | | [address] | | | | + + + [...] EXTERNAL | | | | performed at [facility], [address] | | LAB | | | | [address], | | | | | | [place] [address] | | | | + + + [...] | | | | | [place] [address] | | | | + + + [...] | | | | | performed at [facility], [address] | | | | | | [facility], | | | | | | [place] [address] | | | | + + + [...] | | | Fingerstick | performed at [facility] | | LAB | | | | [address];[place] | | | | | | [address] | | | | + + + [...] | | | Fingerstick | performed at [facility];[address] | | LAB | | | | [address];[place], [place] | | | | | | [address] | | | | + + + [...] | | | Fingerstick | performed at [facility] | | LAB | | | | [address];[place], [place] | | | | | | [address] | | | | + + + [...] | | | Fingerstick | performed at [facility];[address] | | LAB | | | | [address];[place] | | | | | | [address] | | | | + + + [...] | | | Fingerstick | performed at [facility];[address] | | LAB | | | | [address];[place] | | | | | | [address] | | | | + + + [...] | | | Fingerstick | performed at [facility];[address] | | LAB | | | [address];[place], [place] | | | | | | [address] | | | | + + + [...] | | | Fingerstick | performed at [facility];[address] | | LAB | | | | [address];[place] | | | | | | [address] | | | | + + + [...] | | | Fingerstick | performed at [facility];[address] | | LAB | | | | [address];[place], [place] | | | | | | [address] | | | | + + + [...] | | | Fingerstick | performed at [facility];[address] | | LAB | | | | [address];[place] | | | | | | [address] | | | | + + + [...] | | | Fingerstick | performed at [facility];[address] | | LAB | | | | [address];[place], [place] | | | | | | [address] | | | | + + + [...] - 05/29/2019 3:18 PM PDT JOHN PAUL MENG[birth year]004120 yearsXR | | CHEST 1 VIEW09/29/2018 5:21 [...] | | | Basophils | performed at [facility], [address] | K/uL | LAB | | | | [address], | | | | | | [place] [address] | | | | + + + [...] EXTERNAL | | | | performed at [facility], [address] | | LAB | | | | [address], | | | | | | [place] [address] | | | | + + + [...] | | | | | performed at [facility], [address] | | | | | | [facility], | | | | | | [place] [address] | | | | + + + [...] | | | Fingerstick | performed at [facility];[address] | | LAB | | | | [address];[place] | | | | | | [address] | | | | + + + [...] | | | Fingerstick | performed at [facility] | | LAB | | | | [address];[place] | | | | | | [address] | | | | + + + [...] | | | Fingerstick | performed at [facility];[address] | | LAB | | | | [address];[place], [place] | | | | | | [address] | | | | + + + [...] | | | Fingerstick | performed at [facility];[address] | | LAB | | | | [address];[place] | | | | | | [address] | | | | + + + [...] | | | Fingerstick | performed at [facility];[address] | | LAB | | | | [address];[place] | | | | | | [address] | | | | + + + [...] | | | Fingerstick | performed at [facility];[address] | | LAB | | | | [address];[place], [place] | | | | | | [address] | | | | + + + [...] | | | Fingerstick | performed at [facility];[address] | | LAB | | | [address];[place], [place] | | | | | | [address] | | | | + + + [...] | | | Fingerstick | performed at [facility];[address] | | LAB | | | | [address];[place] | | | | | | [address] | | | | + + + [...] | | | Fingerstick | performed at [facility];[address] | | LAB | | | | [address];[place], [place] | | | | | | [address] | | | | + + + [...] | | | Fingerstick | performed at [facility];[address] | | LAB | | | | [address];[place] | | | | | | [address] | | | | + + + [...] | | | Fingerstick | performed at [facility];[address] | | LAB | | | | [address];[place], [place] | | | | | | [address] | | | | + + + [...] | | | Fingerstick | performed at [facility];[address] | | LAB | | | | [address];[place] | | | | | | [address] | | | | + + + [...] | | | Fingerstick | performed at [facility];[address] | | LAB | | | | [address];[place] | | | | | | [address] | | | | + + + [...] EXTERNAL | | | | performed at [facility];[address] | mmol/L | LAB | | | | [address];[place] | | | | | | [address] | | | | + + + [...] | | | Fingerstick | performed at [facility];[address] | | LAB | | | | [address];[place] | | | | | | [address] | | | | + + + [...] | | | Fingerstick | performed at [facility];[address] | | LAB | | | [address];[place] | | | | | | [address] | | | | + + + [...] | | | Fingerstick | performed at [facility];[address] | | LAB | | | | [address];[place] | | | | | | [address] | | | | + + + [...] 05/29/2019 3:18 PM PDT JOHN PAUL [facility]AN[facility]157 yearsXR | | CHEST 1 VIEW09/28/2018 5:36 [...] | | | Basophils | performed at [facility], [address] | K/uL | LAB | | | | [address], | | | | | | [place] [address] | | | | + + + [...] | | | Fingerstick | performed at [facility];[address] | | LAB | | | | [address];[place], [place] | | | | | | [address] | | | | + + + [...] EXTERNAL | | | | performed at [facility], [address] | | LAB | | | | [address], | | | | | | [place] [address] | | | | + + + [...] | | | | | performed at [facility], [address] | | | | | | [facility], | | | | | | [place] [address] | | | | + + + [...] | | | Fingerstick | performed at [facility];[address] | | LAB | | | [address];[place], [place] | | | | | | [address] | | | | + + + [...] | | | Fingerstick | performed at [facility];[address] | | LAB | | | | [address];[place] | | | | | | [address] | | | | + + + [...] | | | Fingerstick | performed at [facility] | | LAB | | | | [address];[place] | | | | | | [address] | | | | + + + [...] | | | Fingerstick | performed at [facility];[address] | | LAB | | | | [address];[place], [place] | | | | | | [address] | | | | + + + [...] | | | Fingerstick | performed at [facility];[address] | | LAB | | | | [address];[place], [place] | | | | | | [address] | | | | + + + [...] | | | Fingerstick | performed at [facility];[address] | | LAB | | | | [address];[place] | | | | | | [address] | | | | + + + [...] EXTERNAL | | | | performed at [facility];[address] | mmol/L | LAB | | | | [address];[place], [place] | | | | | | [address] | | | | + + + [...] | | | Fingerstick | performed at [facility];[address] | | LAB | | | | [address];[place], [place] | | | | | | [address] | | | | + + + [...] | | | Fingerstick | performed at [facility];[address] | | LAB | | | | [address];[place] | | | | | | [address] | | | | + + + [...] | | | Fingerstick | performed at [facility];[address] | | LAB | | | | [address];[place], [place] | | | | | | [address] | | | | + + + [...] | | | Fingerstick | performed at [facility] | | LAB | | | | [address];[place] | | | | | | [address] | | | | + + + [...] | | | Fingerstick | performed at [facility];[address] | | LAB | | | | [address];[place], [place] | | | | | | [address] | | | | + + + [...] | | | Fingerstick | performed at [facility];[address] | | LAB | | | | [address];[place] | | | | | | [address] | | | | + + + [...] EXTERNAL | | | | performed at [facility];[address] | mmol/L | LAB | | | | [address];[place] | | | | | | [address] | | | | + + + [...] EXTERNAL | | | | performed at [facility];[address] | | LAB | | | | [address];[place] | | | | | | [address] | | | | + + + [...] | | | Fingerstick | performed at [facility];[address] | | LAB | | | | [address];[place], [place] | | | | | | [address] | | | | + + + [...] | | | Fingerstick | performed at [facility];[address] | | LAB | | | | [address];[place] | | | | | | [address] | | | | + + + [...] | | | Fingerstick | performed at [facility];[address] | | LAB | | | | [address];[place], [place] | | | | | | [address] | | | | + + + [...] EXTERNAL | | | | performed at [facility];[address] | mmol/L | LAB | | | | [address];[place] | | | | | | [address] | | | | + + + [...] EXTERNAL | | | | performed at [facility];[address] | | LAB | | | | [address];[place], [place] | | | | | | [address] | | | | + + + [...] | | | Fingerstick | performed at [facility];[address] | | LAB | | | | [address];[place] | | | | | | [address] | | | | + + + [...] | | | Fingerstick | performed at [facility];[address] | | LAB | | | | [address];[place] | | | | | | [address] | | | | + + + [...] | | | Fingerstick | performed at [facility];[address] | | LAB | | | | [address];[place] | | | | | | [address] | | | | + + + [...] | | | Fingerstick | performed at [facility];[address] | | LAB | | | | [address];[place], [place] | | | | | | [address] | | | | + + + [...] | | | Basophils | performed at [facility], [address] | K/uL | LAB | | | | [address], | | | | | | [place] [address] | | | | + + + [...] EXTERNAL | | | | performed at [facility];[address] | | LAB | | | | [address];[place] | | | | | | [address] | | | | + + + [...] | EXTERNAL | | | A1c | [place] Diabetes | | LAB | | | [...] | | | | | performed at [facility], [address] | | | | | | [facility], | | | | | | [place] [address] | | | | + + + [...] | | | | | performed at [facility];[address] | | | | | | [facility];[place], [place] | | | | | | [address] | | | | + + + [...] | | | Fingerstick | performed at [facility];[address] | | LAB | | | | [address];[place] | | | | | | [address] | | | | + + + [...] EXTERNAL | | | | performed at [facility];[address] | mmol/L | LAB | | | | [address];[place], [place] | | | | | | [address] | | | | + + + [...] | | | Fingerstick | performed at [facility];[address] | | LAB | | | | [address];[place], [place] | | | | | | [address] | | | | + + + [...] | | | Fingerstick | performed at [facility];[address] | | LAB | | | | [address];[place] | | | | | | [address] | | | | + + + [...] EXTERNAL | | | | performed at [facility];[address] | mmol/L | LAB | | | | [address];[place], [place] | | | | | | [address] | | | | + + + [...] | | | Fingerstick | performed at [facility];[address] | | LAB | | | | [address];[place], [place] | | | | | | [address] | | | | + + + [...] | | | Fingerstick | performed at [facility];[address] | | LAB | | | | [address];[place] | | | | | | [address] | | | | + + + [...] | | | Fingerstick | performed at [facility];[address] | | LAB | | | | [address];[place], [place] | | | | | | [address] | | | | + + + [...] | | | Fingerstick | performed at [facility] | | LAB | | | | [address];[place] | | | | | | [address] | | | | + + + [...] | | | Fingerstick | performed at [facility];[address] | | LAB | | | | [address];[place], [place] | | | | | | [address] | | | | + + + [...] | | | Fingerstick | performed at [facility];[address] | | LAB | | | | [address];[place] | | | | | | [address] | | | | + + + [...] EXTERNAL | | | | performed at [facility];[address] | mmol/L | LAB | | | | [address];[place] | | | | | | [address] | | | | + + + [...] | | | Fingerstick | performed at [facility];[address] | | LAB | | | | [address];[place] | | | | | | [address] | | | | + + + [...] | | | Fingerstick | performed at [facility];[address] | | LAB | | | | [address];[place] | | | | | | [address] | | | | + + + [...] | | | Fingerstick | performed at [facility];[address] | | LAB | | | | [address];[place] | | | | | | [address] | | | | + + + [...] Lavell Clark Conversion - 05/29/2019 3:18 PM ANA HANNA [facility]134681 yearsXR | | CHEST 1 VIEW09/26/2018 11:05 [...] + + | Historically converted procedure from [facility] environment | EXTERNAL [...] | | | | | performed at [facility] | | | | | | [address];[place], [place] | | | | | | [address] | | | | + + + [...] | | | Fingerstick | performed at [facility];[address] | | LAB | | | | [address];[place] | | | | | | [address] | | | | + + + [...] | | | Patient | performed at [facility];[address] | | LAB | | | | [address];[place], [place] | | | | | | [address] | | | | + + + [...] | | | | | performed at [facility] | | | | | | [address];[place], [place] | | | | | | [address] | | | | + + + [...] EXTERNAL | | | | performed at [facility];[address] | | LAB | | | | [address];[place] | | | | | | [address] | | | | + + + [...] | | | Basophils | performed at [facility];[address] | K/uL | LAB | | | | [address];[place] | | | | | | [address] | | | | + + + [...] EXTERNAL | | | | performed at [facility] | | LAB | | | [address];[place], [place] | | | | | | [address] | | | | + + + [...] EXTERNAL | | | | performed at [facility];[address] | | LAB | | | [address];[place], [place] | | | | | | [address] | | | | + + + [...] | | | | | performed at [facility];[address] | | | | | | [facility];[place], [place] | | | | | | [address] | | | | + + + [...] unchanged. Complications: None. MEASUREMENTS | | | Consumer Marketing Specialist: APRIL Authenticated by: Nena Canela Report Date/Time: [...] | | Valvular function unchanged.Complications: None. MEASUREMENTS Consumer Marketing Specialist: | | CMAuthenticated by: Nena Zuluaga Date/Time: [...] | |MEASUREMENTS | | | | | |Consumer Marketing Specialist: CM | |Authenticated by: Nena Canela | [...] | | | POC | performed at [facility];[address] | g/dL | LAB | | | | [address];[place], [place] | | | | | | [address] | | | | + + + [...] EXTERNAL | | | | performed at [facility];[address] | | LAB | | | | [address];[place], [place] | | | | | | [address] | | | | + + + [...] | | | POC | performed at [facility];[address] | g/dL | LAB | | | | [address];[place], [place] | | | | | | [address] | | | | + + + [...] | | | POC | performed at [facility];888 | g/dL | LAB | | | | [address];[place], [place] | | | | | | [address] | | | | + + + [...] | | | POC | performed at [facility];[address] | g/dL | LAB | | | | [address];[place], [place] | | | | | | [address] | | | | + + + [...] EXTERNAL | | | | performed at [facility];[address] | | LAB | | | | [address];[place], [place] | | | | | | [address] | | | | + + + [...] | | | POC | performed at [facility];[address] | g/dL | LAB | | | | [address];[place], [place] | | | | | | [address] | | | | + + + [...] | | | Fingerstick | performed at [facility];[address] | | LAB | | | | [address];[place] | | | | | | [address] | | | | + + + [...] Diagnosis | + + | CAD in nome artery Coronary atherosclerosis of nome coronary artery | + + documented in this encounter
--- OUTSIDE RECORDS SUMMARY | ~2020-03-18 | XMS | Encounter Summary ---
Demographics + + + | Address | [address] | | | [place] [address] | + + + | Home Phone | | + + + | Preferred Language | Unknown | + + + | Marital Status | | + + + | Latter-Day Affiliation | Unknown | + + + [...] Team Providers + +------+ + | Care Fancy Needleworker Name | Role | Phone | + +------+ + PCP | Unavailable | + +------+ + Encounter Details +--------+ + + + + | Date | Type | Department | Care Team | Description | +--------+ + + + + | 05/29/ | [facility] | [facility] | Preethi Bell | | | 2010 | Encounter | MED CTR XRAY [address] | DO [address] | | | | | [place] | [address] | | | | | [place] [address] | [address] | | | | | [phone] | | | +--------+ + + + [...] Performed At | + + + | [facility] Diagnostic Imaging Department | [facility] | | [address] [facility] | [facility] | | SINUS CT WITHOUT CONTRAST: 1530 [...] | | | Transcribed Date/Time: 05/30/2011 08:51 Ginseng Farmer: | | | <Electronically Signed by Judah Ram MD> 05/30/11 9775 | | + + + + + | Procedure Note | + + | Eduardo, Rad Conversion - 11/22/2013 3:35 PM [facility] | | Diagnostic Imaging Department | | [address] [facility] | | | | | | [...] | Transcribed Date/Time: 05/30/2011 08:51 | | Ginseng Farmer: SHERIN | | <Electronically Signed by uJdah Ram MD> 05/30/11 9940 | + + + +---------+ + + [...] Performed At | + + + | [facility] Diagnostic Imaging Department | [facility] | | [address] [facility] | [facility] | | NONCONTRAST HEAD CT, 1525 HOURS, [...] Transcribed Date/Time: 05/30/2011 08:45 | | | Ginseng Farmer: <Electronically Signed by Judah Ram, | | | MD> 05/30/11 1809 | | + + + + + | Procedure Note | + + | Lavell Clark Conversion - 11/22/2013 3:35 PM [facility] | | Diagnostic Imaging Department [address] [facility] | | NONCONTRAST HEAD CT, 1525 [...] 08:16 | |Transcribed Date/Time: 05/30/2011 08:45 | |Ginseng Farmer: | |<Electronically Signed by Judah Ram MD> [...]
--- OUTSIDE RECORDS SUMMARY | ~2020-03-18 | XMS | Clinical Summary ---
Demographics + + + | Address | [address] | | | [place] [address] | + + + | Home Phone | | + + + | Preferred Language | Unknown | + + + | Marital Status | | + + + | Rastafari Affiliation | Unknown | + + + | Race | Unknown | + + + | Ethnic Group | Unknown | + + + Author + + + | Author | [facility] (Historical as of | | | 06-01-19) | + + + | Organization | [facility] (Historical as of | | | 06-01-19) | + + + | Address | Unknown | + + + | Phone | Unavailable | + + + Support + + +---------+ + | Name | Relationship | Address | Phone | + + +---------+ + | Mateo Meng | ECON | Unknown | | + + +---------+ + Care Team Providers + +------+ + | Care Screedman/Laborer Name | Role | Phone | + +------+ + | Pauly Perez PA-C | PP | | + +------+ + Allergies + + + + + + | Active Allergy | Reactions | Severity | Noted | Comments | | | | | Date | | + + + + + + | Gabapentin | Mental Changes | Low | 11/17/19 | irritable | | | | | 18 | | + + + + + + | Hydroxychloroquine | Muscle Pain | | 11/17/19 | myalgia | | | | | 18 | | + + + + + + Current Medications + + +---------+---------+------+------+-------+ | Prescription | Sig. | Disp. | Refills | Star | End | Statu | | | | | | t | Date | s | | | | | | Date | | | + + +---------+---------+------+------+-------+ | magnesium oxide | Take 400 mg by mouth | | | | | Activ | | (MAG-OX) 400 MG TABS | daily. | | | | | e | | tablet | | | | | | | + + +---------+---------+------+------+-------+ | apixaban (ELIQUIS) | Take 5 mg by mouth 2 | | | | | Activ | | 5 MG tablet | (two) times daily. | | | | | e | + + +---------+---------+------+------+-------+ | clopidogrel | Take 75 mg by mouth | | | 02/0 | | Activ | | (PLAVIX) 75 MG | daily. | | | 4/20 | | e | | tablet | | | | 18 | | | + + +---------+---------+------+------+-------+ | metFORMIN | Take 1,000 mg by | | | | | Activ | | (GLUCOPHAGE) 1000 MG | mouth 2 (two) times | | | | | e | | tablet | daily. | | | | | | + + +---------+---------+------+------+-------+ | insulin aspart | Inject 3 Units into | 15 mL | 0 | 12/1 | | Activ | | (NOVOLOG) 100 | the skin 3 (three) | | | 7/20 | | e | | UNIT/ML injection | times daily before | | | 18 | | | | | meals. | | | | | | + + +---------+---------+------+------+-------+ | insulin glargine | Inject 16 Units into | 15 mL | 0 | 12/1 | | Activ | | (LANTUS) 100 UNIT/ML | the skin daily. | | | 7/20 | | e | | injection | | | | 18 | | | + + +---------+---------+------+------+-------+ | insulin lispro, | Inject 0-10 Units | 10 mL | 0 | 12/1 | | Activ | | human, (HUMALOG) 100 | into the skin 3 | | | 7/20 | | e | | UNIT/ML injection | (three) times daily | | | 18 | | | | | before meals. Blood | | | | | | | | GlucoseMedium Dose | | | | | | | | <70 Initiate | | | | | | | | HYPOGLYCEMIA | | | | | | | | -0933 | | | | | | | [...] units | | | | | | + + +---------+---------+------+------+-------+ | ascorbic acid | Take 1 tablet by | 30 | 1 | 12/1 | | Activ | | (VITAMIN C) 500 MG | mouth daily for 60 | tablet | | 8/20 | | e | | tablet | days. | | | 18 | | | + + +---------+---------+------+------+-------+ | atorvastatin | Take 1 tablet by | 30 | 1 | 12/1 | | Activ | | (LIPITOR) 80 MG | mouth nightly. | tablet | | 7/20 | | e | | tablet | | | | 18 | | | + + +---------+---------+------+------+-------+ | metoprolol | Take 0.5 tablets by | 30 | 1 | 12/1 | | Activ | | (LOPRESSOR) 25 MG | mouth 2 (two) times | tablet | | 7/20 | | e | | tablet | daily. | | | 18 | | | + + +---------+---------+------+------+-------+ Active Problems + + + | Problem | Noted Date | + + + | Diabetes mellitus, type 2 (HCC) | 10/18/2018 | + + + | Moderate protein-calorie malnutrition (HCC) | 09/29/2018 | + + + | HLD (hyperlipidemia) | 09/26/2018 | + + + | Essential hypertension | 09/26/2018 | + + + | S/P CABG x 1 | 09/26/2018 | + + + + + | Overview: HILLMAN > LAD (off pump) | + + + + + | CAD in [place] artery | 09/11/2018 | + + + + + | Overview: Added automatically from request for surgery [id number] | + + + + + | Status post insertion of drug eluting coronary artery stent | 11/16/2017 | + + + + + | Overview: 2.25 x 15 mm Xience ROBIN in the prox right PDA | + + + + + | Cerebrovascular accident (CVA) ([facility]) | 11/16/2017 | + + + + + | Overview: Left occipital, with right-sided internuclear | | ophthalmoplegia | + + + +---+ | Atrial fibrillation (HCC) | | + +---+ + + | Overview: Paroxysmal, CHADS2 VASc 4, on Eliquis | + + + +---+ | Rheumatoid arthritis (HCC) | | + +---+ + + | Overview: Overview: | | ICD-10 Record update | + + + +---+ | Systemic lupus erythematosus (SLE) in adult (HCC) | | + +---+ Family History Patient is adopted + + +------+ + | Medical History | Relation | Name | Comments | + + +------+ + | Coronary art dis | Brother | | 17 siblings, does not know much about most | | | | | of them (adopted), but several of MIs | + + +------+ + | Alcohol abuse | Mother | | | + + +------+ + | Coronary art dis | Sister | | | + + +------+ + | Cancer | Son | | brain tumor | + + +------+ + | Coronary art dis | Son | | | + + +------+ + | Diabetes type I | Son | | | + + +------+ + + +------+ [...] Alive | | + +------+ + + Social History + +-------+ +--------+------+ | Tobacco Use | Types | Packs/Day | Years | Date | | | | | Used | | + +-------+ +--------+------+ | Never Smoker | | | | | + +-------+ +--------+------+ + +---+---+---+ | Smokeless Tobacco: | | | | | Never Used | | | | + +---+---+---+ + + +---------+ + | Alcohol Use | Drinks/We | oz/Week | Comments | | | ek | | | + + +---------+ + | No | | | | + + +---------+ + + + + | Sex Assigned at | Date Recorded | | | | + + + | Not on file | | + + + Last Filed Vital Signs + + + + | Vital Sign | Reading | Time Taken | + + + + | Blood Pressure | 88/60 | 12/25/2018 1:25 PM PDT | + + + + | Pulse | 95 | 12/25/2018 1:25 PM PDT | + + + + | Temperature | 37 C (98.6 F) | 10/30/2018 10:46 AM PST | + + + + | Respiratory Rate | 16 | 10/30/2018 10:46 AM PST | + + + + | Oxygen Saturation | 97% | 12/25/2018 1:25 PM PDT | + + + + | Inhaled Oxygen | - | - | | Concentration | | | + + + + | Weight | 61.8 kg (136 lb 3.2 | 12/25/2018 1:25 PM PDT | | | oz) | | + + + + | Height | 165.1 cm (5' 5") | 12/25/2018 1:25 PM PDT | + + + + | Body Mass Index | 22.66 | 12/25/2018 1:25 PM PDT | + + + + Plan of Treatment + + + + + | Health Maintenance | Due Date | Last Done | Comments | + + + + + | Diabetic Eye Exam | | | | | | 1 | | | + + + + + | Diabetic Foot Exam | | | | | | 1 | | | + + + + + | Microalbumin | | | | | Screening | 1 | | | + + + + + | Vaccine: | 07/29/198 | | | | Dtap/Tdap/Td (1 - | 0 | | | | Tdap) | | | | + + + + + | Vaccine: | | | | | Pneumococcal 19-64 | 0 | | | | (PPSV23 only) Medium | | | | | Risk (1 of 1 - | | | | | PPSV23) | | | | + + + + + | Cervical Cancer | | | | | Screening (Pap) | 1 | | | + + + + + | Breast Cancer | | | | | Screening | 1 | | | | (Mammogram) | | | | + + + + + | Colon Cancer | | | | | Screening | 1 | | | | (Colonoscopy) | | | | + + + + + | Vaccine: Zoster (1 | | | | | of 2) | 1 | | | + + + + + | Hemoglobin A1c | | 09/27/2018 | | | | 9 | | | + + + + + | Vaccine: Influenza | | | | | (Season Ended) | 0 | | | + + + + + Results Not on filefrom Last 3 Months Insurance + +--------+ +------+-------+ + | Payer | Benefi | Subscriber | Type | Phone | Address | | | t Plan | ID | | | | | | / | | | | | | | Group | | | | | + +--------+ +------+-------+ + | MEDICAID | MEDICA | [id number] | | | [address] | | | ID | | | | [place], [place] | | | [place] | | | | [address] | + +--------+ +------+-------+ + | [facility] | YELLOW | [id number] | | | | | PLANS | [place] | | | | | + +--------+ +------+-------+ + + +--------+ +--------+ + + | Guarantor Name | Accoun | Relation to | Date | Phone | Billing Address | | | t Type | Patient | of | | | | | | | | | | + +--------+ +--------+ + + | JOHN PAUL MENG | Person | Self [birth year] | Home: | [address] | | | al/Rajendra | | 1959 | [phone] [place] | | | ag | | | [phone] | [address] | + +--------+ +--------+ + +
--- OUTSIDE RECORDS SUMMARY | ~2020-03-18 | XMS | Encounter Summary ---
Demographics + + + | Address | [address] | | | [place] [address] | + + + | Home Phone | | + + + | Preferred Language | Unknown | + + + | Marital Status | | + + + | Evangelical Affiliation | Unknown | + + + | Race | Unknown | + + + | Ethnic Group | Unknown | + + + Author + + + | Author | [facility] | | | and [place] | + + + | Organization | [facility] | | | and [...] Providers + +------+ + | Care Sales Representative Name | Role | Phone | + +------+ + | Pauly Perez PA-C | PCP | | + +------+ + Reason for Visit + + + | Reason | Comments | + + + | Follow-up | | + + + | Results | Echo | + + + Follow Up (Routine) +--------+--------+ + + + + | Status | Reason | Specialty | Diagnoses / | Referred By | Referred To | | | | | Procedures | Contact | Contact | +--------+--------+ + + + + | Closed | | Cardiology | Diagnoses | Ana, | Diane, | | | | | mahesh, | Pauly H, | Jessica, | | | | | echo | PA-C [address] | [employer] [address] | | | | | schedule for | [address] [facility] | | | | | 11/26/19 at | [address] | | | | | [facility] | [address] | [place], [place] | | | | | | [place], | [address] | | | | | Procedures | [place] | Phone: | | | | | OFFICE VISIT | [address] | [phone] | | | | | REGULAR | Phone: | Fax: | | | | | | [phone] | [phone] | | | | | | Fax: | | | | | | | [phone] | | +--------+--------+ + + + + Encounter Details +--------+---------+ + + + | Date | Type | Department | Care Team | Description | +--------+---------+ + + + | 12/05/ | Office | [facility] | Diane, | Chronic systolic | | 2020 | Visit | [facility] | [address] | congestive heart | | | | [address] | [address] | failure (HCC) | | | | [place], [place] | F [place], [place] | (Primary Dx); CAD in | | | | [address] | [address] | tribal artery; | | | | [phone] | | Paroxysmal atrial | | | | | | fibrillation (HCC); | | | | | | S/P CABG x 1 | +--------+---------+ + + + Social History [...] in this encounter Patient Instructions Patient Instructions Jessica Contreras ARNP - 12/05/2019 2:30 PM PSTSTOP PLAVIX START ASPIRIN AND CONTINUE ON ELIQUIS STAY ACTIVE MAKE SURE ATORVASTATIN IS 80 MG NIGHTLY MOVE LOSARTAN TO BEDTIME DOSING 20 3:20 PM PST documented in this encounter Progress Notes Jessica Contreras ARNP - 12/05/2019 2:30 PM PSTFormatting of this note might be differen t from the original. Date of visit: 12/05/2019 Primary Care Physician: Pauly Perez PA-C CHIEF COMPLAINT: Chief Complaint Patient presents with Follow-up Results Echo HISTORY OF PRESENT ILLNESS: Luciana Latham is a 59 y.o. female who presents today overdue for follow up. She is a patient of Dr. Newell, last seen in office December 2018 after bypass surgery. Prior HPI from Dr Zandra Newell: Mrs. Latham, accompanied by her , came to the office today for a post CABG follow-up visit. She had a single vessel CABG, with a HILLMAN graft to the LAD 09/26/18. This was comp licated by a mild lower incisional infection with minimal dehiscence, but did not require re peat surgery, but resolved with antibiotics. She has been home and done well since that bernardo e. In April or May,, she developed anginal symptoms, but presented to the ER at [facility] several days later, where she was admitted for 2 days. Cardiac enzymes were n egative, but her EKG showed evidence of a septal ID, and an echo showed an EF of 35-40%, wit h severe ybq-af-imxkzo and apical akinesis. She had acute pulmonary edema / acute combined systolic/diastolic heart failure and atrial fibrillation with a RVR. She was transferred to [facility], and the following day cardiac catheterization showed a subtotal occlus ion of the mid LAD, with rwbs-te-fxog collaterals supplying the distal vessel, moderate dise ase in the left circumflex territory, that was not obstructive by FFR measurements, and a 90 % stenosis of the proximal right PDA, which was successfully revascularized with placement o f a drug-eluding stent. Her EF was still 35-40% on a follow-up echo 06/19/18 with anterior, s eptal and apical wall motion abnormalities. Her stay was complicated by a left occipital st roke with right-sided internuclear ophthalmoplegia, visual field cuts and blurred vision, wh ich is improving. She was started on Eliquis in addition to aspirin and Plavix, but the asp irin has now been stopped to reduce her risk for bleeding. Her repeat echo showed an impro vement in her previous severe pulmonary hypertension, which is now mild. A 2 week event mon itor showed no recurrent atrial fibrillation. Her physical examination suggested significan t bilateral PVD, and an ultrasound evaluation showed bilateral atherosclerotic plaquing and calcification, but no significant obstructive disease. Walking was encouraged. She was ref erred to the [facility] program today. If there is no evidence of recurrent atrial fibrillation with her 36 sessions of rehab, her Eliquis could be stopped. Today, due to hypotension, I decreased her metoprolol dose to 12.5 mg at bedtime only. I am hopeful t hat her LV systolic function will improve with revascularization, and a repeat echocardiogra m will be done prior to her next appointment in approximately 3 months. Today she presents feeling overall okay. She did not get to do cardiac rehab because [facility] apparently had a waiting list and never got her in. Blood pressures are generally well controlled. She has palpitations, only at night when she lies on her left si de. If she lies on her right side or back she does not notice any palpitations. She has diz ziness with standing up, that passes. She will also feel off balance depending on what is g oing on around her- like if the dogs are walking around it can make her feel vertigo type sy mptoms. She still has visual field deficits mostly affecting the vision in the left visual f ield. She is Eliquis and Plavix currently. She had her repeat echocardiogram, results revi ewed today show normalization of LV EF to 50%. She has also been having issues with hypoglycemia early in the AM, blood sugars down to the 60's. She has discussed with her PCP and they advised her she can down titrate the lantus from 30 to 22 units if needed. She has not made this change. REVIEW OF SYSTEMS: Negative except for pertinent items noted in HPI. Review of Systems Constitutional: positive for occasional fatigue. HENT: Negative for nosebleeds. Eyes: positive for visual disturbance. Respiratory: Negative for cough and shortness of breath. Cardiovascular: Negative for chest pain, positive for palpitations and denies leg swelling. Gastrointestinal: Negative for nausea, vomiting, abdominal pain and blood in stool. Genitourinary: Negative for hematuria. Musculoskeletal: Negative for myalgias, back pain and arthralgias. Skin: Negative for color change. Neurological: positive for dizziness, denies syncope and numbness. Hematological: Does not bruise/bleed easily. Psychiatric/Behavioral: The patient is not nervous/anxious. TEARFUL during questioning tosowmya y, reports she gets emotional easily. Outpatient Medications Prior to Visit Medication Sig Dispense Refill acetaminophen (TYLENOL) 325 mg tablet Take 325-650 mg by mouth EVERY 4 TO 6 HOURS NE EDED for Pain or Fever. apixaban (ELIQUIS) 5 mg tablet Take 5 mg by mouth 2 times daily. ascorbic acid (VITAMIN C) 500 MG tablet Take 1 tablet by mouth daily for 60 days. atorvaSTATin (LIPITOR) 40 mg tablet Take 1 tablet by mouth nightly. 30 tablet 11 atorvaSTATin (LIPITOR) 80 MG tablet Take 1 tablet by mouth nightly. clopidogrel (PLAVIX) 75 mg tablet Take 1 tablet by mouth Daily. 30 tablet 11 insulin aspart (NOVOLOG FLEXPEN) 100 units/mL injection pen Inject 3 Units into the ski n 3 (three) times daily before meals. insulin glargine (LANTUS SOLOSTAR) 100 units/mL injection (pen) Inject 16 Units into th e skin daily. insulin glargine (LANTUS SOLOSTAR) 100 units/mL injection (pen) Inject 7 Units under th e skin nightly. 10 pen 1 insulin lispro (HUMALOG) 100 units/mL injection (vial) Inject 0-10 Units into the skin 3 (three) times daily before meals. Blood GlucoseMedium Dose <70 Initiate HYPOGLYCEMIA protocol 70-1190 units 120-1491 units 150-199 2 units 200-249 3 units 250-299 5 units 300-3497 units 350-3998 units >400 10 units losartan (COZAAR) 25 mg tablet Take 1 tablet by mouth Daily. 90 tablet 3 magnesium oxide (MAG-OX) 400 mg tablet Take 400 mg by mouth Daily. metFORMIN (GLUCOPHAGE) 1000 MG tablet Take 1,000 mg by mouth 2 times daily (with breakf ast & dinner). metoprolol succinate (TOPROL-XL) 100 mg ER tablet Take 100 mg by mouth Daily. metoprolol tartrate (LOPRESSOR) 25 mg tablet Take 12.5 mg by mouth Daily. nitroglycerin (NITROSTAT) 0.[address] 1 tablet under the tongue every 5 helen federico as needed for Chest pain. 25 tablet 11 No facility-administered medications prior to visit. PHYSICAL EXAM: BP 104/58 | Pulse 87 | Ht 1.651 m (5' 5") | Wt 63.5 kg (140 lb) | SpO2 99% | BMI 23.30 kg/m Constitutional: Well-developed. Neck: No JVD present. No thyromegaly present. Cardiovascular: Regular rhythm, S1 normal and S2 normal. No murmur heard. Pulses: Radial pulses are 2+ on the right side, and 2+ on the left side. Pulmonary/Chest: Effort normal and breath sounds normal. No wheezes. No rales. Abdominal: Soft. No tenderness. Musculoskeletal: No edema. Neurological: Alert. No cranial nerve deficit. Skin: Warm and dry. DATA: Blood tests: Lab Results Component Value Date WBC 7.24 09/30/2018 HGB 7.9 (L) 09/30/2018 HCT 35.3 11/19/2017 PLT 261 11/19/2017 Lab Results Component Value Date INR 1.1 09/26/2018 PTT 62 (H) 11/16/2017 Lab Results Component Value Date NA 133 (L) 10/01/2018 K 4.1 10/01/2018 CL 98 (L) 10/01/2018 CO2 27 10/01/2018 BUN 7 (L) 10/01/2018 CREA 0.53 (L) 11/16/2017 MG 2.3 10/01/2018 Lab Results Component Value Date CHOL 187 11/16/2017 TRIG 195 (H) 11/16/2017 HDL 34 11/16/2017 LDL 114 11/16/2017 EKG: December 25, 2018 reviewed showed normal sinus rhythm with nonspecific T wave abnormaliti es Last Echo: November 26, 2019 Normal LV systolic function is mildly abnormal with residual apical wall motion defects fro m her previous ID. The ejection fraction is visually estimated at 50%. This is improved fr om an EF of 35 to 40% on her previous study. There is mild grade 1 diastolic dysfunction Normal RV size and function Moderate mitral regurgitation Mild to moderate tricuspid regurgitation There is mild pulmonary hypertension June 19, 2018 1. Overall left ventricular systolic function is moderately impaired with an EF between 35 - 40%. There are multiple anterior, septal and apical wall motion abnormalities consistent with her prior ID. 2. The diastolic filling pattern indicates impaired relaxation consistent with mild dysfunc tion (Grade I). 3. The right ventricle is normal in size and function. 4. The left atrium is mildly dilated. 5. Moderate mitral regurgitation is present. 6. There is mild pulmonary hypertension. The right ventricular systolic pressure (pulmonar y artery systolic pressure), as measured by Doppler, is 40 - 45 mm Hg. 7. Other than for a d ecrease in the peak RV systolic (pulmonary artery) pressure, there are no significant changes noted in comparison to her previous echocardiographic study, done . Last stress test: July 18, 2018 thallium viability study IMPRESSION: 1. This is a technically adequate study. There is scarring in the apex, with minimal viab le myocardial tissue noted. The distal anterolateral wall shows evidence of scarring, with e vidence of viability consistent with hibernating myocardium due to underperfusion. There is extensive viable myocardial tissue in the anterior, anterolateral and septal segments. All other segments appear to have normal perfusion. This study suggests that she would benefit from revascularization of the left anterior descending artery. Last cath: 11/16/2017 CONCLUSIONS 1. Normal left ventricular end-diastolic pressure, low systemic blood pressure 2. Mild left main coronary disease 3. Subtotal occlusion of mid LAD with VERONA grade 1 antegrade flow 4. Severe right posterior descending artery stenosis in codominant vessel 5. Moderate stenosis of first obtuse marginal branch of left circumflex artery with fracti onal flow reserve measurement of 0.83, severe diffuse disease of smaller caliber branch of O M1, severe diffuse disease of distal left circumflex posterior lateral branches 6. Successful ROBIN PCI right posterior descending artery Plan ASSESSMENT & PLAN: Luciana Latham is a 59 y.o. female the following medical conditions: 1. Coronary artery disease, status post George artery bypass grafting x1, HILLMAN to the LAD 2. Paroxysmal atrial fibrillation, with evidence of palpitations,CHADSVASc score of 5 3. Status post left occipital CVA 4. Peripheral vascular disease 5. Diabetes mellitus requiring insulin 6. Rheumatic arthritis Recommend patient move her losartan to bedtime dosing to assess for any improvement in ligh theadedness or dizziness. Suspect most of her equilibrium issues are related to her history of occipital stroke and ongoing left visual field deficits. Continue on Eliquis for her paroxysmal atrial fibrillation. I discussed repeating her Mccullough er monitor due to her ongoing palpitations however patient declined and elected to just stay on the Eliquis. We discussed stopping Plavix since is been more than a year since her stro ke and coronary bypass, and resuming aspirin 81 mg Reviewed her echocardiogram that showed improvement in her LV systolic function to 50%. Co ntinue on metoprolol 12.5 mg once daily with losartan 25 mg She has been having problems with morning hypoglycemia. She has discussed decreasing her l antus with her PCP- currently taking 30 units- she will try decreasing to 25 units. She is easily tearful during conversation today, makes poor eye contact. May be suffering f rom depression. Encouraged her to discuss this with her PCP. We will request her recent blood work from [facility] Follow-up in [address] Newell, sooner if needed The following portions of the patient's history were reviewed and updated as appropriate: Allergies, current medications. Family history, past medical history, past social history, past surgical history. Problem list. BARTOLO Crandall 12/05/2019 Izabella hightower in this encounter Plan of Treatment Not on filedocumented as of this encounter Visit Diagnoses + + | Diagnosis | + + | Chronic systolic congestive heart failure (HCC) - Primary Chronic systolic heart | | failure | + + | CAD in tribal artery Coronary atherosclerosis of tribal coronary artery | + + | Paroxysmal atrial fibrillation (HCC) Atrial fibrillation | + + | S/P CABG x 1 Postsurgical aortocoronary bypass status | + + documented in this encounter
--- OUTSIDE RECORDS SUMMARY | ~2020-03-18 | XMS | Encounter Summary ---
Demographics + + + | Address | [address] | | | [place] [address] | + + + | Home Phone [...] Team Providers + +------+ + | Care Geometrician Name | Role | Phone | + [...] | (Schedule earlier | | | | [address], | [place], [place] | appointment) | | | | [place] [address] | [address] | | | | | [phone] | | | +--------+ + + + [...]
--- OUTSIDE RECORDS SUMMARY | ~2020-03-18 | XMS | Encounter Summary ---
Demographics + + + | [address] | [address] | | | [place] [address] | + + + | Home Phone | | + + + | Preferred Language | Unknown | + + + | Marital Status | | + + + | Rastafarian Affiliation | Unknown | + + + | Race | Unknown | + + + | Ethnic Group | Unknown | + + + Author + + + | Author | [facility] | | | and [place] | + + + | Organization | [facility] | | [...] Team Providers + +------+ + | Care Paper Box Maker Name | Role | Phone | + +------+ + | Pauly Perez PA-C | PCP | | + +------+ + Encounter Details +--------+ + + + + | Date | Type | Department | Care Team | Description | +--------+ + + + + | 05/30/ | Hospital | [facility] | Conversion | Diagnosis unknown | | 2018 | Encounter | CONVERSION [address] | Transaction, | | | | | [address] | Provider Unknown | | | | | [place], [place] | [phone] | | | | | [address] | (Fax) | | | | | [phone] | | | +--------+ + + + [...]
--- OUTSIDE RECORDS SUMMARY | ~2020-03-18 | XMS | Encounter Summary ---
Demographics + + + | Address | [address] | | | [place] [address] | + + + | Home Phone | | + + + | Preferred Language | Unknown | + + + | Marital Status | | + + + | Gnosticism Affiliation | Unknown | + + + | Race | Unknown | + + + | Ethnic Group | Unknown | + + + Author + + + | Author | [facility] | | | and [place] | + + + | Organization | [facility] | | | [...] Team Providers + +------+ + | Care Yellow Pages Space Salesperson Name | Role | Phone | + +------+ + | Pauly Perez PA-C | PCP | | + +------+ + Reason for Visit + + + | Reason | Comments | + + + | Irregular Heart Beat | | + + + Auth/Cert +--------+--------+ + + + + | Status | Reason | Specialty | Diagnoses / | Referred By | Referred To | | | | | Procedures | Contact | Contact | +--------+--------+ + + + + | | | | | | | +--------+--------+ + + + + Encounter Details +--------+ + + + + | Date | Type | Department | Care Team | Description | +--------+ + + + + | 12/18/ | Emergency | [facility] | Jeffrey, | Intermittent | | 2018 | | MED CTR EMERGENCY | Paramjit Russ MD [address] | palpitations | | | | [place] [address] | [address] | (Primary Dx) | | | | [place] | [place] [address] | | | | | [address] | [phone] | | | | | [phone] | | | +--------+ + + + [...] + + + | Blood Pressure | 123/69 | 12/18/2017 12:45 PM | | | | | PST | | + + + + + | Pulse | 91 | 12/18/2017 12:45 PM | | | | | PST | | + + + + + | Temperature | - | - | | + + + + + | Respiratory Rate | 18 | 12/18/2017 12:45 PM | | | | | PST | | + + + + + | Oxygen Saturation | 100% | 12/18/2017 12:45 PM | | | | | PST | | + + + + + | Inhaled Oxygen | - | - | | | Concentration | | | | + + + + + | Weight | 59 kg (130 lb) | 12/18/2017 12:26 PM | | | | | PST | | + + + + + | Height | 165.1 cm (5' 5") | 12/18/2017 12:26 PM | | | | | PST | | + + + + + | Body Mass Index | 21.63 | 12/18/2017 12:26 PM | | | | | PST | | + + + + + documented in this encounter Discharge Instructions Instructions Paramjit Murphy MD - 12/18/2017Discontinue digoxin Take losartan 25mg twice-daily Return for worsening symptoms, any episode of passing out (or nearly passing out), or other concerns documented in this encounter Medications at Time [...] | ECG 12 LEAD | STAT | 12/18/2017 | | Results for this | | | | 12:28 PM | | procedure are in the | | | | PST | | results section. | + +--------+ + + + documented in this encounter Results ECG 12 lead (12/18/2017 12:28 PM PST) + + + + + + | Component | Value | Ref Range | Performed | Pathologist | | | | | At | Signature | + + + + + + | VENTRICULAR | 91 | BPM | [facility] | | | RATE EKG | | | | | + + + + + + | ATRIAL RATE | 91 | BPM | [facility] | | + + + + + + | P-R | 158 | ms | [facility] | | | INTERVAL | | | | | + + + + + + | QRS | 66 | ms | [facility] | | [...] + + | P WAVE AXIS | 44 | degrees | [facility] | | + + + + + + | QRS AXIS | 17 | degrees | [facility] | | + + + + + + | T AXIS | 21 | degrees | [facility] | | + + + + + + | INTERPRETAT | Normal sinus | | [facility] | | | ION TEXT | rhythmPossible | | | | | | Anteroseptal infarct | | | | | | (cited on or before | | | | | | 15-NOV-2017)Nonspecific | | | | | | T wave | | | | | | abnormalityAbnormal | | | | | | ECGWhen compared with | | | | | | ECG of 14-DEC-2017 | | | | | | 12:53,T wave amplitude | | | | | | has decreased in | | | | | | Anterolateral | | | | | | leadsConfirmed by | | | | | | SHOLA GALLO MD ([id number]) | | | | | | on 12/18/2017 3:03:25 PM | | | | + + [...] + | Diagnosis | + + | Intermittent palpitations - Primary | + + documented in this encounter
--- OUTSIDE RECORDS SUMMARY | ~2020-03-18 | XMS | Encounter Summary ---
Demographics + + + | Address | [address] | | | [place] [address] | + + + | Home Phone | | + + + | Preferred Language | Unknown | + + + | Marital Status | | + + + | Caodaism Affiliation | Unknown | + + + | Race | Unknown | + + + | Ethnic Group | Unknown | + + + Author + + + | Author | [facility] | | | and [place] | + + + | Organization | [facility] | | [...] Team Providers + +------+ + | Care Farebox Repairer Name | Role | Phone | + +------+ + | Pauly Perez PA-C | PCP | | + +------+ + Encounter Details +--------+ + + + + | Date | Type | Department | Care Team | Description | +--------+ + + + + | 09/18/ | Hospital | [facility] | Conversion | | | 2018 | Encounter | [facility] XRAY | Transaction, | | | | | [address] | Provider Unknown | | | | | [place] | [phone] | | | | | [address] | | | | | | [phone] | | | +--------+ + + + [...]
--- OUTSIDE RECORDS SUMMARY | ~2020-03-18 | XMS | Encounter Summary ---
Demographics + + + | Address | [address] | | | [place] [address] | + + + | Home Phone | | + + + | Preferred Language | Unknown | + + + | Marital Status | | + + + | Religion Affiliation | Unknown | + + + | Race | Unknown | + + + | Ethnic Group | Unknown | + + + Author + + + | Author | [facility] | | | and [place] | + + + | Organization | [facility] | [...] Team Providers + +------+ + | Care Infection Prevention Practitioner Name | Role | Phone | + +------+ + PCP | Unavailable | + +------+ + Encounter Details +--------+ + + + + | Date | Type | Department | Care Team | Description | +--------+ + + + + | 05/06/ | Hospital | [facility] | | | | 2000 | Encounter | MED CTR EMERGENCY | | | | | | CENTER [address] | | | | | | [place] | | | | | | [address] | | | | | | [phone] | | | +--------+ + + + [...]
--- OUTSIDE RECORDS SUMMARY | ~2020-03-18 | XMS | Encounter Summary ---
Demographics + + + | Address | [address] | | | [place] [address] | + + + | Home Phone | | + + + | Preferred Language | Unknown | + + + | Marital Status | | + + + | Congregation Affiliation | Unknown | + + + | Race | Unknown | + + + | Ethnic Group | Unknown | + + + Author + + + | Author | [facility] | | | and [place] | + + + | Organization | [facility] | | [...] Team Providers + +------+ + | Care Bike Mechanic Name | Role | Phone | + +------+ + PCP | Unavailable | + +------+ + Encounter Details +--------+ + + + + | Date | Type | Department | Care Team | Description | +--------+ + + + + | 11/15/ | Imaging | [facility] | Provider, | | | 2018 | Exam | MED CTR EXTERNAL | MD [id number] | | | | | IMAGING [address] | [place] | | | | | [address] | [place] [address] | | | | | [place] [address] | | | | | | [phone] | | | +--------+ + + + [...] for comparison only - no result from [place]. | [facility] | + + + + +---------+ + + | Performing | Address | City/State/Zipcode | Phone Number | | Organization | | | | + +---------+ + + | [facility] | | | | + +---------+ + + documented in this encounter Visit Diagnoses Not on filedocumented in this encounter"
--- OUTSIDE RECORDS SUMMARY | ~2020-03-18 | XMS | Encounter Summary ---
Demographics + + + | Address | [address] | | | [place] [address] | + + + | Home Phone | | + + + | Preferred Language | Unknown | + + + | Marital Status | | + + + | Lutheran Affiliation | Unknown | + + + | Race | Unknown | + + + | Ethnic Group | Unknown | + + + Author + + + | Author | [facility] | | | and [place] | + + + | Organization | [facility] | | | [...] Team Providers + +------+ + | Care Document Preparation Specialist Name | Role | Phone | + +------+ + | Pauly Perez PA-C | PCP | | + +------+ + Encounter Details +--------+ + + + + | Date | Type | Department | Care Team | Description | +--------+ + + + + | 12/14/ | Hospital | [facility] | Stephen Baker MD | Atrial fibrillation, | | 2018 | Encounter | MED CTR NUCLEAR | [address] | unspecified type | | | | MEDICINE [address] | [place], [place] | (HCC) | | | | [place], | [address] | | | | | [place] [address] | | | | | | [phone] | | | +--------+ + + + [...]
--- OUTSIDE RECORDS SUMMARY | ~2020-03-18 | XMS | Encounter Summary ---
Demographics + + + | Address | [address] | | | [place] [address] | + + + | Home Phone | | + + + | Preferred Language | Unknown | + + + | Marital Status | | + + + | Buddhist Affiliation | Unknown | + + + | Race | Unknown | + + + | Ethnic Group | Unknown | + + + Author + + + | Author | [facility] | | | and [place] | + + + | Organization | [facility] | | | and [...] Team Providers + +------+ + | Care Field Marketer Name | Role | Phone | + [...] | | | | | [address] | | | | | | [place], [place] | | | | | | [address] | | | | | | [phone] | | | +--------+ + + + [...]
--- OUTSIDE RECORDS SUMMARY | ~2020-03-18 | XMS | Encounter Summary ---
Demographics + + + | Address | [address] | | | [place] [address] | + + + | Home Phone [...] Providers + +------+ + | Care Psychiatry Teacher Name | Role | Phone | + +------+ + | Pauly Perez PA-C | PCP | | + +------+ + Reason for Visit + + + | Reason | Comments | + + + | Follow-up | | + + + | Atrial Fibrillation | | + + + Follow Up (Routine) +--------+--------+ + + + + | Status | Reason | Specialty | Diagnoses / | Referred By | Referred To | | | | | Procedures | Contact | Contact | +--------+--------+ + + + + | Closed | | Cardiology | Diagnoses | Bourret, | Samuel, | | | | | CHF | Pauly Medrano, | MD Stephen | | | | | (congestive | PA-C [address] | [address] | | | | | heart | [address] | [address] [place] | | | | | failure) | [place] | [facility], [place] | | | | | ([facility]ERLY [facility]) A-fib | [address] | [address] Phone: | | | | | (FORMERLY [facility]) | [place], | [phone] | | | | | Procedures | [place] | Fax: | | | | | [place] | [address] | [phone] | | | | | | Phone: | | | | | | | [phone] | | | | | | | Fax: | | | | | | | [phone] | | +--------+--------+ + + + + Encounter Details +--------+---------+ + + + | Date | Type | Department | Care Team | Description | +--------+---------+ + + + | 01/04/ | Office | [facility] | Stephen Baker MD | Atrial fibrillation, | | 2018 | Visit | CARDIOLOGY [address] | chronic (HCC) | | | | [place], | [place], [place] | (Primary Dx) | | | | [place] [address] | [address] | | | | | [phone] | | | +--------+---------+ + + + [...] + + + | Blood Pressure | 118/72 | 01/04/2018 12:20 PM | | | | | PDT | | + + + + + | Pulse | 84 | 01/04/2018 12:20 PM | | | | | PDT | | + + + + + | Temperature | - | - | | + + + + + | Respiratory Rate | 18 | 01/04/2018 12:20 PM | | | | | PDT | | + + + + + | Oxygen Saturation | - | - | | + + + + + | Inhaled Oxygen | - | - | | | Concentration | | | | + + + + + | Weight | 58.5 kg (129 lb) | 01/04/2018 12:20 PM | | | | | PDT | | + + + + + | Height | 165.1 cm (5' 5") | 01/04/2018 12:20 PM | | | | | PDT | | + + + + + | Body Mass Index | 21.47 | 01/04/2018 12:20 PM | | | | | PDT | | + + + + + documented in this encounter Patient Instructions Patient Instructions Bernice Arenas RN - 01/04/2018 12:30 PM PDTBegin taking Losartan 25 mg once daily at bedtime Stop taking aspirin. Blood test: Non-fasting Date Due: 4-6 weeks: Mid-January to February Where to go for labs: [facility] [address] [facility] Follow up appointment: 2 months Provider: Dr. Stephen Baker Date: Check-In Time: documented in this encounter Progress Notes Stephen Baker MD - 01/04/2018 12:30 PM PDT PATIENT NAME: Luciana Latham : 1960: AGE: 57 y.o. PRIMARY CARE: Pauly Preez PA-C CARDIOLOGY CLINIC PROGRESS NOTE Ms. Latham presents for a follow-up clinic visit. Since her previous visit of 12/14/17, sh ambrocio is feeling improved without recurrence palpitation and diaphoresis. Her fatigue has also lessened. She has not experienced exertional chest pain. She is taking dual antiplatelet t herapy in addition to apixaban though we have instructed her not to take aspirin. She stopp ed losartan on instructions from her primary care provider due to low systolic blood pressur e readings. Her diabetic control has been improving. The patient's 48 hour Holter monitor that was placed at the time of her last visit showed isolated atrial and ventricular prematu re complexes without ventricular tachycardia. There was one sustained episode of atrial fib rillation lasting approximately 23 minutes. The patient experience palpitations during that episode. Her visual deficits have remained stable. MEDICATIONS: Current Outpatient Prescriptions Medication Sig Dispense Refill acetaminophen (TYLENOL) 325 mg tablet Take 325-650 mg by mouth EVERY 4 TO 6 HOURS NE EDED for Pain or Fever. apixaban (ELIQUIS) 5 mg tablet Take 5 mg by mouth 2 times daily. atorvaSTATin (LIPITOR) 40 mg tablet Take 1 tablet by mouth nightly. 30 tablet 11 clopidogrel (PLAVIX) 75 mg tablet Take 1 tablet by mouth Daily. 30 tablet 11 insulin glargine (LANTUS SOLOSTAR) 100 units/mL injection (pen) Inject 7 Units under th e skin nightly. 10 pen 1 losartan (COZAAR) 25 mg tablet Take 1 [...] Hydroxychloroquine myalgia PHYSICAL EXAM Vital signs: Vitals: 01/04/18 1220 BP: 118/72 Pulse: 84 Resp: 18 Admit Weight: Weight: 58.5 kg (129 lb) Current weight: Weight: 58.5 kg (129 lb) Body mass index is 21.47 kg/m. General: Resting comfortably Chest: Clear Cardiovascular: Regular rhythm, no S3, jugular venous pressure normal Gastrointestinal: Abdomen soft, non-tender, normal bowel sounds, no organomegaly nor masses . Extremities: No edema Neuro: within normal LABS: Office Visit on 01/04/2018 Component Date Value Ref Range Status VENTRICULAR RATE EKG 01/05/2018 84 BPM Final ATRIAL RATE 01/05/2018 84 BPM Final P-R INTERVAL 01/05/2018 148 ms Final QRS DURATION 01/05/2018 68 ms Final Q-T INTERVAL 01/05/2018 370 ms Final Q-T INTERVAL (CORRECTED) 01/05/2018 437 ms Final P WAVE AXIS 01/05/2018 62 degrees Final QRS AXIS 01/05/2018 53 degrees Final T AXIS 01/05/2018 70 degrees Final INTERPRETATION TEXT 01/05/2018 Final Value:Normal sinus rhythm Possible Left atrial enlargement Anteroseptal infarct (cited on or before 15-NOV-2017) Abnormal ECG When compared with ECG of 18-DEC-2017 12:28, Nonspecific T wave abnormality no longer evident in Inferior leads Confirmed by NITIN RAMIREZ, [facility] ([id number]) on 01/05/2018 10:34:00 AM IMAGING: No results found. Resting ECG 01/04/18: Normal sinus rhythm 84 bpm, old anterior infarction, left atrial abno rmality, nonspecific ST and T wave abnormality when compared with prior ECG dated 12/18/17, no significant interval change DIAGNOSES AND ASSESSMENTS: 1. Congestive heart failure: Patient currently well compensated 2. Coronary atherosclerosis, status post anterior infarction, RCA ROBIN PCI: Patient without recurrence of chest pain 3. Paroxysmal atrial fibrillation, embolic stroke with residual vision deficit: Patient rem ains in sinus rhythm without recurrence of palpitations, continues on oral anticoagulation PLAN OR RECOMMENDATIONS: Restart losartan at reduced dose of 25 mg daily Discontinue aspirin Fasting lipid profile, A LT 6 weeks Clinic follow-up 2 months or sooner as needed I appreciate the opportunity of participating in the care of this patient. Stephen Baker MD, 01/05/2018 11:36 documented in this enc ounter Plan of Treatment + +------+--------+ + + | Name | Type | Priori | Associated Diagnoses | Order Schedule | | | | ty | | | + +------+--------+ + + | Lipid Panel | Lab | Routin | Atrial | 1 Occurrences | | | | e | fibrillation, | starting 01/04/2018 | | | | | chronic (HCC) | until 01/05/2019 | + +------+--------+ + + | ALT | Lab | Routin | Atrial | 1 Occurrences | | | | e | fibrillation, | starting 01/04/2018 | | | | | chronic (HCC) | until 01/04/2019 | + +------+--------+ + + documented as of this encounter Procedures + +--------+ + + + | Procedure Name | Priori | Date/Time | Associated Diagnosis | Comments | | | ty | | | | + +--------+ + + + | ECG 12 LEAD | Routin | 01/05/2018 | Atrial | Results for this | | | e | 10:34 AM | fibrillation, | procedure are in the | | | | PDT | chronic (HCC) | results section. | + +--------+ + + + documented in this encounter Results ECG 12 lead (01/05/2018 10:34 AM PDT) + + + + + + | Component | Value | Ref Range | Performed | Pathologist | | | | | At | Signature | + + + + + + | VENTRICULAR | 84 | BPM | [facility] | | | RATE EKG | | | | | + + + + + + | ATRIAL RATE | 84 | BPM | [facility] | | + + + + + + | P-R | 148 | ms | [facility] | | | INTERVAL | | | | | + + + + + + | QRS | 68 | ms | [facility] | | | DURATION | | | | | + + + + + + | Q-T | 370 | ms | [facility] | | | INTERVAL | | | | | + + + + + + | Q-T | 437 | ms | [facility] | | | INTERVAL | | | | | | (CORRECTED) | | | | | + + + + + + | P WAVE AXIS | 62 | degrees | [facility] | | + + + + + + | QRS AXIS | 53 | degrees | [facility] | | + + + + + + | T AXIS | 70 | degrees | [facility] | | + + + + + + | INTERPRETAT | Normal sinus | | [facility] | | | ION TEXT | rhythmPossible Left | | | | | | atrial | | | | | | enlargementAnteroseptal | | | | | | infarct (cited on or | | | | | | before | | | | | | 15-NOV-2017)Abnormal | | | | | | ECGWhen compared with | | | | | | ECG of 18-DEC-2017 | | | | | | 12:28,Nonspecific T wave | | | | | | abnormality no longer | | | | | | evident in Inferior | | | | | | leadsConfirmed by | | | | | | OLEGARIO TAVERAS MD | | | | | | ([id number]) on 01/05/2018 | | | | | | 10:34:00 AM | | | | + + [...] Diagnosis | + + | Atrial fibrillation, chronic (HCC) - Primary Atrial fibrillation | + + documented in this encounter
--- OUTSIDE RECORDS SUMMARY | ~2020-03-18 | XMS | Encounter Summary ---
Demographics + + + | [address] | [address] | | | [place] [address] | + + + | Home Phone | | + + + | Preferred Language | Unknown | + + + | Marital Status | | + + + | Nondenominational Affiliation | Unknown | + + + [...] Team Providers + +------+ + | Care Senior Research Fellow Name | Role | Phone | + [...] | | | failure) | [place] | [facility], [place] | | | | | ([facility]) A-fib | [address] | [address] Phone: | | | | | ([facility]) | [place], | [phone] | | | | | Procedures | [place] | Fax: | | | | | [place] | [address] | [phone] | | | | | | Phone: | | | | | | | [phone] | | | | | | | Fax: | | | | | | | [phone] | | +--------+--------+ + + + + Encounter Details +--------+---------+ + + + | Date | Type | Department | Care Team | Description | +--------+---------+ + + + | 01/04/ | Office | [facility] | Stephen Baker MD | Atrial fibrillation, | | 2018 | Visit | CARDIOLOGY [address] | chronic (HCC) | | | | [place], | [place], [place] | (Primary Dx) | | | | [place] [address] | [address] | | | | | [phone] | | | +--------+---------+ + + + [...] to February Where to go for labs: [facility]- [address] [facility] Follow up appointment: 2 months Provider: Dr. [...] in Inferior leads Confirmed by NITIN RAMIREZ, [facility] ([id number]) on 01/05/2018 10:34:00 AM IMAGING: No results [...] MD | | | | | | ([id number]) on 01/05/2018 | | | | | [...]
--- OUTSIDE RECORDS SUMMARY | ~2020-03-18 | XMS | Encounter Summary ---
Demographics + + + | [address] | [address] | | | [place] [address] | + + + | Home Phone | | + + + | Preferred Language | Unknown | + + + | Marital Status | | + + + | Christian Affiliation | Unknown | + + + | Race | Unknown | + + + | Ethnic Group | Unknown | + + + Author + + + | Author | [facility] | | | and [place] | + + + | Organization | [facility] | | | [...] Team Providers + +------+ + | Care Pharmacy General Manager Name | Role | Phone | + [...] + + | 11/16/ | Surgery | [facility] | Stephen Baker MD | CV Cor Angio | | 2017 | | MED CTR CV INTRA OP | [address] | | | | | [address] | [place] | | | | | [place] | [address] | | | | | [address] | | | | | | [phone] | | | +--------+---------+ + + + [...] 1 year follow-up target versus signs 6.2% [place], [place] HOSPITALIST DISCHARGE SUMMARY Pt. Name/Age/: Luciana [...] MG Tb24 telmisartan 80 MG tablet aka: [facility] COURSE: Please refer to the H&P for full details and the most recent rounding rounding (progress) n ote. In short 57-year-old woman transferred from [facility] in [facility] on after being admitted with symptoms [...] to home with her . She will pick up driver her prescriptions at [facility] in [facility] today. Our office will contact her to schedule outpatient foll ow-up within 3 weeks. Condition: Patient being discharged with condition improved. Diet:Whole food plant based, sodium restricted Less than 30 minutes were spent on discharge and coordination of post-hospital care. Electronically signed by: Stephen Baker MD, 11/19/2017 8:23 [facility] Portions of this chart may have been created with [employer] voice recognition software. Occasi onal wrong-word or [...] have recommended she seek consultation with an supervisor endless track vehicle. MEDICATIONS: Current Facility-Administered Medications Medication Dose Route [...] ECGs available Confirmed by SABINO RAMIREZ, SHOLA ([id number]) on 11/16/2017 6:45:13 AM WBC 11/16/2017 10.3 [...] was found Confirmed by SABINO RAMIREZ, SHOLA ([id number]) on 11/17/2017 6:38:00 AM Glucose, POC 11/16/2017 [...] inferior leads Confirmed by SABINO RAMIREZ, SHOLA ([id number]) on 11/18/2017 8:56:44 AM Glucose, POC 11/17/2017 [...] performed and electronically signed by Avelina Perdomo, Dance Artist 11/17/2017 13:31 Reviewed by Adriana Hinojosa, PharmTiffany [...] ECGs available Confirmed by SHOLA GALLO MD ([id number]) on 11/16/2017 6:45:13 AM WBC 11/16/2017 10.3 [...] was found Confirmed by SABINO RAMIREZ, SHOLA ([id number]) on 11/17/2017 6:38:00 AM Glucose, POC 11/16/2017 [...] ECGs available Confirmed by SABINO RAMIREZ, SHOLA ([id number]) on 11/16/2017 6:45:13 AM WBC 11/16/2017 10.3 [...] was found Confirmed by SABINO RAMIREZ, SHOLA ([id number]) on 11/17/2017 6:38:00 AM Glucose, POC 11/16/2017 [...] [address] | [address] | [place], [place] | [phone] | | [facility] | | [address] | | | - LABORATORY | | [...] [address] | [place] | [phone] | | [facility] | | [address] | | | - LABORATORY | | [...] + | [facility] | [address] | [place] | [phone] | | [facility] | | [address] | | | - LABORATORY | | [...] [address] | [place] | [phone] | | [facility] | | [address] | | | - LABORATORY | | [...] [address] | [place] | [phone] | | [facility] | | [address] | | | - LABORATORY | | [...] + | [facility] | [address] | [place] | [phone] | | [facility] | | [address] | | | - LABORATORY | | [...] ST. | [address] | [place], [place] | [phone] | | [facility] | | [address] | | | - LABORATORY | | [...] [address] | [place] | [phone] | | [facility] | | [address] | | | - LABORATORY | | [...] [address] | [place] | [phone] | | [facility] | | [address] | | | - LABORATORY | | [...] + | [facility] [facility] | [address] | [place] | [phone] | | [facility] | | [address] | | | - LABORATORY | | [...] [address] | [place] | [phone] | | [facility] | | [address] | | | - LABORATORY | | [...] ST. | [address] | [place] | [phone] | | [facility] | | [address] | | | - LABORATORY | | [...] | | POC | | | [facility] | | | | | [...] [address] | [place] | [phone] | | [facility] | | [address] | | | - LABORATORY | | [...] | | | POC | | | [facility] | | | | | | MEDICAL [...] + | [facility] | [address] | [place] | [phone] | | [facility] | | [address] | | | - LABORATORY | | [...] ST. | [address] | [place] | [phone] | | [facility] | | [address] | | | - LABORATORY | | [...] MD | | | | | | ([id number]) on 11/18/2017 | | | | | [...] [address] | [place] | [phone] | | [facility] | | [address] | | | - LABORATORY | | [...] + | [facility] | [address] | [place] | [phone] | | [facility] | | [address] | | | - LABORATORY | | [...] [address] | [place] | [phone] | | [facility] | | [address] | | | - LABORATORY | | [...] + | [facility] [facility] | [address] | [place] | [phone] | | [facility] | | [address] | | | - LABORATORY | | [...] | | | | SHOLA GALLO MD ([id number]) | | | | | | on [...] of | | | procedure done: Yes HARDSCAPE FOREMAN: Stephen Baker M.D., F.A.C.C. | | | [...] | | ACCESS: Right radial artery 6 Brazilian CLOSURE DEVICE:. TR band | | | [...] | | Seldinger technique and a 6 Brazilian sheath was inserted. 3 mg of | | | verapamil and 300 g of nitroglycerin were administered through the | | | side port of the right radial artery sheath. 3000 units of | | | intravenous heparin was administered. A 5 Brazilian Ryan catheter was | | | advanced across the aortic valve without difficulty. Left | | | ventricular pressures and aortic valve pressures were recorded. The | | | Ryan catheter was then used to perform selective coronary | | | arteriography. A 6 Brazilian Ikari right 1.0 guiding catheter was | [...] | | | catheters for a 6 Brazilian LB U3.0 catheter that was used to [...] 60% proximal mid stenosis at first septal funeral arrangement director, | | | subtotal mid occlusion with [...] Stephen Baker M.D., | | | PernellInterventional CardiologistProOverlake Hospital Medical Center | | | [place], [place] | | |LEFT ANTERIOR DESCENDING ARTERY: Medium caliber vessel, 80% | | |proximal stenosis, 60% proximal mid stenosis at first septal | | |funeral arrangement director, subtotal mid occlusion with VERONA grade 1 [...] | |Stephen Baker M.D., F.A.C.C. | | |Battery Technician | | |[facility] | | |[place] | | | | | | | [...] [address] | [place] | [phone] | | [facility] | | [address] | | | - LABORATORY | | [...] + | [facility] | [address] | [place] | [phone] | | [facility] | | [address] | | | - LABORATORY | | [...] [address] | [place] | [phone] | | [facility] | | [address] | | | - LABORATORY | | [...] + | [facility] | [address] | [place] | [phone] | | [facility] | | [address] | | | - LABORATORY | | [...] mL/min/1.73m2 | [facility] | | | MAURITANIAN | RATE,ESTIMATED | | MEDICAL | | | | mL/min/1.35x1Wini than | | CENTER - | | [...] [address] | [place] | [phone] | | [facility] | | [address] | | | - LABORATORY | | [...] [address] | [place] | [phone] | | [facility] | | [address] | | | - LABORATORY | | [...] [address] | [place] | [phone] | | [facility] | | [address] | | | - LABORATORY | | [...] ST. | [address] | [place] | [phone] | | [facility] | | [address] | | | - LABORATORY | | [...] [address] | [place] | [phone] | | [facility] | | [address] | | | - LABORATORY | | [...] | | | | SHOLA GALLO MD ([id number]) | | | | | | on [...] [address] | [place] | [phone] | | [facility] | | [address] | | | - LABORATORY | | [...] Low | | | Blood Sugar, Starting [facility] 11/16/17 | | | at 0844 | [...] mcg | | | | PRN, Starting [facility] 11/16/17 at 1416, | | 18 2:56 [...] | | | | | | use [place] 10/325 if ordered. If | | | [...] | | | | | NPO, Daytime [id number] Use NIGHT | | | | | | | DOSE for doses scheduled: | | | | | | | HS, 3AM, Nighttime 3008-1873, | | | | | | + [...] | | Surgical | | PRN, Starting [facility] 11/16/17 at 1400, | | 18 2:00 [...] cardiac cath site, | | | Starting [facility] 11/16/17 at 1548, For | | | [...]
--- OUTSIDE RECORDS SUMMARY | ~2020-03-18 | XMS | Encounter Summary ---
Demographics + + + | Address | [address] | | | [place] [address] | + + + | Home Phone | | + + + | Preferred Language | Unknown | + + + | Marital Status | | + + + | Buddhist Affiliation | Unknown | + + + | Race | Unknown | + + + | Ethnic Group | Unknown | + + + Author + + + | Author | [facility] | | | and [place] | + + + | Organization | [facility] | | [...] Team Providers + +------+ + | Care Judicial Law Clerk Name | Role | Phone | + +------+ + | Pauly Perez PA-C | PCP | | + +------+ + Encounter Details +--------+ + + + + | Date | Type | Department | Care Team | Description | +--------+ + + + + | 09/18/ | Hospital | [facility] | Conversion | CAD in port gam[place] artery | | 2018 | Encounter | CENTER [facility] | Transaction, | | | | | CLINIC [address] | Provider Unknown | | | | | [address] [place], [place] | | | | | | [address] | (Fax) | | | | | [phone] | | | +--------+ + + + [...] NEGATIVE Testing | | | performed at [facility];[address];[place] [address] | | + + + + +---------+ [...] | | | Screen | performed at [facility];[address] | | LAB | | | | [address];[place], [place] | | | | | | [address] | | | | + + + [...] | | | | | performed at [facility];[address] | | | | | | [facility];[place], [place] | | | | | | [address] | | | | + + + [...] | | | Basophils | performed at [facility];[address] | K[address] | LAB | | | | [address];[place] | | | | | | [address] | | | | + + + [...] | | | | | | MDRD IDMO traceable | | | | | | equation.Testing | | | | | | performed at [facility];[address] | | | | | | [facility];[place], [place] | | | | | | [address] | | | | + + + [...] CHEST 2 VIEW | | FRONTAL AND ONAOLQJ72/4/2018 1:38 PM HISTORY:58 years. Female. Pre-operative | [...] Diagnosis | + + | CAD in port gam[place] artery Coronary atherosclerosis of [place] gam[place] coronary artery | + + documented in this encounter
--- OUTSIDE RECORDS SUMMARY | ~2020-03-18 | XMS | Encounter Summary ---
Demographics + + + | Address | [address] | | | [place] [address] | + + + | Home Phone | | + + + | Preferred Language | Unknown | + + + | Marital Status | | + + + | Spiritism Affiliation | Unknown | + + + | Race | Unknown | + + + | Ethnic Group | Unknown | + + + Author + + + | Author | [facility] | | | and [place] | + + + | Organization | [facility] | | | [...] Team Providers + +------+ + | Care Finishing Lab Technician Name | Role | Phone | [...] | | echo | PA-C 22[address] | GARMENT MENDER [address] | | | | | schedule for | [address] | [facility] | | | | | 11/26/19 at | [place] | [address] | | | | | [facility] | [address] | [place], [place] | | | | | | [place], | [address] | | | | | Procedures | OR | Phone: | | | | | OFFICE VISIT | [address] | [phone] | | | | | REGULAR | Phone: | Fax: | | | | | | [phone] | [phone] | | | | | | Fax: | | | | | | | [phone] | | +--------+--------+ + + + + Encounter Details +--------+---------+ + + + | Date | Type | Department | Care Team | Description | +--------+---------+ + + + | 12/05/ | Office | [facility] | Diane, | Chronic systolic | | 2020 | Visit | CARDIOLOGY [place] | [address] | congestive heart | | | | [address] | [address] | failure (HCC) | | | | [place], [place] | [place], [place] | (Primary Dx); CAD in | | | | [address] | [address] | spokane artery; | | | | [phone] | | Paroxysmal atrial | | | [...] symptoms, but presented to the ER at [facility] several days later, where she was admitted for 2 days. Cardiac enzymes were n egative, but her EKG showed evidence of a septal CO, and an echo showed an EF of 35-40%, wit h severe pjb-yx-ycjorh and apical akinesis. She had acute pulmonary edema / acute combined systolic/diastolic heart failure and atrial fibrillation with a RVR. She was transferred to [facility], and the following day cardiac catheterization showed a subtotal occlus ion of the mid LAD, with rdnc-wr-rlzq collaterals supplying the distal vessel, moderate dise [...] encouraged. She was ref erred to the [facility] today. If there is [...] not get to do cardiac rehab because [facility] apparently had a waiting list [...] wall motion defects fro m her previous CO. The ejection fraction is visually estimated at [...] wall motion abnormalities consistent with her prior CO. 2. The diastolic filling pattern indicates impaired [...] will request her recent blood work from [facility] Follow-up in [address] Newell, [...] failure | + + | CAD in spokane artery Coronary atherosclerosis of sp[place] coronary artery | + + | Paroxysmal atrial fibrillation (HCC) Atrial fibrillation | + + | S/P CABG x 1 Postsurgical aortocoronary bypass status | + + documented in this encounter
--- OUTSIDE RECORDS SUMMARY | ~2020-03-18 | XMS | Encounter Summary ---
Demographics + + + | Address | [address] | | | [place] [address] | + + + | Home Phone [...] + | Author | [facility] | | | and [place] | + + + | Organization | [facility] | | [...] Team Providers + +------+ + | Care Dynamic Etching Processor Name | Role | Phone | + +------+ + PCP | Unavailable | + +------+ + Encounter Details +--------+ + + + + | Date | Type | Department | Care Team | Description | +--------+ + + + + | 05/09/ | [facility] | [facility] | Preethi Bell | | | 2011 | Encounter | MED CTR XRAY [address] | DO [address] | | | | | [place] | [address] [place] | | | | | [place] [address] | [address] | | | | | [phone] | | | +--------+ + + + [...] + + + | [facility] Diagnostic Imaging Department | [facility] | | [address] [facility] | [facility] | | LIMITED CERVICAL SPINE SERIES, [...] Transcribed | | | Date/Time: 05/09/2012 16:37 Digital Strategist: | | | <Electronically Signed by Judah Ram MD> 05/10/12 0754 | | + + + + + | Procedure Note | + + | Eduardo, Rad Conversion - 11/22/2013 5:45 PM [facility] | | Diagnostic Imaging Department [address] [place] [address] | | LIMITED CERVICAL SPINE SERIES, 05/09/2012 [...] 16:22 | |Transcribed Date/Time: 05/09/2012 16:37 | |Digital Strategist: | |<Electronically Signed by Judah Ram MD> [...]
--- OUTSIDE RECORDS SUMMARY | ~2020-03-18 | XMS | Encounter Summary ---
Demographics + + + | Address | [address] | | | [place] [address] | + + + | Home Phone | | + + + | Preferred Language | Unknown | + + + | Marital Status | | + + + | Holiness Affiliation | Unknown | + + + | Race | Unknown | + + + | Ethnic Group | Unknown | + + + Author + + + | Author | [facility] | | | and [place] | + + + | Organization | [facility] | | | [...] Team Providers + +------+ + | Care Food Court Team Member Name | Role | Phone | + +------+ + PCP | Unavailable | + +------+ + Encounter Details +--------+ + + + + | Date | Type | Department | Care Team | Description | +--------+ + + + + | 05/06/ | Hospital | [facility] | | | | 2000 | Encounter | MED CTR EMERGENCY | | | | | | CENTER [address] | | | | | | [place] | | | | | | [address] | | | | | | [phone] | | | +--------+ + + + [...]
--- OUTSIDE RECORDS SUMMARY | ~2020-03-18 | XMS | Encounter Summary ---
Demographics + + + | Address | [address] | | | [place] [address] | + + + | Home Phone [...] Team Providers + +------+ + | Care Rural Carrier Name | Role | Phone | + +------+ + PCP | Unavailable | + +------+ + Encounter Details +--------+ + + + + | Date | Type | Department | Care Team | Description | +--------+ + + + + | 03/20/ | [facility] | [facility] | Latha Herrera, | | | 2000 - | Encounter | MED CTR MED ONC | [address] | | | | | [address] [place] | [place] | | | 03/23/ | | [place] [address] | [address] | | | 2000 | | [phone] | | | +--------+ + + + [...]
--- OUTSIDE RECORDS SUMMARY | ~2020-03-18 | XMS | Encounter Summary ---
Demographics + + + | Address | [address] | | | [place] [address] | + + + | Home Phone | | + + + | Preferred Language | Unknown | + + + | Marital Status | | + + + | Episcopal Affiliation | Unknown | + + + [...] Team Providers + +------+ + | Care Dry Kiln Burner Name | Role | Phone | + [...] + + | 12/18/ | Emergency | [facility] | Jeffrey, | Intermittent | | 2018 | | MED CTR EMERGENCY | Paramjit Russ MD [address] | palpitations | | | | [place] [address] | [address] [place] | (Primary Dx) | | | | [place] | [place] [address] | | | | | [address] | [phone] | | | | | [phone] | | | +--------+ + + + [...] | | | | SHOLA GALLO MD ([id number]) | | | | | | on [...]
--- OUTSIDE RECORDS SUMMARY | ~2020-03-18 | XMS | Clinical Summary ---
Demographics + + + | Address | [address] | | | [place] [address] | + + + | Home Phone | | + + + | Preferred Language | Unknown | + + + | Marital Status | | + + + | Druze Affiliation | Unknown | + + + | Race | Unknown | + + + | Ethnic Group | Unknown | + + + Author + + + | Author | [facility] (Historical as of | | | 06-01-19) | + + + | Organization | [facility] (Historical as of | | | 06-01-19) [...] Team Providers + +------+ + | Care Mingle Operator Name | Role | Phone | + [...] | | | | | | | [id number] | | | | | | | [...] + + + + | CAD in havasupai artery | 09/11/2018 | + + + + + | Overview: Added automatically from request for surgery [id number] | + + + + + | Status post insertion of drug eluting coronary artery stent | 11/16/2017 | + + + + + | Overview: 2.25 x 15 mm Xience ROBIN in the prox right PDA | + + + + + | Cerebrovascular accident (CVA) ([facility]) | 11/16/2017 | + + + + [...] +------+-------+ + | MEDICAID | MEDICA | [id number] | | | [address] | | | [place] | | | | [place], [place] | | | [place] | | | | [address] | + +--------+ +------+-------+ + | [facility] | YELLOW | [id number] | | | | | PLANS | [...] | Self | [birth year] | Home: | [address] | | | al/Rajendra | | 1959 | [phone] | [place] | | | ag | | | [phone] | [address] | + +--------+ +--------+ + +
--- OUTSIDE RECORDS SUMMARY | ~2020-03-18 | XMS | Encounter Summary ---
Demographics + + + | Address | [address] | | | [place] [address] | + + + | Home Phone | | + + + | Preferred Language | Unknown | + + + | Marital Status | | + + + | Yazidism Affiliation | Unknown | + + + [...] Team Providers + +------+ + | Care Fire Lieutenant Marine Name | Role | Phone | + +------+ + | Pauly Perez PA-C | PCP | | + +------+ + Encounter Details +--------+ + + + + | Date | Type | Department | Care Team | Description | +--------+ + + + + | 03/01/ | Orders Only | [facility] | Stephen Baker MD | Atrial fibrillation, | | 2018 | | CARDIOLOGY [address] | [address] | unspecified type | | | | [place], | [place], [place] | ([facility]) (Primary Dx) | | | | [place] [address] | [address] | | | | | [phone] | | | +--------+ + + + [...] Pauly Medrano | | | MEÑO Perez REIMBURSEMENT AUDITOR: Veronica Field MD | | | 48-HOUR [...] | Signed by: Veronica Field MD [facility] 12/22/2017, 10:22 | | + + [...]
[~2020-03-18 09:15] MED LIST changes: +ASPIR 8181 MG PO; +COREG3.125 MG PO; +DIGOX125 MCG PO; +ELIQUIS5 MG PO; +FERRO-TIME325 MG PO; +GLUCOPHAGE500 MG PO; +HYDROXYZINE PAM25 MG PO; +LANTUS100 UNITS/ SUB-Q; +LIPITOR40 MG PO; +MAG-OXIDE400 MG PO; +METOPROLOL SUCC25 MG PO; +NITROSTAT0.4 MG SL; +NORCO 7.5-3251 EACH PO; +NOVOLOG100 UNIT/2 SUB-Q; +PACERONE400 MG PO; +PLAVIX75 MG PO; +TOPROL XL100 MG PO; +VITAMIN C500 M5 PO; +ZESTRIL2.5 MG PO
[2020-03-18] MEDS ORDERED: COZAAR25 MG PO (09:57)
--- NOTE | 2020-03-18 21:10 | EKG ---
[facility] [address] [facility] [place] [address] Signed Normal sinus rhythm Biatrial enlargement Anteroseptal infarct (cited on or before 14-NOV-2017) Abnormal ECG When compared with ECG of 24-NOV-2017 18:10, Sinus rhythm has replaced Atrial fibrillation Nonspecific T wave abnormality no longer evident in Inferior leads Confirmed by MYNOR GREEN DO ([id number]) on 03/18/2020 9:10:16 PM Electronically Signed By: MYNOR GREEN DO 03/18/20 2110 PATIENT NAME: JOHN PAUL MENG Electrocardiogram DATE OF : 62 PHYSICIAN: MYNOR GREEN DO REPORT #: [id number] REPORT IS CONFIDENTIAL AND NOT TO BE RELEASED WITHOUT AUTHORIZATION
== END 2020-03-18 12:07 | disposition home or self-care (01) ==
LOC: ED 09:15
DX: E11.65 Type 2 diabetes mellitus with hyperglycemia (principal); I10 Essential (primary) hypertension; I25.2 Old myocardial infarction; Z79.899 Other long term (current) drug therapy; Z79.01 Long term (current) use of anticoagulants; Z79.84 Long term (current) use of oral hypoglycemic drugs; Z79.82 Long term (current) use of aspirin
CPT/HCPCS: 80053; 84484; 85025; 93005; 93010; 96360; 99285-25; J1815; J7030

== ENCOUNTER 2020-12-22 14:52 | Emergency (ER) | payer OTHER ==
[~2020-12-22] VITALS: Ht 165.1 cm; Wt 61.2 kg
[~2020-12-22 14:52] MED LIST changes: +COZAAR25 MG PO
[2020-12-22] MEDS ORDERED: AUGMENTIN 875-1 EACH PO (17:00)
== END 2020-12-22 17:16 | disposition home or self-care (01) ==
LOC: ED 14:52
DX: S51.052A Open bite, left elbow, initial encounter (principal); S61.452A Open bite of left hand, initial encounter; W54.0XXA Bitten by dog, initial encounter; I10 Essential (primary) hypertension; E11.9 Type 2 diabetes mellitus without complications; I25.2 Old myocardial infarction; Z79.899 Other long term (current) drug therapy; Z79.4 Long term (current) use of insulin; Z79.82 Long term (current) use of aspirin
CPT/HCPCS: 73080; 73130; 99283-25

== ENCOUNTER 2022-04-05 14:30 | Emergency (ER) | payer OTHER ==
[~2022-04-05] VITALS: Ht 165.1 cm; Wt 54.4 kg
[~2022-04-05 14:30] MED LIST changes: +AUGMENTIN 875-1 EACH PO
[2022-04-05] MEDS ORDERED: CEPHALEXIN500 MG PO (17:30)
[2022-04-05] MEDS ORDERED: ONDANSETRON ODT4 MG PO (17:30)
--- NOTE | 2022-04-06 18:18 | EKG ---
[facility] [address] [facility] [place] [address] Signed Sinus tachycardia Possible Left atrial enlargement Anteroseptal infarct (cited on or before 14-NOV-2017) Abnormal ECG When compared with ECG of 18-MAR-2020 09:23, T wave inversion now evident in Anterior leads Confirmed by CATRACHITA CULVER MD ([id number]) on 04/06/2022 6:18:24 PM Electronically Signed By: CATRACHITA CULVER MD 04/06/22 1818 PATIENT NAME: JOHN PAUL MENG Electrocardiogram DATE OF : 62 PHYSICIAN: CATRACHITA CULVER MD REPORT #: [id number] REPORT IS CONFIDENTIAL AND NOT TO BE RELEASED WITHOUT AUTHORIZATION
== END 2022-04-05 18:10 | disposition home or self-care (01) ==
LOC: ED 14:30
DX: E86.0 Dehydration (principal); E11.65 Type 2 diabetes mellitus with hyperglycemia; N39.0 Urinary tract infection, site not specified; I10 Essential (primary) hypertension; I25.2 Old myocardial infarction; Z95.1 Presence of aortocoronary bypass graft; Z79.899 Other long term (current) drug therapy; Z79.4 Long term (current) use of insulin; Z79.01 Long term (current) use of anticoagulants
CPT/HCPCS: 36415; 80053; 81001; 83735; 84484; 85025; 87502; 93005; 93010; J0696; J2405; J7121; U0003

== ENCOUNTER 2022-12-22 18:29 | Inpatient (IN) | payer OTHER ==
[~2022-12-22] VITALS: Ht 165.1 cm; Wt 64.6 kg
[~2022-12-22 18:29] MED LIST changes: +CEPHALEXIN500 MG PO; -LIPITOR40 MG PO; +LIPITOR80 MG PO; +ONDANSETRON ODT4 MG PO
[2022-12-23] MEDS ORDERED: INSULIN GL100 UNIT/4 SUB-Q (09:08)
[2022-12-23] MEDS ORDERED: TRULICITY0.75 MG/0. SUB-Q (09:09)
[2022-12-23] MEDS ORDERED: IBU600 MG PO (09:25)
--- NOTE | 2022-12-23 21:49 | EKG ---
[facility] [address] [facility] [place] [address] Signed Normal sinus rhythm Septal infarct (cited on or before 14-NOV-2017) Abnormal ECG When compared with ECG of 05-APR-2022 15:02, Questionable change in initial forces of Septal leads Confirmed by BETTIE KEYES MD ([id number]) on 12/23/2022 9:48:57 PM Electronically Signed By: BETTIE KEYES MD 12/23/22 2149 PATIENT NAME: JOHN PAUL MENG Electrocardiogram DATE OF : 62 PHYSICIAN: BETTIE KEYES MD REPORT #: [id number] REPORT IS CONFIDENTIAL AND NOT TO BE RELEASED WITHOUT AUTHORIZATION
[2022-12-29] MEDS ORDERED: [UNRECOGNIZED DRUG - CODE] INJ (16:56)
[2022-12-29] MEDS ORDERED: OXYCODONE HCL5 MG PO (16:57)
== END 2022-12-29 18:33 | disposition home or self-care (01) | DRG 74 ==
LOC: ED 18:29 → MS 22:32
PROVIDERS: ADMIT Internal Medicine; ATTEND Internal Medicine
PROC: 02HV33Z Insertion of Infusion Device into Superior Vena Cava, Percutaneous Approach (ICD-10-PCS; principal; 2022-12-22)
PROC: 0HDNXZZ Extraction of Left Foot Skin, External Approach (ICD-10-PCS; 2022-12-23)
DX: E11.610 Type 2 diabetes mellitus with diabetic neuropathic arthropathy (principal); L03.116 Cellulitis of left lower limb; S92.065A Nondisplaced intraarticular fracture of left calcaneus, initial encounter for closed fracture; Z20.822 Contact with and (suspected) exposure to COVID-19; E11.628 Type 2 diabetes mellitus with other skin complications; B95.2 Enterococcus as the cause of diseases classified elsewhere; S96.012A Strain of muscle and tendon of long flexor muscle of toe at ankle and foot level, left foot, initial encounter; I25.10 Atherosclerotic heart disease of native coronary artery without angina pectoris; I10 Essential (primary) hypertension; M65.872 Other synovitis and tenosynovitis, left ankle and foot; E11.621 Type 2 diabetes mellitus with foot ulcer; L97.529 Non-pressure chronic ulcer of other part of left foot with unspecified severity; L97.522 Non-pressure chronic ulcer of other part of left foot with fat layer exposed; R23.8 Other skin changes; I25.2 Old myocardial infarction; Z86.73 Personal history of transient ischemic attack (TIA), and cerebral infarction without residual deficits; Z98.51 Tubal ligation status; Z95.5 Presence of coronary angioplasty implant and graft; Z98.890 Other specified postprocedural states; Z95.1 Presence of aortocoronary bypass graft; Z79.4 Long term (current) use of insulin; Z79.82 Long term (current) use of aspirin; Z79.01 Long term (current) use of anticoagulants; Z79.899 Other long term (current) drug therapy; W18.39XA Other fall on same level, initial encounter
CPT/HCPCS: 36415; 36569; 71045; 73060; 73700; 73723; 76881; 80048; 80053; 80202; 81003; 82803; 83036; 83605; 83735; 84484; 85025; 85610; 86140; 86141; 87040; 87070; 87075; 87186; 87205; 87502; 93005; 93010; 93306; 96374; 96375; 97110; 97162; 97530; 99285-25; A9270; A9579; C1751; C9803; J0692; J1815; J2270; J2405; J2540; J3370; J7030; J7060; J7121; U0003

== ENCOUNTER 2022-12-29 22:09 | Emergency (ER) | payer OTHER ==
[~2022-12-29] VITALS: Ht 165.1 cm; Wt 64.4 kg
[~2022-12-29 22:09] MED LIST changes: +IBU600 MG PO; +INSULIN GL100 UNIT/4 SUB-Q; +OXYCODONE HCL5 MG PO; +TRULICITY0.75 MG/0. SUB-Q; +[UNRECOGNIZED DRUG - CODE] INJ
--- OUTSIDE RECORDS SUMMARY | 2022-12-29 22:17 | XMS ---
PreManage Notification: JOHN PAUL MENG Security Clinical Operations Manager Events No recent Security Events currently on file CRITERIA MET - [facility] - 2 Visits in 30 Days CARE PROVIDERS There are no care providers on record at this time. Ignacia has no Care Guidelines for this patient. Evonne VISIT COUNT (12 MO.) [facility] T[facility] NOTE: Visits indicate total known visits. ED/C VISIT TRACKING (12 MO.) 12[facility]29[facility]2022 22:10 [facility] [place] [facility]: Emergency COMPLAINT: - RT FOOT SWELLING 12/22/2022 18:30 [facility] [place] TYPE: Emergency COMPLAINT: - LT ARM PAIN/NO INJURY 04/05/2022 14:31 [facility] [place] TYPE: Emergency COMPLAINT: - DEHYDRATED DIAGNOSES: - jail (current) use of anticoagulants - Type 2 diabetes mellitus with hyperglycemia - Dizziness and giddiness - Dehydration - Essential (primary) hypertension - Urinary tract infection, site not specified - Presence of aortocoronary bypass graft - Other exterminator (current) drug therapy - jail (current) use of insulin - Old myocardial infarction INPATIENT VISIT TRACKING (12 MO.) 12/22/2022 22:32 [facility] [place] TYPE: Medical Surgical COMPLAINT: - OSTEOMYELITITS,CALCANEAL FX/PATHOLOGIC [email or web address]
== END 2022-12-30 02:00 | disposition home or self-care (01) ==
LOC: ED 22:09
DX: M79.671 Pain in right foot (principal); E11.40 Type 2 diabetes mellitus with diabetic neuropathy, unspecified; I10 Essential (primary) hypertension; E11.9 Type 2 diabetes mellitus without complications; I25.2 Old myocardial infarction; Z79.899 Other long term (current) drug therapy; Z79.82 Long term (current) use of aspirin; Z79.4 Long term (current) use of insulin
CPT/HCPCS: 73610; 73630; 99283-25

== ENCOUNTER 2025-07-30 09:36 | Inpatient (IN) | payer OTHER ==
[~2025-07-30] VITALS: Ht 165.1 cm
[~2025-07-30 09:36] MED LIST changes: +CEFDINIR300 MG PO; +IMITREX50 MG PO; -INSULIN GL100 UNIT/4 SUB-Q; +INSULIN GL300 UNIT/1 SUB-Q
[2025-07-30 10:03] LABS: BASOPHILS 0.7 % (0.1-1.2); EOSINOPHILS 3.6 % (0.7-5.8); LYMPHOCYTES 19.0 % (19.3-51.7); MCH 25.5 PG (25.6-32.2); MCHC 31.2 g/dL (32.2-35.5); MCV 81.9 fL (79.4-94.8); MONOCYTES 8.0 % (4.7-12.5); NEUTROPHILS 68.2 % (34.0-71.1); RBC 3.64 M/uL (3.93-5.22)
[2025-07-30] MEDS ORDERED: FUROSEMIDE 100 MG/10 ML VIAL IV ONE (10:15)
[2025-07-30 10:27] LABS: ALT (SGPT) 38.0 U/L (14-59); AST (SGOT) 14.0 U/L (15-37); GLOMERULAR FILTRATION RATE,EST 57.0 mL/min (>60); PROTEIN, TOTAL 6.3 g/dL (6.4-8.2)
[2025-07-30 10:36] LABS: UREA NITROGEN 30.0 mg/dL (7-18)
[2025-07-30] MEDS ORDERED: ASPIRIN 81 MG CHEW PO ONE (11:00)
[2025-07-30 11:20] LABS: BLOOD/HGB, URINE TRACE-I (Negative); KETONE, URINE NEGATIVE (Negative); LEUK ESTERASE, URINE SMALL (negative); NITRITE, URINE NEGATIVE (negative)
[2025-07-30 11:36] LABS: BACTERIA, URINE NONE SEEN /hpf (negative); CASTS, URINE NONE SEEN \\lpf; CRYSTALS, URINE NONE SEEN (0-1+); EPITHELIAL CELLS, URINE SQUAMOUS 1+ /lpf (0-1+); REFLEX CULTURE, URINE Yes (No)
[2025-07-30] MEDS ORDERED: ACETAMINOPHEN 325 MG TAB PO PRN (12:30)
[2025-07-30 12:45] VITALS: BP 115/62
[2025-07-30] MEDS ORDERED: DEXTROSE 5% IV SCH (12:53)
[2025-07-30] MEDS ORDERED: SULFAMETHOXAZOLE IV SCH (12:53)
[2025-07-30] MEDS ORDERED: TRIMETHOPRIM IV SCH (12:53)
[2025-07-30] MEDS ORDERED: FUROSEMIDE 40 MG/4 ML VIAL IV SCH (13:00)
--- NOTE | 2025-07-30 13:26 | NUR ---
UR CLINICAL REVIEW: MCG, MEETS INPT FOR HEART FAILURE TACHYPNIC UP TO 27, PULMONARY EDEMA NOTED ON CXR, IV DIURETICS EOCCO INPT 07/30/25 @ 1223 ORDER MATCHES REG AUTH PENDING, SENDING CLINICALS FOR REVIEW VIA RIGHTFAX PLAN TO DC TO HOME WHEN MEDICALLY READY DC 08/01/25
--- NOTE | 2025-07-30 13:40 | NUR ---
Spoke with Luciana and her spouse, Mateo. They live in a house at [place]. She has two steps into her home. She uses a cane, walker, and shower chair. Her shower is a walk in. She uses [facility] and their pharmacy. Dr. Cruz is her PCP. She does not want assistance to get another pcp since Dr. Cruz is leaving. She plans on seeing her in [place]. She drives. Her son and daughter live in the area and will assist her if needed. Pt plans on dc to home on discharge. No financial concerns or safety concerns.
--- NOTE | 2025-07-30 13:55 | NUR ---
Mew admit to the medical floor. Patient awake, alert and oriented x3. Patient reports shortness of breath, pt tachypneic. Lung sounds are clear in upper lobes, dim in bases. Notable edema to bilat ankles. Patient denies chest pain. Oriented patient to room and call light. at bedside.
[2025-07-30] MEDS ORDERED: NOVOLOG FL100 UNIT/1 SUB-Q (14:52)
--- NOTE | 2025-07-30 14:54 | NUR ---
medications reconciled with patient
--- NOTE | 2025-07-30 15:03 | EKG ---
[facility] [address] [facility] [place] [address] Signed Normal sinus rhythm Low voltage QRS Cannot rule out Anteroseptal infarct (cited on or before 14-NOV-2017) T wave abnormality, consider lateral ischemia Abnormal ECG When compared with ECG of 22-DEC-2022 18:40, T wave inversion now evident in Lateral leads QT has lengthened Confirmed by KOLBY BAÑUELOS MD ([id number]) on 07/30/2025 3:03:10 PM Electronically Signed By: KOLBY BAÑUELOS 07/30/25 1503 PATIENT NAME: JOHN PAUL MENG Electrocardiogram DATE OF : 62 PHYSICIAN: KOLBY BAÑUELOS REPORT #: [id number] REPORT IS CONFIDENTIAL AND NOT TO BE RELEASED WITHOUT AUTHORIZATION
--- NOTE | 2025-07-30 15:27 | NUR ---
HOURLY ROUDNING PATIENT IS LAYING IN BED, SPOUSE IS AT BEDSIDE. NO REQUEST AT THIS TIME
[2025-07-30] MEDS ORDERED: INSULIN LISPRO 100 UNIT/ML ML SUB-Q SCH (16:00)
[2025-07-30] MEDS ORDERED: GLUCAGON,HUMAN RECOMBINANT 1 MG/ML VIAL SUB-Q PRN (16:15)
[2025-07-30] MEDS ORDERED: DEXTROSE 5% 1,000 ML IV PRN (16:15)
[2025-07-30] MEDS ORDERED: IBLOOD GLUCOSE TEST STRIP 1 EA TEST XX PRN (16:15)
[2025-07-30] MEDS ORDERED: DEXTROSE 50% 50 ML SYR IV PRN ×2 (16:15)
[2025-07-30] MEDS ORDERED: IBLOOD GLUCOSE TEST STRIP 1 EA TEST VI SCH (17:00)
[2025-07-30 18:05] VITALS: BP 116/65
[2025-07-30 18:47] VITALS: BP 116/65
--- NOTE | 2025-07-30 19:22 | NUR ---
RECEIVED REPORT FROM LORENA. RN. PATIENT RESTING IN BED WITH EYES CLOSED, RESPIRATIONS EVEN AND UNLABORED. FAMILY MEMBER IN ROOM AT BEDISDE. NO NEEDS IDENTIFIED AT THIS TIME. CALL LIGHT IN REACH.
[2025-07-30 20:45] VITALS: BP 110/62
--- NOTE | 2025-07-30 20:47 | NUR ---
TIN ROOFER OBTAINED VITALS AND I&O. PT STATES NO NEEDS AT THIS TIME. ICE WATER REFILLED AND CALL LIGHT WITHIN REACH.
[2025-07-30] MEDS ORDERED: ATORVASTATIN 40 MG TAB PO SCH (21:00)
[2025-07-30] MEDS ORDERED: METOPROLOL SUCCINATE 25 MG TABCR PO SCH (21:00)
[2025-07-30] MEDS ORDERED: INSULIN GLARGINE-YFGN 100 UNIT/ML ML SUB-Q SCH (21:00)
[2025-07-30] MEDS ORDERED: APIXABAN 5 MG TAB PO SCH (21:00)
--- NOTE | 2025-07-30 21:42 | NUR ---
SCHEDULED MEDICATIONS GIVEN PER ORDERS. PATIENT LAYING IN BED, ALERT. PATIENT STATED SHE WAS FEELING "ITCHY ALL OVER LIKE I'M CRAWLING OUT OF MY SKIN" AND ASKED FOR SOMETHING FOR RELEIF. MIGUEL PENN STATED SHE WOULD CALL THE DR FOR AN ORDER. ASSESSMENT COMPLETED. JEFFERY DENIES FURTHER NEEDS AT THIS TIME. CALL LIGHT IN REACH.
[2025-07-30 21:47] VITALS: BP 114/66
--- NOTE | 2025-07-30 22:06 | NUR ---
TC TO DR. BAÑUELOS, INFORMED OF PATIENT ITCHINESS. NEW ORDERS RECEIVED FOR BENADRYL.
--- NOTE | 2025-07-30 23:23 | NUR ---
PRN BENADRYL GIVEN PER PATIENT REQUEST, SEE EMAR. PATIENT TAKEN A SANDWICH. LAYING BACK IN BED WATCHING TV. NO OTHER NEEDS AT THIS TIME. CALL LIGHT IN REACH.
--- NOTE | 2025-07-30 23:35 | NUR ---
ROUNDED ON PATIENT SITTING UP IN RECLINER, ALERT WATCHING TV. PATIENT STATED SHE WAS STILL FEELING ITCHY AND WOULD LIKE BENADRYL AND REQUESTED A SNACK. NO OTHER NEEDS AT THIS TIME. WILL BE BACK INTO ROOM TO FULFILL REQUESTS. CALL LIGHT IN REACH.
[2025-07-31] VITALS (12 sets, daily range): BP systolic 102–119; BP diastolic 52–68
--- NOTE | 2025-07-31 01:51 | NUR ---
SPINNER IRON OBTAINED VITALS AND I&O. PT STATES NO NEEDS AT THIS TIME. CALL LIGHT WITHIN REACH.
[2025-07-31] MEDS ORDERED: SULFAMETHOXAZOLE IV SCH ×2 (02:00→09:00)
[2025-07-31] MEDS ORDERED: DEXTROSE 5% IV SCH ×2 (02:00→09:00)
[2025-07-31] MEDS ORDERED: TRIMETHOPRIM IV SCH ×2 (02:00→09:00)
--- NOTE | 2025-07-31 04:00 | NUR ---
PATIENT SITTING UP IN RECLINER WATCHING TV. ANTIBIOTICS INFUSING WITHOUT DIFFICULTY. PATIENT DENIES ANY NEEDS AT THIS TIME. CALL LIGHT IN REACH.
[2025-07-31 05:39] LABS: BASOPHILS 0.4 % (0.1-1.2); EOSINOPHILS 3.1 % (0.7-5.8); LYMPHOCYTES 19.2 % (19.3-51.7); MCH 25.2 PG (25.6-32.2); MCHC 31.9 g/dL (32.2-35.5); MCV 78.9 fL (79.4-94.8); MONOCYTES 8.0 % (4.7-12.5); NEUTROPHILS 68.9 % (34.0-71.1); RBC 3.61 M/uL (3.93-5.22)
[2025-07-31 05:49] LABS: GLOMERULAR FILTRATION RATE,EST 52.0 mL/min (>60); UREA NITROGEN 35.0 mg/dL (7-18)
--- NOTE | 2025-07-31 06:05 | NUR ---
[employer] FIN[employer]CIAL APPLICATION DEVELOPER OBTAINED VITALS AND I&O. ICE WATER REFILLED. PT STATES NO FURTHER NEEDS AT THIS TIME. CALL LIGHT WITHIN REACH.
--- NOTE | 2025-07-31 06:20 | NUR ---
FOCUSED ASSESSMENT COMPLETED. PATIENT LAYING ON LEFT SIDE IN BED, RESTING WITH EYES CLOSED, RESPIRATIONS EVEN AND UNLABORED. PATIENT DENIES ANY PAIN OR SOB. DENIES NEEDS AT THIS TIME. CALL LIGHT IN REACH.
--- NOTE | 2025-07-31 07:31 | NUR ---
RECEIVED REPORT FROM MIGUEL PENN. PT UP TO BATHROOM, WHITEBOARD UPDATED. NO OTHER NEEDS AT THIS TIME.
[2025-07-31] MEDS ORDERED: INSULIN LISPRO 100 UNIT/ML ML SUB-Q SCH (08:00)
[2025-07-31] MEDS ORDERED: ASPIRIN 81 MG TABEC PO SCH (09:00)
--- NOTE | 2025-07-31 10:11 | NUR ---
Education completed on CHF. was also at bedside. Pt and verbalized understanding. All questions were answered. No other questions at this time. Pt received discharged packet Get with the Guidelines Heart Failure. Pt aware that I will return to room if she has any other questions.
--- NOTE | 2025-07-31 10:20 | NUR ---
PT STATES SHE HAS BEEN HAVING A COUGH AND STATES, "IT FEELS ALMOST LIKE I AM DROWNING". PT EDUCATED ON FLUID OVERLOAD AND GIVEN I.S. DEVICE AND EDUCATION, PT STATES THAT I.S. "MAKES ME COUGH SO I DON'T LIKE TO USE IT". PT EDUCATION ON PURPOSE OF I.S. DEVICE, PT USES WHILE THIS RN IN ROOM. PT STATES, "I THINK COUGH MEDICINE WOULD WORK BETTER", EDUCATION ON FLUID OVERLOAD AND IMPORTANCE OF DEEP BREATHING EXCERCISES. PT VERBALIZES UNDERSTANDING. PT STATES NO FURTHER NEEDS AT THIS TIME. CALL LIGHT WITHIN REACH.
--- NOTE | 2025-07-31 10:31 | NUR ---
INTO SEE PATIENT. PATIENT WILL GO HOME WITH AT TIME OF DISCHARGE NO FUTHER NEEDS.
--- NOTE | 2025-07-31 11:04 | NUR ---
PATIENT IN BED AT THIS TIME. [facility] SPECIALIST CHARTED VITALS AND I&O'S. CALL LIGHT WITHIN REACH, NO FURTHER NEEDS.
--- NOTE | 2025-07-31 11:26 | NUR ---
VISITED DURING SPIRITUAL CARE ROUNDS. PT APPEARED TO BE SLEEPING. DID NOT DISTURB. PROVIDED PRAYER.
--- NOTE | 2025-07-31 11:30 | NUR ---
PATIENT WAS IN BED AT THIS TIME, I ASSISTED PATIENT TO THE RESTROOM, AND STUDENT HELPED ME CHANGED LINENS AND PUT ON A WAFFEL MATTRESS. THEN ASSISTED PATIENT BACK TO BED.
[2025-07-31] MEDS ORDERED: PHARMACY RENAL DOSE ADJUSTMENT 1 DOSE MISC PO SCH (12:00)
--- NOTE | 2025-07-31 14:50 | NUR ---
PT GIVEN COUGH MEDICATION THAT MD HAS JUST ORDERED, PATIENT REPORTS FRUSTRATION OVER COUGH MEDICATION NOT BEING GIVEN EARLIER. THIS RN AND ELIJAH RN AT BEDSIDE EDUCATING PATIENT THAT WE WERE WAITING FOR DOCTOR TO PUT IN THAT ORDER AND FOR PHARMACY TO THEN VERIFY IT. PT EDUCATED THAT WE HAD REACHED OUT TO MD TO REMIND HIM OF THIS ORDER DUE TO NOT BEING ABLE TO GIVE HER THIS MEDICATION WITHOUT AN ORDER. PT EDUCATED THAT MD HAS MANY PTS AND IT SOMETIMES TAKES A WHILE TO PLACE ORDER. WE SYMPATHIZED WITH PATIENTS FRUSTRATION BUT PT STILL FRUSTRATED. NO OTHER NEEDS AT THIS TIME, CALL LIGHT IN REACH.
[2025-07-31] MEDS ORDERED: BENZONATATE 100 MG CAP PO PRN (15:00)
--- NOTE | 2025-07-31 19:17 | NUR ---
THIS MORING AFTER I DID PATIENT'S BLOOD SUGAR CHECK. KIMAZAEL WASHED HER FACE AND BRUSHED HER TEETH BEFORE HER BREAKFAST CAME.
--- NOTE | 2025-07-31 19:20 | NUR ---
AFTER I DID PATIENT 1800 VITALS I ASKED HER IF THERE IS ANYTHING ELSE SHE NEEDS AND SHE SAID MORE ICE WATER. ALSO ADDED MORE ICE TO HER CRANBERRY THAT IS IN HER [employer]oint[employer] RUDY CUP. BED ALARM IS VELVET STEAMER LIGHT IN REACH. PATIENT IS SLEEPING.
--- NOTE | 2025-07-31 19:45 | NUR ---
RECEIVED REPORT FROM MIGUEL FRANKEL AND MIGUEL NAVA. PATIENT SITTING AT EDGE OF BED WITH S/O IN ROOM. PATIENT ALERT AND REQUESTING COUGH MEDICATIONS. JOSESITO RIVERA ADVISED HER ON TIMING OF MEDS AND WILL CHECK ORDERS. PATIENT ACKNOWLEDGED. NO OTHER NEEDS AT THIS TIME. CALL LIGHT IN REACH.
--- NOTE | 2025-07-31 20:57 | NUR ---
SCHEDULED MEDICATIONS ADMINISTERED PER ORDERS, SEE EMAR. PATIENT SITTING AT EDGE OF BED AWAKE AND ALERT. ASSESSMENT COMPLETED. IV PANTENT, ANTIBIOTIC INFUSING WITHOUT DIFFICULTY. PATIENT DENIES PAIN OR SOB. DENIES FURTHER NEEDS AT THIS TIME. BELONGINGS AND CALL LIGHT IN REACH.
--- NOTE | 2025-07-31 22:20 | NUR ---
ROUNDED ON PATIENT, LAYING ON BACK WITH HOB ELEVATED WATCHING TV, ALERT. NO NEEDS IDENTIFIED AT THIS TIME. IV ANTIBIOTIC INFUSING WITHOUT DIFFICULTY. CALL LIGHT AND BELONGINGS WITHIN REACH.
--- NOTE | 2025-07-31 23:00 | NUR ---
ANTIBIOTIC FINISHED, PATIENT BETO PATNENT AND SALINE LOCKED. PATIENT SITTING AT EDGE OF BED. DENIES NEEDS AT THIS TIME CALL LIGHT IN REACH.
--- NOTE | 2025-07-31 23:42 | NUR ---
ANSWERED PATIENT CALL LIGHT FOR ALEX OSCAR. PRN COUGH MEDICATION ADMINISTERED PER EMAR ORDER. NORMA STATED "ONLY ONE?! I SHOULD HAVE TWO!", "WHY IS IT SO HARD TO GET ANYTHING FROM YOU BITCHES?". STATED TO PATIENT THAT WAS WHAT THE PHYCISIAN ORDERED AND APOLOGIZED. PATIENT TOOK MEDICATION WITHOUT COMPLICATIONS. SITTING UP IN RECLINER, WATCHING TV. NO OTHER NEEDS STATED AT THIS TIME. CALL LIGHT IN REACH.
[2025-08-01 00:42] VITALS: BP 119/60
--- NOTE | 2025-08-01 00:48 | NUR ---
VS AND I&O'S COMPLETED AND DOCUMENTED. PATIENT UP IN RECLINER. PATIENT REQUESTED PRN TYLENOL, PRN TYLENON ADMINISTERED PER EMAR ORDERS. PATIENT HAS MELATONIN ADDED TO EMAR PER RN JOSESITO, PATIENT EDUCATED ABOUT MELATONIN EFFECTIVNESS FOR SLEEP AND PATIENT ACKNOWLEDGED SHE WOULD LIKE TO TRY IT. WAITING FOR TELEPHARMACY VERIFICATION. NO OTHER NEEDS AT THIS TIME. CALL LIGHT IN REACH.
--- NOTE | 2025-08-01 00:51 | NUR ---
PATIENT STATES "I HAVEN'T BEEN ABLE TO SLEEP FOR 3 DAYS BECAUSE OF MY COUGH". THIS RN PLACED MEDICATION NIO FOR SLEEP.
[2025-08-01] MEDS ORDERED: MELATONIN 3 MG TAB PO PRN (01:00)
--- NOTE | 2025-08-01 01:10 | NUR ---
PATIENT GIVEN PRN MELATONIN PER EMAR ORDER AND REQUEST FOR SLEEP. PATIENT STATED HER BLOOD SUGAR WAS FEELING LOW AND WAS FEELING SYMPTOMATIC. CBG CHECKED PRN AT 78. PATIENT GIVEN APPLE JUICE AND REQUESTED SANDWICH BOX WHICH WAS PROVIDED BY MIGUEL BELLAMY. WILL RECHECK CBG. PATIENT TABLE SET UP IN FRONT OF HER AND CALL LIGHT AT SIDE IN RECLINER. NO OTHER REQUESTS AT THIS TIME.
--- NOTE | 2025-08-01 01:27 | NUR ---
RECHECKED CBG WITH 105. PATIENT CONTINUES TO EAT AND DRINK WHILE SITTING IN RECLINER. PATIENT STATES SHE IS "FEELING BETTER" AND STATES NO OTHER NEEDS AT THIS TIME. CALL LIGHT IN REACH.
--- NOTE | 2025-08-01 02:49 | NUR ---
ROUNDED ON PATIENT, LAYING ON LEFT SIDE IN BED, RESTING WITH EYES CLOSED, RESPIRATIONS EVEN AND UNLABORED. NO NEEDS IDENTIFIED AT THIS TIME. CALL IGHT IN REACH.
[2025-08-01 05:06] VITALS: BP 97/60
[2025-08-01 05:14] VITALS: BP 97/60
--- NOTE | 2025-08-01 05:20 | NUR ---
PATIENT VS AND I&O'S COMPLETED AND DOCUMENTED. FOCUSED ASSESSMENT COMPLETED. PATIENTS LUNGS ARE CLEAR THROUGHOUT, PATIENT DENIES ANY SPUTUM WITH COUGH OR SOB. PATIENT COMPLAINS OF NOT BEING ABLE TO SLEEP SO FEELS THOUGH SHE IS FEELING "OFF". PATIENT AWAKE AND ALERT, SITTING AT EDGE OF BED WITH LIGHTS ON. DENIES ANY FURTHER NEEDS AT THIS TIME. CALL LIGHT AND BELONGINGS WITHIN REACH.
--- NOTE | 2025-08-01 07:07 | NUR ---
Pt report received from MIGUEL Elder and MIGUEL West. Pt is sleeping at this time.
--- NOTE | 2025-08-01 08:25 | NUR ---
After reviewing Dr. Moss' Prog notes from 07/31, I noted that he mentioned changing the pt's IV abx to PO; however, there are still IV abx on the DEC. Spoke with Dr. Moss and obtained a verbal order to D/C all IV medications and add Bactrim DS PO 1 tablet BID. Repeated back the order for confirmation.
[2025-08-01] MEDS ORDERED: TRIMETHOPRIM/SULFAMETHOXAZOLE 1 EA TAB PO SCH (09:00)
[2025-08-01] MEDS ORDERED: FUROSEMIDE 40 MG TAB PO SCH (09:00)
[2025-08-01] MEDS ORDERED: SULFAMETHOXAZO1 EAC1 PO (09:21)
--- NOTE | 2025-08-01 09:21 | NUR ---
In with pt for assessment and medication administration. law office manager Priyanka in with pt as well and Dr. Moss arrives shortly after. Pt reports she feels the same as the day she came in to the hospital, stating she feels weak still and like she can't get enough air. Per Dr. Moss, staff to ambulate pt and monitor SPO2 while ambulating and to update him on how she does before she is discharged. Pt states that she has gotten no more than 20 minutes of sleep since she's been here. Pt's is at bedside. Pt states she would like to nap for about an hour before we come to help her ambulate. Side rails up x4, call light in reach. Pt ate approx 50% of her breakfast and 200ml of coffee. Pt was provided with 300m free water.
[2025-08-01] MEDS ORDERED: FUROSEMIDE40 MG PO (09:22)
--- NOTE | 2025-08-01 10:14 | NUR ---
INTO SEE PATIENT. PATIENT RESTING IN BED. AT BEDSIDE. PATIENT TO GO HOME WITH AT TIME OF D/C. NO FUTHER CM NEEDS.
--- NOTE | 2025-08-01 10:19 | NUR ---
In with pt to assist with ambulation per Dr. Moss's orders. SPO2 @ 99% prior to ambulation (pt had just returned from using the restroom), 99% while ambulating P83, and 98% upon returning to the room P84. Pt states she doesn't feel any better but that she just "want to go home". Dr. Moss updated on this information. Pt refused a shower, stating she want's to go home.
[2025-08-01 10:36] VITALS: BP 106/56
[2025-08-01 11:02] VITALS: BP 106/56
== END 2025-08-01 10:58 | disposition home or self-care (01) | DRG 281 ==
LOC: ED 09:36 → MS 12:27
PROVIDERS: Emergency Medicine; ADMIT Internal Medicine; ATTEND Internal Medicine
DX: I11.0 Hypertensive heart disease with heart failure (principal); N17.9 Acute kidney failure, unspecified; I21.A1 Myocardial infarction type 2; N39.0 Urinary tract infection, site not specified; I50.9 Heart failure, unspecified; E11.9 Type 2 diabetes mellitus without complications; I48.0 Paroxysmal atrial fibrillation; I25.10 Atherosclerotic heart disease of native coronary artery without angina pectoris; E78.00 Pure hypercholesterolemia, unspecified; Z86.73 Personal history of transient ischemic attack (TIA), and cerebral infarction without residual deficits; I25.2 Old myocardial infarction; Z95.5 Presence of coronary angioplasty implant and graft; Z79.4 Long term (current) use of insulin; Z79.01 Long term (current) use of anticoagulants; Z79.82 Long term (current) use of aspirin; Z79.85 Long-term (current) use of injectable non-insulin antidiabetic drugs; Z79.899 Other long term (current) drug therapy; Z98.51 Tubal ligation status
CPT/HCPCS: 36415; 71045; 80048; 80053; 81001; 83735; 83880; 84484; 85025; 93005; 93010; 93306; A9270; J1815; J1938; J7060